=== PATIENT | male | born 1955 | race Caucasian/White ===

== ENCOUNTER 2024-02-19 09:26 | Emergency (ER) | payer MEDICARE, OTHER, SELFPAY ==
[2024-02-19 09:36] VITALS: BP 158/79; PULSE 58; TEMP 36.8; O2SAT 98; BMI 26.6
--- NOTE | 2024-02-19 09:50 | CT_ITS ---
[address] [address] Patient Name: MANPREET RAMOS MRN: [id number] date: 1955 Sex: M Assigned Patient Location: ER Current Patient Location: ED.MAIN Accession/Order Number: [id number] Exam Date: 02/19/2024 10:55 Report Date: 02/19/2024 11:42 At the request of: BIENVENIDO MILLS Procedure: CT abdomen pelvis w con EXAM: CT abdomen pelvis w con HISTORY: Left lower quadrant pain, rule out diverticulitis COMPARISON: None. TECHNIQUE: Dose reduction techniques were achieved by using automated exposure control and/or adjustment of mA and/or kV according to patient size and/or use of iterative reconstruction technique.CT abdomen and pelvis with contrast. FINDINGS: Mild posterior dependent atelectasis of the bilateral lower lobes. Mild patchy atelectasis of the lingula. Heart size is normal. Calcified granulomas of the liver and spleen. Left adrenal nodule measuring 1.7 cm, may represent an adrenal adenoma, definitive characterization by multiphase CT or MRI. Right adrenal gland is normal. Cyst of the left kidney upper pole measuring 1.2 cm. Punctate nonobstructive stones of the bilateral kidneys and the interpolar regions. No hydronephrosis. No hydroureter. No ureteral stones. No bladder stones. Sigmoid diverticulosis. There is inflammation of the proximal left sigmoid colon with surrounding fat stranding, consistent with acute sigmoid diverticulitis. No small bowel dilation. No adjacent mesenteric edema. Atherosclerotic calcification of the abdominal aorta. Mild degeneration of the bilateral hip joints. Mild degeneration of the symphysis pubis. Mild degeneration of the bilateral sacroiliac joints. Moderate to advanced degeneration at the L4-L5 disc space. Posterior disc osteophyte complex at L4-L5. Mild to moderate degeneration at the L4-L5 disc space. Posterior disc osteophyte complex at L5-S1. CT/CT abdomen pelvis w con IMPRESSION: 1. Acute sigmoid diverticulitis. There is fat stranding surrounding the proximal sigmoid colon. No evidence of perforation. No pericolonic abscess. 2. Other findings as described. Electronically authenticated by: AUGUST RUIZ Date: 02/19/2024 11:42
--- NOTE | 2024-02-19 09:50 | ED.ABDPAIN1 ---
HPI - Abdominal Pain General Chief Complaint: Abdominal Pain Stated Complaint: LOWER ABDOMINAL PAIN Time Seen by Provider: 02/19/24 09:42 Source: patient and family Mode of arrival: walk-in Limitations: no limitations History of Present Illness HPI narrative: 68-year-old male presents to the emergency department for abdominal pain. He has pain in the left lower quadrant for 2 days and it has been getting worse. It started off mild. No trauma fever or vomiting or constipation. He has never had diverticulitis. Related Data Previous Rx's ?Medication ?Instructions ?Recorded ciprofloxacin HCl 500 mg tablet 500 mg PO Q12H #20 tabs 02/19/24 (Cipro) hydrocodone 5 mg-acetaminophen 325 1 tab PO Q6H PRN pain 5 days #20 02/19/24 mg tablet tabs metronidazole 500 mg tablet 500 mg PO TID #30 tabs 02/19/24 ondansetron 4 mg disintegrating 4 mg PO Q6H PRN nausea and 02/19/24 tablet vomiting #20 tabs Allergies Allergy/AdvReac Type Severity Reaction Status Date / Time No Known Drug Allergies Allergy Verified 02/19/24 09:40 Review of Systems ROS Narrative A ten point review of systems is negative except as noted above. PFSH PFSH Social History Little interest or pleasure in doing things: not at all Feeling down, depressed, or hopeless: not at all Exam Narrative Exam Narrative: Nurses note and vital signs reviewed and patient is not hypoxic. General: The patient appears in no apparent distress. Skin: Warm, dry, no pallor noted. There is no rash noted. Head: Normocephalic, atraumatic Eye: Normal conjunctiva, no drainage Ears, Nose, Mouth, and Throat: oral mucosa is moist. Nares patent. Cardiovascular: Regular Rate and Rhythm Respiratory: Patient is in no distress, no accessory muscle use, lungs are clear to auscultation, no wheezing, rales or rhonchi Back: non-tender GI: Tenderness present in the left lower quadrant only without mass. Musculoskeletal: The patient has no evidence of calf tenderness, no pitting edema, symmetrical pulses noted bilaterally Neurological: A&O, normal speech Psychiatric: Cooperative Constitutional Vital Signs, click to edit/add: Last Vital Signs Temp 98.2 F 02/19/24 09:36 Pulse 58 L 02/19/24 09:36 Resp 16 02/19/24 09:36 BP 158/79 H 02/19/24 09:36 Pulse Ox 98 02/19/24 09:36 O2 Del Method Room Air 02/19/24 09:36 Course Vital Signs Vital signs: Vital Signs Temperature 98.2 F 02/19/24 09:36 Pulse Rate 58 L 02/19/24 09:36 Respiratory Rate 16 02/19/24 09:36 Blood Pressure 158/79 H 02/19/24 09:36 Pulse Oximetry 98 02/19/24 09:36 Oxygen Delivery Method Room Air 02/19/24 09:36 Temperature 98.2 F 02/19/24 09:36 Pulse Rate 58 L 02/19/24 09:36 Respiratory Rate 16 02/19/24 09:36 Blood Pressure 158/79 H 02/19/24 09:36 Pulse Oximetry 98 02/19/24 09:36 Oxygen Delivery Method Room Air 02/19/24 09:36 MDM - Abdominal Pain MDM Narrative Medical decision making narrative: Acute uncomplicated diverticulitis is identified on the CAT scan. He is given IV Cipro and Flagyl here and is discharged home on same. Treatment diagnosis and follow-up were discussed with the patient and his . Differential Diagnosis Differential diagnosis: Likely abdominal pain, calculus of kidney, constipation and diverticulitis Lab Data Attestation: I reviewed the patient's lab results. Labs: Lab Results 02/19/24 02/19/24 Range/Units 09:49 09:54 WBC 13.8 H (4.0-11.0) 10^3/uL RBC 4.83 (4.70-6.10) 10^6/uL Hgb 14.7 (14.0-18.0) g/dL Hct 43.3 (42.0-54.0) % MCV 89.6 (80.0-94.0) fL MCH 30.4 (25.9-34.0) pg MCHC 33.9 (29.9-35.2) g/dL RDW 12.2 (11.0-15.0) % Plt Count 203 (150-450) 10^3/uL MPV 11.2 (9.5-13.5) fL Neut % (Auto) 71.7 (43.0-75.0) % Lymph % (Auto) 18.3 L (20.5-60.0) % [place] % (Auto) 9.0 (1.7-12.0) % Eos % (Auto) 0.3 L (0.9-7.0) % Baso % (Auto) 0.4 (0.2-2.0) % Neut # (Auto) 9.9 H (1.4-6.5) 10^3/uL Lymph # (Auto) 2.5 (1.2-3.8) 10^3/uL [place] # (Auto) 1.2 H (0.3-0.8) 10^3/uL Eos # (Auto) 0.0 (0.0-0.7) 10^3/uL Baso # (Auto) 0.1 (0.0-0.1) 10^3/uL Abs Immat Gran (auto) 0.04 H (0.00-0.03) 10^3/uL Imm/Tot Granulo (auto) 0.3 (0.0-0.5) % Sodium 141 (136-145) mmol/L Potassium 4.3 (3.5-5.1) mmol/L Chloride 103 (98-107) mmol/L Carbon Dioxide 26.2 (21.0-32.0) mmol/L Anion Gap 16.1 BUN 20.0 H (7.0-18.0) mg/dL Creatinine 1.45 H (0.70-1.30) mg/dL Est GFR ( Amer) 59 L (>=60 mL/min/1.73m^2) Est GFR (Non-Af Amer) 49 L (>=60 mL/min/1.73m^2) BUN/Creatinine Ratio 13.8 Glucose 118 H (74-106) mg/dL Calcium 9.0 (8.5-10.1) mg/dL Urine Color Lt. yellow (YELLOW) Urine Clarity Clear (CLEAR) Urine pH 5.5 (5.0-9.0) Ur Specific [place] 1.025 (1.005-1.025) Urine Protein Negative (NEG/TRACE) mg/dL Urine Glucose (UA) Negative (NEGATIVE) mg/dL Urine Ketones Negative (NEGATIVE) mg/dL Urine Occult Blood Negative (NEGATIVE) Urine Nitrite Negative (NEGATIVE) Urine Bilirubin Negative (NEGATIVE) Urine Urobilinogen 0.2 (0.2-1.0) EU/dL Ur Leukocyte Esterase Negative (NEGATIVE) Urine RBC 0-2 (0-2) #/HPF Urine WBC None seen (NONE SEEN) #/HPF Ur Squamous Epith Cells None seen (NONE/RARE) #/LPF Urine Crystals None seen (None Seen) #/HPF Urine Bacteria Trace A (NONE SEEN) #/HPF Urine Casts None seen (NONE SEEN) #/LPF Urine Mucus None seen (NONE SEEN) Imaging Data CT scan - abdomen: Radiologist's impression: ITS Impressions Abdomen/Pelvis CT 02/19/24 09:50 IMPRESSION: 1. Acute sigmoid diverticulitis. There is fat stranding surrounding the proximal sigmoid colon. No evidence of perforation. No pericolonic abscess. 2. Other findings as described. Electronically authenticated by: AUGUST RUIZ Date: 02/19/2024 11:36 Discharge Plan Discharge Chief Complaint: Abdominal Pain Clinical Impression: Diverticulitis Patient Disposition: Home, Self-Care Time of Disposition Decision: 11:38 Condition: Good Mode of Transportation: Private Vehicle Prescriptions / Home Meds: New hydrocodone-acetaminophen 5-325 mg tablet 1 tab PO Q6H PRN (Reason: pain) 5 Days Qty: 20 0RF metronidazole 500 mg tablet 500 mg PO TID Qty: 30 0RF ciprofloxacin HCl [Cipro] 500 mg tablet 500 mg PO Q12H Qty: 20 0RF ondansetron 4 mg tablet,disintegrating 4 mg PO Q6H PRN (Reason: nausea and vomiting) Qty: 20 0RF Print Language: Macedonian Instructions: Diverticulitis (ED), Diverticulitis Diet (ED) Referrals: JUAN CARLOS BATRES [Primary Care Provider] - 1 week
[2024-02-19 10:06] LABS: Bilirubin Urine NEGATIVE (NEGATIVE); Blood Urine NEGATIVE (NEGATIVE); Clarity Urine CLEAR (CLEAR); Color Urine LT. YELLOW (YELLOW); Glucose Urine UA NEGATIVE (NEGATIVE); Ketones Urine NEGATIVE (NEGATIVE); Leukocyte Esterase Urine NEGATIVE (NEGATIVE); Nitrite Urine NEGATIVE (NEGATIVE); Protein Urine NEGATIVE (NEG/TRACE); Specific Gravity Urine 1.025 (1.005-1.025); Urobilinogen Urine 0.2 EU/dL (0.2-1.0); pH Urine 5.5 (5.0-9.0)
[2024-02-19 10:14] LABS: Basophils Absolute Auto 0.1 10^3/uL (0.0-0.1); Basophils Percent Auto 0.4 % (0.2-2.0); Eosinophils Percent Auto 0.3 % (0.9-7.0); Hematocrit 43.3 % (42.0-54.0); Hemoglobin 14.7 g/dL (14.0-18.0); Immature Granulocytes Abs Auto 0.04 10^3/uL (0.00-0.03); Immature Granulocytes Pct Auto 0.3 % (0.0-0.5); Lymphocytes Absolute Auto 2.5 10^3/uL (1.2-3.8); Lymphocytes Percent Auto 18.3 % (20.5-60.0); Mean Corpuscular HGB Conc 33.9 g/dL (29.9-35.2); Mean Corpuscular Hemoglobin 30.4 pg (25.9-34.0); Mean Corpuscular Volume 89.6 fL (80.0-94.0); Mean Platelet Volume 11.2 fL (9.5-13.5); Monocytes Absolute Auto 1.2 10^3/uL (0.3-0.8); Neutrophils Absolute Auto 9.9 10^3/uL (1.4-6.5); Neutrophils Percent Auto 71.7 % (43.0-75.0); Platelet Count 203 10^3/uL (150-450); Red Blood Count 4.83 10^6/uL (4.70-6.10); Red Cell Distribution Width 12.2 % (11.0-15.0); White Blood Count 13.8 10^3/uL (4.0-11.0)
[2024-02-19 10:16] LABS: Bacteria Urine TRACE #/HPF (NONE SEEN); Cast Seen? NONE SEEN #/LPF (NONE SEEN); Crystals Seen? None Seen #/HPF (None Seen); Mucus Urine NONE SEEN (NONE SEEN); RBC Urine 0-2 #/HPF (0-2); Squamous Epithelial Cell Urine NONE SEEN #/LPF (NONE/RARE); WBC Urine NONE SEEN #/HPF (NONE SEEN)
[2024-02-19 10:22] LABS: Anion Gap 16.1; BUN Creatinine Ratio 13.8; Carbon Dioxide 26.2 mmol/L (21.0-32.0); Chloride 103 mmol/L (98-107); Estimated GFR (African America 59 (>=60 mL/min/1.73m^2); Estimated GFR (Non-African Ame 49 (>=60 mL/min/1.73m^2); Glucose 118 mg/dL (74-106); Potassium 4.3 mmol/L (3.5-5.1); Sodium 141 mmol/L (136-145)
[2024-02-19] MEDS: CIPROFLOXACIN IN 5 % DEXTROSE 400 MG/200 ML PREMIX 200 MG IV (11:43)
[2024-02-19] MEDS: MORPHINE SULFATE 4 MG/ML VIAL IV (12:06)
[2024-02-19] MEDS: METRONIDAZOLE/SODIUM CHLORIDE 500 MG/100 ML PREMIX 100 MG IV (13:04)
== END 2024-02-19 14:11 | disposition home or self-care (01) ==
PROVIDERS: Emergency Provider Emergency Medicine; PCP Family Medicine
DX: K57.32 Diverticulitis of large intestine without perforation or abscess without bleeding (principal)
CPT/HCPCS: 36415; 74177; 80048; 81001; 85025; 96365; 96367; 96375; 99284; J0744; J1836; J2270; Q9966

== ENCOUNTER 2025-01-19 13:28 | Emergency (ER) | payer MEDICARE, OTHER, SELFPAY ==
--- OUTSIDE RECORDS SUMMARY | 2025-01-19 13:42 | XMS_ITS | CCD ---
Author Organization [facility] Care Team Providers Care 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 Name Role Phone GISEL, DR RANGEL Attending Unavailable GISEL, DR RANGEL Consulting Unavailable GISEL, DR RANGEL Primary Care Unavailable GISEL, DR RANGEL Admitting Unavailable Michael Tobra Unavailable MD Nohemy Batres Primary Care Provider [phone] DO Odette Alexis Jr Attending Provider Nohemy Batres Primary Care Unavailable Odette Alexis Jr Attending Unavailable Odette Alexis Jr Admitting Unavailable Odette Alexis Jr Attending Unavailable Odette Alexis Jr Admitting Unavailable Nohemy Batres Primary Care Unavailable Nohemy [place] MD Primary Care Prov ider ODETTE ALEXIS JR. Referring Unavailable NOHEMY BEACH Primary Care Unav ailable PAPI SABA Attending Unavailable PAPI SABA Admitting Unavailable PAPI SABA Attending Unavailable NOHEMY BEACH Primary Care Unav ailable JAYANT, PAPI Referring Unavailable FOSTER, PAPI Referring Unavailable NUNO-GISEL, NOHEMY Primary Care Unav ailable FOSTER, PAPI Attending Unavailable JAYANT, PAPI Referring Unavailable JAYANT, PAPI Attending Unavailable GOGO, NOHEMY Primary Care Unav ailable FOSTER, PAPI Referring Unavailable JAYANT, PAPI Attending Unavailable GOGO, NOHEMY Primary Care Unav ailable GOGO, NOHEMY Primary Care Unav ailable MICHAEL MELTON Attending Unavailable PAPI SABA Referring Unavailable Nohemy Batres MD Primary Care Provider Nohemy Batres MD Unavailable Nohemy Batres MD Primary Care Provider [phone] JN SANCHEZ Attending Unavailable NOHEMY BATRES Referring Unavailable NOHEMY BATRES Primary Care Unavailable EVELIN HOWARD Attending Unavailable NOHEMY BATRES Attending Unavailable NOHEMY BATRES Attending Unavailable NOHEMY BATRES Referring Unavailable EVELIN HOWARD Attending Unavailable EVELIN HOWARD Attending Unavailable Medications Current Medications Medication Drug Class(es) Dates Sig (Normalized) Sig (Original) acetaminophen 500 mg oral tablet (20 sources) take 1 tablet by mouth every six hours as needed acetaminophen (Tylenol) 500 MG tablet Take 500 mg by mouth every 6 (six) hours if needed Active acetaminophen 325 mg / HYDROcodone bitartrate 5 mg oral tablet (20 sources) Opioid Agonist Start: 02-19-2024 HYDROcodone-acetami nophen ([place]) 5-325 MG tablet 02/19/2024 Active Start: 02-19-2024 take 1 tablet by kaitlynn th every six hours as needed for pain HYDROcodone-acetaminophen ([place]) 5-325 MG tablet TAKE 1 TABLET BY MOUTH EVERY 6 HOURS NEEDED FOR PAIN FOR 5 DAYS 02/19/2024 Active apremilast 30 mg oral tablet (11 sources) Start: 08-17-2024 take 1 tablet by mouth in the morning Otezla 30 MG tablet Indications: Psoriasis vulgaris Take 1 tablet (30 mg) by mouth in the morning and 1 tablet (30 mg) before bedtime. Do not crush, chew, or split tablets. 60 tablet 11 08/17/2024 Active aspirin 81 mg delayed release oral tablet (20 sources) Platelet Aggregation Inhibitor, Nonsteroidal Anti-inflammatory Drug Start: 08-05-2022 End: 09-11-2024 take 1 tablet by mouth in the morning, then take 1 tablet by mouth at bedtime aspirin (ECOTRIN LOW STRENGTH) 81 mg Indications: Coronary artery disease involving coronary bypass graft of [place] heart without angina pectoris Take 1 tablet (81 mg total) by mouth in the morning and 1 tablet (81 mg total) before bedtime. 09/11/2024 Active take 1 tablet by kaitlynn th every twenty-four hours Aspirin 81 MG 1 tablet Orally Once a day Active atorvastatin 80 mg oral tablet (20 sources) HMG-CoA Reductase Inhibitor Start: 10-22-2022 End: 10-26-2024 take 1 tablet by mouth once daily atorvastatin (Lipitor) 80 MG tablet Indications: Coronary artery disease involving [place] coronary artery of [place] heart without angina pectoris TAKE 1 TABLET (80 MG) BY MOUTH 1 (ONE) TIME EACH DAY AT THE SAME TIME 90 tablet 1 04/29/2024 Active take 1 tablet by mouth in the mo rning Atorvastatin Calcium 80 MG TAKE 1 TABLET (80 MG TOTAL) BY MOUTH IN THE MORNING Oral for 90 Days Active azelastine hydrochloride 0.137 mg/actuat metered dose nasal spray (11 sources) Histamine-1 Receptor Antagonist Start: 08-31-2024 End: 08-31-2025 take 1 spray(s) nasal route in the morning azelastine (Astelin) 0.1 % nasal spray Indications: Other rhinitis Administer 1 spray into each nostril in the morning and 1 spray before bedtime. Use in each nostril as directed. 30 mL 12 08/31/2024 08/31/2025 Active Start: 08-31-2024 End: 08-31-2025 take 1 spray(s) nasal route in the morning, then take 1 spray(s) nasal route at bedtime, then take 1 spray(s) nasal route in the morning, then take 1 spray(s) nasal route at bedtime azelastine (ASTELIN) 137 mcg (0.1 %) nasal spray Administer 1 spray into each nostril in the morning and 1 spray before bedtime. ADMINISTER 1 SPRAY INTO EACH NOSTRIL IN THE MORNING AND 1 SPRAY BEFORE BEDTIME USE IN EACH NOSTRIL DIRECTED. 08/31/2024 08/31/2025 Active ciprofloxacin 500 mg oral tablet (20 sources) Quinolone Antimicrobial Start: 02-19-2024 take 1 tablet by mouth every twelve hours ciprofloxacin (Cipro) 500 MG tablet Take 500 mg by mouth every 12 (twelve) hours 02/19/2024 Active clobetasol propionate 0.5 mg/ml medicated shampoo (20 sources) Corticosteroid Start: 07-08-2023 Clobetasol Propionate 0.05 % shampoo Indications: Psoriasis vulgaris Apply to scalp, leave on 5 min, rinse. 2-3 x week, 30 day supply 118 mL 11 07/08/2023 Active ezetimibe 10 mg oral tablet (9 sources) Dietary Cholesterol Absorption Inhibitor Start: 09-11-2024 take 1 tablet by mouth in the morning ezetimibe (Zetia) 10 MG tablet Take 10 mg by mouth in the morning. 09/11/2024 Active gabapentin 300 mg oral capsule (20 sources) Anti-epileptic Agent Start: 01-16-2025 take 1 capsule by mouth once daily gabapentin (Neurontin) 300 MG capsule Indications: Type 2 diabetes mellitus with diabetic polyneuropathy (HCC) TAKE 1 CAPSULE BY MOUTH EVERY DAY 90 capsule 01/16/2025 Active Start: 10-18-2023 End: 01-16-2025 take 1 capsule by mouth once daily gabapentin (Neurontin) 300 MG capsule Indications: Type 2 diabetes mellitus with diabetic polyneuropathy (HCC) TAKE 1 CAPSULE BY MOUTH EVERY DAY 90 capsule 10/15/2024 01/16/2025 Discontinued Start: 05-05-2022 End: 09-10-2023 take 1 capsule by mouth once daily in the evening Gabapentin 300 MG capsule Take 1 capsule by mouth daily. pm 0 10/26/2022 Active Start: 02-01-2019 End: 11-02-2022 take 100 mg by mouth once daily at bedtime Gabapentin Discontinued 100 MG PO Daily at bedtime February 01, 2019 12:00am November 02, 2022 11:59am hydrocortisone 25 mg/ml topical cream (20 sources) Corticosteroid Start: 07-08-2023 hydrocortisone 2.5 % cream Indications: Psoriasis vulgaris Apply thin layer to face and behind ears affected areas bid prn for flares 60 g 11 07/08/2023 Active Insulin Aspart U-100 (Novolog Flexpen U-100 Insulin) 100 unit/mL (3 mL) Insulin Pen (3 sources) Start: 02-01-2019 Insulin Aspart U-100 (Novolog Flexpen U-100 Insulin) 100 unit/mL (3 mL) Insulin Pen Active 11 UNIT SUBCUT Daily with breakfast February 01, 2019 12:00am Start: 02-01-2019 inject 8 [IU] by sub cutaneous injection once daily before lunch Insulin Aspart U-100 (Novolog Flexpen U-100 Insulin) 100 unit/mL (3 mL) Insulin Pen Active 8 UNIT SUBCUT Daily before lunch February 01, 2019 12:00am Start: 02-01-2019 Insulin Aspart U-100 (Novolog Flexpen U-100 Insulin) 100 unit/mL (3 mL) Insulin Pen Active 11 UNIT SUBCUT Daily before supper February 01, 2019 12:00am 3 ml insulin aspart, human 100 unt/ml pen injector (20 sources) Insulin Analog Start: 07-03-2024 insulin aspart FlexPen (NovoLOG) 100 UNIT/ML pen Indications: Type 2 diabetes mellitus with other circulatory complications (HCC) Inject 8 Units as directed in the morning and 8 Units in the evening and 8 Units before bedtime. Inject 8 units at breakfast, 8 units at lunch and 11 units with dinner. 30 mL 1 07/03/2024 Active Start: 06-09-2024 insulin aspart (NovoLOG FLEXPEN) 100 UNIT/ML pen Indications: Type 2 diabetes mellitus with other circulatory complications (CMS/HCC) Inject 8 units at breakfast, 8 units at lunch, 11 units with dinner . 27 units total a day 30 mL 1 06/09/2024 Active Start: 03-14-2019 End: 06-09-2024 NOVOLOG FLEXPEN U-100 INSULI N 100 unit/mL (3 mL) insulin pen 11 Units in the morning and 11 Units at noon and 11 Units in the evening. Take with meals. 11 units in the AM 8 UNITS AT LUNCH AND 11 UNITS AT DINNER. 03/14/2019 Active NovoLOG FlexPen 100 UNIT/ML INJECT 11 UNITS AT BREAKFAST, 8 UNITS AT LUNCH, 11 UNITS WITH DINNER AND 2-3 UNITS WITH SNACKS Subcutaneous for 90 Days Active 3 ml insulin degludec 100 unt/ml pen injector (20 sources) Insulin Analog Start: 06-22-2024 End: 06-22-2025 Insulin Degludec FlexTouch 100 UNIT/ML solution pen-injector Indications: Diabetic polyneuropathy associated with type 2 diabetes mellitus (HCC) Inject 32 Units under the skin Daily 30 mL 1 06/24/2024 Active Start: 06-09-2024 insulin deglud ec (Tresiba FlexTouch) 100 UNIT/ML injection Indications: Controlled type 2 diabetes mellitus without complication, with long-term current use of insulin (CMS/HCC) Inject 32 Units under the skin Daily 30 mL 1 06/09/2024 Active Start: 12-19-2023 End: 12-18-2024 insulin degludec (Tresiba FlexTouch) 100 UNIT/ML injection Indications: Controlled type 2 diabetes mellitus without complication, with long-term current use of insulin (CMS/HCC) Inject 34 Units under the skin Daily 30.6 mL 3 12/19/2023 06/09/2024 Discontinued (Reorder) Start: 03-18-2023 End: 12-19-2023 insulin degludec (Tresiba FlexTouch) 100 UNIT/ML injection Indications: Controlled type 2 diabetes mellitus without complication, with long-term current use of insulin (CMS/HCC) Inject 30 Units under the skin in the morning. 27 mL 1 03/18/2023 12/19/2023 Discontinued Start: 03-02-2019 inject 29 [IU] by sims bcutaneous injection once daily TRESIBA FLEXTOUCH U-100 100 unit/mL (3 mL) insulin pen Inject 29 Units under the skin nightly. 0 03/02/2019 Active Insulin Degludec (Tresiba FlexTouch) 100 UNIT/ML Solution Pen-injector injection Inject 34 Units under the skin at bedtime. 0 Active Tresiba FlexTouc h 100 UNIT/ML Subcutaneous for 90 Days Active Insulin Degludec (Tresiba Flextouch U-100) 100 unit/mL (3 mL) Insulin Pen (1 source) Start: 02-01-2019 Insulin Deglud ec (Tresiba Flextouch U-100) 100 unit/mL (3 mL) Insulin Pen Active 29 UNIT SUBCUT Daily at bedtime February 01, 2019 12:00am lisinopril 2.5 mg oral tablet (20 sources) Angiotensin Converting Enzyme Inhibitor Start: 10-30-2022 End: 09-11-2024 take 1 tablet by mouth once daily lisinopril 2.5 MG tablet Indications: Primary hypertension TAKE 1 TABLET BY MOUTH EVERY DAY 90 tablet 1 09/05/2024 Active 24 hr metoprolol succinate 50 mg extended release oral tablet (20 sources) beta-Adrenergic Digna Start: 11-02-2022 take 50 mg by mouth twice daily Metoprolol Succinate Active 50 MG PO Twice daily November 02, 2022 12:00am Start: 08-18-2021 End: 09-11-2024 take 1 tablet by mouth every twenty-four hours at bedtime metoprolol succinate XL (Toprol-XL) 50 MG 24 hr tablet Indications: Essential hypertension TAKE 1 TABLET (50 MG) BY MOUTH IN THE MORNING AND BEFORE BEDTIME 180 tablet 1 07/27/2024 Active take 1 tablet by kaitlynn th every twenty-four hours Metoprolol Succinate ER 50 MG 1 tablet Orally Once a day Active metroNIDAZOLE 500 mg oral tablet (14 sources) Nitroimidazole Antimicrobial Start: 02-19-2024 take 1 tablet by mouth in the morning, then take 1 tablet by mouth in the evening, then take 1 tablet by mouth at bedtime metroNIDAZOLE (Flagyl) 500 MG tablet Take 500 mg by mouth in the morning and 500 mg in the evening and 500 mg before bedtime. 02/19/2024 Active Multiple Vitamin (multivitamin) tablet (3 sources) take 1 tablet by mouth once daily Multiple Vitamin (multivitamin) tablet Take 1 tablet by mouth daily. 0 Active Multiple Vitamin (THERAPEUTIC MULTIVITAMIN PO) (20 sources) Multiple Vitamin (THERAPEUTIC MULTIVITAMIN PO) 1 (one) time each day at the same time Active Multiple Vitamin (THERAPEUTIC MULTIVITAMIN PO) 1 (one) time each day at the same time. Active nyndhzpo-jzhn-AY-calcium &mi ns (THERAGRAN-M) 9 mg iron-400 mcg tablet (4 sources) bovtnphs-igbn-LN -calcium &mins (THERAGRAN-M) 9 mg iron-400 mcg tablet Take 1 tablet by mouth in the morning. Active Multivitamin preparation (2 sources) Start: 023 take 1 tablet by mouth once daily Multivitamin Active 1 TAB PO Daily November 02, 2022 12:00am take 1 tablet by mouth once lois y Multi Vitamin - 1 tablet Orally Once a day Active nitroglycerin 0.4 mg sublingual tablet (5 sources) Nitrate Vasodilator nitroglyceri n (NITROSTAT) 0.[address] 1 tablet (0.4 mg total) under the tongue every 5 (five) minutes as needed for chest pain. Active ondansetron 4 mg disintegrating oral tablet (20 sources) Serotonin-3 Receptor Antagonist Start: 02-19-2024 ondansetron ODT (Zofran-ODT) 4 MG disintegrating tablet 02/19/2024 Active Qunol Ultra CoQ10 100-150 MG-UNIT (1 source) Qunol Ultra CoQ1 0 100-150 MG-UNIT as directed Orally Active ubidecarenone 200 mg oral capsule (3 sources) Coenzyme Q10 (Co Q-10) 200 MG capsule Take by mouth daily. 0 Active Coenzyme Q10 (Co Q-10) 200 MG capsule Take by mouth. 0 Active ubidecarenone 100 mg / vitamin e 5 unt oral capsule (20 sources) coenzyme Q-10 10 0 MG capsule 200 mg Active ubiquinol 200 mg oral capsule (6 sources) Start: 11-02-2022 take 200 mg by mouth once daily Coq10 (Ubiquinol) Active 200 MG PO Daily November 02, 2022 12:00am take 100 mg by mouth in the morn ing COQ10, UBIQUINOL, ORAL Take 100 mg by mouth in the morning. Active Completed/Discontinued Medications Medication Drug Class(es) Dates Sig (Normalized) Sig (Original) acetaminophen 325 mg / oxyCODONE hydrochloride 5 mg oral tablet (7 sources) Opioid Agonist Start: 08-03-2022 End: 02-24-2024 take 1 tablet by mouth every six hours as needed oxyCODONE-acetamino phen (Percocet) 5-325 MG tablet TAKE 1 TABLET BY MOUTH EVERY 6 HOURS NEEDED FOR 7 DAYS 08/03/2022 02/24/2024 Discontinued (Therapy completed) Start: 08-03-2022 oxyCODONE-acet aminophen 5-325 MG per tablet as needed. 0 08/03/2022 Active 0.8 ml adalimumab 50 mg/ml prefilled syringe (1 source) Tumor Necrosis Factor Digna Start: 02-01-2019 End: 11-02-2022 inject 40 mg by subcutaneous injection every other week Adalimumab (Humira) 40 mg/0.8 mL Syringe Kit Discontinued 40 MG SUBCUT Q14D February 01, 2019 12:00am November 02, 2022 12:04pm ferrous sulfate 325 mg oral tablet (5 sources) Start: 08-05-2022 End: 09-10-2023 take 1 tablet by mouth in the morning, then take 1 tablet by mouth at mealtime ferrous sulfate 325 (65 FE) mg tablet Take 1 tablet (325 mg total) by mouth in the morning and 1 tablet (325 mg total) in the evening. Take with meals. 60 tablet 08/05/2022 09/10/2023 Discontinued (Therapy completed) End: 02-24-2024 take 1 tablet by mouth in the morning Ferrous Sulfate (IRON PO) Take 1 tablet by mouth in the morning. 02/24/2024 Discontinued (Therapy completed) rosuvastatin calcium 5 mg oral tablet (1 source) HMG-CoA Reductase Inhibitor Start: 02-01-2019 End: 11-02-2022 take 5 mg by mouth once daily in the morning Rosuvastatin Discontinued 5 MG PO Every morning February 01, 2019 12:00am November 02, 2022 12:01pm Problems Active Problems Problem Classification Problem Date Documented Da te Episodic/Chronic Acute myocardial infarction (20 sources) Myocardial infarction; Translations: [Acute myocardial infarction, unspecified] Onset: 9 Resolved: 4 09-15-2022 Chronic Complication of device; implant or graft (20 sources) Arteriosclerosis of coronary artery bypass graft; Translations: [Atherosclerosis of coronary artery bypass graft(s) without angina pectoris] Onset: 9 Resolved: 1 09-15-2022 Chronic Complication of device; implant or graft (5 sources) Joint pain; Translations: [Pain due to internal orthopedic prosthetic devices, implants and grafts, sequela] Onset: 3 12-29-2022 Episodic Congestive heart failure; nonhypertensive (20 sources) Acute on chronic systolic heart failure; Translations: [Acute on chronic systolic (congestive) heart failure] Onset: 9 Resolved: 4 02-24-2024 Chronic Coronary atherosclerosis and other heart disease (20 sources) Coronary arteriosclerosis; Translations: [Atherosclerotic heart disease of [place] coronary artery without angina pectoris] Onset: 9 Chronic Diabetes mellitus with complications (20 sources) Other specified diabetes mellitus with diabetic mononeuropathy; Translations: [Polyneuropathy due to type 2 diabetes mellitus] Onset: 9 Chronic Diabetes mellitus without complication (20 sources) Type 2 diabetes mellitus; Translations: [Type 2 diabetes mellitus without complications] Onset: 9 02-02-2019 Chronic Disorders of lipid metabolism (20 sources) Hyperlipidemia; Translations: [Hyperlipidemia, unspecified] Onset: 9 02-02-2019 Chronic Diverticulosis and diverticulitis (2 sources) Diverticulitis of intestine; Translations: [Diverticulitis of intestine, part unspecified, without perforation or abscess without bleeding] 02-24-2024 Chronic Essential hypertension (20 sources) Essential hypertension; Translations: [Essential (primary) hypertension] Onset: 1 09-15-2022 Chronic Neoplasms of unspecified nature or uncertain behavior (2 sources) Neoplastic disease; Translations: [Neoplasm of unspecified behavior of bone, soft tissue, and skin] 08-03-2024 Episodic Osteoarthritis (20 sources) Arthritis of right knee; Translations: [Unilateral primary osteoarthritis, right knee] Onset: 3 09-15-2022 Chronic Other aftercare (2 sources) Removal of sutures done; Translations: [Encounter for removal of sutures] 10-10-2024 Episodic Other connective tissue disease (20 sources) Artificial knee joint present; Translations: [Presence of right artificial knee joint] Onset: 3 08-26-2022 Chronic Other connective tissue disease (20 sources) History of right total knee replacement; Translations: [Presence of right artificial knee joint] Onset: 3 09-15-2022 Chronic Other connective tissue disease (5 sources) History of total knee arthroplasty; Translations: [Presence of right artificial knee joint] Onset: 3 08-04-2022 Chronic Other endocrine disorders (20 sources) Male hypogonadism; Translations: [Testicular hypofunction] Onset: 6 09-15-2022 Chronic Other endocrine disorders (2 sources) Adrenal mass; Translations: [Disorder of adrenal gland, unspecified] 02-24-2024 Chronic Other gastrointestinal disorders (2 sources) Adrenal mass 02-29-2024 Episodic Other inflammatory condition of skin (20 sources) Psoriasis vulgaris; Translations: [Psoriasis vulgaris] Onset: 1 09-15-2022 Chronic Other inflammatory condition of skin (20 sources) Psoriasis; Translations: [Psoriasis, unspecified] Onset: 9 09-15-2022 Chronic Other inflammatory condition of skin (20 sources) Psoriatic arthritis; Translations: [Arthropathic psoriasis, unspecified] Onset: 8 09-15-2022 Chronic Other male genital disorders (20 sources) Secondary erectile dysfunction; Translations: [Erectile dysfunction due to diseases classified elsewhere] Onset: 3 09-15-2022 Chronic Other male genital disorders (20 sources) Male erectile dysfunction, unspecified; Translations: [Impotence of organic origin] Onset: 3 09-15-2022 Chronic Other nervous system disorders (20 sources) Neuropathy; Translations: [Polyneuropathy, unspecified] Onset: 3 09-15-2022 Chronic Other screening for suspected conditions (not mental disorders or infectious disease) (8 sources) Blood chemistry abnormal; Translations: [Abnormal finding of blood chemistry, unspecified] Onset: 3 03-16-2023 Episodic Other skin disorders (2 sources) Actinic keratosis; Translations: [Actinic keratosis] 08-03-2024 Episodic Spondylosis; intervertebral disc disorders; other back problems (20 sources) Lumbar spondylosis; Translations: [Spondylosis without myelopathy or radiculopathy, lumbar region] Onset: 3 Chronic Superficial injury; contusion (2 sources) Tick bite; Translations: [Insect bite (nonvenomous) of left upper arm, initial encounter] 08-03-2024 Episodic Unclassified (3 sources) CONTACT W/AND (SUSP) EXPOS COVID-19; Translations: [CONTACT W/AND (SUSP) EXPOS COVID-19] Onset: 1 Unclassified (1 source) Ankylosis, right knee; Translations: [Ankylosis, right knee] Onset: 3 Unclassified (1 source) Encounter for preprocedural laboratory examination; Translations: [Encounter for preprocedural laboratory examination] Onset: 3 Past or Other Problems Problem Classification Problem Date Documented Da te Episodic/Chronic Acute and unspecified renal failure (20 sources) Acute renal failure syndrome; Translations: [Acute kidney failure, unspecified] Onset: 02-14-2019 09-15-2022 Episodic Administrative/social admission (20 sources) Discharge status; Translations: [Other problems related to medical facilities and other health care] Onset: 02-15-2019 09-15-2022 Episodic Complications of surgical procedures or medical care (20 sources) Postoperative hypertension; Translations: [Postprocedural hypertension] Onset: 02-15-2019 09-15-2022 Episodic Mood disorders (20 sources) Mood disorders Onset: 02-24-2024 02-24-2024 Nutritional deficiencies (20 sources) Deficiency of macronutrients; Translations: [Mild protein-calorie malnutrition] Onset: 02-16-2019 Resolved: 02-11-2023 02-11-2023 Chronic Other gastrointestinal disorders (20 sources) Dysphagia; Translations: [Dysphagia, unspecified] Onset: 02-13-2019 02-02-2019 Episodic Other non-epithelial cancer of skin (20 sources) Basal cell carcinoma of ear; Translations: [Basal cell carcinoma of skin of right ear and external auricular canal] Onset: 12-07-2019 09-15-2022 Episodic Other non-traumatic joint disorders (20 sources) Pain in right knee; Translations: [Pain in joint, lower leg] Onset: 08-26-2022 08-26-2022 Episodic Other non-traumatic joint disorders (20 sources) Stiffness of right knee; Translations: [Stiffness of right knee, not elsewhere classified] Onset: 08-26-2022 08-26-2022 Episodic Pleurisy; pneumothorax; pulmonary collapse (20 sources) Atelectasis; Translations: [Atelectasis] Onset: 02-13-2019 09-15-2022 Episodic Residual codes; unclassified (20 sources) Insomnia; Translations: [Insomnia, unspecified] Onset: 09-15-2022 09-15-2022 Episodic Unclassified (1 source) CONTACT W/AND (SUSP) EXPOS COVID-19; Translations: [CONTACT W/AND (SUSP) EXPOS COVID-19] Onset: 01-08-2021 Results Test Name Value Interpretation Reference Range Facility No Panel Informationon 09-27 Complexity: Intermediate Final length (cm): 4 Reason for type of repair: allow closure of the large defect Undermining: edges undermined Undermining comment: The surrounding tissue was undermined until the skin edges could be approximated without undue tension. Any tissue redundancies were removed. Subcutaneous layers (deep stitches): Suture size: 3-0 Suture type comment: Biosyn Stitches: Buried horizontal mattress (Closure was performed in a layered fashion with subcutaneous tissue closed first using tension-bearing absorbable sutures to the level of the superficial fascia.) Fine/surface layer approximation (top stitches): Suture size: 4-0 Suture type: Prolene (polypropylene) Stitches: simple running Stitches comment: Epicuticular skin sutures were then placed with minimal tension. Suture removal (days): 14 Hemostasis achieved with: suture and electrodesiccation Outcome: patient tolerated procedure well with no complications Post-procedure details: sterile dressing applied and wound care instructions given Post-procedure details comment: It was emphasized to the patient to contact the office for any signs of infection, uncontrollable bleeding, or complications. Dressing type: bandage Count includes the [facility] Lesion length (cm): 0.8 Lesion width (cm): 0.5 Margin per side (cm): 0.4 Total excision diameter (cm): 1.6 Informed consent: discussed and consent obtained Informed consent comment: Risks and possible complications were discussed as noted on the consent form. The consent form was signed prior to the procedure. Timeout: patient name, date of , surgical site, and procedure verified Timeout comment: Patient and provider identified site. Site was marked and excision was drawn out. Photo was taken and shown to patient, patient verified this is the correct site. Procedure prep: Patient was prepped and draped in usual sterile fashion (The planned incision lines were drawn along relaxed skin tension lines, if possible, to minimize scarring and deformity of surrounding structures.) Prep type: Chlorhexidine Anesthesia: the lesion was anesthetized in a standard fashion Anesthesia comment: The local anesthetic was injected to create a field block at the site of the procedure. Anesthetic: 1% lidocaine w/ epinephrine 1-100,000 buffered w/ 8.4% NaHCO3 Instrument used: #15 blade Instrument used comment: Incisions were made as drawn, and the surrounding tissue was undermined until the skin edges could be approximated without undue tension. Any tissue redundancies were removed. Hemostasis achieved with: suture and electrodesiccation Additional details: Amount of lidocaine used: 8.0 ml Estimated blood loss: 1.0 ml [facility] No Panel InformationOrdered By: Idalmis Louis on 09-27-2024 [facility] POCT EKGon 09-11-2024 [facility] No Panel Informationon 08-03 Type of biopsy: tangential Informed consent: discussed and consent obtained Informed consent comment: The risks and benefits of the biopsy were discussed. Risks include but are not limited to bleeding, infection, scarring, pain, and nerve damage. An opportunity to ask questions prior to the procedure was permitted and all questions were answered. Patient was prepped and draped in usual sterile fashion: area cleansed with alcohol. Anesthesia: the lesion was anesthetized in a standard fashion Anesthetic: 1% lidocaine w/ epinephrine 1-100,000 buffered w/ 8.4% NaHCO3 Instrument used: DermaBlade Hemostasis achieved with: electrodesiccation Outcome: patient tolerated procedure well Outcome comment: The specimen was placed in a prelabeled formalin container to be sent for pathology Post-procedure details: sterile dressing applied and wound care instructions given Post-procedure details comment: Emphasized need to contact clinic for any signs of infection, uncontrollable bleeding, or complications. Dressing type: bandage Additional details: Photo taken Amount of lidocaine used: [address] [place] [address] ABDOMEN PELVIS W AND WO I V CONTRASTon 03-06-2024 CT ABDOMEN PELVIS W AND WO IV CONTRAST CT ABDOMEN PELVIS W AND WO IV CONTRAST Reason for exam: Adrenal nodule Technical: Spiral images through the abdomen and pelvis were obtained. Contrast: 100 cc Isovue-300 IV Findings: Lower chest: Unremarkable Liver: Unremarkable. Spleen: Unremarkable. Normal in size. Gallbladder: Contracted. Pancreas: Unremarkable. Adrenals: A left adrenal nodule is again noted, measuring 1.6 x 1.6 cm. It measures 6.43 HU precontrast, 55.03 HU early phase postcontrast and 15.95 delayed phase postcontrast. The absolute washout is calculated at 80.4%, and the relative washout is 71.0%. Kidneys/urinary system: Unremarkable. Aorta: Normal. Retroperitoneum: Clear. No adenopathy identified. Bowel: No dilatation, fold or wall thickening is appreciated. Mesentery/Peritoneum: Clear. Abdominal wall: Negative for hernia. Appendix: Not identified. Bladder: A 2 mm calculus lies dependently within the lumen. Prostate/pelvic sidewalls: Normal. Bone structures: Intact. Impression: CT abdomen: Washout characteristics of the left adrenal nodule are consistent with a benign adrenal adenoma. No further work-up is required. CT pelvis: 2 mm bladder calculus. All CT scans at this institution are performed using dose optimization techniques as appropriate for the performed exam including the following: Automated exposure control Adjustment of the mA and/or kV according to patient size Use of iterative reconstruction technique Dictated on: 03/06/2024 7:39 PM This report has been electronically signed and approved by the interpreting Radiologist. Normal Not Available CBC panel Auto (Bld)on 02-24 Erythrocyte distribution width (RBC) [Ratio] 12.2 % 11.0 - 15.0 % [facility] Hematocrit (Bld) [Volume fraction] 41.9 % 38.5 - 50.0 % [facility] Hemoglobin (Bld) [Mass/Vol] 14.2 g/dL 13.2 - 17.1 g/dL [facility] MCH (RBC) [Entitic mass] 30.8 pg 27. 0 - 33.0 pg [facility] MCHC (RBC) [Mass/Vol] 33.9 g/dL 32.0 - 36.0 g/dL [facility] Comment on above: For adults, a slight decrease in the calculated MCHC value (in the range of 30 to 32 g/dL) is most likely not clinically significant; however, it should be interpreted with caution in correlation with other red cell parameters and the patient's clinical condition. MCV (RBC) [Entitic vol] 90.9 fL 80.0 - 100.0 fL [facility] Platelet mean volume (Bld) [Entitic vol] 12.2 fL 7.5 - 12.5 fL [facility] Platelets (Bld) [#/Vol] 139 10*3/uL Low [facility] RBC (Bld) [#/Vol] 4.61 10*6/uL [facility] WBC (Bld) [#/Vol] 7.5 10*3/uL [facility] Laboratory - Chemistry and C hemistry - challengeon 02-25-2024 Albumin [Mass/Vol] 3.9 g/dL 3.6 - 5.1 g/dL [facility] Albumin/Globulin [Mass ratio] 1.4 {ratio} [facility] ALP [Catalytic activity/Vol] 92 U/L 35 - 144 U/L [facility] ALT [Catalytic activity/Vol] 31 U/L 9 - 46 U/L [facility] AST [Catalytic activity/Vol] 36 U/L High 10 - 35 U/L [facility] Bilirubin [Mass/Vol] 0.4 mg/dL 0.2 - 1 .2 mg/dL [facility] Calcium [Mass/Vol] 9 mg/dL 8.6 - 10. 3 mg/dL [facility] Chloride [Moles/Vol] 103 mmol/L 98 - 11 0 mmol/L [facility] CO2 [Moles/Vol] 27 mmol/L 20 - 32 mmol/L [facility] Creatinine [Mass/Vol] 1.09 mg/dL 0.70 - 1.35 mg/dL [facility] GFR/1.73 sq M.predicted among non-blacks MDRD (S/P/Bld) [Vol rate/Area] 74 mL/min/{1.73_m2} > OR = 60 mL/min/1.73m 2 [facility] Globulin (S) [Mass/Vol] 2.8 g/dL N [facility] Glucose [Mass/Vol] 125 mg/dL High 65 - 99 mg/dL [facility] Comment on above: Fasting reference interval For someone without known diabetes, a glucose value between 100 and 125 mg/dL is consistent with prediabetes and should be confirmed with a follow-up test. Potassium [Moles/Vol] 4.2 mmol/L 3.5 - 5.3 mmol/L [facility] Prostate specific Ag [Mass/Vol] 0.38 ng/mL < OR = 4.00 [facility] Comment on above: The total PSA value from this assay system is standardized against the WHO standard. The test result will be approximately 20% lower when compared to the equimolar-standardized total PSA (Anirudh Cassie). Comparison of serial PSA results should be interpreted with this fact in mind. This test was performed using the Siemens chemiluminescent method. Values obtained from different assay methods cannot be used interchangeably. PSA levels, regardless of value, should not be interpreted as absolute evidence of the presence or absence of disease. Protein [Mass/Vol] 6.7 g/dL 6.1 - 8.1 g/dL [facility] Sodium [Moles/Vol] 138 mmol/L 135 - 146 mmol/L [facility] Urea nitrogen [Mass/Vol] 19 mg/dL 7 - 25 mg/d L [facility] Urea nitrogen/Creatinine [Mass ratio] SEE NOTE: [facility] Comment on above: Not Reported: BUN an d Creatinine are within reference range. Lipid 1996 panelon 4 Cholesterol [Mass/Vol] 129 mg/dL NINF - 200 mg/dL [facility] Cholesterol in HDL [Mass/Vol] 40 mg/dL > OR = 40 [facility] Cholesterol in LDL [Mass/Vol] 66 mg/dL mg/dL (calc) [facility] Comment on above: Reference range: <10 0 Desirable range <100 mg/dL for primary prevention; <70 mg/dL for patients with CHD or diabetic patients with > or = 2 CHD risk factors. LDL-C is now calculated using the Cirilo calculation, which is a validated novel method providing better accuracy than the Friedewald equation in the estimation of LDL-C. Peewee LAYTON et al. YANETH. 2013;310(19): 7691-9309 (http://education.L[employer].Shoette/faq/GMO261) Cholesterol non HDL [Mass/Vol] 89 mg/dL [facility] Comment on above: For patients with di abetes plus 1 major ASCVD risk factor, treating to a non-HDL-C goal of <100 mg/dL (LDL-C of <70 mg/dL) is considered a therapeutic option. Cholesterol.total/Choles terol in HDL [Mass ratio] 3.2 {ratio} [facility] Triglyceride [Mass/Vol] 145 mg/dL [facility] - 150 mg/dL [facility] Microalbumin/Creatinine rati o panel (U)on 02-25-2024 Albumin DL <= 20 mg/L (U) [Mass/Vol] 3 mg/dL See Note: [facility] Comment on above: Reference Range: Reference Range Not established Albumin/Creatinine (U) [Mass ratio] 19 [facility] Comment on above: The ADA defines abnormalities in albumin excretion as follows: Albuminuria Category Result (mg/g creatinine) Normal to Mildly increased <30 Moderately increased 30-299 Severely increased > OR = 300 The ADA recommends that at least two of three specimens collected within a 3-6 month period be abnormal before considering a patient to be within a diagnostic category. Creatinine (U) [Mass/Vol] 154 mg/dL 20 - 320 mg/dL [facility] Information Site ID: QPT Name: [email or web address] Address: [address] [place] [id number] Director: Brody Harp MD Count includes the [facility] No Panel Informationon 02-24 Interpretation and review of laboratory results Abnormal [facility] Information Site ID: QPT Name: [email or web address] [facility] Address: [address] [place] [address], [address] [place] [id number] Director: Brody Harp MD Count includes the [facility] Laboratory - Hematology and Cell countson 02-24-2024 HbA1c (Bld) [Mass fraction] 6.9 % [facility] No Panel Informationon 02-23 Interpretation and review of laboratory results Abnormal Count includes the [facility] POCT EKGon 09-10-2023 [facility] CBCon 03-25-2023 ABSOLUTE BAS 0.0 10*3/uL Normal 0.0-0.2 [facility] Comment on above: Performed By: #### P T, ACBC, CMPF #### Testing performed at [address] [address] ABSOLUTE EOS 0.1 10*3/uL Normal 0.0-0.7 [facility] Comment on above: Performed By: #### P T, ACBC, CMPF #### Testing performed at [address] [address] ABSOLUTE NEUTROPHIL COUNT 4.6 10*3/uL Normal 1.4-6.5 [facility] Comment on above: Performed By: #### P T, ACBC, CMPF #### Testing performed at [address] [address] Basophils/100 WBC (Bld) 0.5 % Normal 0.0-2.0 [facility] Comment on above: Performed By: #### P T, ACBC, CMPF #### Testing performed at [address] [place] [address] DTYPE AUTO DIFF Normal [facility] Comment on above: Performed By: #### P T, ACBC, CMPF #### Testing performed at [address] [address] Eosinophils/100 WBC (Bld) 1.5 % Normal 0.0-11.0 [facility] Comment on above: Performed By: #### P T, ACBC, CMPF #### Testing performed at [address] [address] Lymphocytes (Bld) [#/Vol] 2.4 10*3/uL Normal 1.2-3.4 [facility] Comment on above: Performed By: #### P T, ACBC, CMPF #### Testing performed at [address] [address] Lymphocytes/100 WBC (Bld) 30.1 % Normal 20.0-55.0 [facility] Comment on above: Performed By: #### P T, ACBC, CMPF #### Testing performed at [address] [address] Monocytes (Bld) [#/Vol] 0.7 10*3/uL Normal 0.0-0.7 [facility] Comment on above: Performed By: #### P T, ACBC, CMPF #### Testing performed at [address] [address] Monocytes/100 WBC (Bld) 9.4 % Normal 0.0-10.0 [facility] Comment on above: Performed By: #### P T, ACBC, CMPF #### Testing performed at [address] [address] Neutrophils/100 WBC (Bld) 58.5 % Normal 37.0-75.0 [facility] Comment on above: Performed By: #### P T, ACBC, CMPF #### Testing performed at [address] [address] Erythrocyte distribution width (RBC) [Ratio] 13.3 % Normal 11.5-14.5 [facility] Comment on above: Performed By: #### P T, ACBC, CMPF #### Testing performed at [address] [address] Hematocrit (Bld) [Volume fraction] 44.0 % Normal 42.0-52.0 [facility] Comment on above: Performed By: #### P T, ACBC, CMPF #### Testing performed at [address] [address] Hemoglobin (Bld) [Mass/Vol] 14.7 g/dL Normal 14.0-18.0 [facility] Comment on above: Performed By: #### P T, ACBC, CMPF #### Testing performed at [address] [address] MCH (RBC) [Entitic mass] 29.7 pg Normal 26.0-35.0 [facility] Comment on above: Performed By: #### P T, ACBC, CMPF #### Testing performed at [address] [address] MCHC (RBC) [Mass/Vol] 33.3 g/dL Normal 27.0-37.0 [facility] Comment on above: Performed By: #### P T, ACBC, CMPF #### Testing performed at [address] [address] MCV (RBC) [Entitic vol] 89.3 fL Normal 80.0-100.0 [facility] Comment on above: Performed By: #### P T, ACBC, CMPF #### Testing performed at [address] [address] Platelet mean volume (Bld) [Entitic vol] 9.6 fL Normal 7.4-11.0 [facility] Comment on above: Performed By: #### P T, ACBC, CMPF #### Testing performed at [address] [address] Platelets (Bld) [#/Vol] 200 10*3/uL Normal 130-400 [facility] Comment on above: Performed By: #### P T, ACBC, CMPF #### Testing performed at [address] [address] RBC (Bld) [#/Vol] 4.93 10*6/uL Normal 4.0-6.1 [facility] Comment on above: Performed By: #### P T, ACBC, CMPF #### Testing performed at [address] [address] WBC (Bld) [#/Vol] 7.8 10*3/uL Normal 3.6-11.0 [facility] Comment on above: Performed By: #### P T, ACBC, CMPF #### Testing performed at [address] [address] CBC, EDIF, PLATELETon 2022 ABSOLUTE BASOPHIL COUNT 0.0 10*3/uL 0.0 - 0.2 10*3/uL [facility] Basophils/100 WBC (Bld) 0.5 % 0.0 - 2.0 % [facility] Differential cell count method Nom (Bld) AUTO DIFF % [facility] Eosinophils (Bld) [#/Vol] 0.1 10*3/uL 0.0 - 0.7 10*3/uL [facility] Eosinophils/100 WBC (Bld) 1.5 % 0.0 - 11.0 % [facility] Erythrocyte distribution width (RBC) [Ratio] 13.3 % 11.5 - 14.5 % [facility] Hematocrit (Bld) [Volume fraction] 44.0 % 42.0 - 52.0 % [facility] Hemoglobin (Bld) [Mass/Vol] 14.7 g/dL [facility] Lymphocytes (Bld) [#/Vol] 2.4 10*3/uL 1.2 - 3.4 10*3/uL [facility] Lymphocytes/100 WBC (Bld) 30.1 % 20.0 - 55.0 % [facility] MCH (RBC) [Entitic mass] 29.7 pg 26. 0 - 35.0 PG [facility] MCHC (RBC) [Mass/Vol] 33.3 g/dL [place] MCV (RBC) [Entitic vol] 89.3 fL [facility] Monocytes (Bld) [#/Vol] 0.7 10*3/uL 0.0 - 0.7 10*3/uL [facility] Monocytes/100 WBC (Bld) 9.4 % 0.0 - 10.0 % [facility] Neutrophils (Bld) [#/Vol] 4.6 10*3/uL 1.4 - 6.5 10*3/uL [facility] Neutrophils/100 WBC (Bld) 58.5 % 37.0 - 75.0 % [facility] Platelet mean volume (Bld) [Entitic vol] 9.6 fL [facility] Platelets (Bld) [#/Vol] 200 10*3/uL 130 - 400 10*3/uL [facility] RBC (Bld) [#/Vol] 4.93 10*6/uL 4.0 - 6.1 10*6/uL [facility] WBC (Bld) [#/Vol] 7.8 10*3/uL 3.6 - 11.0 10*3/uL [facility] CMP FASTINGon 03-25-2023 A:G RATIO 1.5 RATIO Normal [facility] Comment on above: Performed By: #### P T, ACBC, CMPF #### Testing performed at [address] [address] ALBUMIN 4.4 G/dl Normal 3.5-5.0 [facility] Comment on above: Performed By: #### P T, ACBC, CMPF #### Testing performed at [address] [address] ALP [Catalytic activity/Vol] 92 U/L Normal 38-126 [facility] Comment on above: Performed By: #### P T, ACBC, CMPF #### Testing performed at [address] [address] ALT [Catalytic activity/Vol] 66 U/L High <50 [facility] Comment on above: Performed By: #### P T, ACBC, CMPF #### Testing performed at [address] [address] AST [Catalytic activity/Vol] 42 U/L Normal 17-59 [facility] Comment on above: Performed By: #### P T, ACBC, CMPF #### Testing performed at [address] [address] Bilirubin [Mass/Vol] 0.6 mg/dL Normal 0.2-1.3 [facility] Comment on above: Performed By: #### P T, ACBC, CMPF #### Testing performed at [address] [address] Calcium [Mass/Vol] 10.0 mg/dL Normal 8.4-10.2 [facility] Comment on above: Performed By: #### P T, ACBC, CMPF #### Testing performed at [address] [address] Chloride [Moles/Vol] 103 mmol/L Normal 98-107 [facility] Comment on above: Result Comment: Plea se note: Triglyceride levels of 600mg/dL or higher may positively bias chloride results by approximately 2.1 mmol Performed By: #### P T, ACBC, CMPF #### Testing performed at [address] [address] CO2 [Moles/Vol] 32 mmol/L High 22-30 [facility] Comment on above: Performed By: #### P T, ACBC, CMPF #### Testing performed at [address] [address] Creatinine [Mass/Vol] 1.09 mg/dL Normal 0.70-1.20 [facility] Comment on above: Performed By: #### P T, ACBC, CMPF #### Testing performed at [address] [address] EST. GFR, 87 ml/min/1.73sq.m [facility] Comment on above: Performed By: #### P T, ACBC, CMPF #### Testing performed at [address] [address] EST. GFR,Non 72 ml/min/1.73sq.m [facility] Comment on above: Performed By: #### P T, ACBC, CMPF #### Testing performed at [address] [address] GFR Information Average GFR for 60-6 9 years old = 85. Normal [facility] Comment on above: Result Comment: Permit Coordinator mary Kidney disease, GFR = <60. Kidney failure, GFR = <15. The GFR estimate is not adjusted for extreme body surface area or acute process, nor has it been validated for women or ethnic groups other than and . Performed By: #### P T, ACBC, CMPF #### Testing performed at [address] [address] Glucose [Mass/Vol] 137 mg/dL High 70-100 [facility] Comment on above: Result Comment: NORMAL <100 mg/dL PREDIABETES 101-126 mg/dL DIABETES 126 mg/dL or higher Performed By: #### P T, ACBC, CMPF #### Testing performed at [address] [address] Potassium [Moles/Vol] 4.4 mmol/L Normal 3.5-5.1 [facility] Comment on above: Performed By: #### P T, ACBC, CMPF #### Testing performed at [address] [address] Protein [Mass/Vol] 7.3 g/dL Normal 6.3-8.2 [facility] Comment on above: Performed By: #### P T, ACBC, CMPF #### Testing performed at [address] [address] Sodium [Moles/Vol] 139 mmol/L Normal 137-145 [facility] Comment on above: Performed By: #### P T, ACBC, CMPF #### Testing performed at [address] [address] Urea nitrogen [Mass/Vol] 19 mg/dL Normal 7-20 [facility] Comment on above: Performed By: #### P T, ACBC, CMPF #### Testing performed at [place] [id number] COMPREHENSIVE METABOLIC PANE Hans 03-25-2023 Albumin [Mass/Vol] 4.4 G/dl 3.5 - 5.0 G/dl [facility] Albumin/Globulin [Mass ratio] 1.5 {ratio} RATIO [facility] ALP [Catalytic activity/Vol] 92 U/L [facility] ALT [Catalytic activity/Vol] 66 U/L High NINF [facility] AST [Catalytic activity/Vol] 42 U/L [facility] Bilirubin [Mass/Vol] 0.6 mg/dL [facility] Calcium [Mass/Vol] 10.0 mg/dL [facility] Chloride [Moles/Vol] 103 mmol/L [facility] Comment on above: Please note: Triglyc eride levels of 600mg/dL or higher may positively bias chloride results by approximately 2.1 mmol CO2 [Moles/Vol] 32 mmol/L High [facility] Creatinine [Mass/Vol] 1.09 mg/dL [place] GFR COMMENT Average GFR for 60-6 9 years old = 85. [facility] Comment on above: Chronic Kidney disea se, GFR = <60. Kidney failure, GFR = <15. The GFR estimate is not adjusted for extreme body surface area or acute process, nor has it been validated for women or ethnic groups other than and . GFR/1.73 sq M.predicted among blacks MDRD (S/P/Bld) [Vol rate/Area] 87 mL/min/{1.73_m2} ml/min/1.73s q.m [facility] GFR/1.73 sq M.predicted among non-blacks MDRD (S/P/Bld) [Vol rate/Area] 72 mL/min/{1.73_m2} ml/min/1.73s q.m [facility] Glucose post fast [Mass/Vol] 137 mg/dL High [facility] Comment on above: NORMAL <100 mg/dL PREDIABETES 101-126 mg/dL DIABETES 126 mg/dL or higher Interpretation and review of laboratory results Abnormal [facility] Potassium [Moles/Vol] 4.4 mmol/L [place] Protein [Mass/Vol] 7.3 g/dL [facility] Sodium [Moles/Vol] 139 mmol/L [facility] Urea nitrogen [Mass/Vol] 19 mg/dL [facility] HEMOGLOBIN A1Con 03-25-2023 Glucose [Mass/Vol] 180 mg/dL Normal [facility] Comment on above: Performed By: #### H A1CT #### Testing performed at [address] [address] HbA1c (Bld) [Mass fraction] 7.9 % High 0-6 [facility] Comment on above: Result Comment: NORMAL <5.7% PREDIABETES 5.7-6.4% DIABETES 6.5% OR HIGHER Performed By: #### H A1CT #### Testing performed at [address] [address] Glucose [Mass/Vol] 180 mg/dL [facility] HbA1c (Bld) [Mass fraction] 7.9 % High 0 - 6 % [facility] Comment on above: NORMAL <5.7% PREDIABETES 5.7-6.4% DIABETES 6.5% OR HIGHER Interpretation and review of laboratory results Abnormal [facility] MRSA SCREENon 03-25-2023 MRSA DNA ANDREY+probe Ql (Unsp spec) Negative Normal NEGATIVE [facility] Comment on above: Performed By: #### M RSAST #### Testing performed at [address] [address] STAPH AUREUS SCREEN Negative Normal NEGATIVE [facility] Comment on above: Result Comment: TEST ING PERFORMED BY PCR Performed By: #### M RSAST #### Testing performed at [address] [address] PROTIMEon 03-25-2023 INR Coag (PPP) [Relative time] 1.01 {INR} Normal 0.85-1.10 [facility] Comment on above: Result Comment: 2.0-3.0 THERAPEUTIC RANGE 2.5-3.5 MECHANICAL VALVE RANGE Performed By: #### P TVOLODYMYR CMPF #### Testing performed at [address] [address] PT Coag (PPP) [Time] 13.4 s Normal 11.8-14.4 [facility] Comment on above: Performed By: #### P T, VOLODYMYR, VONDA #### Testing performed at [address] [address] PROTIME-INRon 03-25-2023 INR Coag (PPP) [Relative time] 1.01 {INR} 0.85 - 1.10 [facility] Comment on above: 2.0-3.0 THERAPEUTIC RANGE 2.5-3.5 MECHANICAL VALVE RANGE PT Coag (PPP) [Time] 13.4 s [facility] SCREEN: MRSA ONLY, NARES (IS OLATION SCREEN)on 03-25-2023 MRSA isol Org specific cx Ql (Nose) Negative NEGATIVE [facility] STAPHYOCOCCUS AUREUS BY PCR Negative NEGATIVE [facility] Comment on above: TESTING PERFORMED BY PCR [facility] TYPE AND SCREEN CROSSMATCH C ONVERTIBLEon 03-25-2023 TYPE AND SCREEN CROSSMATCH CONVERTIBLE UNITS ORDERED 2 WORKUP EXPIRES 04/23/2023,2359 ABO/RH(D) A POSITIVE ANTIBODY SCREEN NEGATIVE ARM BAND NUMBER [id number] Normal [facility] Comment on above: Performed By: #### T SCC #### Testing performed at [address] [address] URINALYSIS, MACROon 03-25-20 23 Bilirubin Ql (U) Negative NEGATIVE [facility] Clarity (U) CLEAR CLEAR [facility] Color (U) YELLOW YELLOW [facility] Glucose Test strip (U) [Mass/Vol] 500 mg/dl Abnormal NEGATIVE [facility] Hemoglobin Ql (U) Negative NEGATIVE [facility] Interpretation and review of laboratory results Abnormal [facility] Ketones (U) [Mass/Vol] Negative NEGAT RUEL mg/dl [facility] Leukocyte esterase Test strip Ql (U) Negative NEGATIVE [facility] Nitrite Ql (U) Negative NEGATIVE [facility] pH (U) 5.5 [pH] 5.0 - 7.0 [facility] Protein Ql (U) Negative NEGATIVE mg/dl [facility] Specific gravity (U) [Rel density] 1.025 1.010 - 1.025 [facility] Urobilinogen (U) [Mass/Vol] 0.2 mg/dL [facility] URINE MACROSCOPICon 03-25-20 23 Bilirubin Ql (U) Negative Normal NEGATIVE [facility] Comment on above: Performed By: #### U MAC, UMIC #### Testing performed at [address] [address] Clarity (U) CLEAR Normal CLEAR [facility] Comment on above: Performed By: #### U MAC, UMIC #### Testing performed at [address] [place] [address] Color (U) YELLOW Normal YELLOW [facility] Comment on above: Performed By: #### U MAC, UMIC #### Testing performed at [address] [place] [address] Glucose Ql (U) 500 mg/dl Abnormal NEGATIVE [facility] Comment on above: Performed By: #### U MAC, UMIC #### Testing performed at [address] [address] pH (U) 5.5 [pH] Normal 5.0-7.0 [facility] Comment on above: Performed By: #### U MAC, UMIC #### Testing performed at [address] [address] URINE HEMOGLOBIN Negative Normal NEGATIVE [facility] Comment on above: Performed By: #### U MAC, UMIC #### Testing performed at [address] [place] [address] URINE KETONE Negative Normal NEGATIVE [facility] Comment on above: Performed By: #### U MAC, UMIC #### Testing performed at [address] [place] [address] URINE LEUKOTEST Negative Normal NEGATIVE [facility] Comment on above: Performed By: #### U MAC, UMIC #### Testing performed at [address] [place] [address] URINE NITRATES Negative Normal NEGATIVE [facility] Comment on above: Performed By: #### U MAC, UMIC #### Testing performed at [address] [address] URINE SPEC GRAVITY 1.025 Normal 1.010-1.025 [facility] Comment on above: Performed By: #### U MAC, UMIC #### Testing performed at [address] [address] URINE TOTAL PROTEIN Negative Normal NEGATIVE [facility] Comment on above: Performed By: #### U MAC, UMIC #### Testing performed at [address] [address] Urobilinogen Qn (U) 0.2 {Xavi'U}/dL Normal 0.2-1.0 [facility] Comment on above: Performed By: #### U MAC, UMIC #### Testing performed at [address] [address] URINE MICROSCOPICon 03-25-20 23 BACTERIA TRACE Abnormal NEGATIVE [facility] Comment on above: Performed By: #### U MAC, UMIC #### Testing performed at [address] [address] CASTS NONE Normal [facility] Comment on above: Performed By: #### U MAC, UMIC #### Testing performed at [address] [address] CRYSTAL NONE Normal NONE [facility] Comment on above: Performed By: #### U MAC, UMIC #### Testing performed at [address] [address] Epithelial cells LM Ql (Urine sed) 1 TO 5 Normal [facility] Comment on above: Performed By: #### U MAC, UMIC #### Testing performed at [address] [address] Mucus Ql (Urine sed) Negative Normal NEGATIVE [facility] Comment on above: Performed By: #### U MAC, UMIC #### Testing performed at [address] [address] URINE COMMENT CULTURE CRITERIA NOT MET, NO CULTURE PERFORMED. Normal [facility] Comment on above: Performed By: #### U MAC, UMIC #### Testing performed at [address] [address] URINE RBC'S Negative Normal NEGATIVE [facility] Comment on above: Performed By: #### U MAC, UMIC #### Testing performed at [address] [address] URINE WBC'S Negative Normal NEGATIVE [facility] Comment on above: Performed By: #### U MAC, UMIC #### Testing performed at [address] [address] C REACTIVE PROTEINon 023 CRP [Mass/Vol] mg/L Normal 0-10 [facility] Comment on above: Performed By: #### C REACT, ESR #### Testing performed at [address] [address] CRP [Mass/Vol] MG/L 0 - 10 MG/L [facility] ESRon 12-30-2022 ESR (Bld) [Velocity] 5 mm/h Normal 0-20 [facility] Comment on above: Performed By: #### C REACT, ESR #### Testing performed at [address] [address] SEDIMENTATION RATE, AUTOMATE Don 12-30-2022 ESR (Bld) [Velocity] 5 mm/h [facility] Glucose Glucometer (BldC) [M ass/Vol]Ordered By: Odette Alexis on 11-05-2022 Glucose [Mass/Vol] 134 mg/dL [facility] Comment on above: Random Glucose Refer ence Range is dependent on time and content of last meal. Glucose of more than 200 mg/dL in a nonstressed, ambulatory subject supports the diagnosis of Diabetes Mellitus. Glucose Poct Glucometerson 0 11-05-2022 Commemt1 Glu2: Cleaned Meter [facility] Comment on above: Result Comment: PERF ORMED BY: [place] [address] PATHOLOGIST GOLF COURSE RANGER SHAMIR LI M.D. Performed By: #### G LULS #### Point of Care testing , Glucose [Mass/Vol] 134 mg/dL Normal [facility] Comment on above: Result Comment: [place] om Glucose Reference Range is dependent on time and content of last meal. Glucose of more than 200 mg/dL in a nonstressed, ambulatory subject supports the diagnosis of Diabetes Mellitus. Performed By: #### G LULS #### Point of Care testing , Commemt1 Glu2: Cleaned Meter [facility] Comment on above: Result Comment: PERF ORMED BY: [place] [address] PATHOLOGIST GOLF COURSE RANGER SHAMIR LI M.D. Performed By: #### G LULS #### Point of Care testing , Glucose [Mass/Vol] 135 mg/dL Normal [facility] Comment on above: Result Comment: [place] om Glucose Reference Range is dependent on time and content of last meal. Glucose of more than 200 mg/dL in a nonstressed, ambulatory subject supports the diagnosis of Diabetes Mellitus. Performed By: #### G LULS #### Point of Care testing , No Panel InformationOrdered By: Odette Alexis on 11-05-2022 Bedside Glucose Comment Glu2: cleaned meter [facility] Basic Metabolic Panelon 10-11 Anion gap [Moles/Vol] 8.3 mmol/L Normal 6.0-15.0 [facility] Comment on above: Performed By: #### C RP, BMP #### [address] Calcium [Mass/Vol] 9.4 mg/dL Normal 8.6-10.3 [facility] Comment on above: Performed By: #### C RP, BMP #### [facility] [address] [id number] [place] Chloride [Moles/Vol] 105 mmol/L Normal 98-107 [facility] Comment on above: Performed By: #### C RP, BMP #### [facility] [address] [id number] [place] CO2 [Moles/Vol] 32.3 mmol/L High 21.0-31.0 [facility] Comment on above: Performed By: #### C RP, BMP #### [facility] [address] Creatinine [Mass/Vol] 1.20 mg/dL Normal 0.70-1.30 [facility] Comment on above: Performed By: #### C RP, BMP #### [facility] [address] [place] [address] [place] GFR/1.73 sq M.predicted MDRD (S/P/Bld) [Vol rate/Area] mL/min/{1.73_m2} Normal [facility] Comment on above: Performed By: #### C RP, BMP #### [facility] [address] [place] [address] [place] Glucose [Mass/Vol] 121 mg/dL High 70-100 [facility] Comment on above: Result Comment: [place] Glucose Reference Range is dependent on time and content of last meal. Glucose of more than 200 mg/dL in a nonstressed, ambulatory subject supports the diagnosis of Diabetes Mellitus. ADA recommended reference range Performed By: #### C RP, BMP #### [facility] [address] [id number] [place] Potassium [Moles/Vol] 4.6 mmol/L Normal 3.5-5.1 [facility] Comment on above: Performed By: #### C RP, BMP #### [facility] [address] [id number] [place] Sodium [Moles/Vol] 141 mmol/L Normal 136-145 [facility] Comment on above: Performed By: #### C RP, BMP #### [facility] [address] [place] [address] [place] Urea nitrogen [Mass/Vol] 19 mg/dL Normal 7-25 [facility] Comment on above: Performed By: #### C RP, BMP #### [facility] [address] [place] [address] [place] C reactive protein [Mass/vol ume] in Serum or PlasmaOrdered By: Odette Alexis on 11-02-2022 CRP [Mass/Vol] < 0.5 mg/dL 0.0-0.5 [facility] C-Reactive Proteinon 023 CRP [Mass/Vol] mg/L Normal 0.0-0.5 [facility] Comment on above: Result Comment: PERF ORMED BY: [place] [address] PATHOLOGIST GOLF [employer] RANGER SHAMIR LI M.D. Performed By: #### C RADHA, BMP #### [facility] [address] [id number] [place] Calcium [Mass/volume] in Ser um or PlasmaOrdered By: Odette Alexis on 11-02-2022 Calcium [Mass/Vol] 9.4 mg/dL 8.6-10.3 [facility] Carbon dioxide, total [Moles /volume] in Serum or PlasmaOrdered By: Odette Alexis on 11-02-2022 CO2 [Moles/Vol] 32.3 mmol/L 21.0-31.0 [facility] Chloride [Moles/volume] in S carline or PlasmaOrdered By: Odette Alexis on 11-02-2022 Chloride [Moles/Vol] 105 mmol/L 98-107 [facility] Creatinine [Mass/volume] in Serum or PlasmaOrdered By: Odette Alexis on 11-02-2022 Creatinine [Mass/Vol] 1.20 mg/dL 0.70-1.30 [facility] ECG 12 lead ECGon 11-02-2022 ECG 12 lead ECG [facility] [address] [place] [address] Electrocardiograph Report Signed Patient: Manpreet Avelar MR#: [id number] : 1955 Acct:[id number] Age/Sex: 66 / M ADM Date: 11/02/22 Loc: PS Room: Type: [facility] Attending Dr: Odette Alexis Jr, DO Ordering Provider: Odette Alexis Jr, DO Date of Service: 11/02/22 ECG/ECG 12 lead ECG: surgery 11/05/22 Copies to: Test Reason : Blood Pressure : / mmHG Vent. Rate : 060 BPM Atrial Rate : 060 BPM P-R Int : 170 ms QRS Dur : 086 ms QT Int : 440 ms P-R-T Axes : 056 017 083 degrees QTc Int : 440 ms Normal sinus rhythm Normal ECG When compared with ECG of 02-FEB-2019 12:40, ST no longer depressed in Inferior leads ST no longer depressed in Lateral leads T wave inversion no longer evident in Inferior leads T wave inversion no longer evident in Anterolateral leads QT has shortened Confirmed by LOCO ROBERTS [facility], ALISIA ([id number]) on 11/02/2022 3:45:48 PM Referred By: GISEL ALEXIS Electronically Signed By:ALISIA JOSEPH MD [facility] Transcribed By: MUS Signed By Jabari Joseph MD 11/02/22 1548 Normal [facility] Glucose [Mass/volume] in Ser um or PlasmaOrdered By: Odette Alexis on 11-02-2022 Glucose [Mass/Vol] 121 mg/dL 70-100 [facility] Comment on above: ADA recommended refe rence rangeRandom Glucose Reference Range is dependent on time and content of last meal. Glucose of more than 200 mg/dL in a nonstressed, ambulatory subject supports the diagnosis of Diabetes Mellitus. No Panel InformationOrdered By: Odette Alexis on 11-02-2022 Estimated GFR (CKD-EPI) > 60.0 mL/Min [facility] Creatinine Clearance (Chem N/A [facility] Potassium [Moles/volume] in Serum or PlasmaOrdered By: Odette Alexis on 11-02-2022 Potassium [Moles/Vol] 4.6 mmol/L 3.5-5.1 [facility] Serum or plasma anion gap de terminationOrdered By: Odette Alexis on 11-02-2022 Anion gap [Moles/Vol] 8.3 mmol/L 6.0-15.0 [facility] Sodium [Moles/volume] in Ser um or PlasmaOrdered By: Odette Alexis on 11-02-2022 Sodium [Moles/Vol] 141 mmol/L 136-145 [facility] Urea nitrogen [Mass/volume] in Serum or PlasmaOrdered By: Odette Alexis on 11-02-2022 Urea nitrogen [Mass/Vol] 19 mg/dL 7-25 [facility] MRI Knee w/o Righton 022 MRI Knee w/o Right HISTORY: Fall with twisting injury. History of prior knee surgery. Posterior knee pain. TECHNIQUE: Routine non-contrast MRI of the knee RIGHT COMPARISON: Radiographs 02/10/2022. RESULT: MENISCI: Medial Meniscus: Blunted morphology with maceration of large portions of the medial meniscus which may relate to prior partial medial meniscectomy or complex tearing. No significant meniscal displacement. Lateral Meniscus: Appears grossly intact. LIGAMENTS: ACL, PCL, MCL, LCL complex: Chronic appearing complete ACL tear. Mucoid degeneration PCL without tear. MCL and LCL complex are grossly intact. CARTILAGE: Diffuse full-thickness chondral loss from the medial compartment with underlying subchondral cystic change. Tricompartmental osteophytes. Small areas of low-grade partial-thickness chondral loss/fissuring within the lateral and patellofemoral compartments. Multiple joint bodies in the suprapatellar region with the largest measuring up to 2.2 cm, correlating with the radiographs. TENDONS: Mild distal quadriceps and patellar tendinosis, without tear. Popliteus appears intact. BONES AND MARROW: No evidence of fracture or bone marrow replacing process. Subchondral edema about the medial compartment. MUSCLES: Muscle bulk and signal intensity are normal. JOINT FLUID AND SYNOVIUM: Large joint effusion with multiple joint bodies as above. No synovitis. No Foss's cyst. OTHER: Diffuse subcutaneous edema. IMPRESSION: Advanced medial compartment osteoarthritis. Multiple joint bodies. Blunted morphology with maceration of large portions of the medial meniscus which may relate to prior partial medial meniscectomy or complex tearing. Report reported and signed by Trino Taylor on 02/20/2022 0851 Normal [facility] XR Orbits for MRIon 02-20-20 22 XR Orbits for MRI CLINICAL HISTORY: History of metal in eyes. Orbital foreign body. COMPARISON: None available TECHNIQUE: 2 views of the orbits FINDINGS: No metallic orbital foreign body. Normal appearance of the facial bones. Her nasal sinuses appear clear. IMPRESSION: No metallic orbital foreign body. Report reported and signed by Abdoulaye Bray on 02/19/2022 1351 Normal [facility] [employer] XR Knee Right - OA Protocolo n 02-10-2022 XR Knee Right - OA Protocol EXAM: BILATERAL KNEE STANDING WEIGHT-BEARING VIEW FINDINGS: Standing weight-bearing view demonstrates severe joint space reduction within the medial compartments without cortical or subchondral fracture suggested. Menisci are not calcified. IMPRESSION: 1. Severe medial joint space loss, genu varus. 2. Preserved left tibial femoral joint spaces. EXAM: RIGHT KNEE FINDINGS: Severe medial, moderate to severe patellofemoral joint space loss. Moderate size suprapatellar effusion. Multiple 1.0-2.0 cm calcifications likely represent calcified loose bodies within the suprapatellar bursa. Mild infrapatellar swelling. Extensive arterial calcifications, surgical vascular clips right knee, upper leg soft tissues. IMPRESSION: 1. Severe medial, patellofemoral arthritis. 2. Joint effusion, probable calcified loose bodies. Report reported and signed by Alfred Huggins on 02/10/2022 1000 Normal [facility] [place] Specialist Covid-19 PCR (CVDTBH)on 12-12 SARS-CoV-2 (COVID-19) RNA ANDREY+probe Ql (Unsp spec) Not detected Normal NOT DETECTED [facility] Comment on above: Result Comment: This test is not yet approved or cleared by the [place] FDA. When there are no FDA-approved or cleared tests available, and other criteria are met, FDA can make tests available under an emergency access mechanism called an Emergency Use Authorization (EUA). The EUA for this test is supported by the Claims Agent Right Of Way of Health and Human Service's (HHS's) declaration that circumstances exist to justify the emergency use of in vitro diagnostics for the detection and/or diagnosis of the virus that causes COVID-19. This EUA will remain in effect (meaning this test can be used) for the duration of the COVID-19 declaration justifying emergency of IVDs, unless it is terminated or revoked by FDA (after which the test may no longer be used). When diagnostic testing is negative, the possibility of a false negative should be considered in the context of a patient's recent exposures and the presence of clinical signs and symptoms consistent with SARS-CoV-2. Performed By: #### [facility] #### [facility] [address] [place], [place] [address] Dr. Ayo Grant Dermatopathologyon 0 Dermatopathology [facility] Dermatopathology Laboratory [address] [place] [id number] DERMATOPATHOLOGY REPORT Name:MANPREET AVELAR [facility] Rec #. [id number] Location: [facility] Date of Procedure: 10/19/2019 Race: Date Received: 10/23/2019 /Sex: 1955 (Age: 63) / M Date Reported: 10/24/2019 Other: Submitting Physician:EVELIN CHERRY MD FINAL DIAGNOSIS SKIN, R EAR SCAPHOID EMINENCE, BIOPSY: BASAL CELL CARCINOMA, NODULAR GROWTH PATTERN, PRESENT ON THE DEEP AND PERIPHERAL MARGIN. Electronically Signed Out by PETE BUENROSTRO M.D. Electronically Signed Out By PETE BUENROSTRO MD/[facility] By the signature on this report, the individual or group listed as making the Final Interpretation/Diagno sis certifies that they have reviewed this case. Clinical History: AK vs. ACC 0.4x0.3cm. Biopsy. Specimens Submitted As: A: SKIN, R EAR SCAPHOID EMINENCE Gross Description: Received in formalin is a fitch piece of skin measuring [id number]. The specimen is inked and embedded in toto. ink/10/23/2019 Microscopic Description: Microscopic analysis shows a discrete nodule of tumor that is associated with the epidermis. The carcinoma is composed of bland basaloid keratinocytes with peripheral palisaded arrangement of nuclei. Normal [facility] Comment on above: Performed By: #### D #### Dermatopathology CNCOon 02-22-2019 CNCO Letter Text Normal [facility] ALLIED HEALTHon 11-08-2019 ALLIED HEALTH HNO ID: [id number] Author: Yasmeen VegaEx Jinny) Mary Service: Cardiovascular Medicine Author Type: Hazardous Materials Waste Technician Type: Allied Health Filed: 02/17/2019 4:27 PM Note Text: CARDIAC REHABILITATION PHASE I FOLLOW-UP PATIENT NAME: Manpreet Avelar SERVICE DATE: February 17, 2019 SESSION TIME: 2:35PM Comments: Pt. seen at bedside, ready for discharge. He has been ambulating in the reed >200ft. without complaints or difficulty. Tolerating exercise well, continue with exercise 4 - 6 x/day. Recommend enrollment in Phase 2, Outpatient Cardiac Rehab. Provided pt with Phase 2 order. Home Program: Reviewed home activity guidelines as outlined below. Frequency: 4 - 6 days/week Intensity: 3 - 4/10 RPE Type: walking - start at 3 - 5 minutes/4 - 6 x day Duration: 20 - 30 minutes -----> 45 + minutes CYNTHIA Lockwood Pager: [phone] February 17, 2019 4:25 PM Normal [facility] CASE MANAGEMon 02-17-2019 CASE MANAGEM HNO ID: [id number] Author: Kaylee Rich) ARLYN Jimenez Service: Care Management Author Type: Registered Nurse Type: Care Mgt Progress Note Filed: 02/17/2019 10:45 AM Note Text: CARE MANAGEMENT PROGRESS NOTE SERVICE DATE: 02/17/2019 SERVICE TIME: 10:43 AM LOS: 13 days Needs Prior to Discharge: medical clearance Patient is on RA. He has been ambulating. Anticipating discharge with no skilled needs when medically cleared. Will follow and plan for discharge accordingly. SIGNATURE: Kaylee Jimenez RN PATIENT NAME: Manpreet Avelar DATE: February 17, 2019 TIME: 10:43 AM PAGER/CONTACT #: [phone] WEEKEND PAGER: [phone] [facility] CBCon 02-17-2019 Absolute nRBC <0.01 Normal <0.01 [facility] Comment on above: Performed By: #### C BCDIF, PT, PTT, CMP, MG1, NTBNP #### [facility] [address] [address] Erythrocyte distribution width (RBC) [Ratio] 12.8 % Normal 11.5-15.0 [facility] Comment on above: Performed By: #### C BCDIF, PT, PTT, CMP, MG1, NTBNP #### [place] [address] Hematocrit (Bld) [Volume fraction] 31.7 % Low 39.0-51.0 [facility] Comment on above: Performed By: #### C BCDIF, PT, PTT, CMP, MG1, NTBNP #### [address] [address] Hemoglobin (Bld) [Mass/Vol] 10.8 g/dL Low 13.0-17.0 [facility] Comment on above: Performed By: #### C BCDIF, PT, PTT, CMP, MG1, NTBNP #### [place] [address] MCH (RBC) [Entitic mass] 30.7 pG Normal 26.0-34.0 [facility] Comment on above: Performed By: #### C BCDIF, PT, PTT, CMP, MG1, NTBNP #### [place] [address] MCHC (RBC) [Mass/Vol] 34.1 g/dL Normal 30.5-36.0 [facility] Comment on above: Performed By: #### C BCDIF, PT, PTT, CMP, MG1, NTBNP #### [place] [address] MCV (RBC) [Entitic vol] 90.1 fL Normal 80.0-100.0 [facility] Comment on above: Performed By: #### C BCDIF, PT, PTT, CMP, MG1, NTBNP #### [place] [address] Platelet mean volume (Bld) [Entitic vol] 12.5 fL Normal 9.0-12.7 [facility] Comment on above: Performed By: #### C BCDIF, PT, PTT, CMP, MG1, NTBNP #### [facility] [address] [place], [place] [address] Platelets (Bld) [#/Vol] 202 10*3/uL Normal 150-400 [facility] Comment on above: Performed By: #### C BCDIF, PT, PTT, CMP, MG1, NTBNP #### [facility] [address] [place], [place] [address] RBC (Bld) [#/Vol] 3.52 10*6/uL Low 4.20-6.00 [facility] Comment on above: Performed By: #### C BCDIF, PT, PTT, CMP, MG1, NTBNP #### [facility] [address] [place], [place] [address] WBC (Bld) [#/Vol] 8.96 10*3/uL Normal 3.70-11.00 [facility] Comment on above: Performed By: #### C BCDIF, PT, PTT, CMP, MG1, NTBNP #### [address] [place] [address] [place] [id number] CONSULT PROGon 02-17-2019 CONSULT PROG HNO ID: [id number] Author: Riana Zimmerman Service: Endocrinology Author Type: Nurse Practitioner Type: Consult Progress Note Filed: 02/17/2019 12:08 PM Note Text: DIABETES CARE TEAM NOTE SERVICE DATE: 02/17/2019 SERVICE TIME: 6:10 AM Subjective Summary of History from Prior Record: Consult Date:?02/10/19 Re consulted 02/15/2019 Copied from provider note Dot Sandoval CNP from 02/15/2019. ? HPI:?MrYuli?Manpreet Avelar is a 63 year old male with a 20?year history of?Diabetes Mellitus Type 2?hyperglycemia?who was admitted on 02/03/2019?for CAD??. Past medical history significant for?CAD,HPL.?Patient ?does ?exercise. Last HbA1c was 7.2%??on 02/04/19?.??He?has a no known?family history of diabetes.?He?is followed by PCP?for his?diabetes. ? ? DIABETIC COMPLICATIONS: Neuropathy:?Polyneuro cristina ? Pre-Admission DM Regimen: Preadmission oral agents:?None Preadmission insulin regimen:?Tresiba?25un its??Q HS Novolog?02/17/11?unit s ?Q AC?pen? Sliding scale:None? ? Self Monitoring Blood Glucose: Type of Monitor:?Does not know brand? Frequency of Monitoring:?1-2?times per week BG Values:?150 Hypoglycemia:Yes when over exerting at work? INTERVAL HPI: No acute events overnight. PERTINENT ROS: Constitutional:Feels well, no complaints Appetite:Intact GI:No nausea, no vomitting, no diarrhea, no constipation Objective PHYSICAL EXAM: BP 132/65 Pulse 83 Temp 36.8 ?C (98.3 ?F) (Oral) Resp 17 Ht 177.8 cm (5' 10 ) Wt 79.6 kg (175 lb 8 oz) SpO2 92% BMI 25.18 kg/m? General Appearance:A+O x 3 and In no apparent distress Affect:Pleasant and cooperative Eyes:Sclerae non-icteric Abdomen:Soft, non-tender and Bowel sounds x 4 Resp: Unlabored, no signs of distress Edema:None noted Laboratory Results: Glucose (mg/dL) Date Value 02/16/2019 194 Potassium (mmol/L) Date Value 02/16/2019 4.3 Sodium (mmol/L) Date Value 02/16/2019 136 Chloride (mmol/L) Date Value 02/16/2019 98 CO2 (mmol/L) Date Value 02/16/2019 27 Creatinine (mg/dL) Date Value 02/16/2019 1.11 BUN (mg/dL) Date Value 02/16/2019 31 Anion Gap (mmol/L) Date Value 02/16/2019 11 Calcium (mg/dL) Date Value 02/16/2019 8.5 ALT Date Value Ref Range Status 02/16/2019 17 10 - 54 U/L Final AST Date Value Ref Range Status 02/16/2019 19 14 - 40 U/L Final Hemoglobin (g/dL) Date Value 02/16/2019 10.3 Hematocrit (%) Date Value 02/16/2019 30.0 WBC (k/uL) Date Value 02/16/2019 10.37 Platelet Count (k/uL) Date Value 02/16/2019 137 Hemoglobin A1C (%) Date Value 02/04/2019 7.2 LV Ejection Fraction (%) Date Value 02/05/2019 50 Diet: ?Heart Healthy: Cardiac 2 GM SODIUM (<200 MG CHOL / LOW SAT FAT), Carb Control: 3--5 CARBS/MEAL (<200 MG CHOL / LOW SAT FAT) and Fluid Restriction : 1500ml daily Supplements:?N/A ? ? [facility] Hospital Hospital ?BG values or ranges: ? Date AM LUNCH DINNER HS 3AM? 02/09 108(h6) 259(h12) 138(h6) 223(h4) Lantus 20u ? 02/10 147(h8) 158(h10) 172 144 Lantus 20u? ? ?02/11 ?101(h8) 128?(h8) ?71(h8) ? ? 02/14/19? 187 Lantus 22 u? 171H2? ?173H3 203h6? ? 02/15/19 219H6 270-249H6+4 229H6+4 ?241(H4) Lantus 22u ? 02/16 225(H6+H4) 240(H4) 126 175(H2) Lantus 26u ? ?02/17 181(H8+H2) ? Impression/Recommenda tions:? Patient with uncontrolled?Diabetes Mellitus Type 2?hyperglycemia?s/p NSTEMI. 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 We have been consulted for glycemic control. Glucose levels elevated at times however inconsistent with meal intake. Fasting elevated, will increase basal dose. Plan for discharge today, Correction scale was reviewed for discharge. ?RECOMMENDATIONS:? ? ?Basal Insulin: Lantus?26?units QHS ? ?Prandial Insulin: Humalog?8?units AC TID ? ?Supplemental Sliding Scale: Humalog?Program #2 AC AND HS ? ?Accuchecks: AC/HS ? ?Recommend Low carbohydrate ? ?Consult CDE regarding: DM Education including TBD ? DM DISCHARGE PLAN: ? ?Tresiba 30 units QHS ? ? Novolog 11-8-11 units with meals, if you do not eat, do not take this dose of medication ? ? Novolog SSI #2 with meals If Blood Glucose (mg/dL) is <110 Give 0 units 111-150 Give 0 units 151-200 Give 2 unit 201-250 Give 4 units 251-300 Give 6 units 301-350 Give 8 units 351-400 Give 10 units >400 Call physician. ?Check blood sugars Three times a Day? ? ?Diet: Low carbohydrate ? ?Exercise as prescribed by cardiology team ? ?Follow up with mold bunch trimmer and guide changer as recommended. ? ?Patient will [facility] ([facility] or with his?home PCP in 1-2 weeks after discharge. ? If having low glucose levels <70mg/dl, fasting glucose levels >130mg/dl or overall glucose levels >150mg/dl, contact your PCP for further direction. ? ?Diabetes Care Team Hospital Discharge Help Line: [phone] ? ? SIGNATURE: Riana Zimmerman APRN.CAROLYN PATIENT NAME: Manpreet Avelar DATE: February 17, 2019 TIME: 6:10 AM PAGER/CONTACT #: [phone] [facility] Comp Metabolic Panelon 02-17 Albumin [Mass/Vol] 3.1 g/dL Low 3.9-4.9 [facility] Comment on above: Performed By: #### C BCDIF, PT, PTT, CMP, MG1, NTBNP #### [facility] [address] [place], [place] [address] ALP [Catalytic activity/Vol] 91 U/L Normal 38-113 [facility] Comment on above: Performed By: #### C BCDIF, PT, PTT, CMP, MG1, NTBNP #### [facility] [address] [place], [place] [address] ALT [Catalytic activity/Vol] 19 U/L Normal 10-54 [facility] Comment on above: Performed By: #### C BCDIF, PT, PTT, CMP, MG1, NTBNP #### [place] [address] [place], [place] [address] Anion gap [Moles/Vol] 12 mmol/L Normal 9-18 [facility] Comment on above: Performed By: #### C BCDIF, PT, PTT, CMP, MG1, NTBNP #### [address] [address] AST [Catalytic activity/Vol] 24 U/L Normal 14-40 [facility] Comment on above: Performed By: #### C BCDIF, PT, PTT, CMP, MG1, NTBNP #### [address] [address] Bilirubin [Mass/Vol] 0.5 mg/dL Normal 0.2-1.3 [facility] Comment on above: Performed By: #### C BCDIF, PT, PTT, CMP, MG1, NTBNP #### [address] [address] Calcium [Mass/Vol] 8.6 mg/dL Normal 8.5-10.2 [facility] Comment on above: Performed By: #### C BCDIF, PT, PTT, CMP, MG1, NTBNP #### [address] [place] [place], [place] [address] Chloride [Moles/Vol] 100 mmol/L Normal 97-105 [facility] Comment on above: Performed By: #### C BCDIF, PT, PTT, CMP, MG1, NTBNP #### [place] [place], [place] [address] CO2 [Moles/Vol] 28 mmol/L Normal 22-30 [facility] Comment on above: Performed By: #### C BCDIF, PT, PTT, CMP, MG1, NTBNP #### [facility] [address] [place] [address] Creatinine [Mass/Vol] 1.10 mg/dL Normal 0.73-1.22 [facility] Comment on above: Performed By: #### C BCDIF, PT, PTT, CMP, MG1, NTBNP #### [facility] [address] [place] [address] eGFR- Amer. >60 Normal [facility] Comment on above: Performed By: #### C BCDIF, PT, PTT, CMP, MG1, NTBNP #### [facility] [address] [place] [address] GFR/1.73 sq M predicted among non-blacks MDRD (S/P/Bld) [Vol rate/Area] mL/min/{1.73_m2} [facility] Comment on above: Result Comment: eGFR (Estimated GFR) Units of measure: mL/min/1.73 meters squared eGFR is derived from the reexpressed MDRD Study equation using the following parameters: serum creatinine, age, gender and race. The creatinine assay has been calibrated to be traceable to IDMS. An eGFR <60 mL/min/1.73m2 for >3 months is consistent with chronic kidney disease. Refer to KDOQI guidelines for clinical interpretation. In patients with unstable renal function, e.g. those with acute kidney injury, the eGFR may not accurately reflect actual GFR. Performed By: #### C BCDIF, PT, PTT, CMP, MG1, NTBNP #### [facility] [address] [place] [id number] Glucose [Mass/Vol] 171 mg/dL High 74-99 [facility] Comment on above: Result Comment: The [place] Diabetes Association (ADA) provides guidance for cutoff values for fasting glucose and random glucose. The ADA defines fasting as no caloric intake for at least 8 hours. Fasting plasma glucose results between 100 to 125 mg/dL indicate increased risk for diabetes (prediabetes). Fasting plasma glucose results greater than or equal to 126 mg/dL meet the criteria for diagnosis of diabetes. In the absence of unequivocal hyperglycemia, results should be confirmed by repeat testing. In a patient with classic symptoms of hyperglycemia or hyperglycemic crisis, random plasma glucose results greater than or equal to 200 mg/dL meet the criteria for diagnosis of diabetes. Reference: Standards of Medical Care in Diabetes 2016, [place] Diabetes Association. Diabetes Care. 2016.39(Suppl 1). Performed By: #### C BCDIF, PT, PTT, CMP, MG1, NTBNP #### [facility] [address] [place] [address] Potassium [Moles/Vol] 4.1 mmol/L Normal 3.7-5.1 [facility] Comment on above: Performed By: #### C BCDIF, PT, PTT, CMP, MG1, NTBNP #### [place] [address] Protein [Mass/Vol] 6.4 g/dL Normal 6.3-8.0 [facility] Comment on above: Performed By: #### C BCDIF, PT, PTT, CMP, MG1, NTBNP #### [place] [address] [place] [address] Sodium [Moles/Vol] 140 mmol/L Normal 136-144 [facility] Comment on above: Performed By: #### C BCDIF, PT, PTT, CMP, MG1, NTBNP #### [place] [address] [place] [address] Urea nitrogen [Mass/Vol] 27 mg/dL High 9-24 [facility] Comment on above: Performed By: #### C BCDIF, PT, PTT, CMP, MG1, NTBNP #### [place] [address] [place] [address] NURSING PROGon 02-17-2019 NURSING PROG HNO ID: [id number] Author: Yamilet (RnBrianna De La Cruz RN Service: ? Author Type: Registered Nurse Type: Nursing Progress Note Filed: 02/17/2019 4:31 PM Note Text: Nursing Progress Note Patient Name: Manpreet Avelar [address] Transfer Note: Patient transferred out of room/unit J61-2 to home in stable condition. Actions taken: Discharge instructions reviewed with patient and family member regarding medication administration, diet, activity restrictions, and wound care. Patient left via wheelchair at 1556. This note was completed by: Yamilet De La Cruz RN [facility] PLAN OF CAREon 02-17-2019 PLAN OF CARE HNO ID: [id number] Author: Glenna Carlos (Flag Football Coach) Service: ? Author Type: ? Type: Plan of Care Filed: 02/17/2019 2:51 PM Note Text: AEROTRIANGULATION SPECIALIST BEDSIDE DELIVERY SURVEY 1. Patient to use [facility] - NO prefer own pharmacy Insurance Information as follows: 2. Insurance card on file - N/A 3. Credit card for payment - N/A [facility] PROGRESSon 02-17-2019 PROGRESS HNO ID: [id number] Author: Sarah Sharp Service: Nursing Author Type: Nurse Practitioner Type: Progress Notes Filed: 02/17/2019 1:42 PM Note Text: [facility] POSTOP PROGRESS NOTE Day of Surgery:02/13/2019 S/P SURGERY: CABGx 4 (WATTS-LAD, JOSTIN-OM1, SVG-PDA, SVG- PLB)? INTERVAL EVENTS / PERTINENT ROS: -No additional episodes of Afib -Discharge today Rhythm: NSR Intake/Output Summary (Last 24 hours) at 02/17/2019 1340 Last data filed at 02/17/2019 1300 Gross per 24 hour Intake 1495 ml Output ? Net 1495 ml EKG: most recent image reviewed TELE: most recent recordings reviewed CXR: most recent image reviewed Echocardiogram: most recent image reviewed PHYSICAL EXAM: BP 142/67 Pulse 77 Temp 36.9 ?C (98.4 ?F) (Oral) Resp 18 Ht 177.8 cm (5' 10 ) Wt 79.6 kg (175 lb 8 oz) SpO2 93% BMI 25.18 kg/m? Neuro: AANDO x 3 moves all extremities with no apparent weakness CV: no jugular venous distention Heart Exam: RRR without murmur, gallop, or rubs. No ectopy. Resp: clear to auscultation bilaterally and diminished breath sounds. On RA Abd: The abdomen is soft, nontender, nondistended; BS normal; no masses or organomegaly noted. Skin: Skin color, texture, turgor normal, no suspicious rashes or lesions Ext: 1+ edema Surgical incisions: MSI well approximated. No drainage or erythema Chest tube: No Pacer wires: No. HISTORY, ASSESSMENT AND PLAN: Problem Transition of Care Performed With Sharing of Clinical Summary Indication for Surgery: 3-vessel CAD Preop LVEF: Normal RVF: Normal Postop LVEF: Normal RVF: Normal cath: [facility] 02/02/19: 80% LAD, 70% circumflex, 95% RCA cards: Michael Hsieh EKG: NSR w/ ST elevation Important/Relevant PMH/PSH: NSTEMI (02/01/19), CAD, DM, Psoriasis, dysphagia (solids) Preoperative Hospital Course: From OSH after [facility] noted triple vessel disease. Airway Difficulty: Grade I - No special instrumentation Pacing Wires: No: Ventricular: Pulled 02/16 Chronological List of Surgeries and Major Events (Diagnosis): (Surgeries in bold characters) 02/13/2019: CABGx 4 (WATTS-LAD, JOSTIN-OM1, SVG-PDA, SVG- PLB)? cardiac insufficiency coming off CPB requiring epinephrine A/P of Major Active Problems (excluding routine care and common problems): Card- Mild LV systolic dysfunction requiring epinephrine post op now weaned off. Start BB for BP control Renal- ADRIAN with mild hyperkalemia. Required K cocktail overnight. Started on intermittent lasix To Do or to Watch: -POD #2. No tubes, No wires -s/p CABG x 4. ASA, BB. Statin -HTN: SBP 110s-130s; continue IV lasix and BB -Acute systolic HF: mild LV dysfunction on admission. Pre op echo EF 50%. Cont PO lasix. -Postop Afib: Converted Afib RVR 02/16 at 1 pm. BP stable, asymptomatic. IV Metoprolol, Mg given. -FVO: below baseline weight. Lasix switched to oral -ADRIAN: Baseline SCr 1.18-1.31. SCr today 1.10, avoid nephrotoxic agents. Likely 2/2 diuresis. -DM 2: blood sugars 170s-200s. On insulin at home. Endo following -Hx of psoriasis: Holding home humira 63 year year old male from [place], [place]. Cardiac rehab to mobilize. CM following. Patient will f/u with local PCP. Follow up with Cards (dr. Hsieh) 04/03. Discharge Planning: Anticipated Discharge Date: 02/17 Barriers to Discharge: Atrial Fibrilation: In Process, Volume Overload: In Process, Other: mobilize and - In Process Care Management Discharge Needs: Needs Prior to Discharge: To Be Determined DAILY STEP DOWN CHECKLIST FOR CATHETER RELATED INFECTION PREVENTION CVC, PICC, Makenzie and/or Permacath present? No Does the patient have a urinary catheter beyond POD 2? No VTE Risk Assessment: Moderate risk VTE Mechanical and/or Pharmacologic Prophylaxis: IPC Device, GCS and Subcutaneous Heparin Labs and medications reviewed in Epic Case discussed in depth with: Dr. Larsen SIGNATURE: Sarah Sharp APRN.CNP PATIENT NAME: Manpreet Avelar DATE: February 17, 2019 TIME: 1:40 PM PAGER/CONTACT #: [phone] ETX#[id number] [facility] PROGRESS HNO ID: [id number] Author: Dayton Clark (Rt) Brittany Gross Service: Radiology Author Type: Environmental Science Technician Type: Progress Notes Filed: 02/17/2019 1:16 PM Note Text: Radiology Service Progress Note PATIENT NAME: Manpreet Avelar DATE OF SERVICE: February 17, 2019 TIME: 1:16 PM PATIENT IDENTITY VERIFICATION COMPLETED USING TWO (2) METHODS: Name and Date of confirmed by patient verbally. PATIENT GENDER DATA: Male PATIENT RELEVANT IMPLANT DATA REVIEWED: Not Applicable RADIOLOGY DEPARTMENT: General X-ray: Exam(s) Completed: Chest X-Ray PERIPHERAL IV DATA: Not applicable SIGNED BY: Dayton Gross, RT February 17, 2019 1:16 PM [facility] XR CHEST 2V FRONTAL/LATon XR CHEST 2V FRONTAL/LAT * * *Final Repor t* * * DATE OF EXAM: Feb 17 2019 1:17PM [facility] [id number] - XR CHEST 2V FRONTAL/LAT / PROCEDURE REASON: Post-operative / post-procedure assessment, asymptomatic * * * * Physician Interpretation * * * * EXAMINATION: CHEST RADIOGRAPH (2 VIEW FRONTAL and LATERAL) Clinical History: Post-operative / post-procedure assessment, asymptomatic M: XC2_4 Comparison: PA and lateral CXR dated 02/16/2019 RESULT: Lines, tubes, and devices: Interval removal of the right thoracostomy tube. Lungs and pleura: There are small bilateral pleural effusions with associated bibasilar airspace opacities most commonly secondary to nonspecific atelectasis. Small biapical pneumothoraces, right slightly larger than left, appear unchanged in size. Cardiomediastinal silhouette: Stable cardiomediastinal silhouette. Status post median sternotomy and CABG. The cardiac silhouette appears slightly enlarged. There are mottled retrosternal lucencies consistent with nonspecific postoperative changes. Other: The vertebral body heights appear symmetric and well-maintained. There are mild degenerative changes in the thoracic spine. IMPRESSION: Since 02/16/2019, 1. Stable small biapical pneumothoraces, right slightly larger than left. 2. Again demonstrated are small bilateral pleural effusions with associated bibasilar airspace opacities most commonly secondary to nonspecific atelectasis. 3. There are mottled retrosternal lucencies consistent with nonspecific postoperative changes. Flag Football Coach: GAGANDEEP Transcribe Date/Time: Feb 17 2019 3:24P Dictated by : ROHIT GARRISON MD This examination was interpreted and the report reviewed and electronically signed by: ROHIT GARRISON MD on Feb 17 2019 3:28PM EST [id number] [facility] ALLIED HEALTHon 02-16-2019 ALLIED HEALTH HNO ID: [id number] Author: Yasmeen (Ex Phys) Mary Service: Cardiovascular Medicine Author Type: Hazardous Materials Waste Technician Type: Allied Health Filed: 02/16/2019 3:33 PM Note Text: CARDIAC REHABILITATION PHASE I FOLLOW-UP PATIENT NAME: Manpreet Avelar SERVICE DATE: February 16, 2019 SESSION TIME: 3:08PM Comments: Met pt ambulating from the bathroom back to bed upon arrival, attempted activity session with pt however he is in AFib with RVR. Further ambulation not attempted at this time. RN at bedside to give meds. Pt noted he was able to ambulate in the reed x2 last evening ~280ft. No difficulty noted. Instructed pt to ambulate later as heart rates allow with staff assist/supervision. Will continue to follow. Yasmeen Hernandez, EX PHYS Pager: [phone] February 16, 2019 3:28 PM [facility] CBCon 02-16-2019 Absolute nRBC <0.01 Normal <0.01 [facility] Comment on above: Performed By: #### C BCDIF, PT, PTT, CMP, MG1, NTBNP #### [place] [address] Erythrocyte distribution width (RBC) [Ratio] 12.8 % Normal 11.5-15.0 [facility] Comment on above: Performed By: #### C BCDIF, PT, PTT, CMP, MG1, NTBNP #### [place] [address] Hematocrit (Bld) [Volume fraction] 30.0 % Low 39.0-51.0 [facility] Comment on above: Performed By: #### C BCDIF, PT, PTT, CMP, MG1, NTBNP #### [place] [place] [address] Hemoglobin (Bld) [Mass/Vol] 10.3 g/dL Low 13.0-17.0 [facility] Comment on above: Performed By: #### C BCDIF, PT, PTT, CMP, MG1, NTBNP #### [place] [address] [place] [address] MCH (RBC) [Entitic mass] 29.9 pG Normal 26.0-34.0 [facility] Comment on above: Performed By: #### C BCDIF, PT, PTT, CMP, MG1, NTBNP #### [place] [address] MCHC (RBC) [Mass/Vol] 34.3 g/dL Normal 30.5-36.0 [facility] Comment on above: Performed By: #### C BCDIF, PT, PTT, CMP, MG1, NTBNP #### [place] [address] MCV (RBC) [Entitic vol] 87.2 fL Normal 80.0-100.0 [facility] Comment on above: Performed By: #### C BCDIF, PT, PTT, CMP, MG1, NTBNP #### [place] [address] Platelet mean volume (Bld) [Entitic vol] 13.0 fL High 9.0-12.7 [facility] Comment on above: Performed By: #### C BCDIF, PT, PTT, CMP, MG1, NTBNP #### [place] [address] Platelets (Bld) [#/Vol] 137 10*3/uL Low 150-400 [facility] Comment on above: Performed By: #### C BCDIF, PT, PTT, CMP, MG1, NTBNP #### [address] [address] RBC (Bld) [#/Vol] 3.44 10*6/uL Low 4.20-6.00 [facility] Comment on above: Performed By: #### C BCDIF, PT, PTT, CMP, MG1, NTBNP #### [address] [address] WBC (Bld) [#/Vol] 10.37 10*3/uL Normal 3.70-11.00 [facility] Comment on above: Performed By: #### C BCDIF, PT, PTT, CMP, MG1, NTBNP #### [place] [address] [place] [address] CK, Total and CKMBon 019 CK [Catalytic activity/Vol] 375 U/L High 51-298 [facility] Comment on above: Performed By: #### C BCDIF, PT, PTT, CMP, MG1, NTBNP #### [place] [address] CK MB % 0.6 % Normal 0.0-4.0 [facility] Comment on above: Performed By: #### C BCDIF, PT, PTT, CMP, MG1, NTBNP #### [place] [address] MB 2.4 ng/mL Normal <7.8 [facility] Comment on above: Performed By: #### C BCDIF, PT, PTT, CMP, MG1, NTBNP #### [place] [id number] CONSULT PROGon 02-16-2019 CONSULT PROG HNO ID: [id number] Author: Riana Zimmerman Service: Endocrinology Author Type: Nurse Practitioner Type: Consult Progress Note Filed: 02/16/2019 10:26 PM Note Text: DIABETES CARE TEAM NOTE SERVICE DATE: 02/16/2019 SERVICE TIME: 5:34 AM Subjective Summary of History from Prior Record: Consult Date:?02/10/19 Re consulted 02/15/2019 Copied from provider note Dot Sandoval CNP from 02/15/2019. HPI:??Manpreet Avelar is a 63 year old male with a 20?year history of?Diabetes Mellitus Type 2?hyperglycemia?who was admitted on 02/03/2019?for CAD??. Past medical history significant for?CAD,HPL.?Patient ?does ?exercise. Last HbA1c was 7.2%??on 02/04/19?.??He?has a no known?family history of diabetes.?He?is followed by PCP?for his?diabetes. ? ? DIABETIC COMPLICATIONS: Neuropathy:?Polyneuro cristina ? Pre-Admission DM Regimen: Preadmission oral agents:?None Preadmission insulin regimen:?Tresiba?25un its??Q HS Novolog?02/17/11?unit s ?Q AC?pen? Sliding scale:None? ? Self Monitoring Blood Glucose: Type of Monitor:?Does not know brand? Frequency of Monitoring:?1-2?times per week BG Values:?150 Hypoglycemia:Yes when over exerting at work? INTERVAL HPI: No acute events overnight. PERTINENT ROS: Constitutional:Feels well, no complaints Appetite:Intact GI:No nausea, no vomitting, no diarrhea, no constipation Objective PHYSICAL EXAM: BP 147/69 Pulse 87 Temp 36.6 ?C (97.9 ?F) (Oral) Resp 20 Ht 177.8 cm (5' 10 ) Wt 83 kg (183 lb) SpO2 93% BMI 26.26 kg/m? General Appearance:A+O x 3 and In no apparent distress Affect:Pleasant and cooperative Eyes:Sclerae non-icteric Abdomen:Soft, non-tender and Bowel sounds x 4 Resp: Unlabored,no signs of distress Edema:None noted Laboratory Results: Glucose (mg/dL) Date Value 02/15/2019 221 Potassium (mmol/L) Date Value 02/15/2019 4.7 Sodium (mmol/L) Date Value 02/15/2019 135 Chloride (mmol/L) Date Value 02/15/2019 99 CO2 (mmol/L) Date Value 02/15/2019 26 Creatinine (mg/dL) Date Value 02/15/2019 1.50 BUN (mg/dL) Date Value 02/15/2019 29 Anion Gap (mmol/L) Date Value 02/15/2019 10 Calcium (mg/dL) Date Value 02/15/2019 8.7 ALT Date Value Ref Range Status 02/15/2019 25 10 - 54 U/L Final AST Date Value Ref Range Status 02/15/2019 26 14 - 40 U/L Final Hemoglobin (g/dL) Date Value 02/15/2019 11.0 Hematocrit (%) Date Value 02/15/2019 33.5 WBC (k/uL) Date Value 02/15/2019 14.11 Platelet Count (k/uL) Date Value 02/15/2019 140 Hemoglobin A1C (%) Date Value 02/04/2019 7.2 LV Ejection Fraction (%) Date Value 02/05/2019 50 Diet: Heart Healthy: Cardiac 2 GM SODIUM (<200 MG CHOL / LOW SAT FAT), Carb Control: 3--5 CARBS/MEAL (<200 MG CHOL / LOW SAT FAT) and Fluid Restriction : 1500ml daily Supplements: N/A ? Other Pertinent Medications: AIR QUALITY CONSULTANT pian pump ? [facility] in [facility] Hospital ?BG values or ranges: ? Date AM LUNCH DINNER HS 3AM? 02/09 108(h6) 259(h12) 138(h6) 223(h4) Lantus 20u ? 02/10 147(h8) 158(h10) 172 144 Lantus 20u? ? ?02/11 ?101(h8) 128?(h8) ?71(h8) ? ? 02/14/19? 187 Lantus 22 u? 171H2? ?173H3 203h6? ? 02/15/19 219H6 270-249H6+4 229H6+4 ?241(H4) Lantus 22u ? 02/16 225(H6+H4) 240(H4) 126 175(H2) Lantus 26u ? ? Impression/Recommenda tions:? Patient with uncontrolled?Diabetes Mellitus Type 2?hyperglycemia?s/p NSTEMI. 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 We have been consulted for glycemic control. Glucose levels remain globally elevated, will increase basal and prandial doses for today. Estimated Creatinine Clearance: 71.2 mL/min (based on SCr of 1.11 mg/dL). ?RECOMMENDATIONS:? ? ?Basal Insulin: Lantus?26?units QHS ? ?Prandial Insulin: Humalog?8?units AC TID ? ?Supplemental Sliding Scale: Humalog?Program #2 AC AND HS ? ?Accuchecks: AC/HS ? ?Recommend Low carbohydrate ? ?Consult CDE regarding: DM Education including TBD ? DM DISCHARGE PLAN: ? ?To be decided based on clinical course.-Patient would like to possible resume metformin with insulin at discharge -he has been on in past but PCP stopped when he started on insulin ? ?Check blood sugars Three times a Day? ? ?Diet: Low carbohydrate ? ?Exercise as prescribed by cardiology/ primary team ? ?Follow up with mold bunch trimmer and guide changer as recommended. ? ?Patient will [facility] ([facility] or with his?home enterprise systems manager/PCP in 1-2 weeks after discharge. ? ?Diabetes Care Team Hospital Discharge Help Line: [phone] ? ? ? SIGNATURE: Riana Zimmerman APRN.FIRE RANGE TECHNICIAN PATIENT NAME: Manpreet Avelar DATE: February 16, 2019 TIME: 5:34 AM PAGER/CONTACT #: [phone] [facility] Comp Metabolic Panelon 02-16 Albumin [Mass/Vol] 3.0 g/dL Low 3.9-4.9 [facility] Comment on above: Performed By: #### C BCDIF, PT, PTT, CMP, MG1, NTBNP #### [facility] [address] [place], [place] [address] ALP [Catalytic activity/Vol] 72 U/L Normal 38-113 [facility] Comment on above: Performed By: #### C BCDIF, PT, PTT, CMP, MG1, NTBNP #### [facility] [address] [place], [place] [address] ALT [Catalytic activity/Vol] 17 U/L Normal 10-54 [facility] Comment on above: Performed By: #### C BCDIF, PT, PTT, CMP, MG1, NTBNP #### [facility] [address] [place], [place] [address] Anion gap [Moles/Vol] 11 mmol/L Normal 9-18 [facility] Comment on above: Performed By: #### C BCDIF, PT, PTT, CMP, MG1, NTBNP #### [place] [address] [place], [place] [address] AST [Catalytic activity/Vol] 19 U/L Normal 14-40 [facility] Comment on above: Performed By: #### C BCDIF, PT, PTT, CMP, MG1, NTBNP #### [place] [address] [place], [place] [address] Bilirubin [Mass/Vol] 0.5 mg/dL Normal 0.2-1.3 [facility] Comment on above: Performed By: #### C BCDIF, PT, PTT, CMP, MG1, NTBNP #### [place] [address] Calcium [Mass/Vol] 8.5 mg/dL Normal 8.5-10.2 [facility] Comment on above: Performed By: #### C BCDIF, PT, PTT, CMP, MG1, NTBNP #### [place] [address] [place], [place] [address] Chloride [Moles/Vol] 98 mmol/L Normal 97-105 [facility] Comment on above: Performed By: #### C BCDIF, PT, PTT, CMP, MG1, NTBNP #### [place] [address] [place], [place] [address] CO2 [Moles/Vol] 27 mmol/L Normal 22-30 [facility] Comment on above: Performed By: #### C BCDIF, PT, PTT, CMP, MG1, NTBNP #### [place] [address] [place], [place] [address] Creatinine [Mass/Vol] 1.11 mg/dL Normal 0.73-1.22 [facility] Comment on above: Performed By: #### C BCDIF, PT, PTT, CMP, MG1, NTBNP #### [place] [address] [place], [place] [address] eGFR- Amer. >60 Normal [facility] Comment on above: Performed By: #### C BCDIF, PT, PTT, CMP, MG1, NTBNP #### [facility] [address] [place] [id number] GFR/1.73 sq M predicted among non-blacks MDRD (S/P/Bld) [Vol rate/Area] mL/min/{1.73_m2} Normal [facility] Comment on above: Result Comment: eGFR (Estimated GFR) Units of measure: mL/min/1.73 meters squared eGFR is derived from the reexpressed MDRD Study equation using the following parameters: serum creatinine, age, gender and race. The creatinine assay has been calibrated to be traceable to IDMS. An eGFR <60 mL/min/1.73m2 for >3 months is consistent with chronic kidney disease. Refer to KDOQI guidelines for clinical interpretation. In patients with unstable renal function, e.g. those with acute kidney injury, the eGFR may not accurately reflect actual GFR. Performed By: #### C BCDIF, PT, PTT, CMP, MG1, NTBNP #### [facility] [address] [place] [phone] Glucose [Mass/Vol] 194 mg/dL High 74-99 [facility] Comment on above: Result Comment: The [place] Diabetes [employer] (ADA) provides guidance for cutoff values for fasting glucose and random glucose. The ADA defines fasting as no caloric intake for at least 8 hours. Fasting plasma glucose results between 100 to 125 mg/dL indicate increased risk for diabetes (prediabetes). Fasting plasma glucose results greater than or equal to 126 mg/dL meet the criteria for diagnosis of diabetes. In the absence of unequivocal hyperglycemia, results should be confirmed by repeat testing. In a patient with classic symptoms of hyperglycemia or hyperglycemic crisis, random plasma glucose results greater than or equal to 200 mg/dL meet the criteria for diagnosis of diabetes. Reference: Standards of Medical Care in Diabetes 2016, [place] [employer]. Diabetes Care. 2016.39(Suppl 1). Performed By: #### C BCDIF, PT, PTT, CMP, MG1, NTBNP #### [facility] [address] [place], [place] [address] Potassium [Moles/Vol] 4.3 mmol/L Normal 3.7-5.1 [facility] Comment on above: Performed By: #### C BCDIF, PT, PTT, CMP, MG1, NTBNP #### [facility] [address] [place], [place] [address] Protein [Mass/Vol] 5.9 g/dL Low 6.3-8.0 [facility] Comment on above: Performed By: #### C BCDIF, PT, PTT, CMP, MG1, NTBNP #### [facility] [address] [place], [place] [address] Sodium [Moles/Vol] 136 mmol/L Normal 136-144 [facility] Comment on above: Performed By: #### C BCDIF, PT, PTT, CMP, MG1, NTBNP #### [place] [address] [place], [place] [phone] Urea nitrogen [Mass/Vol] 31 mg/dL High 9-24 [facility] Comment on above: Performed By: #### C BCDIF, PT, PTT, CMP, MG1, NTBNP #### [facility] [address] [place], [place] [id number] EKG1on 02-16-2019 EKG1 NAME : MANPREET AVELAR PID : [id number] : 1955 Gender : Male Race : ORD : Procedure Date : Feb 16 2019 14:01:59 Edit Date : Feb 23 2019 12:54:07 Diagnosis:ATRIAL FIBRILLATION WITH RAPID VENTRICULAR RESPONSE INFERIOR MYOCARDIAL INFARCTION , AGE UNDETERMINED Confirmed by MADISON PEACOCK M.D. ([id number]) on 02/23/2019 12:50:52 PM Ventricular Rate : 148 BPM Atrial Rate : 159 BPM QRS Duration : 86 ms Q-T Interval : 306 ms QTC Calculation(Bazett) : 480 ms R Elbert : -17 degrees T Elbert : -65 degrees Test Reason : Location : [facility] : [address] [place] [address] Overread By : MADISON PEACOCK M.D. Edited By : MADISON PEACOCK M.D. Referred By : , Acquired by : [id number], [facility] NURSING PROGon 02-16-2019 NURSING PROG HNO ID: [id number] Author: Yamilet VegaRn) ARLYN De La Cruz Service: ? Author Type: Registered Nurse Type: Nursing Progress Note Filed: 02/16/2019 3:54 PM Note Text: Nursing Progress Note Patient Name: Manpreet Avelar Patient Location: [id number] Event(s) / Intervention Note: The patient was observed having the following problems: Afib RVR. HR 150's, BP stable, pt asymptomatic. The time of the event occurred at: 1250. The following intervention(s) were initiated: SYBIL Sharp was notified and ordered Metoprolol IVP and Mg. After the initiated interventions, the following observation(s) were made: Mg and Metoprolol administered per order. 1538- Pt self converted back into SR. No further actions needed at this time, will continue to monitor. This note was completed by: Yamilet De La Cruz RN [facility] NURSING PROG HNO ID: [id number] Author: Renea VegaRn) ARLYN Machado Service: ? Author Type: Registered Nurse Type: Nursing Progress Note Filed: 02/16/2019 6:56 AM Note Text: Nursing Progress Note Patient Name: Manpreet Avelar Patient [facility]: [facility] 09-12-13 Assessed telemetry at 02/16 2000. Pt appeared to have ST elevation not previously discussed in report or seen in previous EKGs. Pt asymptomatic. No chest pain. Paged CTS on-call at [phone]. Was given orders for stat troponin T and CK total and CK-MB. Labs were drawn at 2055. Not received in lab until 02/16 0006. Resulted with urgent troponin 0.175. Paged above. Redrew labs at 0300. Resulted with troponin of 0.153. Will continue to monitor. This note was completed by: Renea Machado RN [facility] NUTRITIONon 02-16-2019 NUTRITION HNO ID: [id number] Author: Shaniqua Reynaga) Kindra Service: Nutrition Therapy Author Type: Registered Dietitian Type: Nutrition Filed: 02/16/2019 1:37 PM Note Text: NUTRITION THERAPY INITIAL ASSESSMENT SERVICE DATE: 02/16/2019 SERVICE TIME: 12:45 RECOMMENDED MALNUTRITION DIAGNOSIS: MILD PROTEIN-CALORIE MALNUTRITION In the context of Acute Illness or Injury based on: Insufficient Energy Intake: Less than or equal to 50% for greater than or equal to 5 days NUTRITION CARE PLAN: Problem, Etiology and Signs/Symptoms: Suboptimal oral intake related to acute condition as evidenced by decreased intakes. Intervention: 1. Consider 4gm Na, carb controlled diet, pended fluid restriction per primary 2. Trial boost glucose control qd (250 kcals, 14 g pro), zone bar qd (180 kcals, 10 g pro) 3. Added snack 4. Please obtain standing weights as able for increased accuracy Coordination of Care: PCNAs to please record meal and supplement intakes to help obtain a more accurate calorie count. Monitor and Evaluation: Goal: Meet >75% of estimated needs Monitor fluid/electrolyte balance Monitor labs, I/Os, vital signs, weight Discharge Nutrition Recommendations: Diet: HH Low Na, carb controlled, fluid restriction per primary Supplements: high protein, high calorie supplements as needed to meet estimated needs Per HPI: 63 year old male s/p CABG x4 on 02/13, PMH includes NSTEMI, CAD, DM, dysphagia Orders Placed This Encounter DIET HEART HEALTHY Standing Status: Standing Number of Occurrences: 1 Order Specific Question: Heart Healthy Answer: 2 GM SODIUM (<200 MG CHOL / LOW SAT FAT) Order Specific Question: Carbohydrate Control Answer: 3-5 CARBS/MEAL Order Specific Question: Fluid Restriction Answer: 1500 ML Lines and Drains: Peripheral 02/15/19 1842 Short Right Antecubital 20 Gauge (Active) Chest Tube 02/13/19 1253 Right Pleural 28 Fr Tube #3 (Active) Nutritional Intake Prior to Admission: Good intakes BEHAVIOR THERAPIST and before surgery. 02/11-02/15: avg PO intake 498 kcals, 28 g pro/day <50% est needs GI symptoms: none Nutrition Abdominal Exam: and abdomen is soft ANTHROPOMETRICS Height: 177.8 cm (5' 10 ) Admission Weight: 83.5 kg (184 lb) Current Weight: 81.2 kg (179 lb) Body mass index is 25.68 kg/m?. Weight has not changed significantly, reports UBW is 180#. Last Wt 02/16/19 : 81.2 kg (179 lb) Dosing Weight: 81.2 kg Estimated kilocalorie needs: 6980-2888 kilocalories determined by 25-30 kcal/kg Estimated protein needs: 97-122 grams determined by 1.2-1.5 g/kg Dosing weight NUTRITION FOCUSED PHYSICAL EXAM: Subcutaneous Fat Loss Orbital No fat loss Triceps No fat loss Mid-axillary at the iliac crest Unable to determine at this time Muscle Loss Locations: Temporalis No muscle loss Pectoralis No muscle loss Deltoids No muscle loss Interosseous No muscle loss Latissimus dorsi, trapezius Unable to determine at this time Quadriceps No muscle loss Gastrocnemius Unable to determine at this time Potential micronutrient deficiency revealed in: No deficiency identified Edema: Yes Generalized and Non-pitting Ascites: No Assessment of Functional Status: Functional capacity is unrelated to nutrition status Temperature Max in 24 hours: Temp (24hrs), Av.9 ?C (98.4 ?F), Min:36.6 ?C (97.9 ?F), Max:37.2 ?C (99 ?F) BP 147/69 Pulse 87 Temp 36.6 ?C (97.9 ?F) (Oral) Resp 20 Ht 177.8 cm (5' 10 ) Wt 81.2 kg (179 lb) SpO2 93% BMI 25.68 kg/m? Recent Labs 02/16/19 0519 02/15/19 1120 02/15/19 0503 GLUC -- -- 221* BUN -- -- 29* CREAT -- -- 1.50* NA -- -- 135* K -- 4.7 5.2* CHLOR -- -- 99 CO2 -- -- 26 ALB -- -- 3.1* HB 10.3* -- 11.0* HCT 30.0* -- 33.5* WBC 10.37 -- 14.11* Potential Signs of Inflammation: hyperglycemia, hypoalbuminemia and acute post-operative ALLERGIES No Known Allergies Current Facility-Administered Medications Medication Dose Route Frequency - insulin glargine 22 Units pen (long acting) (LANTUS SOLOSTAR, BASAGLAR KWIKPEN) 22 Units SUBCUTANEOUS AT BEDTIME - insulin lispro 6 Units injection (rapid acting) (HumaLOG) 6 Units SUBCUTANEOUS DAILY WITH BREAKFAST - insulin lispro 6 Units injection (rapid acting) (HumaLOG) 6 Units SUBCUTANEOUS DAILY wLUNCH - insulin lispro 6 Units injection (rapid acting) (HumaLOG) 6 Units SUBCUTANEOUS DAILY wDINNER - metoprolol tartrate (short acting) 25 mg tab(s) (LOPRESSOR) 25 mg ORAL BID - rosuvastatin 5 mg tab(s) (CRESTOR) 5 mg ORAL DAILY - oxyCODONE IR 5-10 mg tab(s) (ROXICODONE) 5-10 mg ORAL/FEEDING TUBE q 4 H PRN - furosemide 20 mg injection (LASIX) 20 mg INTRAVENOUS q 12 H 6a/6p - heparin 5,000 Units injection 5,000 Units SUBCUTANEOUS q 12 H - dextrose 40 % 15 g 15 g ORAL PRN Or - glucagon 1 mg injection (GLUCAGEN) 1 mg INTRAMUSCULAR PRN Or - dextrose 50 % 12.5 g injection 12.5 g INTRAVENOUS PRN - NaCl 0.9% 3-5 mL 3-5 mL INTRAVENOUS q 12 H - NaCl 0.9% 10 mL 10 mL INTRAVENOUS q 12 H - potassium chloride ER 10-60 mEq tab(s) (K-DUR, KLOR-CON) 10-60 mEq ORAL PRN - therapeutic multivitamin 1 tablet tab(s) (THERA VITAMIN) 1 tablet ORAL DAILY WITH BREAKFAST - calcium carbonate 500-1,000 mg chewable tab(s) (TUMS) 500-1,000 mg ORAL TID PRN - aluminum-magnesium hydroxide-simethicone 200-200-20 mg/5 mL 30 mL (MAALOX,MYLANTA,MAG-A L PLUS) 30 mL ORAL q 4 H PRN - benzocaine-menthol 1 Lozenge (CEPACOL) 1 Lozenge ORAL q 2 H PRN - guaiFENesin 600 mg ER tab(s) (MUCINEX) 600 mg ORAL q 12 H PRN - polyethylene glycol 3350 17 g packet (MIRALAX, GLYCOLAX) 17 g ORAL DAILY - magnesium hydroxide 400 mg/5 mL 30 mL (MOM) 30 mL ORAL q 6 H PRN - insulin lispro injection (rapid acting) (HumaLOG) SUBCUTANEOUS w MEALS AND HS - pantoprazole DR 20 mg tab(s) (PROTONIX) 20 mg ORAL DAILY (6 AM) - senna-docusate 8.6-50 mg 1 tablet (SENNA-S) 1 tablet ORAL/FEEDING TUBE BID - acetaminophen 1,000 mg tab(s) (TYLENOL) 1,000 mg ORAL/FEEDING TUBE q 6 H - aspirin 162 mg chewable tab(s) 162 mg ORAL/FEEDING TUBE DAILY Date 02/15/19699 - 02/16/1965802/16/19699 - 02/17/19 0659 Shift 4464-7124 4599-8511 2849-1490 24 Hour Total 6544-8432 7830-4846 7533-1007 24 Hour Total INTAKE PO 240 120 360 PO 240 120 360 Shift Total 240 120 360 OUTPUT Urine 400 375 775 Void (ml) 400 375 775 Urine Not Saved. 1 x 1 x Chest Tube 170 100 10 280 Chest Tube Output ([REMOVED] Chest Tube 02/13/19 1252 Left Pleural 28 Fr Tube #2 02/15/19 1710) 70 70 Chest Tube Output (Chest Tube 02/13/19 1253 Right Pleural 28 Fr Tube #3) 100 100 10 210 # of BMs Number of BMs 0 x 1 x 1 x Shift Total 570 231 40 6402 Weight (kg) 83 83 81.2 81.2 81.2 81.2 81.2 81.2 Surgical Incision 02/13/19 1412 Chest - Midsternal (Active) Dressing Status None: Open to Air 02/15/2019 8:00 PM Frequency of Dressing Change As Needed 02/14/2019 7:30 AM Dressing Change Due 02/15/19 02/13/2019 2:01 PM Dressing /Treatment Type Dry Sterile Dressing 02/14/2019 8:00 PM Incision Closures None 02/15/2019 8:00 PM Drainage Description None 02/15/2019 8:00 PM Drainage Amount None 02/15/2019 8:00 PM Edges Intact 02/15/2019 8:00 PM Hematoma No 02/15/2019 8:00 PM Number of days: 2 Surgical Incision 02/13/19 1413 Saphenous Vein Graft Right (Active) Dressing Status None: Open to Air 02/15/2019 8:00 PM Frequency of Dressing Change As Needed 02/14/2019 7:30 AM Dressing Change Due 02/15/19 02/13/2019 2:01 PM Dressing /Treatment Type Dry Sterile Dressing 02/14/2019 8:00 PM Incision Closures None 02/15/2019 8:00 PM Drainage Description None 02/15/2019 8:00 PM Drainage Amount None 02/15/2019 8:00 PM Edges Intact 02/15/2019 8:00 PM Hematoma No 02/15/2019 8:00 PM Number of days: 2 Surgical Incision 02/13/19 1401 Groin - Right (Active) Dressing Status None: Open to Air 02/15/2019 8:00 PM Frequency of Dressing Change As Needed 02/14/2019 7:30 AM Dressing Change Due 02/15/19 02/13/2019 2:01 PM Dressing /Treatment Type Dry Sterile Dressing 02/14/2019 8:00 PM Incision Closures None 02/15/2019 8:00 PM Drainage Description None 02/15/2019 8:00 PM Drainage Amount None 02/15/2019 8:00 PM Edges Intact 02/15/2019 8:00 PM Hematoma No 02/15/2019 8:00 PM Number of days: 2 Surgical Incision Chest Tube - Right Middle Lobe (Active) Dressing Status Clean, Dry AND Intact 02/15/2019 8:00 PM Frequency of Dressing Change Daily 02/15/2019 8:00 PM Dressing Change Due 02/16/19 02/15/2019 8:00 PM Dressing /Treatment Type Dry Cover Dressing 02/15/2019 8:00 PM Incision Closures Sutures 02/15/2019 8:00 PM Drainage Description None 02/15/2019 8:00 PM Drainage Amount None 02/15/2019 8:00 PM Edges Intact 02/15/2019 8:00 PM Hematoma No 02/15/2019 8:00 PM Number of days: Surgical Incision 02/14/19 2320 Pacemaker Wire Site (Active) Dressing Status Clean, Dry AND Intact 02/15/2019 8:00 PM Frequency of Dressing Change As Needed 02/15/2019 8:00 PM Dressing /Treatment Type Foam Non Adhesive 02/15/2019 10:16 AM Incision Closures Sutures 02/15/2019 8:00 PM Drainage Description None 02/15/2019 8:00 PM Drainage Amount None 02/15/2019 8:00 PM Edges Intact 02/15/2019 8:00 PM Hematoma No 02/15/2019 8:00 PM Number of days: 1 Surgical Incision 02/15/19 1055 Chest Tube - Left Lower Lobe (Active) Dressing Status Changed 02/15/2019 8:00 PM Frequency of Dressing Change As Needed 02/15/2019 8:00 PM Dressing Change Due 02/16/19 02/15/2019 4:00 PM Dressing /Treatment Type Dry Cover Dressing 02/15/2019 8:00 PM Incision Closures Sutures 02/15/2019 8:00 PM Drainage Description None 02/15/2019 8:00 PM Drainage Amount None 02/15/2019 8:00 PM Edges Intact 02/15/2019 8:00 PM Hematoma No 02/15/2019 8:00 PM Number of days: 0 MNT Billing Type: Initial Assess/15 min 4 units SIGNATURE: Shaniqua Arguelles RD PATIENT NAME: Manpreet Avelar DATE: February 16, 2019 TIME: 7:17 AM PAGER: [phone] Normal [facility] PROCEDUREon 02-16-2019 PROCEDURE HNO ID: [id number] Author: Sarah Sharp Service: Nursing Author Type: Nurse Practitioner Type: Procedures Filed: 02/16/2019 12:39 PM Note Text: Remaining R pleural CT - 210cc serosanguinous drainage out over past 24 hrs. No air leak or SQ emphysema. CXR on waterseal reviewed AND does not demonstrate significant pneumothorax. CT removed - site closed with purse string sutures AND dressed with vasoline gauze. Patient tolerated procedure well. CXR in the am. Normal [facility] PROCEDURE HNO ID: [id number] Author: Sarah Sharp Service: Nursing Author Type: Nurse Practitioner Type: Procedures Filed: 02/16/2019 12:38 PM Note Text: Platelet Count 137 02/16/2019 Platelet Count 140 02/15/2019 Platelet Count 134 02/14/2019 Platelet Count 171 02/13/2019 PT INR 1.1 02/04/2019 rhythm normal sinus rhythm 2 ventricular wires were discontinued without difficulty Mr. Manpreet Avelar and bedside RN aware of 30 min bedrest restriction Sarah Sharp, PITCH GATHERER.FIRE RANGE TECHNICIAN Normal [facility] PROGRESSon 02-16-2019 PROGRESS HNO ID: [id number] Author: Sarah Vance) adolfo Alba Service: Nursing Author Type: Nurse Practitioner Type: Progress Notes Filed: 02/16/2019 2:46 PM Note Text: [facility] POSTOP PROGRESS NOTE Day of Surgery:02/13/2019 S/P SURGERY: CABGx 4 (WATTS-LAD, JOSTIN-OM1, SVG-PDA, SVG- PLB)? INTERVAL EVENTS / PERTINENT ROS: -Wires and remaining R PL CT dc'd -Weaned to RA -Converted to Afib RVR this afternoon-giving IV Metoprolol and Mg for now. Consider Amio if pt does not convert Rhythm: NSR/AFib Intake/Output Summary (Last 24 hours) at 02/16/2019 1445 Last data filed at 02/16/2019 1100 Gross per 24 hour Intake 360 ml Output 575 ml Net -215 ml EKG: most recent image reviewed TELE: most recent recordings reviewed CXR: most recent image reviewed Echocardiogram: most recent image reviewed PHYSICAL EXAM: BP 123/62 Pulse (!) 151 Temp 36.8 ?C (98.3 ?F) (Oral) Resp 18 Ht 177.8 cm (5' 10 ) Wt 81.2 kg (179 lb) SpO2 94% BMI 25.68 kg/m? Neuro: AANDO x 3 moves all extremities with no apparent weakness CV: no jugular venous distention Heart Exam: RRR without murmur, gallop, or rubs. No ectopy. Resp: clear to auscultation bilaterally and diminished breath sounds Abd: The abdomen is soft, nontender, nondistended; BS normal; no masses or organomegaly noted. Skin: Skin color, texture, turgor normal, no suspicious rashes or lesions Ext: 1+ edema Surgical incisions: clean, dry and intact Chest tube: No Pacer wires: No. HISTORY, ASSESSMENT AND PLAN: Problem Transition of Care Performed With Sharing of Clinical Summary Indication for Surgery: 3-vessel CAD Preop LVEF: Normal RVF: Normal Postop LVEF: Normal RVF: Normal cath: [facility] 02/02/19: 80% LAD, 70% circumflex, 95% RCA cards: Michael Hsieh EKG: NSR w/ ST elevation Important/Relevant PMH/PSH: NSTEMI (02/01/19), CAD, DM, Psoriasis, dysphagia (solids) Preoperative Hospital Course: From OSH after [facility] noted triple vessel disease. Airway Difficulty: Grade I - No special instrumentation Pacing Wires: No: Ventricular: Pulled 02/16 Chronological List of Surgeries and Major Events (Diagnosis): (Surgeries in bold characters) 02/13/2019: CABGx 4 (WATTS-LAD, JOSTIN-OM1, SVG-PDA, SVG- PLB)? cardiac insufficiency coming off CPB requiring epinephrine A/P of Major Active Problems (excluding routine care and common problems): Card- Mild LV systolic dysfunction requiring epinephrine post op now weaned off. Start BB for BP control Renal- ADRIAN with mild hyperkalemia. Required K cocktail overnight. Started on intermittent lasix To Do or to Watch: -POD #2. No tubes, No wires -s/p CABG x 4. ASA, BB. Statin -HTN: SBP 110s-130s; continue IV lasix and BB -Acute on Chronic systolic HF: mild LV dysfunction. Pre op echo EF 50%. Cont PO lasix. Holding on ALEXIS in setting of ADRIAN. -Postop Afib: Converted Afib RVR 02/16 at 1 pm. BP stable, asymptomatic. IV Metoprolol, Mg given. -FVO: below baseline weight. Lasix switched to oral -ADRIAN: Baseline SCr 1.18-1.31. SCr today 1.11, avoid nephrotoxic agents. Likely 2/2 diuresis. -DM 2: blood sugars 170s-200s. On insulin at home. Endo following -Hx of psoriasis: Holding home humira 63 year year old male from [place], [place]. Cardiac rehab to mobilize. CM following. Patient will f/u with local PCP. Follow up with Cards (dr. Hsieh) requested. Discharge Planning: Anticipated Discharge Date: 02/17 Barriers to Discharge: Atrial Fibrilation: In Process, Volume Overload: In Process, Other: mobilize and - In Process Care Management Discharge Needs: Needs Prior to Discharge: To Be Determined Nstemi (Non-St Elevated Myocardial Infarction) (Hcc) History: 02/01/2019: NSTEMI- MVD. On crestor prior to admission. Assessment: 02/13/2019: CABGx 4 (WATTS-LAD, JOSTIN-OM1, SVG-PDA, SVG- PLB)? Plan: CAD Core Measures: Aspirin: Yes Beta blockers: yes Statins: yes. Atelectasis History Post op problem Assessment: On RA. Bibaslar atelectasis on CXR Plan: OOB, pep, encourage ambulation Postoperative Hypertension History: Post op problem Assessment: SBPs 110s-130s Plan: continue lasix and BB Acute On Chronic Systolic Heart Failure (Hcc) History: Mild LV systolic dysfunction requiring epinephrine. Pre op echo EF 50% Assessment: Denies symptoms, Trace edema Plan: Continue PO lasix. Consider starting ALEXIS once SCr improves. Switched to Toprol Cad (Coronary Artery Disease) History: 02/01/2019: NSTEMI- MVD. On crestor prior to admission. Assessment: 02/13/2019: CABGx 4 (WATTS-LAD, JOSTIN-OM1, SVG-PDA, SVG- PLB)? Plan: CAD Core Measures: Aspirin: Yes Beta blockers: yes Statins: yes, Mild Protein-Calorie Malnutrition (Hcc) History: Postop Assessment: Tolerating PO Plan: Cont recs. Per RD Adrian (Acute Kidney Injury) ([facility]) History: Pre op SCr 1.18-1.31 Assessment: SCr WNL today 1.11. Estimated Creatinine Clearance: 71.2 mL/min (based on SCr of 1.11 mg/dL). Plan: Trend renal function. Avoid nephrotoxic agents. Psoriasis History: On Humira pre-op, injectable Q2 weeks. Assessment: Denies complaints Plan: Holding humira at this time. Hld (Hyperlipidemia) History: On Crestor at home. Assessment: No recent lipid profile Plan: resumed home crestor. Controlled Type 2 Diabetes Mellitus Without Complication, With Long-Term Current Use of Insulin (Hcc) History: DM history. On Novalog and Tresiba insulins at home. Endocrine saw pre-op in hospital-signed off. Assessment: BG controlled Plan: Endocrine following Discharge Planning Issues 63 year year old male from [place], [place]. Cardiac rehab to mobilize. CM following. Patient will f/u with local PCP. Follow up with Cards (dr. Hsieh) requested DAILY STEP DOWN CHECKLIST FOR CATHETER RELATED INFECTION PREVENTION CVC, PICC, Makenzie and/or Permacath present? No Does the patient have a urinary catheter beyond POD 2? No VTE Risk Assessment: Moderate risk VTE Mechanical and/or Pharmacologic Prophylaxis: IPC Device, GCS and Subcutaneous Heparin Labs and medications reviewed in Epic Case discussed in depth with: Dr. Larsen SIGNATURE: Sarah Sharp APRN.CNP PATIENT NAME: Manpreet Avelar DATE: February 16, 2019 TIME: 2:44 PM PAGER/CONTACT #: [phone] ETX#[id number] [facility] PROGRESS HNO ID: [id number] Author: Ritesh VegaRtBrittany Ozuna Service: Radiology Author Type: Environmental Science Technician Type: Progress Notes Filed: 02/16/2019 9:49 AM Note Text: Radiology Service Progress Note PATIENT NAME: Manpreet Avelar DATE OF SERVICE: February 16, 2019 TIME: 9:49 AM PATIENT IDENTITY VERIFICATION COMPLETED USING TWO (2) METHODS: Name and Date of confirmed by patient verbally. PATIENT GENDER DATA: Male PATIENT RELEVANT IMPLANT DATA REVIEWED: Not Applicable RADIOLOGY DEPARTMENT: General X-ray: Exam(s) Completed: Chest X-Ray PERIPHERAL IV DATA: Not applicable SIGNED BY: RT LUCAS February 16, 2019 9:49 AM [facility] PT EDon 02-16-2019 PT ED HNO ID: [id number] Author: Francheska (Rn) ARLYN Queen Service: Diabetes Education Author Type: Registered Nurse Type: Patient Education Filed: 02/16/2019 4:07 PM Note Text: DIABETES EDUCATION PROGRESS NOTE SERVICE DATE: 02/16/2019 SERVICE TIME: 3:15 pm RECOMMENDATIONS: Patient needs to follow-up with primary care physician after discharge. Prescriptions for diabetic supplies No supplies needed *Pt has a working meter and supplies* *Pt has adequate Novolog and Tresiba insulin pens and pen needles* Follow up with PCP-pt sees for DM PATIENT HISTORY/ASSESSMENT: Previously diagnosed: Type 2 and 20 years Treatment prior to hospitalization: Insulin: Tresiba 25 units at HS, Novolog 11 units with breakfast, 8 units with lunch and 11 with dinner and Blood Gucose Testing Has meter: Name of meter: Doesn't know brand and Frequency of self-blood glucose monitorin-2 times per week. Usual blood glucose results at home: Doesn't know Met with pt to discuss BG management, s/p CABG x 4. Discussed current treatment plan of Lantus 25 units at HS, Humalog 6 units with breakfast, 8 units with lunch and dinner, plus a humalog scale #2 added to prandial dose for total dose of insulin to be taken, he understood. Practice done with this. He was able to choose the correct amount of insulin to be added to prandial dose. Instructed to check BG 3x a day before meals and log results in book and bring log and meter to f/u appts. My Diabetes Blueprint given with written information on current treatment plan and advised to follow final discharge instructions for medication doses. [facility] DM Survival Skills and Meal Planning books given with overview of davies topics. Insulin pen review given. Pt rotates sites in abdomen, uses new needles each time and stores pens correctly. He does not prime his pens. Instructed to do this before each injection, benefits discussed. Instructed to call the Diabetes Discharge Team [phone] with questions. Instructed on parameters for when to call the doctor in terms of high and low BG. Pt had no questions. TOPIC(S): Survival Skills: Medical nutrition therapy: what foods are carbs, how carbs affect BG and plate method Medication therapy: Injectables - Insulin lispro (Humalog), Insulin glargine (Lantus) and Novolog and Tresiba Injectable instructions - Storage, Selection/rotation, Injection technique, Injection site and Disposal of sharps Acute complications: Hypoglycemia, Hyperglycemia and Sick Day Management Blood glucose monitoring: Timing techniques, Logging results, Alternating fingers, Disposal of sharps Blood glucose targets: Type I/Type II: 80-130 premeal, 100-140mg/dl at bedtime Patient Education/Health Promotion: Complication prevention, Coping skills, Diet, Exercise and Self management and follow up Diabetes Management: Hemaglobin A1C and follow up with PCP EDUCATION: Cognitive ability: Alert and Oriented. Motivation to learn: slightly interested. Barriers to learning: None Family support: Unable to assess - Family not present Education Type: Individual instruction Written instruction - handouts Verbal instruction Response to education: States/Identifies. Education provided to: Patient. Teachback method used. Time Spent (Minutes): 30 SIGNATURE: Francheska Queen RN PATIENT NAME: Manpreet Avelar DATE: February 16, 2019 TIME: 3:53 PM PAGER: [phone] [facility] Troponin Ton 02-16-2019 Troponin T.cardiac [Mass/Vol] 0.153 ng/mL High 0.000-0.029 [facility] Comment on above: Result Comment: Urge nt value previously called on 02/16/19 at 0159 Performed By: #### C BCDIF, PT, PTT, CMP, MG1, NTBNP #### [facility] [address], [place] [address] XR CHEST 2V FRONTAL/LATon XR CHEST 2V FRONTAL/LAT * * *Final Repor t* * * DATE OF EXAM: Feb 16 2019 9:44AM JIX [id number] - XR CHEST 2V FRONTAL/LAT / PROCEDURE REASON: Pneumothorax * * * * Physician Interpretation * * * * EXAMINATION: CHEST RADIOGRAPH (2 VIEW FRONTAL and LATERAL) Clinical History: Pneumothorax M: XC2_4 Comparison: 1 day prior RESULT: Lines, tubes, and devices: Removal of left chest tube. No other change. Lungs and pleura: Decrease in size of small right apical pneumothorax. Tiny left pneumothorax is stable to minimally increased. Persistent atelectasis at the bases. Superimposed infiltrates/infection or edema cannot be entirely excluded. Underlying small pleural effusions remain. Cardiomediastinal silhouette: Heart remains borderline. Thoracic aorta is tortuous. Pneumomediastinum is again seen mostly in the retrosternal region.. Other: Median sternotomy. IMPRESSION: As above Flag Football Coach: PSCB Transcribe Date/Time: Feb 16 2019 3:35P Dictated by : RICCARDO BROWNING MD This examination was interpreted and the report reviewed and electronically signed by: RICCARDO BROWNING MD on Feb 16 2019 3:37PM EST [id number] [facility] ALLIED HEALTHon 02-15-2019 ALLIED HEALTH HNO ID: [id number] Author: Yasmeen (Ex Phys) Mary Service: Cardiovascular Medicine Author Type: Hazardous Materials Waste Technician Type: Allied Health Filed: 02/15/2019 2:30 PM Note Text: CARDIAC REHABILITATION PHASE I ASSESSMENT PATIENT NAME: Manpreet Avelar SERVICE DATE: February 15, 2019 SESSION TIME: 2:10PM Consult received and chart reviewed. Pt. seen x2 today for assessment, currently pt declining activity, I'll go later . Pt. states he has been oob to the chair with staff assistance, still has 2 chest tubes and has not ambulated yet. Reinforced benefits of exercise and role in recovery. Instructed on goal to ambulate 4-6 times a day as tolerated. Instructed pt to call for assistance when ready to ambulate. Will continue to follow as schedule allows. RECOMMENDATIONS: Ambulate: with staff assist only Oxygen: with O2 as needed/prescribed Assist Device: yes - IV pole / prn COMMENTS: 1. Instructed on continued increased ambulation as tolerated 4-6 times per day. 2. Reviewed signs and symptoms of exercise intolerance. Yasmeen Hernandez, EX PHYS Pager: [phone] February 15, 2019 2:25 PM [facility] CASE MANAGEMon 02-15-2019 CASE MANAGEM HNO ID: [id number] Author: Whitney (Rn) ARLYN Lane Service: ? Author Type: Registered Nurse Type: Care Mgt Progress Note Filed: 02/15/2019 10:21 AM Note Text: CARE MANAGEMENT PROGRESS NOTE SERVICE DATE: 02/15/2019 SERVICE TIME: 10:17 AM LOS: 11 days Needs Prior to Discharge: OT/PT Evaluation 02/13/2019: CABGx 4 (WATTS-LAD, JOSTIN-OM1, SVG-PDA, SVG- PLB Patient transferred from ICU to SDU on 1L o2 NC, Chest Tubes x 2 Discharge disposition is pending PTOT PRESLEY marcial. Case Management will continue to follow Medical course and plan discharge accordingly. SIGNATURE: Whitney Lane RN PATIENT NAME: Manpreet Avelar DATE: February 15, 2019 TIME: 10:17 AM PAGER/CONTACT #: [phone] [facility] CBCon 02-15-2019 Absolute nRBC <0.01 Normal <0.01 [facility] Comment on above: Performed By: #### C BCDIF, PT, PTT, CMP, MG1, NTBNP #### [address] [address] Erythrocyte distribution width (RBC) [Ratio] 13.2 % Normal 11.5-15.0 [facility] Comment on above: Performed By: #### C BCDIF, PT, PTT, CMP, MG1, NTBNP #### [address] [address] Hematocrit (Bld) [Volume fraction] 33.5 % Low 39.0-51.0 [facility] Comment on above: Performed By: #### C BCDIF, PT, PTT, CMP, MG1, NTBNP #### [address] [address] Hemoglobin (Bld) [Mass/Vol] 11.0 g/dL Low 13.0-17.0 [facility] Comment on above: Performed By: #### C BCDIF, PT, PTT, CMP, MG1, NTBNP #### [address] [address] MCH (RBC) [Entitic mass] 29.7 pG Normal 26.0-34.0 [facility] Comment on above: Performed By: #### C BCDIF, PT, PTT, CMP, MG1, NTBNP #### [address] [address] MCHC (RBC) [Mass/Vol] 32.8 g/dL Normal 30.5-36.0 [facility] Comment on above: Performed By: #### C BCDIF, PT, PTT, CMP, MG1, NTBNP #### [address] [address] MCV (RBC) [Entitic vol] 90.5 fL Normal 80.0-100.0 [facility] Comment on above: Performed By: #### C BCDIF, PT, PTT, CMP, MG1, NTBNP #### [address] [place], [place] [address] Platelet mean volume (Bld) [Entitic vol] 13.7 fL High 9.0-12.7 [facility] Comment on above: Performed By: #### C BCDIF, PT, PTT, CMP, MG1, NTBNP #### [address] [place], [place] [address] Platelets (Bld) [#/Vol] 140 10*3/uL Low 150-400 [facility] Comment on above: Result Comment: Resu lt checked and verified No clot detected. Performed By: #### C BCDIF, PT, PTT, CMP, MG1, NTBNP #### [place] [address] RBC (Bld) [#/Vol] 3.70 10*6/uL Low 4.20-6.00 [facility] Comment on above: Performed By: #### C BCDIF, PT, PTT, CMP, MG1, NTBNP #### [address] [address] WBC (Bld) [#/Vol] 14.11 10*3/uL High 3.70-11.00 [facility] Comment on above: Performed By: #### C BCDIF, PT, PTT, CMP, MG1, NTBNP #### [address] [place] [address] CK, Total and CKMBon 019 CK [Catalytic activity/Vol] 476 U/L High 51-298 [facility] Comment on above: Performed By: #### C BCDIF, PT, PTT, CMP, MG1, NTBNP #### [address] [place], [place] [id number] CK MB % 0.8 % Normal 0.0-4.0 [facility] Comment on above: Performed By: #### C BCDIF, PT, PTT, CMP, MG1, NTBNP #### [facility] [address], [place] [address] MB 3.6 ng/mL Normal <7.8 [facility] Comment on above: Performed By: #### C BCDIF, PT, PTT, CMP, MG1, NTBNP #### [facility] [address] [place], [place] [address] CNDSon 02-15-2019 CNDS HNO ID: [id number] Author: Sarah Sharp Service: Cardiac Surgery Author Type: Nurse Practitioner Type: Discharge Summary Filed: 02/17/2019 1:52 PM Note Text: Attestation signed by Alisia Larsen at 02/22/2019 9:38 AM Department of Cardiothoracic Surgery Discharge Summary PATIENT NAME: Manpreet Avelar ADMISSION DATE: 02/03/2019 DISCHARGE DATE: 02/17/2019 Attending Physician/Surgeon: Alisia Larsen Primary Service: CTS Code Status: full [facility] Primary Automatic Toe Laster: Michael Hsieh Admission Diagnosis: CAD (coronary artery disease) [I25.10] Discharge Diagnosis: CAD (coronary artery disease) [I25.10] Reason for Hospitalization: Mr. Wiliam Avelar is a 63 year old male from [place], [place] who has a PMH of NSTEMI, CAD, DM2, psorisasis and dysphagia. On 02/01/2019, he awoke from sleep with chest pain and SOB. He was transferred from an outside hospital with an NSTEMI. Coronary angiography at the OSH demonstrated 3 vessel disase. Echo revealed mld LV systolic dysfunction without valvular pathology, EF 50%. Due to his history of diabetes, multivessel disease, and decreased LV systolic function, he was a candidate for the procedure below after being evaluated by CTS and cardiology. Operations during Hospitalization: CABGx 4 (WATTS-LAD, JOSTIN-OM1, SVG-PDA, SVG- PLB)? Hospital Course: * How was the Reason for Hospitalization Addressed: The above surgery was performed as planned and he was admitted to the CVICU at the conclusion of surgery. His operative course was uneventful. His ICU course was notable for mild LV systolic dysfunction requiring epinephrine. In addition he experienced ADRIAN w/ mild hyperkalemia requiring K cocktail. He was transferred to the telemetry floor on POD#1. He received routine post-op care while on the floor. His chest tubes and temporary pacing wires were removed without incident. HIs rhythm was monitored and notable for one episode of Afib RVR with self conversion. Meds were adjusted as tolerated, and he was diuresed for post-op volume overload. Endocrinology followed for his diabetes. His ADRIAN resolved prior to discharge. He was discharge to home when his condition stabilized. * What were the Active Issues: FVO, DM2, ADRIAN * Surgical Pathology/Microbiolog y: None * Hospital Course Complicated by: See active issues * Extended Hospital Stay Due to: See active issues * Specific Medication Changes: Metoprolol for HR/ BP control, Lipitor * Pain: Well controlled on prn tylenol and oxycodone * Surgical Incisions/Wounds: MSI, chest tube sites and RSVG well approx. No drainage or erythema * Patient Condition at Discharge: Stable * Disposition: Home with Relative Problem List: Patient Active Hospital Problem List: CAD (coronary artery disease) (02/04/2019) Transition of care performed with sharing of clinical summary (02/15/2019) Atelectasis (02/13/2019) Psoriasis (02/13/2019) HLD (hyperlipidemia) (02/13/2019) Controlled type 2 diabetes mellitus without complication, with long-term current use of insulin ([facility]) (02/13/2019) NSTEMI (non-ST elevated myocardial infarction) ([facility]) (02/13/2019) Acute on chronic systolic heart failure ([facility]) (02/13/2019) ADRIAN (acute kidney injury) ([facility]) (02/14/2019) Fluid overload (02/14/2019) Postoperative hypertension (02/15/2019) Discharge planning issues (02/15/2019) Consults: Endocrinology recommendations for discharge: ? Tresiba 30 units every night ? Novolog 11-8-11 units with meals, if does not eat, do not take this dose of medication? ? Novolog SSI #2 with meals ? If Blood Glucose (mg/dL) is ? <110 Give 0 units ? 111-150 Give 0 units ? 151-200 Give 2 unit ? 201-250 Give 4 units ? 251-300 Give 6 units ? 301-350 Give 8 units ? 351-400 Give 10 units ? >400 Call physician. ? ?Check blood sugars Three times a Day? ? ?Diet: Low carbohydrate ? ?Exercise as prescribed by cardiology team ? ?Follow up with mold bunch trimmer and guide changer as recommended. ? ?Patient will need follow-up at the [facility] (X-[facility]) or with his?home PCP in 1-2 weeks after discharge. ? If having low glucose levels <70mg/dl, fasting glucose levels >130mg/dl or overall glucose levels >150mg/dl, contact your PCP for further direction. ? ?Diabetes Care Team Hospital Discharge Help Line: [phone] Procedures Performed and Major Radiology: None Information Provided to the Patient: Patient given copy of After Visit Summary which included activity instructions, diet instructions, wound care instructions, medication instructions and follow up appointment ALLERGIES No Known Allergies Discharge Medications: Current Discharge Medication List START taking these medications oxyCODONE IR (ROXICODONE) 5 mg Take 5 mg by mouth every 6 hours as needed for Pain (moderate to severe pain). Qty: 28 tablet Refills: 0 Associated Diagnoses:Acute post-operative pain acetaminophen (TYLENOL) 1,000 mg Take 1,000 mg by mouth every 6 hours as needed for Pain (mild pain). Qty: 45 tablet Refills: 0 aspirin 162 mg Take 162 mg by mouth once daily. Qty: 90 tablet Refills: 2 furosemide (LASIX) 20 mg Take 20 mg by mouth once daily. Qty: 3 tablet Refills: 0 metoprolol succinate ER (TOPROL XL) 50 mg Take 50 mg by mouth twice daily. Qty: 180 tablet Refills: [address] (PROTONIX) 20 mg Take 20 mg by mouth once daily. Qty: 14 tablet Refills: 0 potassium chloride ER (K-DUR, KLOR-CON) 10 mEq Take 10 mEq by mouth once daily. Qty: 3 tablet Refills: 0 senna-docusate (SENNA-S) 1 tablet Take 1 tablet by mouth twice daily as needed for Constipation. therapeutic multivitamin (THERA VITAMIN) 1 tablet Take 1 tablet by mouth daily with breakfast. atorvastatin (LIPITOR) 40 mg Take 40 mg by mouth once daily. Qty: 90 tablet Refills: 2 CONTINUE these medications which have CHANGED insulin degludec (TRESIBA) 30 Units Inject 30 Units subcutaneously daily at bedtime. CONTINUE these medications which have NOT CHANGED gabapentin (NEURONTIN) 100 mg Take 100 mg by mouth daily at bedtime. !! insulin aspart U-100 (NovoLOG) 8 Units Inject 8 Units subcutaneously daily with lunch. !! insulin aspart U-100 (NovoLOG) 11 Units Inject 11 Units subcutaneously daily with breakfast. !! insulin aspart U-100 (NovoLOG) 11 Units Inject 11 Units subcutaneously daily with dinner. !! - Potential duplicate medications found. Please discuss with provider. STOP taking these medications HUMIRA(CF) PEN 40 mg Comments: Reason for Stopping: rosuvastatin (CRESTOR) 5 mg Comments: Reason for Stopping: Transitions of Care Critical Issues: Outpatient Management: * Are there important medication changes and/or outstanding issues that need to be addressed: Resume home Humira when deemed medically appropriate. Retained chest tube sutures: Retained for wound healing. Please remove as deemed medically appropriate at next f/u appt. * What is the plan for follow up: 1. F/u with primary care physician in 7-10 days after discharge. 2. An appointment with [facility] Automatic Toe Laster Dr. Ratliff was scheduled for 04/03/2019. 3. Mr. Avelar was offered an appointment to return to [facility] department for a post operative visit with the Nurse Practitioner. He declined and prefers to follow up with PCP. Future Appointments: Please follow-up as recommended by your provider. Highest Readmission Risk Score: 18 The 30 day readmissions risk score is derived from an internally validated risk model which evaluates patient level characteristics, utilization history, medication orders and lab results up until the day of discharge. Patients with a score of 40 or above are considered highest risk for readmission. Specific patient level drivers will be listed at the bottom of the summary. The patient's risk for 30-day readmission is determined using the following contributing factors: Pt variables contributing to increased readmission risk: 29 Most Recent BUN Result 27 Active Medication Orders 8.6 First Resulted Calcium During Admission 1 Insurance - Private Coverage 1 Active Anticoagulant Electronically SIGNED by Licensed Independent Practitioner: Sarah Sharp APRN.CAROLYN [facility] CONSULT PROGon 02-15-2019 CONSULT PROG HNO ID: [id number] Author: Dot Sandoval Service: Endocrinology Author Type: Nurse Practitioner Type: Consult Progress Note Filed: 02/15/2019 6:59 PM Note Text: DIABETES CARE TEAM NOTE SERVICE DATE: 02/15/2019 SERVICE TIME: 12:26 PM Subjective Summary of History from Prior Record: Consult Date: 02/10/19 Singed off 02/11/2019 re consulted 02/15/2019 Copied from provider note William Humphrey CNP on on 02/11/2019 and no changes made. HPI:?Mr.?Jedediah Carlos Avelar is a 63 year old male with a 20?year history of?Diabetes Mellitus Type 2?hyperglycemia?who was admitted on 02/03/2019?for CAD??. Past medical history significant for?CAD,HPL.?Patient ?does ?exercise. Last HbA1c was 7.2??on 02/04/19?.??He?has a no known?family history of diabetes.?He?is followed by PCP?for his?diabetes. ? ? DIABETIC COMPLICATIONS: Neuropathy:?Polyneuro cristina ? Pre-Admission DM Regimen: Preadmission oral agents:?None Preadmission insulin regimen:?Tresiba?25un its??Q HS Novolog?02/17/11?unit s ?Q AC?pen? Sliding scale:None? ? Self Monitoring Blood Glucose: Type of Monitor:?Does not know brand? Frequency of Monitoring:?1-2?times per week BG Values:?150 Hypoglycemia:Yes when over exerting at work? ? INTERVAL HPI: uneventful PERTINENT ROS: Constitutional: no c/o Appetite:Intact GI: denies N/V no BM yet Objective PHYSICAL EXAM: BP 132/61 Pulse 84 Temp 36.9 ?C (98.5 ?F) (Oral) Resp 18 Ht 177.8 cm (5' 10 ) Wt 83 kg (183 lb) SpO2 95% BMI 26.26 kg/m? General Appearance:A+O x 3 and In no apparent distress Affect: cooperative Eyes:Sclerae non-icteric Abdomen:Soft, non-tender Respiratory easy and unlabored on O2 + chest tubes Laboratory Results: Glucose (mg/dL) Date Value 02/15/2019 221 Potassium (mmol/L) Date Value 02/15/2019 5.2 Sodium (mmol/L) Date Value 02/15/2019 135 Chloride (mmol/L) Date Value 02/15/2019 99 CO2 (mmol/L) Date Value 02/15/2019 26 Creatinine (mg/dL) Date Value 02/15/2019 1.50 BUN (mg/dL) Date Value 02/15/2019 29 Anion Gap (mmol/L) Date Value 02/15/2019 10 Calcium (mg/dL) Date Value 02/15/2019 8.7 ALT Date Value Ref Range Status 02/15/2019 25 10 - 54 U/L Final AST Date Value Ref Range Status 02/15/2019 26 14 - 40 U/L Final Hemoglobin (g/dL) Date Value 02/15/2019 11.0 Hematocrit (%) Date Value 02/15/2019 33.5 WBC (k/uL) Date Value 02/15/2019 14.11 Platelet Count (k/uL) Date Value 02/15/2019 140 Hemoglobin A1C (%) Date Value 02/04/2019 7.2 LV Ejection Fraction (%) Date Value 02/05/2019 50 Diet: Heart Healthy: Cardiac 2 GM SODIUM (<200 MG CHOL / LOW SAT FAT), Carb Control: 3--5 CARBS/MEAL (<200 MG CHOL / LOW SAT FAT) and Fluid Restriction : 1500ml daily Supplements: N/A Other Pertinent Medications: AIR QUALITY CONSULTANT pian pump Diabetes Management in Hospital Hospital ?BG values or ranges: ? Date AM LUNCH DINNER HS 3AM? 02/09 108(h6) 259(h12) 138(h6) 223(h4) Lantus 20u ? 02/10 147(h8) 158(h10) 172 144 Lantus 20u? ? ?02/11 ?101(h8) 128?(h8) ?71(h8) ? ? ?BG reviewed ? 02/14/19? 187 Lantus 22 u? 171H2? ?173H3 203h6? ? 02/15/19 219H6 270-249H6+4 229H6+4 ? ? ?Copied from provider note William Humphrey CNP on 02/11/2019 and my changes are in bold. Impression/Recommenda tions:? Patient with uncontrolled?Diabetes Mellitus Type 2?hyperglycemia?s/p NSTEMI?whom we have been consulted for glycemic control. S/p CABG x4 on 02/13/2019. Endo singed off 02/11 now re-consulted today. Patient transferred out of ICU this am and had Lantus 22 units off the drip yesterday with high BG and taking po. patient is only on SSI BG and labs reviewed. Will start MDI inbsulin regimen as follow: ? ? RECOMMENDATIONS:? ? ?Start Basal Insulin: Lantus?22?units QHS ? ?Start ?Prandial Insulin: Humalog?6?units AC TID ? ??adjust Supplemental Sliding Scale: Humalog?Program #2 AC AND HS ? ?Accuchecks: AC/HS ? ?Recommend Low carbohydrate ? ?Consult CDE regarding: DM Education including TBD ? DM DISCHARGE PLAN: ? ?To be decided based on clinical course.-Patient would like to possible resume metformin with insulin at discharge -he has been on in past but PCP stopped when he started on insulin ? ?Check blood sugars Three times a Day? ? ?Diet: Low carbohydrate ? ?Exercise as prescribed by cardiology/ primary team ? ?Follow up with mold bunch trimmer and guide changer as recommended. ? ?Patient will need follow-up at the [facility] (X-[facility]) or with his?home enterprise systems manager/PCP in 1-2 weeks after discharge. ? ?Diabetes Care Team Hospital Discharge Help Line: [phone] ? SIGNATURE: Dot Sandoval APRN.CNP PATIENT NAME: Manpreet Avelar DATE: February 15, 2019 TIME: 12:26 PM PAGER/CONTACT #: [phone] [facility] Comp Metabolic Panelon 02-15 Albumin [Mass/Vol] 3.1 g/dL Low 3.9-4.9 [facility] Comment on above: Performed By: #### C BCDIF, PT, PTT, CMP, MG1, NTBNP #### [address] [place] [address] ALP [Catalytic activity/Vol] 74 U/L Normal 38-113 [facility] Comment on above: Performed By: #### C BCDIF, PT, PTT, CMP, MG1, NTBNP #### [place] [address] ALT [Catalytic activity/Vol] 25 U/L Normal 10-54 [facility] Comment on above: Performed By: #### C BCDIF, PT, PTT, CMP, MG1, NTBNP #### [place] [address] Anion gap [Moles/Vol] 10 mmol/L Normal 9-18 [facility] Comment on above: Performed By: #### C BCDIF, PT, PTT, CMP, MG1, NTBNP #### [address] [place], [place] [address] AST [Catalytic activity/Vol] 26 U/L Normal 14-40 [facility] Comment on above: Performed By: #### C BCDIF, PT, PTT, CMP, MG1, NTBNP #### [address] [place], [place] [address] Bilirubin [Mass/Vol] 0.5 mg/dL Normal 0.2-1.3 [facility] Comment on above: Performed By: #### C BCDIF, PT, PTT, CMP, MG1, NTBNP #### [place] [id number] [place] [address] Calcium [Mass/Vol] 8.7 mg/dL Normal 8.5-10.2 [facility] Comment on above: Performed By: #### C BCDIF, PT, PTT, CMP, MG1, NTBNP #### [place] [address] Chloride [Moles/Vol] 99 mmol/L Normal 97-105 [facility] Comment on above: Performed By: #### C BCDIF, PT, PTT, CMP, MG1, NTBNP #### [place] [phone] CO2 [Moles/Vol] 26 mmol/L Normal 22-30 [facility] Comment on above: Performed By: #### C BCDIF, PT, PTT, CMP, MG1, NTBNP #### [place] [address] Creatinine [Mass/Vol] 1.50 mg/dL High 0.73-1.22 [facility] Comment on above: Performed By: #### C BCDIF, PT, PTT, CMP, MG1, NTBNP #### [place] [phone] eGFR- Amer. 57 Normal [facility] Comment on above: Performed By: #### C BCDIF, PT, PTT, CMP, MG1, NTBNP #### [place] [phone] GFR/1.73 sq M predicted among non-blacks MDRD (S/P/Bld) [Vol rate/Area] 47 . Normal [facility] Comment on above: Result Comment: eGFR (Estimated GFR) Units of measure: mL/min/1.73 meters squared eGFR is derived from the reexpressed MDRD Study equation using the following parameters: serum creatinine, age, gender and race. The creatinine assay has been calibrated to be traceable to IDMS. An eGFR <60 mL/min/1.73m2 for >3 months is consistent with chronic kidney disease. Refer to KDOQI guidelines for clinical interpretation. In patients with unstable renal function, e.g. those with acute kidney injury, the eGFR may not accurately reflect actual GFR. Performed By: #### C BCDIF, PT, PTT, CMP, MG1, NTBNP #### [facility] [address] [place], [place] [id number] Glucose [Mass/Vol] 221 mg/dL High 74-99 [facility] Comment on above: Result Comment: The [place] Diabetes Association (ADA) provides guidance for cutoff values for fasting glucose and random glucose. The ADA defines fasting as no caloric intake for at least 8 hours. Fasting plasma glucose results between 100 to 125 mg/dL indicate increased risk for diabetes (prediabetes). Fasting plasma glucose results greater than or equal to 126 mg/dL meet the criteria for diagnosis of diabetes. In the absence of unequivocal hyperglycemia, results should be confirmed by repeat testing. In a patient with classic symptoms of hyperglycemia or hyperglycemic crisis, random plasma glucose results greater than or equal to 200 mg/dL meet the criteria for diagnosis of diabetes. Reference: Standards of Medical Care in Diabetes 2016, [place] [employer]. Diabetes Care. 2016.39(Suppl 1). Performed By: #### C BCDIF, PT, PTT, CMP, MG1, NTBNP #### [facility] [address] [place], [place] [address] Potassium [Moles/Vol] 5.2 mmol/L High 3.7-5.1 [facility] Comment on above: Performed By: #### C BCDIF, PT, PTT, CMP, MG1, NTBNP #### [facility] [address] [place], [place] [address] Protein [Mass/Vol] 6.2 g/dL Low 6.3-8.0 [facility] Comment on above: Performed By: #### C BCDIF, PT, PTT, CMP, MG1, NTBNP #### [facility] [address] [place], [place] [id number] Sodium [Moles/Vol] 135 mmol/L Low 136-144 [facility] Comment on above: Performed By: #### C BCDIF, PT, PTT, CMP, MG1, NTBNP #### [facility] [address] [place], [place] [address] Urea nitrogen [Mass/Vol] 29 mg/dL High 9-24 [facility] Comment on above: Performed By: #### C BCDIF, PT, PTT, CMP, MG1, NTBNP #### [facility] [address] [place], [place] [address] EKG1on 02-15-2019 EKG1 NAME : MANPREET AVELAR PID : [id number] : 1955 Gender : Male Race : ORD : Procedure Date : Feb 15 2019 20:26:23 Edit Date : Feb 16 2019 13:02:10 Diagnosis:NORMAL SINUS RHYTHM INFERIOR MYOCARDIAL INFARCTION , AGE UNDETERMINED ANTEROLATERAL MYOCARDIAL INFARCTION ACUTE MA / STEMI ABNORMAL ECG Confirmed by MD MACEDO HEBA ([id number]) on 02/16/2019 1:02:08 PM Ventricular Rate : 87 BPM Atrial Rate : 87 BPM P-R Interval : 148 ms QRS Duration : 86 ms Q-T Interval : 360 ms QTC Calculation(Bazett) : 433 ms P Elbert : 60 degrees R Elbert : -6 degrees T Elbert : -31 degrees Test Reason : Location : 461 : [id number] Overread By : MD MACEDO HEBA Edited By : MD MACEDO HEBA Referred By : , Acquired by : [id number], Normal [facility] PROCEDUREon 02-15-2019 PROCEDURE HNO ID: [id number] Author: Leo Dupont Service: Cardiac Surgery Author Type: Nurse Practitioner Type: Procedures Filed: 02/15/2019 3:58 PM Note Text: CHEST TUBE REMOVAL Less than 250 cc out over the last shift on Left pleural Chest tube. CXR reviewed; previous small left apical pneumothorax ;repeat CXR shows improvement. No airleak on assessment. Left pleural tube removed without difficulty. Purse string tied. Vaseline gauze applied. Patient tolerated well. Follow up CXR ordered. Leo Dupont APRN.CAROLYN. [facility] PROGRESSon 02-15-2019 PROGRESS HNO ID: [id number] Author: Ronnie Rhoades Service: Radiology Author Type: ? Type: Progress Notes Filed: 02/15/2019 3:41 PM Note Text: Radiology Service Progress Note PATIENT NAME: Manpreet Avelar DATE OF SERVICE: February 15, 2019 TIME: 3:41 PM PATIENT IDENTITY VERIFICATION COMPLETED USING TWO (2) METHODS: Name and Date of confirmed by patient verbally and Name and Date of confirmed by identification band. PATIENT GENDER DATA: Male PATIENT RELEVANT IMPLANT DATA REVIEWED: Not Applicable RADIOLOGY DEPARTMENT: General X-ray: Exam(s) Completed: Chest X-Ray PERIPHERAL IV DATA: Not applicable SIGNED BY: Ronnie Cullen Rt February 15, 2019 3:41 PM [facility] PROGRESS HNO ID: [id number] Author: Ritesh VegaRtBrittany Ozuna Service: Radiology Author Type: Environmental Science Technician Type: Progress Notes Filed: 02/15/2019 9:34 AM Note Text: Radiology Service Progress Note PATIENT NAME: Manpreet Avelar DATE OF SERVICE: February 15, 2019 TIME: 9:34 AM PATIENT IDENTITY VERIFICATION COMPLETED USING TWO (2) METHODS: Name and Date of confirmed by patient verbally. PATIENT GENDER DATA: Male PATIENT RELEVANT IMPLANT DATA REVIEWED: Yes RADIOLOGY DEPARTMENT: General X-ray: Exam(s) Completed: Chest X-Ray PERIPHERAL IV DATA: Not applicable SIGNED BY: RT LUCAS February 15, 2019 9:34 AM [facility] PROGRESS HNO ID: [id number] Author: Leo Dupont Service: Cardiac Surgery Author Type: Nurse Practitioner Type: Progress Notes Filed: 02/15/2019 4:50 PM Note Text: [facility] POSTOP PROGRESS NOTE Day of Surgery:02/13/2019 S/P SURGERY: CABGx 4 (WATTS-LAD, JOSTIN-OM1, SVG-PDA, SVG- PLB)? INTERVAL EVENTS / PERTINENT ROS: -POD #2, transferred to [facility] last night; maintain wires today -Up 0.5kg, continue gentle diuresis - Left pleural CT removed; Right pleural remained for small to moderate pneumothorax- chest tube left to suction overnight; f/u CXR in a.m. -DM 2: endo consulted -Nutrition consulted for poor appetite. -Work to wean off oxygen Rhythm: NSR Intake/Output Summary (Last 24 hours) at 02/15/2019 1649 Last data filed at 02/15/2019 1436 Gross per 24 hour Intake 360 ml Output 1438 ml Net -1078 ml EKG: most recent image reviewed, most recent report reviewed TELE: most recent recordings reviewed CXR: most recent image reviewed, most recent report reviewed Echocardiogram: most recent report reviewed PHYSICAL EXAM: BP 110/61 Pulse 79 Temp 37.2 ?C (99 ?F) (Oral) Resp 16 Ht 177.8 cm (5' 10 ) Wt 83 kg (183 lb) SpO2 95% BMI 26.26 kg/m? Neuro: AANDO x 3 moves all extremities with generalized weakness CV: no jugular venous distention Heart Exam: Regular rate and rhythm. No rubs or gallop. Resp: diminished breath sounds throughout Abd: The abdomen is soft, nontender, nondistended; BS normal; no masses or organomegaly noted. Skin: Skin color, texture, turgor normal, no suspicious rashes or lesions Ext: no edema Surgical incisions: MSI, R SVG and chest tube sites- clean, dry and intact Chest tube: Yes: right pleural Pacer wires: Yes, grounded HISTORY, ASSESSMENT AND PLAN: Problem Transition of Care Performed With Sharing of Clinical Summary Indication for Surgery: 3-vessel CAD Preop LVEF: Normal RVF: Normal Postop LVEF: Normal RVF: Normal Important/Relevant PMH/PSH: NSTEMI (02/01/19), CAD, DM, Psoriasis, dysphagia (solids) Preoperative Hospital Course: From OSH after [facility] noted triple vessel disease. Airway Difficulty: Grade I - No special instrumentation Pacing Wires: Yes: Ventricular: When discontinuing pacing wires: Pull all pacing wires cath: [facility] 02/02/19: 80% LAD, 70% circumflex, 95% RCA cards: Michael Hsieh EKG: NSR w/ ST elevation Chronological List of Surgeries and Major Events (Diagnosis): (Surgeries in bold characters) 02/13/2019: CABGx 4 (WATTS-LAD, JOSTIN-OM1, SVG-PDA, SVG- PLB)? cardiac insufficiency coming off CPB requiring epinephrine A/P of Major Active Problems (excluding routine care and common problems): Card- Mild LV systolic dysfunction requiring epinephrine post op now weaned off. Start BB for BP control Renal- ADRIAN with mild hyperkalemia. Required K cocktail overnight. Started on intermittent lasix To Do or to Watch: -POD #2. (+) wires- maintain today. (+) R Pleural CT- CXR w/ small to medium pneumothorax- continue on suction AND repeat CXR in a.m. L pleural CT w/ small apical pneumo; repeat CXR shows improvement; chest tube removed. F/u CXR in a.m. -s/p CABG x 4. ASA.BB. Statin -HTN: SBP 110s-130s; continue IV lasix and BB -acute on chronic systolic HF: mild LV dysfunction. Pre op echo EF 50%. continue lasix. Holding on ALEXIS in setting of ADRIAN. -FVO: up 0.5kg, consider discontinuing lasix in near future in setting of ADRIAN as near baseline weight. -ADRIAN: Baseline SCr 1.18-1.31. SCr today 1.50, avoid nephrotoxic agents. Likely 2/2 diuresis. -DM 2: blood sugars 170s-200s. On insulin at home. Endo consulted. -Hx of psoriasis: Holding home humira 63 year year old male from [place], [place]. Cardiac rehab to mobilize. CM following. Patient unsure if wants OPD appt- wants to think about it. Follow up with Cards (dr. Hsieh) requested. Discharge Planning: Anticipated Discharge Date: ?02/17 or 02/18 Barriers to Discharge: Volume Overload: In Process, Other: wean oxygen, mobilize and - In Process Care Management Discharge Needs: Needs Prior to Discharge: To Be Determined Cad (Coronary Artery Disease) History: 02/01/2019: NSTEMI- MVD. On crestor prior to admission. Assessment: 02/13/2019: CABGx 4 (WATTS-LAD, JOSTIN-OM1, SVG-PDA, SVG- PLB)? Plan: CAD Core Measures: Aspirin: Yes Beta blockers: yes Statins: yes Atelectasis History Post op problem Assessment: On 3L NC. Bibaslar atelecatsis on 02/15 CXR Plan: OOB, wean o2, and pep Adrian (Acute Kidney Injury) ([facility]) History: Pre op SCr 1.18-1.31 Assessment: SCr today 1.50. Estimated Creatinine Clearance: 52.7 mL/min (A) (based on SCr of 1.5 mg/dL (H)). Plan: Trend renal function. Avoid nephrotoxic agents. consider discontinuing lasix once net negative. Fluid Overload History Post op problem Assessment: Up 0.5kg Plan: Continue gentle diuresis Psoriasis History: On Humira pre-op, injectable Q2 weeks. Assessment: Denies complaints. Plan: Holding humira at this time. Hld (Hyperlipidemia) History: On Crestor at home. Assessment: No recent lipid profile Plan: resumed home crestor Controlled Type 2 Diabetes Mellitus Without Complication, With Long-Term Current Use of Insulin ([facility]) History: DM history. On Novalog and Tresiba insulins at home. Endocrine saw pre-op in hospital-signed off. Assessment: BG controlled on RHI infusion Plan: Transition off RHI infusion with lantus. Start SSI coverage Nstemi (Non-St Elevated Myocardial Infarction) (Former[facility]) History: 02/01/2019: NSTEMI- MVD. On crestor prior to admission. Assessment: 02/13/2019: CABGx 4 (WATTS-LAD, JOSTIN-OM1, SVG-PDA, SVG- PLB)? Plan: CAD Core Measures: Aspirin: Yes Beta blockers: yes Statins: yes Acute On Chronic Systolic Heart Failure (Hcc) History: Mild LV systolic dysfunction requiring epinephrine. Pre op echo EF 50% Assessment: Denies symptoms Plan: Continue lasix. Consider starting ALEXIS once SCr improves. Continue BB Discharge Planning Issues 63 year year old male from [place], [place]. Cardiac rehab to mobilize. CM following. Patient unsure if wants OPD appt- wants to think about it. Follow up with Cards (dr. Hsieh) requested. Dysphagia History: Difficulty swallowing solids, especially dry foods, worsening over last year. Saw GI in [facility] who considered EGD with dilation. Plan: . F/u with GI as outpatient. Start liquid diet and advance as tolerated DAILY STEP DOWN CHECKLIST FOR CATHETER RELATED INFECTION PREVENTION CVC, PICC, Makenzie and/or Permacath present? No Does the patient have a urinary catheter beyond POD 2? No VTE Risk Assessment: High risk VTE Mechanical and/or Pharmacologic Prophylaxis: IPC Device and Subcutaneous Heparin Labs and medications reviewed in Epic Case discussed in depth with: Dr. Larsen SIGNATURE: Leo Dupont APRN.CNP PATIENT NAME: Manpreet Avelar DATE: February 15, 2019 TIME: 9:00 AM PAGER/CONTACT #: [phone] ETX#[id number] Normal [facility] Potassiumon 02-15-2019 Potassium [Moles/Vol] 4.7 mmol/L Normal 3.7-5.1 [facility] Comment on above: Performed By: #### C BCDIF, PT, PTT, CMP, MG1, NTBNP #### [facility] [address] [place], [place] [address] Troponin Ton 02-15-2019 Troponin T.cardiac [Mass/Vol] 0.175 ng/mL High 0.000-0.029 [facility] Comment on above: Result Comment: Call ed to and read back by: Alma Machado RN [id number] 02/16/19 Drake Malin Performed By: #### C BCDIF, PT, PTT, CMP, MG1, NTBNP #### [facility] [address] [place], [place] [address] XR CHEST 2V FRONTAL/LATon XR CHEST 2V FRONTAL/LAT * * *Final Repor t* * * DATE OF EXAM: Feb 15 2019 3:18PM [id number] - XR CHEST 2V FRONTAL/LAT / PROCEDURE REASON: Pneumothorax * * * * Physician Interpretation * * * * CHEST RADIOGRAPH (2 VIEW PA and LATERAL) Indication: Pneumothorax M: XC2_1 Comparison: Chest radiograph dated 02/15/2019 9:37 RESULTS: See impression. IMPRESSION: Lines, tubes, and devices: The patient is status post median sternotomy. Bilateral thoracostomy tubes are present. Lungs and pleura: There is a small right apical pneumothorax, which has decreased in size in the interval. A trace left apical pneumothorax is probably slightly smaller. There is persistent blunting of the costophrenic angles, which is most consistent with small pleural effusions with adjacent atelectasis. No new consolidative opacity or pulmonary edema. Stable mild elevation of the right hemidiaphragm. Cardiomediastinal silhouette: Stable mildly enlarged cardiac mediastinal silhouette. Retrosternal gas is unchanged. Other: Flag Football Coach: GAGANDEEP Transcribe Date/Time: Feb 15 2019 4:26P Dictated by : ALFRED QUIÑONES MD This examination was interpreted and the report reviewed and electronically signed by: ALFRED QUIÑONES MD on Feb 15 2019 4:29PM EST [id number] Normal [facility] XR CHEST 2V FRONTAL/LAT * * *Final Repor t* * * DATE OF EXAM: Feb 15 2019 9:37AM [id number] - XR CHEST 2V FRONTAL/LAT / PROCEDURE REASON: Post-operative / post-procedure assessment, asymptomatic * * * * Physician Interpretation * * * * CHEST RADIOGRAPH (2 VIEW PA and LATERAL) Indication: Post-operative / post-procedure assessment, asymptomatic M: XC2_1 Comparison: Chest radiograph dated 02/14/2019 RESULTS: See impression. IMPRESSION: Lines, tubes, and devices: The previously seen right IJ PA catheter and mediastinal drains have been removed. Bilateral thoracostomy tubes are present. The patient is status post median sternotomy. Lungs and pleura: A small to medium sized right apical and lateral pneumothorax has developed in the interval. A small medial left apical pneumothorax is also new. Attention on follow-up is recommended. Small pleural effusions are present bilaterally with adjacent lower lung zone opacities, likely due to atelectasis. Stable mild elevation of the right hemidiaphragm. No new consolidative opacity or pulmonary edema. Cardiomediastinal silhouette: Stable enlargement of the cardiomediastinal silhouette. Retrosternal gas is likely postsurgical. Other: Flag Football Coach: GAGANDEEP Transcribe Date/Time: Feb 15 2019 10:51A Dictated by : ALFRED QUIÑONES MD This examination was interpreted and the report reviewed and electronically signed by: ALFRED QUIÑONES MD on Feb 15 2019 10:53AM EST [id number] Normal [facility] CASE MANAGEMon 02-14-2019 CASE MANAGEM HNO ID: [id number] Author: (Rn) ARLYN Soares Service: Case Management Author Type: Registered Nurse Type: Care Mgt Progress Note Filed: 02/14/2019 1:56 PM Note Text: CARE MANAGEMENT PROGRESS NOTE SERVICE DATE: 02/14/2019 SERVICE TIME: 1:54 PM LOS: 10 days Needs Prior to Discharge: To Be Determined EMR and previous CM notes reviewed. Patient s/p CABG x4 02/13/19. Now extubated with CT x2. O2 requirement is at 2L nc. Off drips. CM to continue to follow. SIGNATURE: Shawn Soares RN PATIENT NAME: Manpreet Avelar DATE: February 14, 2019 TIME: 1:54 PM PAGER/CONTACT #: [phone] Normal [facility] CBCon 02-14-2019 Absolute nRBC <0.01 Normal <0.01 [facility] Comment on above: Performed By: #### C BCDIF, PT, PTT, CMP, MG1, NTBNP #### [facility] [address] [place] [address] Erythrocyte distribution width (RBC) [Ratio] 13.1 % Normal 11.5-15.0 [facility] Comment on above: Performed By: #### C BCDIF, PT, PTT, CMP, MG1, NTBNP #### [facility] [address] [place], [place] [address] Hematocrit (Bld) [Volume fraction] 33.5 % Low 39.0-51.0 [facility] Comment on above: Performed By: #### C BCDIF, PT, PTT, CMP, MG1, NTBNP #### [facility] [address] [place], [place] [address] Hemoglobin (Bld) [Mass/Vol] 11.4 g/dL Low 13.0-17.0 [facility] Comment on above: Performed By: #### C BCDIF, PT, PTT, CMP, MG1, NTBNP #### [place] [address] MCH (RBC) [Entitic mass] 29.8 pG Normal 26.0-34.0 [facility] Comment on above: Performed By: #### C BCDIF, PT, PTT, CMP, MG1, NTBNP #### [address] [address] MCHC (RBC) [Mass/Vol] 34.0 g/dL Normal 30.5-36.0 [facility] Comment on above: Performed By: #### C BCDIF, PT, PTT, CMP, MG1, NTBNP #### [place] [address] MCV (RBC) [Entitic vol] 87.7 fL Normal 80.0-100.0 [facility] Comment on above: Performed By: #### C BCDIF, PT, PTT, CMP, MG1, NTBNP #### [address] [address] Platelet mean volume (Bld) [Entitic vol] 12.5 fL Normal 9.0-12.7 [facility] Comment on above: Performed By: #### C BCDIF, PT, PTT, CMP, MG1, NTBNP #### [address] [address] Platelets (Bld) [#/Vol] 134 10*3/uL Low 150-400 [facility] Comment on above: Performed By: #### C BCDIF, PT, PTT, CMP, MG1, NTBNP #### [address] [address] RBC (Bld) [#/Vol] 3.82 10*6/uL Low 4.20-6.00 [facility] Comment on above: Performed By: #### C BCDIF, PT, PTT, CMP, MG1, NTBNP #### [place] [address] [place], [place] [address] WBC (Bld) [#/Vol] 10.94 10*3/uL Normal 3.70-11.00 [facility] Comment on above: Performed By: #### C BCDIF, PT, PTT, CMP, MG1, NTBNP #### [address] [address] Comp Metabolic Panelon 02-14 Albumin [Mass/Vol] 3.0 g/dL Low 3.9-4.9 [facility] Comment on above: Performed By: #### C BCDIF, PT, PTT, CMP, MG1, NTBNP #### [address] [address] ALP [Catalytic activity/Vol] 73 U/L Normal 38-113 [facility] Comment on above: Performed By: #### C BCDIF, PT, PTT, CMP, MG1, NTBNP #### [address] [address] ALT [Catalytic activity/Vol] 34 U/L Normal 10-54 [facility] Comment on above: Performed By: #### C BCDIF, PT, PTT, CMP, MG1, NTBNP #### [address] [address] Anion gap [Moles/Vol] 10 mmol/L Normal 9-18 [facility] Comment on above: Performed By: #### C BCDIF, PT, PTT, CMP, MG1, NTBNP #### [address] [address] AST [Catalytic activity/Vol] 37 U/L Normal 14-40 [facility] Comment on above: Performed By: #### C BCDIF, PT, PTT, CMP, MG1, NTBNP #### [address] [place] [address] Bilirubin [Mass/Vol] 0.4 mg/dL Normal 0.2-1.3 [facility] Comment on above: Performed By: #### C BCDIF, PT, PTT, CMP, MG1, NTBNP #### [place] [address] [place], [place] [address] Calcium [Mass/Vol] 8.0 mg/dL Low 8.5-10.2 [facility] Comment on above: Performed By: #### C BCDIF, PT, PTT, CMP, MG1, NTBNP #### [place] [address] Chloride [Moles/Vol] 103 mmol/L Normal 97-105 [facility] Comment on above: Performed By: #### C BCDIF, PT, PTT, CMP, MG1, NTBNP #### [place] [address] CO2 [Moles/Vol] 22 mmol/L Normal 22-30 [facility] Comment on above: Performed By: #### C BCDIF, PT, PTT, CMP, MG1, NTBNP #### [address] [address] Creatinine [Mass/Vol] 1.39 mg/dL High 0.73-1.22 [facility] Comment on above: Performed By: #### C BCDIF, PT, PTT, CMP, MG1, NTBNP #### [place] [address] [place] [id number] eGFR- Amer. >60 Normal [facility] Comment on above: Performed By: #### C BCDIF, PT, PTT, CMP, MG1, NTBNP #### [place] [address] [place] [id number] GFR/1.73 sq M predicted among non-blacks MDRD (S/P/Bld) [Vol rate/Area] 52 . Normal [facility] Comment on above: Result Comment: eGFR (Estimated GFR) Units of measure: mL/min/1.73 meters squared eGFR is derived from the reexpressed MDRD Study equation using the following parameters: serum creatinine, age, gender and race. The creatinine assay has been calibrated to be traceable to IDMS. An eGFR <60 mL/min/1.73m2 for >3 months is consistent with chronic kidney disease. Refer to KDOQI guidelines for clinical interpretation. In patients with unstable renal function, e.g. those with acute kidney injury, the eGFR may not accurately reflect actual GFR. Performed By: #### C BCDIF, PT, PTT, CMP, MG1, NTBNP #### [facility] [address] [place] [address] Glucose [Mass/Vol] 149 mg/dL High 74-99 [facility] Comment on above: Result Comment: The [place] Diabetes [employer] (ADA) provides guidance for cutoff values for fasting glucose and random glucose. The ADA defines fasting as no caloric intake for at least 8 hours. Fasting plasma glucose results between 100 to 125 mg/dL indicate increased risk for diabetes (prediabetes). Fasting plasma glucose results greater than or equal to 126 mg/dL meet the criteria for diagnosis of diabetes. In the absence of unequivocal hyperglycemia, results should be confirmed by repeat testing. In a patient with classic symptoms of hyperglycemia or hyperglycemic crisis, random plasma glucose results greater than or equal to 200 mg/dL meet the criteria for diagnosis of diabetes. Reference: Standards of Medical Care in Diabetes 2016, [place] [employer]. Diabetes Care. 2016.39(Suppl 1). Performed By: #### C BCDIF, PT, PTT, CMP, MG1, NTBNP #### [facility] [address] [place], [place] [address] Potassium [Moles/Vol] 5.2 mmol/L High 3.7-5.1 [facility] Comment on above: Performed By: #### C BCDIF, PT, PTT, CMP, MG1, NTBNP #### [facility] [address] [place], [place] [address] Protein [Mass/Vol] 5.6 g/dL Low 6.3-8.0 [facility] Comment on above: Performed By: #### C BCDIF, PT, PTT, CMP, MG1, NTBNP #### [facility] [address] [place], [place] [address] Urea nitrogen [Mass/Vol] 21 mg/dL Normal 9-24 [facility] Comment on above: Performed By: #### C BCDIF, PT, PTT, CMP, MG1, NTBNP #### [facility] [address] [place], [place] [address] Albumin [Mass/Vol] Cancelled by clinician Normal 3.9-4.9 [facility] Comment on above: Result Comment: Acco unt Credited Results phoned. Spoke to: SABRINA STRANGE 02.14.19213 Performed By: #### C BCDIF, PT, PTT, CMP, MG1, NTBNP #### [facility] [address] [place], [place] [address] ALP [Catalytic activity/Vol] Cancelled by clinician Normal 38-113 [facility] Comment on above: Result Comment: Acco unt Credited Results phoned. Spoke to: SABRINA STRANGE 02.14.19213 Performed By: #### C BCDIF, PT, PTT, CMP, MG1, NTBNP #### [facility] [address] [place], [place] [address] ALT [Catalytic activity/Vol] Cancelled by clinician Normal 10-54 [facility] Comment on above: Result Comment: Acco unt Credited Results phoned. Spoke to: SABRINA STRANGE 02.14.19213 Performed By: #### C BCDIF, PT, PTT, CMP, MG1, NTBNP #### [facility] [address] [place], [place] [address] Anion gap [Moles/Vol] Cancelled by clinician Normal 9-18 [facility] Comment on above: Result Comment: Acco unt Credited Results phoned. Spoke to: SABRINA STRANGE 02.14.19213 Performed By: #### C BCDIF, PT, PTT, CMP, MG1, NTBNP #### [facility] [address] [place], [place] [address] AST [Catalytic activity/Vol] Cancelled by clinician Normal 14-40 [facility] Comment on above: Result Comment: Acco unt Credited Results phoned. Spoke to: SABRINA STRANGE 02.14.19213 Performed By: #### C BCDIF, PT, PTT, CMP, MG1, NTBNP #### [facility] [address] [place], [place] [address] Bilirubin [Mass/Vol] Cancelled by clinician Normal 0.2-1.3 [facility] Comment on above: Result Comment: Acco unt Credited Results phoned. Spoke to: SABRINA STRANGE 02.14.19213 Performed By: #### C BCDIF, PT, PTT, CMP, MG1, NTBNP #### [facility] [address] [place], [place] [address] Calcium [Mass/Vol] Cancelled by clinician Normal 8.5-10.2 [facility] Comment on above: Result Comment: Acco unt Credited Results phoned. Spoke to: SABRINA STRANGE 02.14.19213 Performed By: #### C BCDIF, PT, PTT, CMP, MG1, NTBNP #### [facility] [address] [place], [place] [address] Chloride [Moles/Vol] Cancelled by clinician Normal 97-105 [facility] Comment on above: Result Comment: Acco unt Credited Results phoned. Spoke to: MCATALINA STRANGE 02.14.19213 Performed By: #### C BCDIF, PT, PTT, CMP, MG1, NTBNP #### [facility] [address] [place] [address] CO2 [Moles/Vol] Cancelled by clinician Normal 22-30 [facility] Comment on above: Result Comment: Acco unt Credited Results phoned. Spoke to: SABRINA STRANGE 02.14.19213 Performed By: #### C BCDIF, PT, PTT, CMP, MG1, NTBNP #### [place] [address] [place] [address] Creatinine [Mass/Vol] Cancelled by clinician Normal 0.73-1.22 [facility] Comment on above: Result Comment: Acco unt Credited Results phoned. Spoke to: SABRINA STRANGE 02.14.19213 Performed By: #### C BCDIF, PT, PTT, CMP, MG1, NTBNP #### [place] [address] [place] [address] eGFR- Amer. Cancelled by clinician Normal [facility] Comment on above: Result Comment: Acco unt Credited Results phoned. Spoke to: SABRINA STRANGE [id number] Performed By: #### C BCDIF, PT, PTT, CMP, MG1, NTBNP #### [facility] [address] [place] [id number] GFR/1.73 sq M predicted among non-blacks MDRD (S/P/Bld) [Vol rate/Area] Cancelled by clinician Normal [facility] Comment on above: Result Comment: Acco unt Credited Results phoned. Spoke to: SABRINA STRANGE 02.14.19213 Performed By: #### C BCDIF, PT, PTT, CMP, MG1, NTBNP #### [facility] [address] [place], [place] [address] Glucose [Mass/Vol] Cancelled by clinician Normal 74-99 [facility] Comment on above: Result Comment: Acco unt Credited Results phoned. Spoke to: SABRINA JUAREZ J65 ALEXANDR 02.14.19213 Performed By: #### C BCDIF, PT, PTT, CMP, MG1, NTBNP #### [facility] [address] [place], [place] [address] Potassium [Moles/Vol] Cancelled by clinician Normal 3.7-5.1 [facility] Comment on above: Result Comment: Acco unt Credited Results phoned. Spoke to: SABRINA STRANGE 02.14.19213 Performed By: #### C BCDIF, PT, PTT, CMP, MG1, NTBNP #### [facility] [address] [place], [place] [address] Protein [Mass/Vol] Cancelled by clinician Normal 6.3-8.0 [facility] Comment on above: Result Comment: Acco unt Credited Results phoned. Spoke to: SABRINA STRANGE 02.14.19213 Performed By: #### C BCDIF, PT, PTT, CMP, MG1, NTBNP #### [facility] [address] [place], [place] [address] Sodium [Moles/Vol] Cancelled by clinician Normal 136-144 [facility] Comment on above: Result Comment: Acco unt Credited Results phoned. Spoke to: SABRINA STRANGE 02.14.19213 Performed By: #### C BCDIF, PT, PTT, CMP, MG1, NTBNP #### [facility] [address] [place], [place] [address] Urea nitrogen [Mass/Vol] Cancelled by clinician Normal 9-24 [facility] Comment on above: Result Comment: Acco unt Credited Results phoned. Spoke to: SABRINA STRANGE 02.14.19213 Performed By: #### C BCDIF, PT, PTT, CMP, MG1, NTBNP #### [facility] [address] [place] [address] GASA + All FOR RADIANCE USE ONLYon 02-14-2019 Glucose [Mass/Vol] 171 mg/dL High 60-105 [facility] Comment on above: Performed By: #### C BCDIF, PT, PTT, CMP, MG1, NTBNP #### [place] [address] [place] [address] Hematocrit (Bld) [Volume fraction] 47 % Normal 39.0-51.0 [facility] Comment on above: Performed By: #### C BCDIF, PT, PTT, CMP, MG1, NTBNP #### [place] [address] Hemoglobin (Bld) [Mass/Vol] 15.2 g/dL Normal 13.0-17.0 [facility] Comment on above: Performed By: #### C BCDIF, PT, PTT, CMP, MG1, NTBNP #### [place] [address] [place] [address] Methemoglobin 0.5 % Normal 0.4-1.5 [facility] Comment on above: Performed By: #### C BCDIF, PT, PTT, CMP, MG1, NTBNP #### [place] [address] [place] [address] Notify Time, [place] [address] Normal [facility] Comment on above: Performed By: #### C BCDIF, PT, PTT, CMP, MG1, NTBNP #### [place] [address] [place] [address] Oxygen (Bld) [Partial pressure] 115 mm Hg High 85-95 [facility] Comment on above: Performed By: #### C BCDIF, PT, PTT, CMP, MG1, NTBNP #### [place] [address] pH (Bld) 7.35 [pH] Normal 7.35-7.45 [facility] Comment on above: Performed By: #### C BCDIF, PT, PTT, CMP, MG1, NTBNP #### [place] [address] pH, Temp Corrected 7.35 Normal 7.35-7.45 [facility] Comment on above: Performed By: #### C BCDIF, PT, PTT, CMP, MG1, NTBNP #### [address] [address] pO2, Temp Corrected 115 mm Hg Normal [facility] Comment on above: Performed By: #### C BCDIF, PT, PTT, CMP, MG1, NTBNP #### [place] [address] Potassium [Moles/Vol] 4.3 mmol/L Normal 3.5-5.0 [facility] Comment on above: Performed By: #### C BCDIF, PT, PTT, CMP, MG1, NTBNP #### [place] [address] Base Excess Negative Normal [facility] Comment on above: Performed By: #### C BCDIF, PT, PTT, CMP, MG1, NTBNP #### [place] [address] Calcium [Mass/Vol] 1.17 mmol/L Normal 1.08-1.30 [facility] Comment on above: Performed By: #### C BCDIF, PT, PTT, CMP, MG1, NTBNP #### [place] [address] [place], [place] [address] Carboxyhemoglobin,Art 1.7 % Normal 0-5.0 [facility] Comment on above: Performed By: #### C BCDIF, PT, PTT, CMP, MG1, NTBNP #### [address] [address] CO2 [Moles/Vol] 24 mmol/L Normal 22.0-28.0 [facility] Comment on above: Performed By: #### C BCDIF, PT, PTT, CMP, MG1, NTBNP #### [place] [address] Glucose [Mass/Vol] 187 mg/dL High 60-105 [facility] Comment on above: Performed By: #### C BCDIF, PT, PTT, CMP, MG1, NTBNP #### [place] [address] HCO3 (Bld) [Moles/Vol] 23 mmol/L Normal 22-26 [facility] Comment on above: Performed By: #### C BCDIF, PT, PTT, CMP, MG1, NTBNP #### [address] [address] Hematocrit (Bld) [Volume fraction] 37 % Low 39.0-51.0 [facility] Comment on above: Performed By: #### C BCDIF, PT, PTT, CMP, MG1, NTBNP #### [address] [address] Hemoglobin (Bld) [Mass/Vol] 12.0 g/dL Low 13.0-17.0 [facility] Comment on above: Performed By: #### C BCDIF, PT, PTT, CMP, MG1, NTBNP #### [address] [address] Lactate [Moles/Vol] 1.4 mmol/L Normal 0.5-2.2 [facility] Comment on above: Performed By: #### C BCDIF, PT, PTT, CMP, MG1, NTBNP #### [place] [address] Methemoglobin 1.4 % Normal 0.4-1.5 [facility] Comment on above: Performed By: #### C BCDIF, PT, PTT, CMP, MG1, NTBNP #### [place] [address] Notify Date, [place] [id number] [facility] Comment on above: Performed By: #### C BCDIF, PT, PTT, CMP, MG1, NTBNP #### [place] [address] Notify Time, [place] [id number] [facility] Comment on above: Performed By: #### C BCDIF, PT, PTT, CMP, MG1, NTBNP #### [place] [address] Oxygen (Bld) [Partial pressure] 109 mm Hg High 85-95 [facility] Comment on above: Performed By: #### C BCDIF, PT, PTT, CMP, MG1, NTBNP #### [place] [address] Oxyhemoglobin, Art. 95 % Normal 95-98 [facility] Comment on above: Performed By: #### C BCDIF, PT, PTT, CMP, MG1, NTBNP #### [place] [address] pCO2 44 mm Hg Normal 34-46 [facility] Comment on above: Performed By: #### C BCDIF, PT, PTT, CMP, MG1, NTBNP #### [place] [address] [place], [place] [address] pCO2, Temp Correct 44 mm Hg Normal 34-46 [facility] Comment on above: Performed By: #### C BCDIF, PT, PTT, CMP, MG1, NTBNP #### [place] [address] [place] [address] pH (Bld) 7.34 [pH] Low 7.35-7.45 [facility] Comment on above: Performed By: #### C BCDIF, PT, PTT, CMP, MG1, NTBNP #### [place] [address] [place] [address] pH, Temp Corrected 7.34 Low 7.35-7.45 [facility] Comment on above: Performed By: #### C BCDIF, PT, PTT, CMP, MG1, NTBNP #### [place] [address] pO2, Temp Corrected 109 mm Hg Normal [facility] Comment on above: Performed By: #### C BCDIF, PT, PTT, CMP, MG1, NTBNP #### [place] [address] [place] [id number] Potassium [Moles/Vol] 4.4 mmol/L Normal 3.5-5.0 [facility] Comment on above: Performed By: #### C BCDIF, PT, PTT, CMP, MG1, NTBNP #### [place] [address] [place], [place] [address] Sodium [Moles/Vol] 134 mmol/L Low 135-146 [facility] Comment on above: Performed By: #### C BCDIF, PT, PTT, CMP, MG1, NTBNP #### [place] [address] Calcium [Mass/Vol] 1.16 mmol/L Normal 1.08-1.30 [facility] Comment on above: Performed By: #### C BCDIF, PT, PTT, CMP, MG1, NTBNP #### [address] [address] Carboxyhemoglobin,Art 0.4 % Normal 0-5.0 [facility] Comment on above: Performed By: #### C BCDIF, PT, PTT, CMP, MG1, NTBNP #### [place] [address] CO2 [Moles/Vol] 23 mmol/L Normal 22.0-28.0 [facility] Comment on above: Performed By: #### C BCDIF, PT, PTT, CMP, MG1, NTBNP #### [address] [address] Glucose [Mass/Vol] 154 mg/dL High 60-105 [facility] Comment on above: Performed By: #### C BCDIF, PT, PTT, CMP, MG1, NTBNP #### [address] [address] HCO3 (Bld) [Moles/Vol] 21 mmol/L Low 22-26 [facility] Comment on above: Performed By: #### C BCDIF, PT, PTT, CMP, MG1, NTBNP #### [address] [address] Hematocrit (Bld) [Volume fraction] 38 % Low 39.0-51.0 [facility] Comment on above: Performed By: #### C BCDIF, PT, PTT, CMP, MG1, NTBNP #### [place] [address] [place], [place] [address] Hemoglobin (Bld) [Mass/Vol] 12.4 g/dL Low 13.0-17.0 [facility] Comment on above: Performed By: #### C BCDIF, PT, PTT, CMP, MG1, NTBNP #### [place] [address] [place] [phone] Lactate [Moles/Vol] 1.4 mmol/L Normal 0.5-2.2 [facility] Comment on above: Performed By: #### C BCDIF, PT, PTT, CMP, MG1, NTBNP #### [place] [phone] Methemoglobin 0.7 % Normal 0.4-1.5 [facility] Comment on above: Performed By: #### C BCDIF, PT, PTT, CMP, MG1, NTBNP #### [place] [phone] Notify Time, [place] [id number] Normal [facility] Comment on above: Performed By: #### C BCDIF, PT, PTT, CMP, MG1, NTBNP #### [place] [phone] Oxygen (Bld) [Partial pressure] 103 mm Hg High 85-95 [facility] Comment on above: Performed By: #### C BCDIF, PT, PTT, CMP, MG1, NTBNP #### [place] [phone] Oxyhemoglobin, Art. 97 % Normal 95-98 [facility] Comment on above: Performed By: #### C BCDIF, PT, PTT, CMP, MG1, NTBNP #### [place] [phone] pCO2 39 mm Hg Normal 34-46 [facility] Comment on above: Performed By: #### C BCDIF, PT, PTT, CMP, MG1, NTBNP #### [place] [phone] pCO2, Temp Correct 39 mm Hg Normal 34-46 [facility] Comment on above: Performed By: #### C BCDIF, PT, PTT, CMP, MG1, NTBNP #### [place] [address] pH (Bld) 7.36 [pH] Normal 7.35-7.45 [facility] Comment on above: Performed By: #### C BCDIF, PT, PTT, CMP, MG1, NTBNP #### [place] [address] pH, Temp Corrected 7.36 Normal 7.35-7.45 [facility] Comment on above: Performed By: #### C BCDIF, PT, PTT, CMP, MG1, NTBNP #### [place] [phone] pO2, Temp Corrected 103 mm Hg Normal [facility] Comment on above: Performed By: #### C BCDIF, PT, PTT, CMP, MG1, NTBNP #### [place] [address] Potassium [Moles/Vol] 5.1 mmol/L High 3.5-5.0 [facility] Comment on above: Performed By: #### C BCDIF, PT, PTT, CMP, MG1, NTBNP #### [place] [address] Sodium [Moles/Vol] 135 mmol/L Low 136-144 [facility] Comment on above: Performed By: #### C BCDIF, PT, PTT, CMP, MG1, NTBNP #### [place] [address] Carboxyhemoglobin,Art 1.3 % Normal 0-5.0 [facility] Comment on above: Performed By: #### C BCDIF, PT, PTT, CMP, MG1, NTBNP #### [place] [address] [place] [address] CO2 [Moles/Vol] 23 mmol/L Normal 22.0-28.0 [facility] Comment on above: Performed By: #### C BCDIF, PT, PTT, CMP, MG1, NTBNP #### [place] [address] Glucose [Mass/Vol] 127 mg/dL High 60-105 [facility] Comment on above: Performed By: #### C BCDIF, PT, PTT, CMP, MG1, NTBNP #### [place] [address] HCO3 (Bld) [Moles/Vol] 22 mmol/L Normal 22-26 [facility] Comment on above: Performed By: #### C BCDIF, PT, PTT, CMP, MG1, NTBNP #### [place] [address] Hematocrit (Bld) [Volume fraction] 37 % Low 39.0-51.0 [facility] Comment on above: Performed By: #### C BCDIF, PT, PTT, CMP, MG1, NTBNP #### [place] [address] Hemoglobin (Bld) [Mass/Vol] 12.1 g/dL Low 13.0-17.0 [facility] Comment on above: Performed By: #### C BCDIF, PT, PTT, CMP, MG1, NTBNP #### [place] [address] Lactate [Moles/Vol] 1.3 mmol/L Normal 0.5-2.2 [facility] Comment on above: Performed By: #### C BCDIF, PT, PTT, CMP, MG1, NTBNP #### [facility] [address] [place] [phone] Methemoglobin 0.7 % Normal 0.4-1.5 [facility] Comment on above: Performed By: #### C BCDIF, PT, PTT, CMP, MG1, NTBNP #### [facility] [address] [place] [address] Oxygen (Bld) [Partial pressure] 110 mm Hg High 85-95 [facility] Comment on above: Performed By: #### C BCDIF, PT, PTT, CMP, MG1, NTBNP #### [place] [address] [place] [phone] pCO2 37 mm Hg Normal 34-46 [facility] Comment on above: Performed By: #### C BCDIF, PT, PTT, CMP, MG1, NTBNP #### [place] [phone] pCO2, Temp Correct 37 mm Hg Normal 34-46 [facility] Comment on above: Performed By: #### C BCDIF, PT, PTT, CMP, MG1, NTBNP #### [place] [address] [place] [address] pH (Bld) 7.39 [pH] Normal 7.35-7.45 [facility] Comment on above: Performed By: #### C BCDIF, PT, PTT, CMP, MG1, NTBNP #### [facility] [address] [place] [address] pH, Temp Corrected 7.39 Normal 7.35-7.45 [facility] Comment on above: Performed By: #### C BCDIF, PT, PTT, CMP, MG1, NTBNP #### [place] [address] [place] [address] pO2, Temp Corrected 110 mm Hg Normal [facility] Comment on above: Performed By: #### C BCDIF, PT, PTT, CMP, MG1, NTBNP #### [place] [address] [place] [address] Potassium [Moles/Vol] 4.9 mmol/L Normal 3.5-5.0 [facility] Comment on above: Performed By: #### C BCDIF, PT, PTT, CMP, MG1, NTBNP #### [place] [address] Calcium [Mass/Vol] 1.19 mmol/L Normal 1.08-1.30 [facility] Comment on above: Performed By: #### C BCDIF, PT, PTT, CMP, MG1, NTBNP #### [place] [address] Carboxyhemoglobin,Art 0.9 % Normal 0-5.0 [facility] Comment on above: Performed By: #### C BCDIF, PT, PTT, CMP, MG1, NTBNP #### [place] [address] CO2 [Moles/Vol] 25 mmol/L Normal 22.0-28.0 [facility] Comment on above: Performed By: #### C BCDIF, PT, PTT, CMP, MG1, NTBNP #### [place] [address] Glucose [Mass/Vol] 152 mg/dL High 60-105 [facility] Comment on above: Performed By: #### C BCDIF, PT, PTT, CMP, MG1, NTBNP #### [place] [address] HCO3 (Bld) [Moles/Vol] 24 mmol/L Normal 22-26 [facility] Comment on above: Performed By: #### C BCDIF, PT, PTT, CMP, MG1, NTBNP #### [place] [address] [place] [address] Hematocrit (Bld) [Volume fraction] 37 % Low 39.0-51.0 [facility] Comment on above: Performed By: #### C BCDIF, PT, PTT, CMP, MG1, NTBNP #### [place] [phone] Hemoglobin (Bld) [Mass/Vol] 11.9 g/dL Low 13.0-17.0 [facility] Comment on above: Performed By: #### C BCDIF, PT, PTT, CMP, MG1, NTBNP #### [place] [phone] Lactate [Moles/Vol] 1.8 mmol/L Normal 0.5-2.2 [facility] Comment on above: Performed By: #### C BCDIF, PT, PTT, CMP, MG1, NTBNP #### [place] [phone] Methemoglobin 0.8 % Normal 0.4-1.5 [facility] Comment on above: Performed By: #### C BCDIF, PT, PTT, CMP, MG1, NTBNP #### [place] [phone] Oxygen (Bld) [Partial pressure] 106 mm Hg High 85-95 [facility] Comment on above: Performed By: #### C BCDIF, PT, PTT, CMP, MG1, NTBNP #### [place] [address] pCO2 43 mm Hg Normal 34-46 [facility] Comment on above: Performed By: #### C BCDIF, PT, PTT, CMP, MG1, NTBNP #### [place] [address] pCO2, Temp Correct 43 mm Hg Normal 34-46 [facility] Comment on above: Performed By: #### C BCDIF, PT, PTT, CMP, MG1, NTBNP #### [place] [address] pH (Bld) 7.36 [pH] Normal 7.35-7.45 [facility] Comment on above: Performed By: #### C BCDIF, PT, PTT, CMP, MG1, NTBNP #### [place] [address] pH, Temp Corrected 7.36 Normal 7.35-7.45 [facility] Comment on above: Performed By: #### C BCDIF, PT, PTT, CMP, MG1, NTBNP #### [place] [address] pO2, Temp Corrected 106 mm Hg Normal [facility] Comment on above: Performed By: #### C BCDIF, PT, PTT, CMP, MG1, NTBNP #### [place] [address] Potassium [Moles/Vol] 5.0 mmol/L Normal 3.5-5.0 [facility] Comment on above: Performed By: #### C BCDIF, PT, PTT, CMP, MG1, NTBNP #### [place] [address] Sodium [Moles/Vol] 133 mmol/L Low 135-146 [facility] Comment on above: Performed By: #### C BCDIF, PT, PTT, CMP, MG1, NTBNP #### [place] [address] Carboxyhemoglobin,Art 1.0 % Normal 0-5.0 [facility] Comment on above: Performed By: #### C BCDIF, PT, PTT, CMP, MG1, NTBNP #### [place] [address] [place] [address] CO2 [Moles/Vol] 23 mmol/L Normal 22.0-28.0 [facility] Comment on above: Performed By: #### C BCDIF, PT, PTT, CMP, MG1, NTBNP #### [place] [address] Glucose [Mass/Vol] 182 mg/dL High 60-105 [facility] Comment on above: Performed By: #### C BCDIF, PT, PTT, CMP, MG1, NTBNP #### [place] [address] HCO3 (Bld) [Moles/Vol] 22 mmol/L Normal 22-26 [facility] Comment on above: Performed By: #### C BCDIF, PT, PTT, CMP, MG1, NTBNP #### [place] [address] Hematocrit (Bld) [Volume fraction] 37 % Low 39.0-51.0 [facility] Comment on above: Performed By: #### C BCDIF, PT, PTT, CMP, MG1, NTBNP #### [place] [phone] Hemoglobin (Bld) [Mass/Vol] 12.2 g/dL Low 13.0-17.0 [facility] Comment on above: Performed By: #### C BCDIF, PT, PTT, CMP, MG1, NTBNP #### [place] [address] Methemoglobin 1.1 % Normal 0.4-1.5 [facility] Comment on above: Performed By: #### C BCDIF, PT, PTT, CMP, MG1, NTBNP #### [address] [place], [place] [address] Oxygen (Bld) [Partial pressure] 119 mm Hg High 85-95 [facility] Comment on above: Performed By: #### C BCDIF, PT, PTT, CMP, MG1, NTBNP #### [facility] [address] [place], [place] [address] pCO2 40 mm Hg Normal 34-46 [facility] Comment on above: Performed By: #### C BCDIF, PT, PTT, CMP, MG1, NTBNP #### [place] [address] [place], [place] [address] pCO2, Temp Correct 40 mm Hg Normal 34-46 [facility] Comment on above: Performed By: #### C BCDIF, PT, PTT, CMP, MG1, NTBNP #### [place] [address] [place], [place] [address] pH (Bld) 7.36 [pH] Normal 7.35-7.45 [facility] Comment on above: Performed By: #### C BCDIF, PT, PTT, CMP, MG1, NTBNP #### [place] [address] [place], [place] [address] pH, Temp Corrected 7.36 Normal 7.35-7.45 [facility] Comment on above: Performed By: #### C BCDIF, PT, PTT, CMP, MG1, NTBNP #### [facility] [address] [place], [place] [address] pO2, Temp Corrected 119 mm Hg Normal [facility] Comment on above: Performed By: #### C BCDIF, PT, PTT, CMP, MG1, NTBNP #### [facility] [address] [place], [place] [address] Potassium [Moles/Vol] 5.1 mmol/L High 3.5-5.0 [facility] Comment on above: Performed By: #### C BCDIF, PT, PTT, CMP, MG1, NTBNP #### [place] [address] [place] [address] Base Excess Negative Normal [facility] Comment on above: Performed By: #### C BCDIF, PT, PTT, CMP, MG1, NTBNP #### [place] [address] Calcium [Mass/Vol] 1.15 mmol/L Normal 1.08-1.30 [facility] Comment on above: Performed By: #### C BCDIF, PT, PTT, CMP, MG1, NTBNP #### [place] [address] Carboxyhemoglobin,Art 0.9 % Normal 0-5.0 [facility] Comment on above: Performed By: #### C BCDIF, PT, PTT, CMP, MG1, NTBNP #### [place] [address] CO2 [Moles/Vol] 23 mmol/L Normal 22.0-28.0 [facility] Comment on above: Performed By: #### C BCDIF, PT, PTT, CMP, MG1, NTBNP #### [place] [address] Glucose [Mass/Vol] 143 mg/dL High 60-105 [facility] Comment on above: Performed By: #### C BCDIF, PT, PTT, CMP, MG1, NTBNP #### [place] [address] HCO3 (Bld) [Moles/Vol] 22 mmol/L Normal 22-26 [facility] Comment on above: Performed By: #### C BCDIF, PT, PTT, CMP, MG1, NTBNP #### [address] [address] Hematocrit (Bld) [Volume fraction] 36 % Low 39.0-51.0 [facility] Comment on above: Performed By: #### C BCDIF, PT, PTT, CMP, MG1, NTBNP #### [place] [address] [place], [place] [address] Hemoglobin (Bld) [Mass/Vol] 11.5 g/dL Low 13.0-17.0 [facility] Comment on above: Performed By: #### C BCDIF, PT, PTT, CMP, MG1, NTBNP #### [place] [address] Lactate [Moles/Vol] 1.8 mmol/L Normal 0.5-2.2 [facility] Comment on above: Performed By: #### C BCDIF, PT, PTT, CMP, MG1, NTBNP #### [place] [address] Methemoglobin 1.0 % Normal 0.4-1.5 [facility] Comment on above: Performed By: #### C BCDIF, PT, PTT, CMP, MG1, NTBNP #### [address] [address] Oxygen (Bld) [Partial pressure] 143 mm Hg High 85-95 [facility] Comment on above: Performed By: #### C BCDIF, PT, PTT, CMP, MG1, NTBNP #### [place] [address] [place], [place] [id number] Oxyhemoglobin, Art. 97 % Normal 95-98 [facility] Comment on above: Performed By: #### C BCDIF, PT, PTT, CMP, MG1, NTBNP #### [address] [address] pCO2 40 mm Hg Normal 34-46 [facility] Comment on above: Performed By: #### C BCDIF, PT, PTT, CMP, MG1, NTBNP #### [place] [address] [place] [phone] pCO2, Temp Correct 40 mm Hg Normal 34-46 [facility] Comment on above: Performed By: #### C BCDIF, PT, PTT, CMP, MG1, NTBNP #### [place] [phone] pH (Bld) 7.35 [pH] Normal 7.35-7.45 [facility] Comment on above: Performed By: #### C BCDIF, PT, PTT, CMP, MG1, NTBNP #### [place] [phone] pH, Temp Corrected 7.35 Normal 7.35-7.45 [facility] Comment on above: Performed By: #### C BCDIF, PT, PTT, CMP, MG1, NTBNP #### [place] [phone] pO2, Temp Corrected 143 mm Hg Normal [facility] Comment on above: Performed By: #### C BCDIF, PT, PTT, CMP, MG1, NTBNP #### [place] [phone] Potassium [Moles/Vol] 5.4 mmol/L High 3.5-5.0 [facility] Comment on above: Performed By: #### C BCDIF, PT, PTT, CMP, MG1, NTBNP #### [place] [address] [place] [phone] Sodium [Moles/Vol] 133 mmol/L Low 135-146 [facility] Comment on above: Performed By: #### C BCDIF, PT, PTT, CMP, MG1, NTBNP #### [address] [place], [place] [address] Base Excess Negative Normal [facility] Comment on above: Performed By: #### C BCDIF, PT, PTT, CMP, MG1, NTBNP #### [place] [address] [place], [place] [address] Calcium [Mass/Vol] 1.17 mmol/L Normal 1.08-1.30 [facility] Comment on above: Performed By: #### C BCDIF, PT, PTT, CMP, MG1, NTBNP #### [place] [address] [place], [place] [address] Carboxyhemoglobin,Art 0.7 % Normal 0-5.0 [facility] Comment on above: Performed By: #### C BCDIF, PT, PTT, CMP, MG1, NTBNP #### [address] [address] CO2 [Moles/Vol] 23 mmol/L Normal 22.0-28.0 [facility] Comment on above: Performed By: #### C BCDIF, PT, PTT, CMP, MG1, NTBNP #### [place] [address] [place], [place] [address] Glucose [Mass/Vol] 144 mg/dL High 60-105 [facility] Comment on above: Performed By: #### C BCDIF, PT, PTT, CMP, MG1, NTBNP #### [place] [address] [place], [place] [address] HCO3 (Bld) [Moles/Vol] 22 mmol/L Normal 22-26 [facility] Comment on above: Performed By: #### C BCDIF, PT, PTT, CMP, MG1, NTBNP #### [place] [address] [place], [place] [address] Hematocrit (Bld) [Volume fraction] 38 % Low 39.0-51.0 [facility] Comment on above: Performed By: #### C BCDIF, PT, PTT, CMP, MG1, NTBNP #### [place] [phone] Hemoglobin (Bld) [Mass/Vol] 12.4 g/dL Low 13.0-17.0 [facility] Comment on above: Performed By: #### C BCDIF, PT, PTT, CMP, MG1, NTBNP #### [place] [phone] Lactate [Moles/Vol] 1.9 mmol/L Normal 0.5-2.2 [facility] Comment on above: Performed By: #### C BCDIF, PT, PTT, CMP, MG1, NTBNP #### [place] [phone] Methemoglobin 1.0 % Normal 0.4-1.5 [facility] Comment on above: Performed By: #### C BCDIF, PT, PTT, CMP, MG1, NTBNP #### [place] [address] Oxygen (Bld) [Partial pressure] 135 mm Hg High 85-95 [facility] Comment on above: Performed By: #### C BCDIF, PT, PTT, CMP, MG1, NTBNP #### [place] [phone] Oxyhemoglobin, Art. 97 % Normal 95-98 [facility] Comment on above: Performed By: #### C BCDIF, PT, PTT, CMP, MG1, NTBNP #### [place] [address] pCO2 39 mm Hg Normal 34-46 [facility] Comment on above: Performed By: #### C BCDIF, PT, PTT, CMP, MG1, NTBNP #### [place] [address] [place] [address] pCO2, Temp Correct 39 mm Hg Normal 34-46 [facility] Comment on above: Performed By: #### C BCDIF, PT, PTT, CMP, MG1, NTBNP #### [place] [address] [place] [address] pH (Bld) 7.37 [pH] Normal 7.35-7.45 [facility] Comment on above: Performed By: #### C BCDIF, PT, PTT, CMP, MG1, NTBNP #### [place] [phone] pH, Temp Corrected 7.37 Normal 7.35-7.45 [facility] Comment on above: Performed By: #### C BCDIF, PT, PTT, CMP, MG1, NTBNP #### [place] [address] pO2, Temp Corrected 135 mm Hg Normal [facility] Comment on above: Performed By: #### C BCDIF, PT, PTT, CMP, MG1, NTBNP #### [place] [address] Potassium [Moles/Vol] 5.4 mmol/L High 3.5-5.0 [facility] Comment on above: Performed By: #### C BCDIF, PT, PTT, CMP, MG1, NTBNP #### [place] [address] [place] [address] Sodium [Moles/Vol] 134 mmol/L Low 135-146 [facility] Comment on above: Performed By: #### C BCDIF, PT, PTT, CMP, MG1, NTBNP #### [place] [address] NURSING PROGon 02-14-2019 NURSING PROG HNO ID: [id number] Author: Letty (Rn) ARLYN Shea Service: Nursing Author Type: Registered Nurse Type: Nursing Progress Note Filed: 02/14/2019 3:28 PM Note Text: Nursing Progress Note Patient Name: Manpreet Avelar Patient Location: [address]09-12-13 Transfer Note: Patient transferred into [facility] in stable condition. Actions taken: Patient belongings with patient. Patient oriented to room and educated on use of call light. Fall protocol/safety plan initiated, orthostatic vitals completed and skin checked by myself and ARLYN Sinclair. This note was completed by: Letty Shea RN [facility] PROGRESSon 02-14-2019 PROGRESS HNO ID: [id number] Author: Maria Reed Service: Critical Care Author Type: Nurse Practitioner Type: Progress Notes Filed: 02/14/2019 8:46 AM Note Text: [facility] Note Name: Manpreet Avelar Coordination of Care Note: Indication for Surgery: 3-vessel CAD Preop LVEF: Normal RVF: Normal Postop LVEF: Normal RVF: Normal Important/Relevant PMH/PSH: NSTEMI (02/01/19), CAD, DM, Psoriasis, dysphagia (solids) Preoperative Hospital Course: From OSH after [facility] noted triple vessel disease. Airway Difficulty: Grade I - No special instrumentation Pacing Wires: Yes: Ventricular: When discontinuing pacing wires: Pull all pacing wires Chronological List of Surgeries and Major Events (Diagnosis): (Surgeries in bold characters) 02/13/2019: CABGx 4 (WATTS-LAD, JOSTIN-OM1, SVG-PDA, SVG- PLB)? cardiac insufficiency coming off CPB requiring epinephrine A/P of Major Active Problems (excluding routine care and common problems): Card- Mild LV systolic dysfunction requiring epinephrine post op now weaned off. Start BB for BP control Renal- ADRIAN with mild hyperkalemia. Required K cocktail overnight. Started on intermittent lasix To Do or to Watch: Discharge Planning: Anticipated Discharge Date: TBD Barriers to Discharge: Unknown Care Management Discharge Needs: Needs Prior to Discharge: To Be Determined Other Problems I Reviewed and/or Managed During This Encounter: Problem Cad (Coronary Artery Disease) History: 02/01/2019: NSTEMI- MVD. On crestor prior to admission. Assessment: 02/13/2019: CABGx 4 (WATTS-LAD, JOSTIN-OM1, SVG-PDA, SVG- PLB)? Plan: CAD Core Measures: Aspirin: Yes Beta blockers: yes Statins: Reassess for Best Practices prior to hospital discharge Atelectasis History/Assessment: On 3L NC. Bibaslar atelecatsis Plan: OOB, wean o2, and pep Hld (Hyperlipidemia) History: On Crestor at home. Assessment: No results found for: CHOL, HDL, LDL, TG Plan: Resume home Crestor when tolerating PO diet. Nstemi (Non-St Elevated Myocardial Infarction) ([facility]) See CAD Acute On Chronic Systolic Heart Failure ([facility]) History: Mild LV systolic dysfunction requiring epinephrine Assessment: weaned off epinephrine post op. CI stable Controlled Type 2 Diabetes Mellitus Without Complication, With Long-Term Current Use of Insulin ([facility]) History: DM history. On Novalog and Tresiba insulins at home. Endocrine saw pre-op in hospital-signed off. Assessment: BG controlled on RHI infusion Plan: Transition off RHI infusion with lantus. Start SSI coverage Adrian (Acute Kidney Injury) ([facility]) History/Assessment: ADRIAN with mild hyperkalemia requiring K cocktail Plan: Monitor renal function Fluid Overload History/Assessment: Post op fluid overload; +1.2 L x 24 hours Plan: Start gentle diuresis Dysphagia History: Difficulty swallowing solids, especially dry foods, worsening over last year. Saw GI in [facility] who considered EGD with dilation. Plan: . F/u with GI as outpatient. Start liquid diet and advance as tolerated Psoriasis History: On Humira pre-op, injectable Q2 weeks. A/P: Holding PHYSICAL EXAM: Neuro: Awake, Follows commands, Alert and oriented x 3 and [place] Cardiovascular: Rhythm: regular rate and rhythm and Rate:normal sinus rhythm Pulmonary: Clear to auscultation, Breath sounds equal and Diminished breath sounds, at bases Ventilator: N/A, patient is extubated CXR Findings: Atelectasis Bilateral, Increased Vascular Markings Bilateral and CXR personally viewed and interpreted by ICU staff Nurse Practitioner Gastrointestinal: Abdominal: Soft and Non-tender DAILY CVICU CHECKLIST VTE Prophylaxis: Pharmacologic Yes VTE Prophylaxis: Mechanical: Yes Line infection prevention: Can CVC, PAC or arterial line be removed: Yes - Remove arterial line and Remove Central venous catheter Continued need for urinary catheter: Yes - clinical indication: Patient post major surgery requiring fluid balance and input and output measurement. Restraints needed: No Level III SIGNATURE: Maria Reed APRN.CNP DATE of SERVICE: 02/14/2019 TIME of SERVICE: 8:43 AM Normal [facility] PT EDon 02-14-2019 PT ED HNO ID: [id number] Author: Laura VegaDtnurys) Fady Service: Nutrition Therapy Author Type: Buttonhole Maker Type: Patient Education Filed: 02/14/2019 10:47 AM Note Text: NUTRITION PATIENT EDUCATION TOPIC: Survival Skills: Diet PATIENT NAME: Manpreet Avelar SERVICE DATE: February 14, 2019 Diagnosis: ADULT: Coronary Artery Disease READINESS TO LEARN Motivation to Learn: Interested Instruction Provided to: Family member LEARNING RESPONSE Patient / Family Response: Verbalizes understanding of Mediterranean Diet Guidelines Method of Instruction: Group class instruction Instructional Aids Used: Guide to Health and Recovery Binder Supplemental Material Provided to Patient: Mediterranean Diet Guidelines Referral (Recommendation): none MNT Billing Type: Routine Care/15 min 2 units Laura Shrestha DTR Pager: [phone] February 14, 2019 10:47 AM Normal [facility] Potassiumon 02-14-2019 Potassium [Moles/Vol] 4.8 mmol/L Normal 3.7-5.1 [facility] Comment on above: Performed By: #### C BCDIF, PT, PTT, CMP, MG1, NTBNP #### [facility] [address] [place], [place] [address] Potassium [Moles/Vol] 5.4 mmol/L High 3.7-5.1 [facility] Comment on above: Performed By: #### C BCDIF, PT, PTT, CMP, MG1, NTBNP #### [facility] [address] [place], [place] [address] Troponin Ton 02-14-2019 Troponin T.cardiac [Mass/Vol] 0.293 ng/mL High 0.000-0.029 [facility] Comment on above: Result Comment: Call ed to and read back by: SABRINA JUAREZ J64 ALEXANDR 19 0214 Performed By: #### C BCDIF, PT, PTT, CMP, MG1, NTBNP #### [facility] [address] [place], [place] [address] XR CHEST 1V FRONTAL PORTon 1 04-16-2018 XR CHEST 1V FRONTAL PORT * * *Final Repo rt* * * DATE OF EXAM: Feb 14 2019 3:30AM [id number] - XR CHEST 1V FRONTAL PORT / PROCEDURE REASON: Post-operative / post-procedure assessment, asymptomatic * * * * Physician Interpretation * * * * EXAMINATION: CHEST RADIOGRAPH (PORTABLE SINGLE VIEW AP) Exam Date/Time: 02/14/2019 3:30 AM Clinical History: Post-operative / post-procedure assessment, asymptomatic MQ: [id number]_5 Comparison: 1 day prior RESULT: See impression. IMPRESSION: Lines, tubes, and devices: Interval extubation and removal of the enteric tube. The tip of the [place]-Jacky catheter overlies the right pulmonary artery. Mediastinal drainage tube and single bilateral thoracostomy tubes remain in place. Lungs and pleura: The lungs appear hypoinflated. There are bibasilar airspace opacities most commonly secondary to nonspecific atelectasis or pneumonia/aspiration. I suspect small bilateral pleural effusions. No pneumothorax is identified. Cardiomediastinal silhouette: Stable cardiomediastinal silhouette. Status post median sternotomy. The heart size is at the upper limits of normal. Flag Football Coach: PSCB Transcribe Date/Time: Feb 14 2019 8:17A Dictated by : ROHIT GARRISON MD This examination was interpreted and the report reviewed and electronically signed by: ROHIT GARRISON MD on Feb 14 2019 8:18AM EST [id number] Normal [facility] ANES Renee 02-13-2019 ANES POST HNO ID: [id number] Author: Celina Spann Service: Anesthesiology Author Type: Anesthesiologist Type: Anesthesia PostOp Filed: 02/13/2019 4:53 PM Note Text: POST ANESTHESIA EVALUATION NOTE SERVICE DATE: 02/13/2019 SERVICE TIME: 3:57 PM : 1955 s/p CABG Vitals: Validated Vital Signs: HR: 90; BP: 120/63 mmHg; CVP: 19 mmHg; PA: 37/31 mmHg; CO/CI: 4.2/2.1; RR: 20; SpO2%: 97%; Temperature: 36.0oC POST ANES STATUS: PACU/ICU Patient Condition: Guarded Neurological Status: On intravenous sedation. Pulmonary Status: On invasive mechanical ventilation. Airway Control: Intubated on mechanical ventilation. Cardiovascular Status: Guarded and On low dose inotropes Pain: Adequately controlled Postoperative Nausea/Vomiting: No significant post operative nausea or vomiting Postoperative Hydration Status: Adequate. Intra-Operative Events: See the [facility] record for the event detail Anesthetic Complications: None Recommendation: Continue current plan of care and Further care per CTS/ICU/Floor team Other Remarks: needle stick on R. carotid while establishing R. IJ access. needle removed, held pressure for 10 min. There was no expanding neck hematoma. Post op in ICU, neck re-checked, soft to touch, no change from pre-op. SIGNATURE: Celina Spann MD PHD PATIENT NAME: Manpreet Avelar DATE: February 13, 2019 TIME: 3:57 PM PAGER/CONTACT #: [phone] Normal [facility] Basic Metabolic Panlon 02-13 Anion gap [Moles/Vol] 13 mmol/L Normal 9-18 [facility] Comment on above: Performed By: #### P TTAC, BMP, CBC ####[facility] [place], [place] [phone] Calcium [Mass/Vol] 9.2 mg/dL Normal 8.5-10.2 [facility] Comment on above: Performed By: #### P TTAC, BMP, CBC ####[facility] [address] [place], [place] [phone] Chloride [Moles/Vol] 102 mmol/L Normal 97-105 [facility] Comment on above: Performed By: #### P TOMY MULTANI, CBC ####[facility], [place] [phone] CO2 [Moles/Vol] 23 mmol/L Normal 22-30 [facility] Comment on above: Performed By: #### P TOMY MULTANI, CBC ####[place] [address] [place], [place] [phone] Creatinine [Mass/Vol] 1.23 mg/dL High 0.73-1.22 [facility] Comment on above: Performed By: #### P TOMY MULTANI, CBC ####[place] [address] [address] [place], [place] [phone] eGFR- Amer. >60 Normal [facility] Comment on above: Performed By: #### P TOMY MULTANI, CBC ####[place] [address] [place], [place] [phone] GFR/1.73 sq M predicted among non-blacks MDRD (S/P/Bld) [Vol rate/Area] 60 . Normal [facility] Comment on above: Result Comment: eGFR (Estimated GFR) Units of measure: mL/min/1.73 meters squared eGFR is derived from the reexpressed MDRD Study equation using the following parameters: serum creatinine, age, gender and race. The creatinine assay has been calibrated to be traceable to IDMS. An eGFR <60 mL/min/1.73m2 for >3 months is consistent with chronic kidney disease. Refer to KDOQI guidelines for clinical interpretation. In patients with unstable renal function, e.g. those with acute kidney injury, the eGFR may not accurately reflect actual GFR. Performed By: #### P TOMY MULTANI, CBC ####[place] [address] [address] [place], [place] [phone] Glucose [Mass/Vol] 109 mg/dL High 74-99 [facility] Comment on above: Result Comment: The [place] Diabetes Association (ADA) provides guidance for cutoff values for fasting glucose and random glucose. The ADA defines fasting as no caloric intake for at least 8 hours. Fasting plasma glucose results between 100 to 125 mg/dL indicate increased risk for diabetes (prediabetes). Fasting plasma glucose results greater than or equal to 126 mg/dL meet the criteria for diagnosis of diabetes. In the absence of unequivocal hyperglycemia, results should be confirmed by repeat testing. In a patient with classic symptoms of hyperglycemia or hyperglycemic crisis, random plasma glucose results greater than or equal to 200 mg/dL meet the criteria for diagnosis of diabetes. Reference: Standards of Medical Care in Diabetes 2016, [place] Diabetes Association. Diabetes Care. 2016.39(Suppl 1). Performed By: #### P TOMY MULTANI, CBC ####[facility] [place], [place] [phone] Potassium [Moles/Vol] 4.0 mmol/L Normal 3.7-5.1 [facility] Comment on above: Performed By: #### P TOMY MULTANI, CBC ####[facility] [address] [place], [place] [phone] Sodium [Moles/Vol] 138 mmol/L Normal 136-144 [facility] Comment on above: Performed By: #### P TOMY MULTANI, CBC ####[facility] [address] [place], [place] [phone] Urea nitrogen [Mass/Vol] 23 mg/dL Normal 9-24 [facility] Comment on above: Performed By: #### P TOMY MULTANI, CBC ####[facility] [address] [place], [place] [phone] CASE MANAGEMon 02-13-2019 CASE MANAGEM HNO ID: [id number] Author: Nohemy VegaRn) ARLYN Combs Service: Care Management Author Type: Registered Nurse Type: Care Mgt Progress Note Filed: 02/13/2019 3:46 PM Note Text: CARE MANAGEMENT PROGRESS NOTE SERVICE DATE: 02/13/2019 SERVICE TIME: 3:37 PM LOS: 9 days Needs Prior to Discharge: To Be Determined CHANGE IN CONDITION Pt transferred to [facility] ICU 02/13/19 @ 1400 from [facility] to OR s/p CABG X 4. Pt remains intubated and sedated. Vent PCV 45% FiO2. ETT, central line with introducer and PAC, art line, CT X 4, OG, barakat. Epinephrine, insulin, nitroglycerin, and propofol gtts. Discharge date and needs TBD. CM to follow. SIGNATURE: Nohemy Combs RN PATIENT NAME: Manpreet Avelar DATE: February 13, 2019 TIME: 3:37 PM PAGER/CONTACT #: [phone] Normal [facility] CBCon 02-13-2019 Absolute nRBC <0.01 Normal <0.01 [facility] Comment on above: Performed By: #### P TTAC, BMP, CBC ####[place] [address] [place] [place] [phone] Erythrocyte distribution width (RBC) [Ratio] 12.9 % Normal 11.5-15.0 [facility] Comment on above: Performed By: #### P TTAC, BMP, CBC ####[place] [address] [address] [place] [phone] Hematocrit (Bld) [Volume fraction] 39.3 % Normal 39.0-51.0 [facility] Comment on above: Performed By: #### P TTAC, BMP, CBC ####[place] [address] [address] [place] [phone] Hemoglobin (Bld) [Mass/Vol] 13.4 g/dL Normal 13.0-17.0 [facility] Comment on above: Performed By: #### P TTAC, BMP, CBC ####[place] [address] [address] [place] [phone] MCH (RBC) [Entitic mass] 29.9 pG Normal 26.0-34.0 [facility] Comment on above: Performed By: #### P TTAC, BMP, CBC ####[place] [address] [address] [place], [place] [phone] MCHC (RBC) [Mass/Vol] 34.1 g/dL Normal 30.5-36.0 [facility] Comment on above: Performed By: #### P TTAC, BMP, CBC ####[facility], [place] [phone] MCV (RBC) [Entitic vol] 87.7 fL Normal 80.0-100.0 [facility] Comment on above: Performed By: #### P TTAC, BMP, CBC ####[place] [address] [address], [place] [phone] Platelet mean volume (Bld) [Entitic vol] 12.6 fL Normal 9.0-12.7 [facility] Comment on above: Performed By: #### P TTAC, BMP, CBC ####[place] [address] [address], [place] [phone] Platelets (Bld) [#/Vol] 171 10*3/uL Normal 150-400 [facility] Comment on above: Performed By: #### P TTAC, BMP, CBC ####[place] [address] [address], [place] [phone] RBC (Bld) [#/Vol] 4.48 10*6/uL Normal 4.20-6.00 [facility] Comment on above: Performed By: #### P TTAC, BMP, CBC ####[place] [address] [address], [place] [phone] WBC (Bld) [#/Vol] 7.06 10*3/uL Normal 3.70-11.00 [facility] Comment on above: Performed By: #### P TTAC, BMP, CBC ####[facility], [place] [phone] ECG COMPLETEon 02-13-2019 ECG COMPLETE NAME : MANPREET AVELAR PID : [id number] : 1955 Gender : Male Race : ORD : [id number] Procedure Date : Feb 13 2019 15:16:32 Edit Date : Feb 14 2019 16:20:37 Diagnosis:NORMAL SINUS RHYTHM COMPLETE RIGHT BUNDLE BRANCH BLOCK INFERIOR MYOCARDIAL INFARCTION , AGE UNDETERMINED LATERAL T WAVE ABNORMALITY ABNORMAL ECG Confirmed by MD MACEDO HEBA ([id number]) on 02/14/2019 4:20:36 PM Ventricular Rate : 93 BPM Atrial Rate : 93 BPM P-R Interval : 172 ms QRS Duration : 116 ms Q-T Interval : 394 ms QTC Calculation(Bazett) : 489 ms P Elbert : 53 degrees R Elbert : -6 degrees T Elbert : -47 degrees Test Reason : Post-OP Location : 367 : [facility] [id number] Overread By : MD MACEDO HEBA Edited By : MD MACEDO HEBA Referred By : JABARI TORRES II Acquired by : [id number], Normal [facility] GASA + All FOR RADIANCE USE ONLYon 02-13-2019 Base Excess Negative Normal [facility] Comment on above: Performed By: #### C BCDIF, PT, PTT, CMP, MG1, NTBNP #### [facility] [place] [address] Calcium [Mass/Vol] 1.22 mmol/L Normal 1.08-1.30 [facility] Comment on above: Performed By: #### C BCDIF, PT, PTT, CMP, MG1, NTBNP #### [facility] [address] [place] [address] Carboxyhemoglobin,Art 0.8 % Normal 0-5.0 [facility] Comment on above: Performed By: #### C BCDIF, PT, PTT, CMP, MG1, NTBNP #### [facility] [address] [place], [place] [address] CO2 [Moles/Vol] 26 mmol/L Normal 22.0-28.0 [facility] Comment on above: Performed By: #### C BCDIF, PT, PTT, CMP, MG1, NTBNP #### [place] [address] [place], [place] [address] Glucose [Mass/Vol] 110 mg/dL High 60-105 [facility] Comment on above: Performed By: #### C BCDIF, PT, PTT, CMP, MG1, NTBNP #### [address] [address] HCO3 (Bld) [Moles/Vol] 24 mmol/L Normal 22-26 [facility] Comment on above: Performed By: #### C BCDIF, PT, PTT, CMP, MG1, NTBNP #### [place] [address] Hematocrit (Bld) [Volume fraction] 39 % Normal 39.0-51.0 [facility] Comment on above: Performed By: #### C BCDIF, PT, PTT, CMP, MG1, NTBNP #### [address] [address] Hemoglobin (Bld) [Mass/Vol] 12.8 g/dL Low 13.0-17.0 [facility] Comment on above: Performed By: #### C BCDIF, PT, PTT, CMP, MG1, NTBNP #### [address] [address] Lactate [Moles/Vol] 1.8 mmol/L Normal 0.5-2.2 [facility] Comment on above: Performed By: #### C BCDIF, PT, PTT, CMP, MG1, NTBNP #### [address] [address] Methemoglobin 1.0 % Normal 0.4-1.5 [facility] Comment on above: Performed By: #### C BCDIF, PT, PTT, CMP, MG1, NTBNP #### [place] [address] Oxygen (Bld) [Partial pressure] 117 mm Hg High 85-95 [facility] Comment on above: Performed By: #### C BCDIF, PT, PTT, CMP, MG1, NTBNP #### [place] [address] [place] [address] Oxyhemoglobin, Art. 97 % Normal 95-98 [facility] Comment on above: Performed By: #### C BCDIF, PT, PTT, CMP, MG1, NTBNP #### [place] [address] pCO2 44 mm Hg Normal 34-46 [facility] Comment on above: Performed By: #### C BCDIF, PT, PTT, CMP, MG1, NTBNP #### [place] [address] pCO2, Temp Correct 44 mm Hg Normal 34-46 [facility] Comment on above: Performed By: #### C BCDIF, PT, PTT, CMP, MG1, NTBNP #### [place] [phone] pH (Bld) 7.36 [pH] Normal 7.35-7.45 [facility] Comment on above: Performed By: #### C BCDIF, PT, PTT, CMP, MG1, NTBNP #### [place] [address] pH, Temp Corrected 7.36 Normal 7.35-7.45 [facility] Comment on above: Performed By: #### C BCDIF, PT, PTT, CMP, MG1, NTBNP #### [place] [address] pO2, Temp Corrected 117 mm Hg Normal [facility] Comment on above: Performed By: #### C BCDIF, PT, PTT, CMP, MG1, NTBNP #### [place] [address] [place], [place] [address] Potassium [Moles/Vol] 4.6 mmol/L Normal 3.5-5.0 [facility] Comment on above: Performed By: #### C BCDIF, PT, PTT, CMP, MG1, NTBNP #### [address] [address] Sodium [Moles/Vol] 135 mmol/L Normal 135-146 [facility] Comment on above: Performed By: #### C BCDIF, PT, PTT, CMP, MG1, NTBNP #### [address] [address] Base Excess Negative Normal [facility] Comment on above: Performed By: #### C BCDIF, PT, PTT, CMP, MG1, NTBNP #### [place] [address] Calcium [Mass/Vol] 1.19 mmol/L Normal 1.08-1.30 [facility] Comment on above: Performed By: #### C BCDIF, PT, PTT, CMP, MG1, NTBNP #### [address] [address] Carboxyhemoglobin,Art 0.8 % Normal 0-5.0 [facility] Comment on above: Performed By: #### C BCDIF, PT, PTT, CMP, MG1, NTBNP #### [address] [address] CO2 [Moles/Vol] 25 mmol/L Normal 22.0-28.0 [facility] Comment on above: Performed By: #### C BCDIF, PT, PTT, CMP, MG1, NTBNP #### [address] [address] Glucose [Mass/Vol] 148 mg/dL High 60-105 [facility] Comment on above: Performed By: #### C BCDIF, PT, PTT, CMP, MG1, NTBNP #### [place] [address] [place], [place] [address] HCO3 (Bld) [Moles/Vol] 24 mmol/L Normal 22-26 [facility] Comment on above: Performed By: #### C BCDIF, PT, PTT, CMP, MG1, NTBNP #### [address] [address] Hematocrit (Bld) [Volume fraction] 40 % Normal 39.0-51.0 [facility] Comment on above: Performed By: #### C BCDIF, PT, PTT, CMP, MG1, NTBNP #### [address] [address] Hemoglobin (Bld) [Mass/Vol] 13.0 g/dL Normal 13.0-17.0 [facility] Comment on above: Performed By: #### C BCDIF, PT, PTT, CMP, MG1, NTBNP #### [address] [address] Lactate [Moles/Vol] 1.9 mmol/L Normal 0.5-2.2 [facility] Comment on above: Performed By: #### C BCDIF, PT, PTT, CMP, MG1, NTBNP #### [address] [address] Methemoglobin 0.8 % Normal 0.4-1.5 [facility] Comment on above: Performed By: #### C BCDIF, PT, PTT, CMP, MG1, NTBNP #### [place] [address] [place], [place] [address] Oxygen (Bld) [Partial pressure] 136 mm Hg High 85-95 [facility] Comment on above: Performed By: #### C BCDIF, PT, PTT, CMP, MG1, NTBNP #### [facility] [address] [place] [phone] Oxyhemoglobin, Art. 97 % Normal 95-98 [facility] Comment on above: Performed By: #### C BCDIF, PT, PTT, CMP, MG1, NTBNP #### [place] [address] pCO2 42 mm Hg Normal 34-46 [facility] Comment on above: Performed By: #### C BCDIF, PT, PTT, CMP, MG1, NTBNP #### [place] [phone] pCO2, Temp Correct 42 mm Hg Normal 34-46 [facility] Comment on above: Performed By: #### C BCDIF, PT, PTT, CMP, MG1, NTBNP #### [place] [phone] pH (Bld) 7.36 [pH] Normal 7.35-7.45 [facility] Comment on above: Performed By: #### C BCDIF, PT, PTT, CMP, MG1, NTBNP #### [place] [address] [place] [phone] pH, Temp Corrected 7.36 Normal 7.35-7.45 [facility] Comment on above: Performed By: #### C BCDIF, PT, PTT, CMP, MG1, NTBNP #### [place] [address] [place] [phone] pO2, Temp Corrected 136 mm Hg Normal [facility] Comment on above: Performed By: #### C BCDIF, PT, PTT, CMP, MG1, NTBNP #### [place] [address] [place] [phone] Potassium [Moles/Vol] 4.7 mmol/L Normal 3.5-5.0 [facility] Comment on above: Performed By: #### C BCDIF, PT, PTT, CMP, MG1, NTBNP #### [address] [address] Sodium [Moles/Vol] 134 mmol/L Low 135-146 [facility] Comment on above: Performed By: #### C BCDIF, PT, PTT, CMP, MG1, NTBNP #### [place] [address] Base Excess Negative Normal [facility] Comment on above: Performed By: #### C BCDIF, PT, PTT, CMP, MG1, NTBNP #### [address] [address] Calcium [Mass/Vol] 1.21 mmol/L Normal 1.08-1.30 [facility] Comment on above: Performed By: #### C BCDIF, PT, PTT, CMP, MG1, NTBNP #### [address] [address] Carboxyhemoglobin,Art 0.6 % Normal 0-5.0 [facility] Comment on above: Performed By: #### C BCDIF, PT, PTT, CMP, MG1, NTBNP #### [address] [address] CO2 [Moles/Vol] 24 mmol/L Normal 22.0-28.0 [facility] Comment on above: Performed By: #### C BCDIF, PT, PTT, CMP, MG1, NTBNP #### [address] [address] Glucose [Mass/Vol] 156 mg/dL High 60-105 [facility] Comment on above: Performed By: #### C BCDIF, PT, PTT, CMP, MG1, NTBNP #### [place] [address] [place] [phone] HCO3 (Bld) [Moles/Vol] 22 mmol/L Normal 22-26 [facility] Comment on above: Performed By: #### C BCDIF, PT, PTT, CMP, MG1, NTBNP #### [place] [phone] Hematocrit (Bld) [Volume fraction] 41 % Normal 39.0-51.0 [facility] Comment on above: Performed By: #### C BCDIF, PT, PTT, CMP, MG1, NTBNP #### [place] [phone] Hemoglobin (Bld) [Mass/Vol] 13.3 g/dL Normal 13.0-17.0 [facility] Comment on above: Performed By: #### C BCDIF, PT, PTT, CMP, MG1, NTBNP #### [place] [phone] Lactate [Moles/Vol] 2.2 mmol/L Normal 0.5-2.2 [facility] Comment on above: Performed By: #### C BCDIF, PT, PTT, CMP, MG1, NTBNP #### [place] [phone] Methemoglobin 1.0 % Normal 0.4-1.5 [facility] Comment on above: Performed By: #### C BCDIF, PT, PTT, CMP, MG1, NTBNP #### [place] [phone] Oxygen (Bld) [Partial pressure] 112 mm Hg High 85-95 [facility] Comment on above: Performed By: #### C BCDIF, PT, PTT, CMP, MG1, NTBNP #### [address] [place], [place] [address] Oxyhemoglobin, Art. 97 % Normal 95-98 [facility] Comment on above: Performed By: #### C BCDIF, PT, PTT, CMP, MG1, NTBNP #### [facility] [address] [place], [place] [address] pCO2 41 mm Hg Normal 34-46 [facility] Comment on above: Performed By: #### C BCDIF, PT, PTT, CMP, MG1, NTBNP #### [place] [address] [place], [place] [address] pCO2, Temp Correct 41 mm Hg Normal 34-46 [facility] Comment on above: Performed By: #### C BCDIF, PT, PTT, CMP, MG1, NTBNP #### [place] [address] pH (Bld) 7.36 [pH] Normal 7.35-7.45 [facility] Comment on above: Performed By: #### C BCDIF, PT, PTT, CMP, MG1, NTBNP #### [place] [address] [place], [place] [address] pH, Temp Corrected 7.36 Normal 7.35-7.45 [facility] Comment on above: Performed By: #### C BCDIF, PT, PTT, CMP, MG1, NTBNP #### [place] [address] [place], [place] [address] pO2, Temp Corrected 112 mm Hg Normal [facility] Comment on above: Performed By: #### C BCDIF, PT, PTT, CMP, MG1, NTBNP #### [place] [address] [place], [place] [address] Potassium [Moles/Vol] 4.5 mmol/L Normal 3.5-5.0 [facility] Comment on above: Performed By: #### C BCDIF, PT, PTT, CMP, MG1, NTBNP #### [place] [address] [place] [address] Sodium [Moles/Vol] 134 mmol/L Low 135-146 [facility] Comment on above: Performed By: #### C BCDIF, PT, PTT, CMP, MG1, NTBNP #### [place] [address] Base Excess Negative Normal [facility] Comment on above: Performed By: #### C BCDIF, PT, PTT, CMP, MG1, NTBNP #### [place] [address] Calcium [Mass/Vol] 1.20 mmol/L Normal 1.08-1.30 [facility] Comment on above: Performed By: #### C BCDIF, PT, PTT, CMP, MG1, NTBNP #### [place] [address] Carboxyhemoglobin,Art 0.9 % Normal 0-5.0 [facility] Comment on above: Performed By: #### C BCDIF, PT, PTT, CMP, MG1, NTBNP #### [place] [address] CO2 [Moles/Vol] 23 mmol/L Normal 22.0-28.0 [facility] Comment on above: Performed By: #### C BCDIF, PT, PTT, CMP, MG1, NTBNP #### [place] [address] Glucose [Mass/Vol] 150 mg/dL High 60-105 [facility] Comment on above: Performed By: #### C BCDIF, PT, PTT, CMP, MG1, NTBNP #### [place] [address] HCO3 (Bld) [Moles/Vol] 21 mmol/L Low 22-26 [facility] Comment on above: Performed By: #### C BCDIF, PT, PTT, CMP, MG1, NTBNP #### [place] [address] [place] [address] Hematocrit (Bld) [Volume fraction] 42 % Normal 39.0-51.0 [facility] Comment on above: Performed By: #### C BCDIF, PT, PTT, CMP, MG1, NTBNP #### [place] [address] Hemoglobin (Bld) [Mass/Vol] 13.7 g/dL Normal 13.0-17.0 [facility] Comment on above: Performed By: #### C BCDIF, PT, PTT, CMP, MG1, NTBNP #### [place] [phone] Lactate [Moles/Vol] 3.2 mmol/L High 0.5-2.2 [facility] Comment on above: Performed By: #### C BCDIF, PT, PTT, CMP, MG1, NTBNP #### [place] [address] Methemoglobin 0.7 % Normal 0.4-1.5 [facility] Comment on above: Performed By: #### C BCDIF, PT, PTT, CMP, MG1, NTBNP #### [place] [address] [place] [address] Oxygen (Bld) [Partial pressure] 152 mm Hg High 85-95 [facility] Comment on above: Performed By: #### C BCDIF, PT, PTT, CMP, MG1, NTBNP #### [place] [address] [place] [address] Oxyhemoglobin, Art. 98 % Normal 95-98 [facility] Comment on above: Performed By: #### C BCDIF, PT, PTT, CMP, MG1, NTBNP #### [place] [address] [place] [phone] pCO2 37 mm Hg Normal 34-46 [facility] Comment on above: Performed By: #### C BCDIF, PT, PTT, CMP, MG1, NTBNP #### [place] [phone] pCO2, Temp Correct 37 mm Hg Normal 34-46 [facility] Comment on above: Performed By: #### C BCDIF, PT, PTT, CMP, MG1, NTBNP #### [place] [phone] pH (Bld) 7.38 [pH] Normal 7.35-7.45 [facility] Comment on above: Performed By: #### C BCDIF, PT, PTT, CMP, MG1, NTBNP #### [place] [address] [place] [phone] pH, Temp Corrected 7.38 Normal 7.35-7.45 [facility] Comment on above: Performed By: #### C BCDIF, PT, PTT, CMP, MG1, NTBNP #### [place] [phone] pO2, Temp Corrected 152 mm Hg Normal [facility] Comment on above: Performed By: #### C BCDIF, PT, PTT, CMP, MG1, NTBNP #### [place] [address] [place] [phone] Potassium [Moles/Vol] 4.3 mmol/L Normal 3.5-5.0 [facility] Comment on above: Performed By: #### C BCDIF, PT, PTT, CMP, MG1, NTBNP #### [place] [address] [place], [place] [phone] Sodium [Moles/Vol] 134 mmol/L Low 135-146 [facility] Comment on above: Performed By: #### C BCDIF, PT, PTT, CMP, MG1, NTBNP #### [address] [address] Base Excess Negative Normal [facility] Comment on above: Performed By: #### C BCDIF, PT, PTT, CMP, MG1, NTBNP #### [address] [address] Calcium [Mass/Vol] 1.19 mmol/L Normal 1.08-1.30 [facility] Comment on above: Performed By: #### C BCDIF, PT, PTT, CMP, MG1, NTBNP #### [address] [address] Carboxyhemoglobin,Art 0.9 % Normal 0-5.0 [facility] Comment on above: Performed By: #### C BCDIF, PT, PTT, CMP, MG1, NTBNP #### [address] [address] CO2 [Moles/Vol] 23 mmol/L Normal 22.0-28.0 [facility] Comment on above: Performed By: #### C BCDIF, PT, PTT, CMP, MG1, NTBNP #### [address] [address] Glucose [Mass/Vol] 186 mg/dL High 60-105 [facility] Comment on above: Performed By: #### C BCDIF, PT, PTT, CMP, MG1, NTBNP #### [address] [address] HCO3 (Bld) [Moles/Vol] 22 mmol/L Normal 22-26 [facility] Comment on above: Performed By: #### C BCDIF, PT, PTT, CMP, MG1, NTBNP #### [place] [phone] Hematocrit (Bld) [Volume fraction] 42 % Normal 39.0-51.0 [facility] Comment on above: Performed By: #### C BCDIF, PT, PTT, CMP, MG1, NTBNP #### [place] [phone] Hemoglobin (Bld) [Mass/Vol] 13.5 g/dL Normal 13.0-17.0 [facility] Comment on above: Performed By: #### C BCDIF, PT, PTT, CMP, MG1, NTBNP #### [place] [phone] Lactate [Moles/Vol] 3.1 mmol/L High 0.5-2.2 [facility] Comment on above: Performed By: #### C BCDIF, PT, PTT, CMP, MG1, NTBNP #### [place] [phone] Methemoglobin 1.1 % Normal 0.4-1.5 [facility] Comment on above: Performed By: #### C BCDIF, PT, PTT, CMP, MG1, NTBNP #### [place] [phone] Oxygen (Bld) [Partial pressure] 105 mm Hg High 85-95 [facility] Comment on above: Performed By: #### C BCDIF, PT, PTT, CMP, MG1, NTBNP #### [place] [phone] Oxyhemoglobin, Art. 96 % Normal 95-98 [facility] Comment on above: Performed By: #### C BCDIF, PT, PTT, CMP, MG1, NTBNP #### [facility] [address] [place], [place] [address] pCO2 41 mm Hg Normal 34-46 [facility] Comment on above: Performed By: #### C BCDIF, PT, PTT, CMP, MG1, NTBNP #### [place] [address] [place], [place] [address] pCO2, Temp Correct 41 mm Hg Normal 34-46 [facility] Comment on above: Performed By: #### C BCDIF, PT, PTT, CMP, MG1, NTBNP #### [place] [address] [place] [address] pH (Bld) 7.34 [pH] Low 7.35-7.45 [facility] Comment on above: Performed By: #### C BCDIF, PT, PTT, CMP, MG1, NTBNP #### [place] [address] [place] [address] pH, Temp Corrected 7.34 Low 7.35-7.45 [facility] Comment on above: Performed By: #### C BCDIF, PT, PTT, CMP, MG1, NTBNP #### [place] [address] [place] [address] pO2, Temp Corrected 105 mm Hg Normal [facility] Comment on above: Performed By: #### C BCDIF, PT, PTT, CMP, MG1, NTBNP #### [place] [address] [place] [address] Potassium [Moles/Vol] 4.4 mmol/L Normal 3.5-5.0 [facility] Comment on above: Performed By: #### C BCDIF, PT, PTT, CMP, MG1, NTBNP #### [place] [address] [place] [address] Sodium [Moles/Vol] 134 mmol/L Low 135-146 [facility] Comment on above: Performed By: #### C BCDIF, PT, PTT, CMP, MG1, NTBNP #### [place] [address] [place] [address] Base Excess Negative Normal [facility] Comment on above: Performed By: #### C BCDIF, PT, PTT, CMP, MG1, NTBNP #### [place] [address] Calcium [Mass/Vol] 1.15 mmol/L Normal 1.08-1.30 [facility] Comment on above: Performed By: #### C BCDIF, PT, PTT, CMP, MG1, NTBNP #### [place] [address] [place] [address] Carboxyhemoglobin,Art 0.8 % Normal 0-5.0 [facility] Comment on above: Performed By: #### C BCDIF, PT, PTT, CMP, MG1, NTBNP #### [place] [address] [place] [address] CO2 [Moles/Vol] 23 mmol/L Normal 22.0-28.0 [facility] Comment on above: Performed By: #### C BCDIF, PT, PTT, CMP, MG1, NTBNP #### [place] [address] [place] [id number] Glucose [Mass/Vol] 202 mg/dL High 60-105 [facility] Comment on above: Performed By: #### C BCDIF, PT, PTT, CMP, MG1, NTBNP #### [place] [address] [place] [phone] HCO3 (Bld) [Moles/Vol] 21 mmol/L Low 22-26 [facility] Comment on above: Performed By: #### C BCDIF, PT, PTT, CMP, MG1, NTBNP #### [place] [address] [place], [place] [address] Hematocrit (Bld) [Volume fraction] 39 % Normal 39.0-51.0 [facility] Comment on above: Performed By: #### C BCDIF, PT, PTT, CMP, MG1, NTBNP #### [place] [address] [place], [place] [address] Hemoglobin (Bld) [Mass/Vol] 12.7 g/dL Low 13.0-17.0 [facility] Comment on above: Performed By: #### C BCDIF, PT, PTT, CMP, MG1, NTBNP #### [place] [address] Lactate [Moles/Vol] 4.2 mmol/L High 0.5-2.2 [facility] Comment on above: Performed By: #### C BCDIF, PT, PTT, CMP, MG1, NTBNP #### [address] [address] Methemoglobin 1.1 % Normal 0.4-1.5 [facility] Comment on above: Performed By: #### C BCDIF, PT, PTT, CMP, MG1, NTBNP #### [place] [address] [place], [place] [address] Oxygen (Bld) [Partial pressure] 100 mm Hg High 85-95 [facility] Comment on above: Performed By: #### C BCDIF, PT, PTT, CMP, MG1, NTBNP #### [address] [address] Oxyhemoglobin, Art. 95 % Normal 95-98 [facility] Comment on above: Performed By: #### C BCDIF, PT, PTT, CMP, MG1, NTBNP #### [address] [address] pCO2 47 mm Hg High 34-46 [facility] Comment on above: Performed By: #### C BCDIF, PT, PTT, CMP, MG1, NTBNP #### [place] [address] [place], [place] [address] pCO2, Temp Correct 47 mm Hg High 34-46 [facility] Comment on above: Performed By: #### C BCDIF, PT, PTT, CMP, MG1, NTBNP #### [place] [address] pH (Bld) 7.27 [pH] Low 7.35-7.45 [facility] Comment on above: Performed By: #### C BCDIF, PT, PTT, CMP, MG1, NTBNP #### [place] [address] pH, Temp Corrected 7.27 Low 7.35-7.45 [facility] Comment on above: Performed By: #### C BCDIF, PT, PTT, CMP, MG1, NTBNP #### [place] [address] pO2, Temp Corrected 100 mm Hg Normal [facility] Comment on above: Performed By: #### C BCDIF, PT, PTT, CMP, MG1, NTBNP #### [place] [address] Potassium [Moles/Vol] 4.0 mmol/L Normal 3.5-5.0 [facility] Comment on above: Performed By: #### C BCDIF, PT, PTT, CMP, MG1, NTBNP #### [place] [address] Sodium [Moles/Vol] 134 mmol/L Low 135-146 [facility] Comment on above: Performed By: #### C BCDIF, PT, PTT, CMP, MG1, NTBNP #### [facility] [address] [place], [place] [address] Base Excess Negative Normal [facility] Comment on above: Performed By: #### A LLBG ####[facility], [place] [phone] Calcium [Mass/Vol] 1.15 mmol/L Normal 1.08-1.30 [facility] Comment on above: Performed By: #### A LLBG ####[place] [address] [address], [place] [phone] Carboxyhemoglobin,Art 1.0 % Normal 0-5.0 [facility] Comment on above: Performed By: #### A LLBG ####[place] [address] [address], [place] [phone] CO2 [Moles/Vol] 23 mmol/L Normal 22.0-28.0 [facility] Comment on above: Performed By: #### A LLBG ####[place] [address] [address], [place] [phone] Glucose [Mass/Vol] 235 mg/dL High 60-105 [facility] Comment on above: Performed By: #### A LLBG ####[place] [address] [address], [place] [phone] HCO3 (Bld) [Moles/Vol] 21 mmol/L Low 22-26 [facility] Comment on above: Performed By: #### A LLBG ####[place] [address] [address], [place] [phone] Hematocrit (Bld) [Volume fraction] 37 % Low 39.0-51.0 [facility] Comment on above: Performed By: #### A LLBG ####[place] [address] [address], [place] [phone] Hemoglobin (Bld) [Mass/Vol] 12.1 g/dL Low 13.0-17.0 [facility] Comment on above: Performed By: #### A LLBG ####[place] [address], [place] [phone] Lactate [Moles/Vol] 4.4 mmol/L High 0.5-2.2 [facility] Comment on above: Performed By: #### A LLBG ####[place] [address] [address], [place] [phone] Methemoglobin 1.0 % Normal 0.4-1.5 [facility] Comment on above: Performed By: #### A LLBG ####[place] [address] [address], [place] [phone] Notify Date, Art [id number] [facility] Comment on above: Performed By: #### A LLBG ####[place] [address] [address], [place] [phone] Notify Time, Art [id number] Normal [facility] Comment on above: Performed By: #### A LLBG ####[place] [address] [address], [place] [phone] Oxygen (Bld) [Partial pressure] 187 mm Hg High 85-95 [facility] Comment on above: Performed By: #### A LLBG ####[place] [address] [address], [place] [phone] Oxyhemoglobin, Art. 97 % Normal 95-98 [facility] Comment on above: Performed By: #### A LLBG ####[place] [address] [address], [place] [phone] pCO2 44 mm Hg Normal 34-46 [facility] Comment on above: Performed By: #### A LLBG ####[place] [address] [address], [place] [phone] pCO2, Temp Correct 44 mm Hg Normal 34-46 [facility] Comment on above: Performed By: #### A LLBG ####[place] [address], [place] [phone] pH (Bld) 7.31 [pH] Low 7.35-7.45 [facility] Comment on above: Performed By: #### A LLBG ####[place] [id number], [place] [phone] pH, Temp Corrected 7.31 Low 7.35-7.45 [facility] Comment on above: Performed By: #### A LLBG ####[place] [address] [address] [place] [phone] pO2, Temp Corrected 187 mm Hg Normal [facility] Comment on above: Performed By: #### A LLBG ####[place] [address] [address] [place] [phone] Potassium [Moles/Vol] 4.0 mmol/L Normal 3.5-5.0 [facility] Comment on above: Performed By: #### A LLBG ####[place] [address] [address] [place] [phone] Sodium [Moles/Vol] 134 mmol/L Low 135-146 [facility] Comment on above: Performed By: #### A LLBG ####[place] [address] [address] [place] [phone] Base Excess Negative Normal [facility] Comment on above: Performed By: #### A LLBG ####[place] [address] [address], [place] [phone] Calcium [Mass/Vol] 1.12 mmol/L Normal 1.08-1.30 [facility] Comment on above: Performed By: #### A LLBG ####[place] [address] [address], [place] [phone] Carboxyhemoglobin,Art 0.8 % Normal 0-5.0 [facility] Comment on above: Performed By: #### A LLBG ####[place] [address] [address], [place] [phone] CO2 [Moles/Vol] 25 mmol/L Normal 22.0-28.0 [facility] Comment on above: Performed By: #### A LLBG ####[place] [address] [address], [place] [phone] Glucose [Mass/Vol] 278 mg/dL High 60-105 [facility] Comment on above: Performed By: #### A LLBG ####[place] [address] [address], [place] [phone] HCO3 (Bld) [Moles/Vol] 23 mmol/L Normal 22-26 [facility] Comment on above: Performed By: #### A LLBG ####[place] [address] [address], [place] [phone] Hematocrit (Bld) [Volume fraction] 32 % Low 39.0-51.0 [facility] Comment on above: Performed By: #### A LLBG ####[place] [address] [address], [place] [phone] Hemoglobin (Bld) [Mass/Vol] 10.3 g/dL Low 13.0-17.0 [facility] Comment on above: Performed By: #### A LLBG ####[place] [address], [place] [phone] Lactate [Moles/Vol] 3.6 mmol/L High 0.5-2.2 [facility] Comment on above: Performed By: #### A LLBG ####[place] [address], [place] [phone] Methemoglobin 1.5 % Normal 0.4-1.5 [facility] Comment on above: Performed By: #### A LLBG ####[place] [address], [place] [phone] Oxygen (Bld) [Partial pressure] 215 mm Hg High 85-95 [facility] Comment on above: Performed By: #### A LLBG ####[facility] [place], [place] [phone] Oxyhemoglobin, Art. 97 % Normal 95-98 [facility] Comment on above: Performed By: #### A LLBG ####[place] [address], [place] [phone] pCO2 53 mm Hg High 34-46 [facility] Comment on above: Performed By: #### A LLBG ####[place] [address], [place] [phone] pCO2, Temp Correct 53 mm Hg High 34-46 [facility] Comment on above: Performed By: #### A LLBG ####[place] [address], [place] [phone] pH (Bld) 7.27 [pH] Low 7.35-7.45 [facility] Comment on above: Performed By: #### A LLBG ####[place] [address] [place], [place] [phone] pH, Temp Corrected 7.27 Low 7.35-7.45 [facility] Comment on above: Performed By: #### A LLBG ####[facility], [place] [phone] pO2, Temp Corrected 215 mm Hg Normal [facility] Comment on above: Performed By: #### A LLBG ####[facility], [place] [phone] Potassium [Moles/Vol] 3.9 mmol/L Normal 3.5-5.0 [facility] Comment on above: Performed By: #### A LLBG ####[place] [address], [place] [phone] Sodium [Moles/Vol] 132 mmol/L Low 135-146 [facility] Comment on above: Performed By: #### A LLBG ####[place] [address], [place] [phone] Base Excess Negative Normal [facility] Comment on above: Performed By: #### A LLBG ####[place] [address], [place] [phone] Calcium [Mass/Vol] 1.07 mmol/L Low 1.08-1.30 [facility] Comment on above: Performed By: #### A LLBG ####[place] [address], [place] [phone] Carboxyhemoglobin,Art 1.6 % Normal 0-5.0 [facility] Comment on above: Performed By: #### A LLBG ####[place] [address], [place] [phone] CO2 [Moles/Vol] 25 mmol/L Normal 22.0-28.0 [facility] Comment on above: Performed By: #### A LLBG ####[place] [address] [place], [place] [phone] Glucose [Mass/Vol] 220 mg/dL High 60-105 [facility] Comment on above: Performed By: #### A LLBG ####[place] [address], [place] [phone] HCO3 (Bld) [Moles/Vol] 24 mmol/L Normal 22-26 [facility] Comment on above: Performed By: #### A LLBG ####[place] [address], [place] [phone] Hematocrit (Bld) [Volume fraction] 31 % Low 39.0-51.0 [facility] Comment on above: Performed By: #### A LLBG ####[facility], [place] [phone] Hemoglobin (Bld) [Mass/Vol] 10.2 g/dL Low 13.0-17.0 [facility] Comment on above: Performed By: #### A LLBG ####[place] [address], [place] [phone] Lactate [Moles/Vol] 1.4 mmol/L Normal 0.5-2.2 [facility] Comment on above: Performed By: #### A LLBG ####[place] [address] [place] [phone] Methemoglobin 0.8 % Normal 0.4-1.5 [facility] Comment on above: Performed By: #### A LLBG ####[place] [address], [place] [phone] Notify Date, Art [id number] [facility] Comment on above: Performed By: #### A LLBG ####[place] [address], [place] [phone] Notify Time, Art [id number] [facility] Comment on above: Performed By: #### A LLBG ####[place] [address], [place] [phone] Oxygen (Bld) [Partial pressure] 257 mm Hg High 85-95 [facility] Comment on above: Performed By: #### A LLBG ####[place] [address], [place] [phone] Oxyhemoglobin, Art. 97 % Normal 95-98 [facility] Comment on above: Performed By: #### A LLBG ####[place] [address], [place] [phone] pCO2 44 mm Hg Normal 34-46 [facility] Comment on above: Performed By: #### A LLBG ####[facility], [place] [phone] pCO2, Temp Correct 44 mm Hg Normal 34-46 [facility] Comment on above: Performed By: #### A LLBG ####[place] [address], [place] [phone] pH (Bld) 7.35 [pH] Normal 7.35-7.45 [facility] Comment on above: Performed By: #### A LLBG ####[place] [address], [place] [phone] pH, Temp Corrected 7.35 Normal 7.35-7.45 [facility] Comment on above: Performed By: #### A LLBG ####[place] [address] [place] [phone] pO2, Temp Corrected 257 mm Hg Normal [facility] Comment on above: Performed By: #### A LLBG ####[place] [address] [place] [phone] Potassium [Moles/Vol] 6.0 mmol/L High 3.5-5.0 [facility] Comment on above: Performed By: #### A LLBG ####[place] [address] [place] [phone] Sodium [Moles/Vol] 127 mmol/L Low 135-146 [facility] Comment on above: Performed By: #### A LLBG ####[place] [address] [place] [phone] Base Excess Negative Normal [facility] Comment on above: Performed By: #### A LLBG ####[place] [address], [place] [phone] Calcium [Mass/Vol] 1.10 mmol/L Normal 1.08-1.30 [facility] Comment on above: Performed By: #### A LLBG ####[place] [address], [place] [phone] Carboxyhemoglobin,Art 0.8 % Normal 0-5.0 [facility] Comment on above: Performed By: #### A LLBG ####[place] [address], [place] [phone] CO2 [Moles/Vol] 24 mmol/L Normal 22.0-28.0 [facility] Comment on above: Performed By: #### A LLBG ####[place] [address], [place] [phone] Glucose [Mass/Vol] 192 mg/dL High 60-105 [facility] Comment on above: Performed By: #### A LLBG ####[place] [address], [place] [phone] HCO3 (Bld) [Moles/Vol] 23 mmol/L Normal 22-26 [facility] Comment on above: Performed By: #### A LLBG ####[place] [address], [place] [phone] Hematocrit (Bld) [Volume fraction] 35 % Low 39.0-51.0 [facility] Comment on above: Performed By: #### A LLBG ####[place] [address], [place] [phone] Hemoglobin (Bld) [Mass/Vol] 11.2 g/dL Low 13.0-17.0 [facility] Comment on above: Performed By: #### A LLBG ####[place] [address], [place] [phone] Lactate [Moles/Vol] 1.2 mmol/L Normal 0.5-2.2 [facility] Comment on above: Performed By: #### A LLBG ####[place] [address], [place] [phone] Methemoglobin 0.9 % Normal 0.4-1.5 [facility] Comment on above: Performed By: #### A LLBG ####[place] [address], [place] [phone] Notify Date, Art [id number] Normal [facility] Comment on above: Performed By: #### A LLBG ####[place] [address], [place] [phone] Notify Time, Art [id number] Normal [facility] Comment on above: Performed By: #### A LLBG ####[place] [address], [place] [phone] Oxygen (Bld) [Partial pressure] 299 mm Hg High 85-95 [facility] Comment on above: Performed By: #### A LLBG ####[place] [address], [place] [phone] Oxyhemoglobin, Art. 98 % Normal 95-98 [facility] Comment on above: Performed By: #### A LLBG ####[place] [address], [place] [phone] pCO2 38 mm Hg Normal 34-46 [facility] Comment on above: Performed By: #### A LLBG ####[place] [address], [place] [phone] pCO2, Temp Correct 38 mm Hg Normal 34-46 [facility] Comment on above: Performed By: #### A LLBG ####[place] [address], [place] [phone] pH (Bld) 7.39 [pH] Normal 7.35-7.45 [facility] Comment on above: Performed By: #### A LLBG ####[place] [address], [place] [phone] pH, Temp Corrected 7.39 Normal 7.35-7.45 [facility] Comment on above: Performed By: #### A LLBG ####[address] [phone] pO2, Temp Corrected 299 mm Hg Normal [facility] Comment on above: Performed By: #### A LLBG ####[address] [phone] Potassium [Moles/Vol] 6.0 mmol/L High 3.5-5.0 [facility] Comment on above: Performed By: #### A LLBG ####[address] [phone] Sodium [Moles/Vol] 129 mmol/L Low 135-146 [facility] Comment on above: Performed By: #### A LLBG ####[address] [phone] Base Excess Negative Normal [facility] Comment on above: Performed By: #### A LLBG ####[address] [phone] Calcium [Mass/Vol] 1.25 mmol/L Normal 1.08-1.30 [facility] Comment on above: Performed By: #### A LLBG ####[address] [phone] Carboxyhemoglobin,Art 1.0 % Normal 0-5.0 [facility] Comment on above: Performed By: #### A LLBG ####[address] [phone] CO2 [Moles/Vol] 24 mmol/L Normal 22.0-28.0 [facility] Comment on above: Performed By: #### A LLBG ####[place] [address], [place] [phone] Glucose [Mass/Vol] 156 mg/dL High 60-105 [facility] Comment on above: Performed By: #### A LLBG ####[place] [address], [place] [phone] HCO3 (Bld) [Moles/Vol] 23 mmol/L Normal 22-26 [facility] Comment on above: Performed By: #### A LLBG ####[place] [address], [place] [phone] Hematocrit (Bld) [Volume fraction] 41 % Normal 39.0-51.0 [facility] Comment on above: Performed By: #### A LLBG ####[place] [address] [place] [phone] Hemoglobin (Bld) [Mass/Vol] 13.4 g/dL Normal 13.0-17.0 [facility] Comment on above: Performed By: #### A LLBG ####[place] [address] [place] [phone] Lactate [Moles/Vol] 1.5 mmol/L Normal 0.5-2.2 [facility] Comment on above: Performed By: #### A LLBG ####[place] [address] [place] [phone] Methemoglobin 0.8 % Normal 0.4-1.5 [facility] Comment on above: Performed By: #### A LLBG ####[place] [address], [place] [phone] Notify Date, Art [id number] [facility] Comment on above: Performed By: #### A LLBG ####[place] [address], [place] [phone] Notify Time, Art [id number] [facility] Comment on above: Performed By: #### A LLBG ####[facility], [place] [phone] Oxygen (Bld) [Partial pressure] 223 mm Hg High 85-95 [facility] Comment on above: Performed By: #### A LLBG ####[facility], [place] [phone] Oxyhemoglobin, Art. 98 % Normal 95-98 [facility] Comment on above: Performed By: #### A LLBG ####[place] [address] [place] [phone] pCO2 44 mm Hg Normal 34-46 [facility] Comment on above: Performed By: #### A LLBG ####[place] [address], [place] [phone] pCO2, Temp Correct 44 mm Hg Normal 34-46 [facility] Comment on above: Performed By: #### A LLBG ####[place] [address] [place] [phone] pH (Bld) 7.34 [pH] Low 7.35-7.45 [facility] Comment on above: Performed By: #### A LLBG ####[place] [address], [place] [phone] pH, Temp Corrected 7.34 Low 7.35-7.45 [facility] Comment on above: Performed By: #### A LLBG ####[facility], [place] [phone] pO2, Temp Corrected 223 mm Hg Normal [facility] Comment on above: Performed By: #### A LLBG ####[place] [address]ClevelN[place], [place] [phone] Potassium [Moles/Vol] 5.6 mmol/L High 3.5-5.0 [facility] Comment on above: Performed By: #### A LLBG ####[facility], [place] [phone] Sodium [Moles/Vol] 135 mmol/L Normal 135-146 [facility] Comment on above: Performed By: #### A LLBG ####[facility], [place] [phone] Base Excess 0 mmol/L Normal [facility] Comment on above: Performed By: #### A LLBG ####[place] [address], [place] [phone] Calcium [Mass/Vol] 1.27 mmol/L Normal 1.08-1.30 [facility] Comment on above: Performed By: #### A LLBG ####[place] [address], [place] [phone] Carboxyhemoglobin,Art 1.1 % Normal 0-5.0 [facility] Comment on above: Performed By: #### A LLBG ####[place] [address], [place] [phone] CO2 [Moles/Vol] 25 mmol/L Normal 22.0-28.0 [facility] Comment on above: Performed By: #### A LLBG ####[place] [address], [place] [phone] Glucose [Mass/Vol] 125 mg/dL High 60-105 [facility] Comment on above: Performed By: #### A LLBG ####[facility], [place] [phone] HCO3 (Bld) [Moles/Vol] 24 mmol/L Normal 22-26 [facility] Comment on above: Performed By: #### A LLBG ####[place] [address], [place] [phone] Hematocrit (Bld) [Volume fraction] 42 % Normal 39.0-51.0 [facility] Comment on above: Performed By: #### A LLBG ####[place] [address], [place] [phone] Hemoglobin (Bld) [Mass/Vol] 13.8 g/dL Normal 13.0-17.0 [facility] Comment on above: Performed By: #### A LLBG ####[place] [address], [place] [phone] Lactate [Moles/Vol] 0.8 mmol/L Normal 0.5-2.2 [facility] Comment on above: Performed By: #### A LLBG ####[place] [address], [place] [phone] Methemoglobin 1.0 % Normal 0.4-1.5 [facility] Comment on above: Performed By: #### A LLBG ####[place] [address], [place] [phone] Notify Date, Art [id number] [facility] Comment on above: Performed By: #### A LLBG ####[place] [address], [place] [phone] Notify Time, Art [id number] Normal [facility] Comment on above: Performed By: #### A LLBG ####[place] [address], [place] [phone] Oxygen (Bld) [Partial pressure] 94 mm Hg Normal 85-95 [facility] Comment on above: Performed By: #### A LLBG ####[place] [address], [place] [phone] Oxyhemoglobin, Art. 96 % Normal 95-98 [facility] Comment on above: Performed By: #### A LLBG ####[place] [address], [place] [phone] pCO2 39 mm Hg Normal 34-46 [facility] Comment on above: Performed By: #### A LLBG ####[address] [phone] pCO2, Temp Correct 39 mm Hg Normal 34-46 [facility] Comment on above: Performed By: #### A LLBG ####[place] [phone] pH (Bld) 7.41 [pH] Normal 7.35-7.45 [facility] Comment on above: Performed By: #### A LLBG ####[address] [phone] pH, Temp Corrected 7.41 Normal 7.35-7.45 [facility] Comment on above: Performed By: #### A LLBG ####[place] [phone] pO2, Temp Corrected 94 mm Hg Normal [facility] Comment on above: Performed By: #### A LLBG ####[place] [phone] Potassium [Moles/Vol] 4.4 mmol/L Normal 3.5-5.0 [facility] Comment on above: Performed By: #### A LLBG ####[address] [phone] Sodium [Moles/Vol] 136 mmol/L Normal 135-146 [facility] Comment on above: Performed By: #### A LLBG ####[address] [phone] GASV + ALLon 02-13-2019 Base Excess Negative Normal [facility] Comment on above: Performed By: #### C BCDIF, PT, PTT, CMP, MG1, NTBNP #### [place] [address] [place], [place] [address] Calcium [Mass/Vol] 1.19 mmol/L Normal 1.08-1.30 [facility] Comment on above: Performed By: #### C BCDIF, PT, PTT, CMP, MG1, NTBNP #### [place] [address] [place], [place] [address] Carboxyhemoglobin,Ed 0.9 % Normal <2.0 [facility] Comment on above: Performed By: #### C BCDIF, PT, PTT, CMP, MG1, NTBNP #### [place] [address] [place], [place] [address] CO2 [Moles/Vol] 27 mmol/L Normal 25-29 [facility] Comment on above: Performed By: #### C BCDIF, PT, PTT, CMP, MG1, NTBNP #### [address] [address] Glucose [Mass/Vol] 143 mg/dL High 60-105 [facility] Comment on above: Performed By: #### C BCDIF, PT, PTT, CMP, MG1, NTBNP #### [place] [address] [place], [place] [address] HCO3 (Bld) [Moles/Vol] 25 mmol/L Normal 24-28 [facility] Comment on above: Performed By: #### C BCDIF, PT, PTT, CMP, MG1, NTBNP #### [facility] [address] [place], [place] [address] Hematocrit (Bld) [Volume fraction] 40 % Normal 39.0-51.0 [facility] Comment on above: Performed By: #### C BCDIF, PT, PTT, CMP, MG1, NTBNP #### [place] [address] [place], [place] [address] Hemoglobin (Bld) [Mass/Vol] 12.9 g/dL Low 13.0-17.0 [facility] Comment on above: Performed By: #### C BCDIF, PT, PTT, CMP, MG1, NTBNP #### [place] [address] Lactate [Moles/Vol] 1.8 mmol/L Normal 0.5-2.2 [facility] Comment on above: Performed By: #### C BCDIF, PT, PTT, CMP, MG1, NTBNP #### [place] [address] Methemoglobin 0.9 % Normal 0.4-1.5 [facility] Comment on above: Performed By: #### C BCDIF, PT, PTT, CMP, MG1, NTBNP #### [place] [address] Oxygen (Bld) [Partial pressure] 37 mm Hg Normal 35-45 [facility] Comment on above: Performed By: #### C BCDIF, PT, PTT, CMP, MG1, NTBNP #### [place] [address] Oxyhemoglobin, Ed. 64 % Normal 60-85 [facility] Comment on above: Performed By: #### C BCDIF, PT, PTT, CMP, MG1, NTBNP #### [place] [address] pCO2 49 mm Hg Normal 42-55 [facility] Comment on above: Performed By: #### C BCDIF, PT, PTT, CMP, MG1, NTBNP #### [place] [address] pCO2, Temp Correct 49 mm Hg Normal [facility] Comment on above: Performed By: #### C BCDIF, PT, PTT, CMP, MG1, NTBNP #### [facility] [address] [place], [place] [address] pH (Bld) 7.33 [pH] Normal 7.32-7.42 [facility] Comment on above: Performed By: #### C BCDIF, PT, PTT, CMP, MG1, NTBNP #### [place] [address] [place], [place] [address] pH, Temp Corrected 7.33 Normal 7.32-7.42 [facility] Comment on above: Performed By: #### C BCDIF, PT, PTT, CMP, MG1, NTBNP #### [place] [address] [place], [place] [address] pO2, Temp Corrected 37 mm Hg Normal [facility] Comment on above: Performed By: #### C BCDIF, PT, PTT, CMP, MG1, NTBNP #### [place] [address] Potassium [Moles/Vol] 4.4 mmol/L Normal 3.5-5.0 [facility] Comment on above: Performed By: #### C BCDIF, PT, PTT, CMP, MG1, NTBNP #### [place] [address] [place], [place] [address] Sodium [Moles/Vol] 135 mmol/L Normal 135-146 [facility] Comment on above: Performed By: #### C BCDIF, PT, PTT, CMP, MG1, NTBNP #### [place] [address] [place], [place] [address] Base Excess Negative Normal [facility] Comment on above: Performed By: #### C BCDIF, PT, PTT, CMP, MG1, NTBNP #### [place] [address] [place], [place] [address] Calcium [Mass/Vol] 1.20 mmol/L Normal 1.08-1.30 [facility] Comment on above: Performed By: #### C BCDIF, PT, PTT, CMP, MG1, NTBNP #### [place] [address] [place] [address] Carboxyhemoglobin,Ed 1.0 % Normal <2.0 [facility] Comment on above: Performed By: #### C BCDIF, PT, PTT, CMP, MG1, NTBNP #### [place] [address] CO2 [Moles/Vol] 25 mmol/L Normal 25-29 [facility] Comment on above: Performed By: #### C BCDIF, PT, PTT, CMP, MG1, NTBNP #### [place] [address] Glucose [Mass/Vol] 150 mg/dL High 60-105 [facility] Comment on above: Performed By: #### C BCDIF, PT, PTT, CMP, MG1, NTBNP #### [place] [address] [place] [address] HCO3 (Bld) [Moles/Vol] 24 mmol/L Normal 24-28 [facility] Comment on above: Performed By: #### C BCDIF, PT, PTT, CMP, MG1, NTBNP #### [place] [address] Hematocrit (Bld) [Volume fraction] 41 % Normal 39.0-51.0 [facility] Comment on above: Performed By: #### C BCDIF, PT, PTT, CMP, MG1, NTBNP #### [place] [address] [place], [place] [address] Hemoglobin (Bld) [Mass/Vol] 13.2 g/dL Normal 13.0-17.0 [facility] Comment on above: Performed By: #### C BCDIF, PT, PTT, CMP, MG1, NTBNP #### [place] [address] [place] [address] Lactate [Moles/Vol] 2.9 mmol/L High 0.5-2.2 [facility] Comment on above: Performed By: #### C BCDIF, PT, PTT, CMP, MG1, NTBNP #### [place] [address] [place] [address] Methemoglobin 0.8 % Normal 0.4-1.5 [facility] Comment on above: Performed By: #### C BCDIF, PT, PTT, CMP, MG1, NTBNP #### [place] [address] Oxygen (Bld) [Partial pressure] 42 mm Hg Normal 35-45 [facility] Comment on above: Performed By: #### C BCDIF, PT, PTT, CMP, MG1, NTBNP #### [place] [address] Oxyhemoglobin, Ed. 69 % Normal 60-85 [facility] Comment on above: Performed By: #### C BCDIF, PT, PTT, CMP, MG1, NTBNP #### [place] [address] [place], [place] [address] pCO2 47 mm Hg Normal 42-55 [facility] Comment on above: Performed By: #### C BCDIF, PT, PTT, CMP, MG1, NTBNP #### [place] [address] [place], [place] [address] pCO2, Temp Correct 47 mm Hg Normal [facility] Comment on above: Performed By: #### C BCDIF, PT, PTT, CMP, MG1, NTBNP #### [facility] [address] [place], [place] [address] pH (Bld) 7.32 [pH] Normal 7.32-7.42 [facility] Comment on above: Performed By: #### C BCDIF, PT, PTT, CMP, MG1, NTBNP #### [place] [address] pH, Temp Corrected 7.32 Normal 7.32-7.42 [facility] Comment on above: Performed By: #### C BCDIF, PT, PTT, CMP, MG1, NTBNP #### [place] [address] pO2, Temp Corrected 42 mm Hg Normal [facility] Comment on above: Performed By: #### C BCDIF, PT, PTT, CMP, MG1, NTBNP #### [place] [address] Potassium [Moles/Vol] 4.2 mmol/L Normal 3.5-5.0 [facility] [facility] Comment on above: Performed By: #### C BCDIF, PT, PTT, CMP, MG1, NTBNP #### [place] [address] Sodium [Moles/Vol] 135 mmol/L Normal 135-146 [facility] Comment on above: Performed By: #### C BCDIF, PT, PTT, CMP, MG1, NTBNP #### [place] [address] Base Excess Negative Normal [facility] Comment on above: Performed By: #### C BCDIF, PT, PTT, CMP, MG1, NTBNP #### [place] [address] Calcium [Mass/Vol] 1.19 mmol/L Normal 1.08-1.30 [facility] Comment on above: Performed By: #### C BCDIF, PT, PTT, CMP, MG1, NTBNP #### [place] [address] [place], [place] [address] Carboxyhemoglobin,Ed 0.8 % Normal <2.0 [facility] Comment on above: Performed By: #### C BCDIF, PT, PTT, CMP, MG1, NTBNP #### [place] [address] [place], [place] [address] CO2 [Moles/Vol] 25 mmol/L Normal 25-29 [facility] Comment on above: Performed By: #### C BCDIF, PT, PTT, CMP, MG1, NTBNP #### [place] [address] [place] [address] Glucose [Mass/Vol] 184 mg/dL High 60-105 [facility] Comment on above: Performed By: #### C BCDIF, PT, PTT, CMP, MG1, NTBNP #### [place] [address] HCO3 (Bld) [Moles/Vol] 24 mmol/L Normal 24-28 [facility] Comment on above: Performed By: #### C BCDIF, PT, PTT, CMP, MG1, NTBNP #### [place] [address] [place], [place] [address] Hematocrit (Bld) [Volume fraction] 41 % Normal 39.0-51.0 [facility] Comment on above: Performed By: #### C BCDIF, PT, PTT, CMP, MG1, NTBNP #### [place] [address] [place], [place] [address] Hemoglobin (Bld) [Mass/Vol] 13.4 g/dL Normal 13.0-17.0 [facility] Comment on above: Performed By: #### C BCDIF, PT, PTT, CMP, MG1, NTBNP #### [place] [address] [place], [place] [address] Lactate [Moles/Vol] 3.0 mmol/L High 0.5-2.2 [facility] Comment on above: Performed By: #### C BCDIF, PT, PTT, CMP, MG1, NTBNP #### [place] [address] [place] [phone] Methemoglobin 1.1 % Normal 0.4-1.5 [facility] Comment on above: Performed By: #### C BCDIF, PT, PTT, CMP, MG1, NTBNP #### [place] [phone] Oxygen (Bld) [Partial pressure] 42 mm Hg Normal 35-45 [facility] Comment on above: Performed By: #### C BCDIF, PT, PTT, CMP, MG1, NTBNP #### [place] [phone] Oxyhemoglobin, Ed. 69 % Normal 60-85 [facility] Comment on above: Performed By: #### C BCDIF, PT, PTT, CMP, MG1, NTBNP #### [place] [address] [place] [phone] pCO2 50 mm Hg Normal 42-55 [facility] Comment on above: Performed By: #### C BCDIF, PT, PTT, CMP, MG1, NTBNP #### [place] [address] pCO2, Temp Correct 50 mm Hg Normal [facility] Comment on above: Performed By: #### C BCDIF, PT, PTT, CMP, MG1, NTBNP #### [place] [phone] pH (Bld) 7.30 [pH] Low 7.32-7.42 [facility] Comment on above: Performed By: #### C BCDIF, PT, PTT, CMP, MG1, NTBNP #### [facility] [address] [place], [place] [address] pH, Temp Corrected 7.30 Low 7.32-7.42 [facility] Comment on above: Performed By: #### C BCDIF, PT, PTT, CMP, MG1, NTBNP #### [facility] [address] [place], [place] [address] pO2, Temp Corrected 42 mm Hg Normal [facility] Comment on above: Performed By: #### C BCDIF, PT, PTT, CMP, MG1, NTBNP #### [place] [address] [place] [address] Potassium [Moles/Vol] 4.2 mmol/L Normal 3.5-5.0 [facility] Comment on above: Performed By: #### C BCDIF, PT, PTT, CMP, MG1, NTBNP #### [place] [address] [place] [phone] Sodium [Moles/Vol] 134 mmol/L Low 135-146 [facility] Comment on above: Performed By: #### C BCDIF, PT, PTT, CMP, MG1, NTBNP #### [place] [address] [place], [place] [address] Base Excess Negative Normal [facility] Comment on above: Performed By: #### V ALLBG ####[place] [phone] Calcium [Mass/Vol] 1.12 mmol/L Normal 1.08-1.30 [facility] Comment on above: Performed By: #### V ALLBG ####[place] [phone] Carboxyhemoglobin,Ed 1.0 % Normal <2.0 [facility] Comment on above: Performed By: #### V ALLBG ####[address], [place] [phone] CO2 [Moles/Vol] 25 mmol/L Normal 25-29 [facility] Comment on above: Performed By: #### V ALLBG ####[place] [address] [address], [place] [phone] Glucose [Mass/Vol] 192 mg/dL High 60-105 [facility] Comment on above: Performed By: #### V ALLBG ####[place] [address] [address], [place] [phone] HCO3 (Bld) [Moles/Vol] 24 mmol/L Normal 24-28 [facility] Comment on above: Performed By: #### V ALLBG ####[place] [address] [address], [place] [phone] Hematocrit (Bld) [Volume fraction] 34 % Low 39.0-51.0 [facility] Comment on above: Performed By: #### V ALLBG ####[place] [address] [address], [place] [phone] Hemoglobin (Bld) [Mass/Vol] 11.1 g/dL Low 13.0-17.0 [facility] Comment on above: Performed By: #### V ALLBG ####[place] [address] [address], [place] [phone] Lactate [Moles/Vol] 1.2 mmol/L Normal 0.5-2.2 [facility] Comment on above: Performed By: #### V ALLBG ####[place] [address] [address], [place] [phone] Methemoglobin 0.9 % Normal 0.4-1.5 [facility] Comment on above: Performed By: #### V ALLBG ####[place] [address] [address], [place] [phone] Notify Date, Ed [id number] Normal [facility] Comment on above: Performed By: #### V ALLBG ####[facility] [place] [phone] Notify Time, [place] [id number] Normal [facility] Comment on above: Performed By: #### V ALLBG ####[facility] AveClevelAndrew [place] [phone] Oxygen (Bld) [Partial pressure] 51 mm Hg High 35-45 [facility] Comment on above: Performed By: #### V ALLBG ####[facility] [place] [phone] Oxyhemoglobin, Ed. 82 % Normal 60-85 [facility] Comment on above: Performed By: #### V ALLBG ####[facility]levelAndrew [place] [phone] pCO2 45 mm Hg Normal 42-55 [facility] Comment on above: Performed By: #### V ALLBG ####[facility]her[address] [place] [phone] pCO2, Temp Correct 45 mm Hg Normal [facility] Comment on above: Performed By: #### V ALLBG ####[facility]her[address] [place] [phone] pH (Bld) 7.35 [pH] Normal 7.32-7.42 [facility] Comment on above: Performed By: #### V ALLBG ####[facility] [address] AveClevelandAngela [place] [phone] pH, Temp Corrected 7.35 Normal 7.32-7.42 [facility] Comment on above: Performed By: #### V ALLBG ####[facility] [address] AveClevelandAngela [place] [phone] pO2, Temp Corrected 51 mm Hg Normal [facility] Comment on above: Performed By: #### V ALLBG ####[facility] [address] [place], [place] [phone] Potassium [Moles/Vol] 5.9 mmol/L High 3.5-5.0 [facility] Comment on above: Performed By: #### V ALLBG ####[facility] [address], [place] [phone] Sodium [Moles/Vol] 129 mmol/L Low 135-146 [facility] Comment on above: Performed By: #### V ALLBG ####[facility] [address], [place] [phone] OPERATIVE NOon 02-13-2019 OPERATIVE NO HNO ID: [id number] Author: Alisia Larsen Service: Cardiac Surgery Author Type: Physician Type: Operative Report Filed: 02/13/2019 5:45 PM Note Text: [facility] OPERATIVE/PROCEDURE REPORT LOG ID: [id number] SURGERY/PROCEDURE DATE: 02/13/2019 INCISION/PROCEDURE START TIME: 8:23 AM INCISION CLOSE/PROCEDURE END TIME: 1:52 PM SURGEON(S)/PROCEDURAL IST(S) AND CIRCUS TRAIN SUPERVISOR(S): Surgeon(s) and Role: * Alisia Larsen - Primary * Lori (Tonja Mcleod - Fellow Registered Nurse Manager Utility: Gracie (Arlyn) ARLYN Talbot ANESTHESIA: General CARDIAC SURGERY OP REPORT PROCEDURE: ? Coronary Artery Bypass Graft PREOPERATIVE DIAGNOSIS: Complex vessel coronary artery disease POSTOPERATIVE DIAGNOSIS: Same as preop ? CONDUIT QUALITY: Normal caliber with excellent flow ? AORTA QUALITY: Normal ? CORONARY ARTERY QUALITY: Normal DESCRIPTION OF PROCEDURE: Operative Approach: Full Conventional Sternotomy PUMP: ON PUMP Arterial Cannulation: Ascending Aorta Venous Cannulation: Bicaval CARDIOPLEGIA: Buckberg Cardioplegia Delivery: Antegrade and Retrograde Proximal Technique: Single cross clampCABG: GRAFTS: 4 ? WATTS in situ mammary end to side mid LAD ? JOSTIN in situ mammary end to side obtuse marginal 1 ? Vein graft ascending aorta end to side posterior descending (PDA) ? Vein graft T-graft off SVG end to side posterolateral (PLB) Left DEEPTHI: Skeletonized Left DEEPTHI Fonda Technique: Direct vision (open) Right DEEPTHI: Skeletonized Right DEEPTHI Fonda Technique: Direct vision (open) Vein(s) Harvested: Right leg greater saphenous Vein Fonda Technique: Endoscopic PACING WIRES: Right ventricle which can be pulled CHEST TUBES/DRAINS: Left chest tube, Right chest tube and Mediastinal chest tube Mediastinal Bakari CLOSURE: Routine with sternal wires POST-PROCEDURE DETAILS Patient Tolerance of Procedure: Tolerated well, no immediate complications Sponge/Instrument/Nee dle Counts: Final Counts Correct Estimated Blood Loss: 250 mL of shed blood was preserved by cardiopulmonary bypass pump and the cell saver. Specimens: None SURGEON/CIRCUS TRAIN SUPERVISOR PARTICIPATION: The primary surgeon/proceduralist performed the procedure with assistance. Utility System Repairer: Opened, closed and harvested grafts Second Assist: Opened and closed COMPLETED BY: LORI MCLEOD MD PATIENT NAME: Manpreet Avelar DATE: February 13, 2019 TIME: 1:41 PM AGE: [age] year old Countersigned by attending surgeon: Alisia Larsen MD [facility] PROGRESSon 02-13-2019 PROGRESS HNO ID: [id number] Author: Sandra Bey Service: Critical Care Author Type: Nurse Practitioner Type: Progress Notes Filed: 02/13/2019 4:32 PM Note Text: [facility] Admission Note Name: Manpreet Avelar Principal Diagnosis: CAD (coronary artery disease) Indication for Surgery: 3-vessel CAD Preop LVEF: Normal RVF: Normal Postop LVEF: Normal RVF: Normal Important/Relevant PMH/PSH: NSTEMI (02/01/19), CAD, DM, Psoriasis, dysphagia (solids) Preoperative Hospital Course: From OSH after [facility] noted triple vessel disease. Patient requested transfer to F for CABG evaluation. Airway Difficulty: Grade I - No special instrumentation Pacing Wires: Yes: Ventricular: When discontinuing pacing wires: Pull all pacing wires Chronological List of Surgeries and Major Events (Diagnosis): (Surgeries in bold characters) 02/13/2019: CABGx 4 (WATTS-LAD, JOSTIN-OM1, SVG-PDA, SVG- PLB)? cardiac insufficiency coming off CPB requiring epinephrine A/P of Major Active Problems (excluding routine care and common problems): Card: Cardiac insuffiencey- Wean epinephrine gtt for CI >2.2 GI: dysphagia with solids- Followed as outpatient with GI, recommended EGD with dilation. Swallow eval after extubation Endo: DM- on insulins pre-op. Endocrine signed off, re-engage if necessary To Do or to Watch: WTE MAP goal 65-75 Wean epinephrine for CI >2.2 Discharge Planning: Anticipated Discharge Date: TBD Barriers to Discharge: Unknown Care Management Discharge Needs: Needs Prior to Discharge: To Be Determined Additional Hospital Problems Problem Cad (Coronary Artery Disease) History: 02/01/2019: NSTEMI- MVD. On crestor prior to admission. Assessment: 02/13/2019: CABGx 4 (WATTS-LAD, JOSTIN-OM1, SVG-PDA, SVG- PLB)? Plan: CAD Core Measures: Aspirin: Yes Beta blockers: No - due to not indicated at this time Statins: Reassess for Best Practices prior to hospital discharge On Mechanically Assisted Ventilation (Hcc) History: Postoperative. Assessment: Currently intubated and sedated. Grade 1 airway. Plan: Wean to extubate. Nstemi (Non-St Elevated Myocardial Infarction) ([facility]) See CAD Cardiac Insufficiency Following Cardiac Surgery History: post op Assessment: On epinephrine gtt from OR Plan: Wean epinephrine gtt for CI <2.2 Acute Post-Operative Pain History: post op Assessment: currently intubated and sedated Plan: Initiate IV AIR QUALITY CONSULTANT upon extubation, supplement with Tylenol and prn oxycodone. Adjust regimen as needed for goal pain score < 4 Hld (Hyperlipidemia) History: On Crestor at home. Assessment: No results found for: CHOL, HDL, LDL, TG Plan: Resume home Crestor when tolerating PO diet. Controlled Type 2 Diabetes Mellitus Without Complication, With Long-Term Current Use of Insulin ([facility]) History: DM history. On Novalog and Tresiba insulins at home. Endocrine saw pre-op in hospital-signed off. Hemoglobin A1C (%) Date Value 02/04/2019 7.2 Assessment: Perioperative insulin resistance and exacerbation of hyperglycemia. Plan: RHI infusion per CVICU nomogram to maintain BG <150 mg/dL. Re-engage endocrine if necessary. Dysphagia History: Difficulty swallowing solids, especially dry foods, worsening over last year. Saw GI in [facility] who considered EGD with dilation. Assessment: Currently intubated. Plan: Swallow eval post op. F/u with GI as outpatient. Psoriasis History: On Humira pre-op, injectable Q2 weeks. A/P: Continue per home schedule. F/u with patient/family if dose due while in hospital. Infusions: Epinephrine Insulin Propofol CVICU Admission ECG: Reviewed CVICU Admission CXR: Reviewed Neuro: Sedation . Cardiovascular: Rhythm: regular rate and rhythm and Rate:normal sinus rhythm MAP: 80 mmHg Cardiac Index: 3.0 L/min/m2 Pacemaker : Temporary Epicardial - Pacing Mode: OFF ICD: No Peripheral pulses present: All present Pulmonary: Clear to auscultation and Breath sounds equal Ventilator: Intubated Potential prolonged intubation : No Abdominal: Soft, Non-tender, Bowel sounds no and NG / OG Tube yes Continued need for urinary catheter: Yes - clinical indication: Patient post major surgery requiring fluid balance and input and output measurement. DAY OF SURGERY PLAN: Standard Protocol, intubated patient: Cardiovascular monitoring, stabilization of blood pressure and cardiac function, wean to extubate when ready per protocol. Pain control, glycemic control, DVT prophylaxis, antibiotic prophylaxis. [facility] NURSE PRACTITIONER NOTE OF PERSONAL INVOLVEMENT IN CARE This patient has a high probability of sudden, clinically significant deterioration, which requires the highest level of Nurse Practitioner preparedness to intervene urgently. I managed/supervised life or organ supporting interventions that required frequent Nurse Practitioner assessment: Problem Cad (Coronary Artery Disease) On Mechanically Assisted Ventilation (Hcc) Nstemi (Non-St Elevated Myocardial Infarction) ([facility]) Cardiac Insufficiency Following Cardiac Surgery Acute Post-Operative Pain Hld (Hyperlipidemia) Controlled Type 2 Diabetes Mellitus Without Complication, With Long-Term Current Use of Insulin ([facility]) Dysphagia Psoriasis I personally spent 33 minutes of critical care time treating and supervising the management of the patient. Time devoted to teaching and to any procedures I billed separately is not included. SIGNATURE: Sandra Bey APRN.[facility] Pager: [phone] DATE of SERVICE: 02/13/2019 TIME of SERVICE: 2:15 PM Normal [facility] PTT,Anticoag Therapyon 02-13 aPTT Coag (Bld) [Time] 30.5 s Normal 23.0-32.4 [facility] Comment on above: Result Comment: Unfr actionated Heparin Therapeutic Ranges: Standard Heparin Nomogram: 53 to 78 seconds (anti-Xa level of 0.3 to 0.7 U/ml) Low Dose/ACS Nomogram: 49 to 67 seconds (anti-Xa level of 0.2 to 0.5 U/ml) Stroke Treatment Nomogram: 49 to 67 seconds (anti-Xa level of 0.2 to 0.5 U/ml) Note: The APTT therapeutic range has been determined for the current lot of laboratory APTT reagent in use throughout the [facility]. Results may be inaccurate due to age of specimen. Performed By: #### P TTAC, BMP, CBC ####[facility] [place], [place] [phone] Staph aureus PCRon 9 MRSA PCR Negative Normal [facility] Comment on above: Performed By: #### C BCDIF, PT, PTT, CMP, MG1, NTBNP #### [facility] [address] [place] [address] S aureus Spec Source Nasal Normal [facility] Comment on above: Performed By: #### C BCDIF, PT, PTT, CMP, MG1, NTBNP #### [facility] [address] [place], [place] [address] Staph aureus PCR Negative Normal [facility] Comment on above: Performed By: #### C BCDIF, PT, PTT, CMP, MG1, NTBNP #### [facility] [address] [place], [place] [phone] XR CHEST 1V FRONTAL PORTon 1 04-15-2018 XR CHEST 1V FRONTAL PORT * * *Final Repo rt* * * DATE OF EXAM: Feb 13 2019 2:33PM [id number] - XR CHEST 1V FRONTAL PORT / PROCEDURE REASON: Post-operative / post-procedure assessment, asymptomatic * * * * Physician Interpretation * * * * EXAMINATION: CHEST RADIOGRAPH (PORTABLE SINGLE VIEW AP) Exam Date/Time: 02/13/2019 2:33 PM Clinical History: Post-operative / post-procedure assessment, asymptomatic MQ: [id number] Comparison: 1026 RESULT: See impression. IMPRESSION: Lines, tubes, and devices: ET and NG tubes, bilateral chest tubes and right [place]-Jacky satisfactory Lungs and pleura: Mild bibasilar atelectasis Cardiomediastinal silhouette: Mild cardiomegaly Other: . Flag Football Coach: PSCB Transcribe Date/Time: Feb 13 2019 4:01P Dictated by : LEO ESTES MD This examination was interpreted and the report reviewed and electronically signed by: LEO ESTES MD on Feb 13 2019 4:02PM EST [id number] Normal [facility] Basic Metabolic Panlon 02-12 Anion gap [Moles/Vol] 12 mmol/L Normal 9-18 [facility] Comment on above: Performed By: #### C KCLIBANB, SYLVIA #### [facility] [address] [place] [address] Calcium [Mass/Vol] 9.1 mg/dL Normal 8.5-10.2 [facility] Comment on above: Performed By: #### C KCLIBANB, SYLVIA #### [facility] [address] [place] [address] Chloride [Moles/Vol] 103 mmol/L Normal 97-105 [facility] Comment on above: Performed By: #### C KCKMB, SYLVIA #### [facility] [address] [place], [place] [address] CO2 [Moles/Vol] 24 mmol/L Normal 22-30 [facility] Comment on above: Performed By: #### C KCKMB, SYLVIA #### [facility] [address] [place] [address] Creatinine [Mass/Vol] 1.13 mg/dL Normal 0.73-1.22 [facility] Comment on above: Performed By: #### C KCKMB, SYLVIA #### [facility] [address] [place], [place] [address] eGFR- Amer. >60 Normal [facility] Comment on above: Performed By: #### C DONTA, SYLVIA #### [facility] [address] [place], [place] [address] GFR/1.73 sq M predicted among non-blacks MDRD (S/P/Bld) [Vol rate/Area] mL/min/{1.73_m2} Normal [facility] Comment on above: Result Comment: eGFR (Estimated GFR) Units of measure: mL/min/1.73 meters squared eGFR is derived from the reexpressed MDRD Study equation using the following parameters: serum creatinine, age, gender and race. The creatinine assay has been calibrated to be traceable to IDMS. An eGFR <60 mL/min/1.73m2 for >3 months is consistent with chronic kidney disease. Refer to KDOQI guidelines for clinical interpretation. In patients with unstable renal function, e.g. those with acute kidney injury, the eGFR may not accurately reflect actual GFR. Performed By: #### C DONTA, SYLVIA #### [facility] [address] [place], [place] [address] Glucose [Mass/Vol] 102 mg/dL High 74-99 [facility] Comment on above: Result Comment: The [place] Diabetes Association (ADA) provides guidance for cutoff values for fasting glucose and random glucose. The ADA defines fasting as no caloric intake for at least 8 hours. Fasting plasma glucose results between 100 to 125 mg/dL indicate increased risk for diabetes (prediabetes). Fasting plasma glucose results greater than or equal to 126 mg/dL meet the criteria for diagnosis of diabetes. In the absence of unequivocal hyperglycemia, results should be confirmed by repeat testing. In a patient with classic symptoms of hyperglycemia or hyperglycemic crisis, random plasma glucose results greater than or equal to 200 mg/dL meet the criteria for diagnosis of diabetes. Reference: Standards of Medical Care in Diabetes 2016, [place] [employer] Association. Diabetes Care. 2016.39(Suppl 1). Performed By: #### C DONTA, SYLVIA #### [facility] [address] [place], [place] [address] Potassium [Moles/Vol] 4.2 mmol/L Normal 3.7-5.1 [facility] Comment on above: Performed By: #### C DONTA, SYLVIA #### [place] [address] [place], [place] [address] Sodium [Moles/Vol] 139 mmol/L Normal 136-144 [facility] Comment on above: Performed By: #### Eduardo LONGO, SYLVIA #### [address] [address] Urea nitrogen [Mass/Vol] 19 mg/dL Normal 9-24 [facility] Comment on above: Performed By: #### Eduardo LONGO, SYLVIA #### [address] [address] CBCon 02-12-2019 Absolute nRBC <0.01 Normal <0.01 [facility] Comment on above: Performed By: #### C DONTA, SYLVIA #### [address] [address] Erythrocyte distribution width (RBC) [Ratio] 12.7 % Normal 11.5-15.0 [facility] Comment on above: Performed By: #### Eduardo LONGO, SYLVIA #### [address] [address] Hematocrit (Bld) [Volume fraction] 41.6 % Normal 39.0-51.0 [facility] Comment on above: Performed By: #### C DONTA, SYLVIA #### [place] [address] [place], [place] [address] Hemoglobin (Bld) [Mass/Vol] 14.2 g/dL Normal 13.0-17.0 [facility] Comment on above: Performed By: #### Eduardo LONGO, SYLVIA #### [place] [address] [place], [place] [address] MCH (RBC) [Entitic mass] 30.1 pG Normal 26.0-34.0 [facility] Comment on above: Performed By: #### C DONTA, SYLVIA #### [facility] [address] [place], [place] [address] MCHC (RBC) [Mass/Vol] 34.1 g/dL Normal 30.5-36.0 [facility] Comment on above: Performed By: #### C DONTA, SYLVIA #### [place] [address] [place], [place] [address] MCV (RBC) [Entitic vol] 88.3 fL Normal 80.0-100.0 [facility] Comment on above: Performed By: #### C DONTA, SYLVIA #### [place] [address] [place], [place] [address] Platelet mean volume (Bld) [Entitic vol] 12.1 fL Normal 9.0-12.7 [facility] Comment on above: Performed By: #### C DONTA, SYLVIA #### [place] [address] [place], [place] [address] Platelets (Bld) [#/Vol] 178 10*3/uL Normal 150-400 [facility] Comment on above: Performed By: #### C GARRISONB, SYLVIA #### [place] [address] [place], [place] [address] RBC (Bld) [#/Vol] 4.71 10*6/uL Normal 4.20-6.00 [facility] Comment on above: Performed By: #### C KCLIBANB, SYLVIA #### [place] [address] [place], [place] [address] WBC (Bld) [#/Vol] 6.43 10*3/uL Normal 3.70-11.00 [facility] Comment on above: Performed By: #### C KCLIBANB, SYLVIA #### [place] [address] [place], [place] [address] CONSULT PROGon 02-12-2019 CONSULT PROG HNO ID: [id number] Author: Alisha Seymour Service: Cardiac Surgery Author Type: Nurse Practitioner Type: Consult Progress Note Filed: 02/12/2019 1:32 PM Note Text: [facility] CONSULT PROGRESS NOTE Manpreet Avelar [id number] CONSULTING SERVICE: Cardiothoracic Surgery PRIMARY SERVICE: Cardiology: Clinical PLAN: Preop Orders Placed Preop Education: Informed patient (and family) what to expect pre/post operatively. (1) Stressed to patient the importance of pain control for successful recovery: INFORMED OF IMPORTANCE OF GOOD PAIN [id number] k for pain medication early when pain level is 2/0-10Informed patient (and family) what to expect pre/post operatively IMPORTANCE OF PAIN [id number] k for pain medication early, take pain medication routinely to have adquate pain control to prevent postop complications ie Pneumonia, Deep Vein Thrombosis, Delayed Wound Healing, Longer Hospital Stay. Informed of benefits of adequate pain control- taking pain medication when pain level is -ask for pain medication; Inform pt may want to ask for pain medication around the clock/routinely on first postop Day on Regular Nursing Floor- thereby promoting recovery;-able to breathe deeply and adequately thus decrease Oxygen requirements of body, Able to walk, get out of bed- thereby decrease recovery time and decreased risk for infection. Explained importance of Deep Breathing/Coughing before and after surgery pain scale, take pain medication routinely to have adquate pain control to prevent postop complications for example, Pneumonia, Deep Vein Thrombosis, Delayed Wound Healing, Longer Hospital Stay. (2) Explained importance of Deep Breathing/Coughing before and after surgery Instructed in breathing exercises-deep breaths 10 times/hour while awake. Pt verbalized understanding and demostrated understanding via return demonstration. (3) Discussed discharged plans-informed patient , a Cardiac Surgery Nurse Practitioner visit is recommended within 3-7 days after being discharged if lived in near [place], [place] area or within [address] of [place], [place]. Discussed with Patient (Family) will need to see their PCP and Automatic Toe Laster following discharged- specific time frames for postop visits for Cardiac Surgery Nurse Practitioner, PCP and Automatic Toe Laster will be discussed at time of discharged. Patient (Family) Verbalized understanding. OHS: Tentatively Scheduled for OHS A round with Dr. Larsen. SUBJECTIVE: INTERVAL HISTORY: 63 yoM with CAD; Awaiting surgical revascularization. OBJECTIVE: MEDICATIONS: Current Facility-Administered Medications Medication Dose Route Frequency - acetaminophen 325-650 mg tab(s) (TYLENOL) 325-650 mg ORAL q 4 H PRN - polyethylene glycol 3350 17 g packet (MIRALAX, GLYCOLAX) 17 g ORAL DAILY PRN - melatonin 6 mg tab(s) 6 mg ORAL DAILY (8 PM) - gabapentin 100 mg cap(s) (NEURONTIN) 100 mg ORAL AT BEDTIME - atorvastatin 80 mg tab(s) (LIPITOR) 80 mg ORAL AT BEDTIME - dextrose 40 % 15 g 15 g ORAL PRN Or - glucagon 1 mg injection (GLUCAGEN) 1 mg INTRAMUSCULAR PRN Or - dextrose 50 % 12.5 g injection 12.5 g INTRAVENOUS PRN - aspirin 81 mg chewable tab(s) 81 mg ORAL DAILY - heparin iv infusion (LOW DOSE ACS/NOMOGRAM) 25,000 units in NaCl 0.45% 250 mL PREMIX 0-3,000 Units/hr INTRAVENOUS CONTINUOUS And - heparin RATE CHANGE bolus 1,000-4,000 Units for subtherapeutic aptt results 1,000-4,000 Units INTRAVENOUS PRN - insulin lispro injection (rapid acting) (HumaLOG) SUBCUTANEOUS w MEALS AND HS - metoprolol tartrate (short acting) 25 mg tab(s) (LOPRESSOR) 25 mg ORAL q 12 H - insulin lispro 8 Units injection (rapid acting) (HumaLOG) 8 Units SUBCUTANEOUS DAILY WITH BREAKFAST - insulin lispro 7 Units injection (rapid acting) (HumaLOG) 7 Units SUBCUTANEOUS DAILY wLUNCH - insulin lispro 8 Units injection (rapid acting) (HumaLOG) 8 Units SUBCUTANEOUS DAILY wDINNER - insulin glargine 14 Units pen (long acting) (LANTUS SOLOSTAR, BASAGLAR KWIKPEN) 14 Units SUBCUTANEOUS AT BEDTIME PHYSICAL EXAM: 02/12/19 0125 02/12/19 0525 02/12/19 0800 02/12/19 0937 BP: 134/69 126/68 138/69 Pulse: (!) 50 (!) 53 (!) 59 Resp: 18 18 18 Temp: 36.5 ?C (97.7 ?F) 36.7 ?C (98.1 ?F) 36.6 ?C (97.9 ?F) TempSrc: Oral Oral Oral SpO2: 97% 98% 98% Weight: 80.8 kg (178 lb 3.2 oz) Height: Intake/Output Summary (Last 24 hours) at 02/12/2019 1330 Last data filed at 02/12/2019 0900 Gross per 24 hour Intake 430 ml Output ? Net 430 ml PHYSICAL EXAMINATION General: Alert and oriented, no distress, pleasant and cooperative. Heart: Regular, normal S1 and S2, no murmurs, rubs, or gallops Lungs: Clear to auscultation bilaterally Abdomen: Benign Extremities: Feet/ankles without edema, posterior tibial pulses full and symmetrical DATA: Laboratory: Recent Labs 02/12/19 0728 02/11/19 0336 02/10/19 0428 WBC 6.43 8.08 7.57 HB 14.2 14.1 14.0 HCT 41.6 41.9 40.9 PLT 178 171 175 NA 139 140 142 K 4.2 4.4 4.3 CHLOR 103 105 104 CO2 24 23 27 BUN 19 24 22 CREAT 1.13 1.36* 1.32* GLUC 102* 101* 74 SIGNATURE: Alisha Seymour APRN.FIRE RANGE TECHNICIAN PAGER: [phone] DATE of SERVICE: 02/12/2019 TIME of SERVICE: 1:32 PM [facility] Hepatic Functn Panelon 02-12 Albumin [Mass/Vol] 3.6 g/dL Low 3.9-4.9 [facility] Comment on above: Performed By: #### C KCKMB, SYLVIA #### [facility] [address] [place], [place] [address] ALP [Catalytic activity/Vol] 95 U/L Normal 38-113 [facility] Comment on above: Performed By: #### C KCKMB, SYLVIA #### [facility] [address] [place], [place] [address] ALT [Catalytic activity/Vol] 62 U/L High 10-54 [facility] Comment on above: Performed By: #### C KCKMB, SYLVIA #### [facility] [address] [place], [place] [address] AST [Catalytic activity/Vol] 38 U/L Normal 14-40 [facility] Comment on above: Performed By: #### C KCKMB, SYLVIA #### [facility] [address] [place] [address] Bilirubin [Mass/Vol] 0.4 mg/dL Normal 0.2-1.3 [facility] Comment on above: Performed By: #### C KCKMB, SYLVIA #### [place] [address] Bilirubin,Conjugated <0.2 Normal <0.2 [facility] Comment on above: Performed By: #### C KCKMB, SYLVIA #### [place] [address] Protein [Mass/Vol] 7.0 g/dL Normal 6.3-8.0 [facility] Comment on above: Performed By: #### C KCKMB, SYLVIA #### [place] [id number] PROGRESSon 02-12-2019 PROGRESS HNO ID: [id number] Author: Michael Randolph MD Service: General Internal Medicine Author Type: Resident Type: Progress Notes Filed: 02/12/2019 10:47 AM Note Text: Attestation signed by Melba Salomon at 02/12/2019 11:03 AM [facility] STAFF PHYSICIAN NOTE OF PERSONAL INVOLVEMENT IN CARE I have reviewed the documentation obtained and documented by the resident Dr. Olivarez and have reviewed and updated the problem list as appropriate. I have personally performed a face to face assessment of the patient and have personally participated in the davies components. I have discussed the case and management of the patient's care. Impression: Mr. Avelar is a 63M with a medical history significant for T2 IDDM, psoriasis, presented to OSH with NSTEMI, subsequent LHC revealed 3-vessel CAD and thus transferred here for surgical evaluation. ECG on 02/04/19 with inferolateral TWI. Active issues are as follows: NSTEMI 3-vessel CAD (LM: 50% distal stenosis, LAD: focal 80% stenosis at 1st septal skip tracer and D1, followed by tubular 60-70% stenosis), LCx: 70% ostial stenosis, 70% stenosis of large OM, RCA large and dominant with focal 80% stenosis in mid-distal vessel) HFrEF due to ICM, LVEF 50% on 02/05/19 with resting WMA: inferior, posterior, basal anterolateral segments severely hypokinetic, apical inferior and apex mildly hypokinetic Type 2 insulin-dependent diabetes Psoriasis, on humira Plan: - Remains pain free, ambulating - Cr improved with IV hydration - Awaiting CABG with Dr. Larsen, scheduled for Wednesday, NPO at midnight STAFF PHYSICIAN: Melba Salomon MD, [facility] DATE OF SERVICE: 02/12/2019 [facility] CLINICAL CARDIOLOGY PROGRESS NOTE PRIMARY SERVICE: Clinical Cardiology B Manpreet Avelar [id number] HOSPITAL DAY: # 8 PLAN FOR TODAY: - Continue ASA, metoprolol, atorvastatin - CABG tomorrow at 6:30 AM - NPO after MN - Lantus decreased to 14U in anticipation of NPO INTERVAL HISTORY - no acute events overnight, HDS - Cr improved today to 1.1 - Bp stable, HR in 50s - FSG well controlled PHYSICAL EXAM BP 138/69 Pulse (!) 59 Temp 36.6 ?C (97.9 ?F) (Oral) Resp 18 Ht 177.8 cm (5' 10 ) Wt 80.8 kg (178 lb 3.2 oz) SpO2 98% BMI 25.57 kg/m? Intake/Output Summary (Last 24 hours) at 02/12/2019 1045 Last data filed at 02/12/2019 0900 Gross per 24 hour Intake 460 ml Output ? Net 460 ml General appearance: Well appearing, no acute distress. Head: Normocephalic, atraumatic. Oropharynx: Oropharynx normal. Neck: No goiter, lymphadenopathy, or JVD. Lungs: Lungs clear to auscultation bilaterally. No wheezing, rhonchi, or rales. Heart: RRR without murmur, gallop, or rubs. Abdomen: Abdomen soft, non-tender, non-distended. BS present. Extremities: No edema. Peripheral pulses symmetric. Neuro: AANDOx3. No focal weakness or changes in sensation. MEDICATIONS Medications reviewed. DATA Labs reviewed. IMAGING No imaging to review. ASSESSMENT AND PLAN Manpreet Avelar is a 63 year old male with a history of T2DM, Hyperlipidemia who presents as an OSH transfer from [facility] for consideration of CABG following recent NSTEMI. ? #Multivessel CAD #NSTEMI - Presented w/ chest pain, EKG changes, elevated troponins consistent with NSTEMI at OSH - Risk factors include T2DM, HLD, prior smoking - [facility] noting 3 vessel disease (80% LAD, 70% LCx, 90-95% RCA) - OSH TTE noting: EF 40-45%, moderate inferior wall hypokinesis - EBEN score 3 = 13% risk at 14 days of: all-cause mortality, new or recurrent MA, or severe recurrent ischemia requiring urgent revascularization Plan - ASA 81 - Heparin gtt - Atorvastatin 80, Metoprolol tartrate 25 BID - Hold ticagrelor pending plan for CABG - CABG planning per CTS: Tuesday 02/13 - NPO after MN ? #T2DM - for ~20y - need to assess control, A1c 7.2 Plan - continue insulin aspart to 8units TID w meals - continue insulin degludec to 20U qhs - SSI AC/HS - Endo recs appreciated ? #Solid dysphagia - difficulty swallowing solids arianna dry foods, worsening over 1y - GI consult for dysphagia at [facility] - considering EGD w/ dilation Plan - OP GI follow up or OP EGD after CABG ? #Psoriasis - well controlled on q2wk humira Plan - unable to give humira inpatient ? #HLD - previously on rosuvastatin 5 - Lipid panel @ [facility] 02/01: TC 140, LDL 77, HDL 48 Plan - atorvastatin 80mg ? # Diet - Heart Healthy # VTE PPx - AC w/ heparin # Dispo Planning - TBD # Code Status - Full code confirmed w/ patient Case to be discussed with staff. Signature: Michael Randolph Internal Medicine Resident, PGY-2 Pager: [phone] February 12, 2019 10:45 AM For communication after 5 pm on weekdays and after 12 pm on weekends, please page the following: - Clinical Cardiology patients on all floors: page [phone] - Other Cardiology patients on J5 and J6: page [phone] - Other Cardiology patients on J7 and J8: page [phone] [facility] PTT,Anticoag Therapyon 02-12 aPTT Coag (Bld) [Time] 62.8 s High 23.0-32.4 Cl [facility] Comment on above: Result Comment: Unfr actionated Heparin Therapeutic Ranges: Standard Heparin Nomogram: 53 to 78 seconds (anti-Xa level of 0.3 to 0.7 U/ml) Low Dose/ACS Nomogram: 49 to 67 seconds (anti-Xa level of 0.2 to 0.5 U/ml) Stroke Treatment Nomogram: 49 to 67 seconds (anti-Xa level of 0.2 to 0.5 U/ml) Note: The APTT therapeutic range has been determined for the current lot of laboratory APTT reagent in use throughout the [facility]. Performed By: #### C GARRISONB, SYLVIA #### [facility] [address] [place], [place] [address] Type and Screenon 02-12-2019 ABO/RH(D) Positive [facility] Comment on above: Performed By: #### C GARRISONB, SYLVIA #### [facility] [address] [place], [place] [address] Basic Metabolic Panlon 02-11 Anion gap [Moles/Vol] 12 mmol/L Normal 9-18 [facility] Comment on above: Performed By: #### C KCLIBANB, SYLVIA #### [facility] [address] [place], [place] [address] Calcium [Mass/Vol] 9.4 mg/dL Normal 8.5-10.2 [facility] Comment on above: Performed By: #### C DONTA, SYLVIA #### [facility] [address] [place], [place] [address] Chloride [Moles/Vol] 105 mmol/L Normal 97-105 [facility] Comment on above: Performed By: #### Eduardo LONGO, SYLVIA #### [place] [address] CO2 [Moles/Vol] 23 mmol/L Normal 22-30 [facility] Comment on above: Performed By: #### Eduardo LONGO, SYLVIA #### [place] [address] Creatinine [Mass/Vol] 1.36 mg/dL High 0.73-1.22 [facility] Comment on above: Performed By: #### Eduardo LONGO, SYLVIA #### [place] [address] eGFR- Amer. >60 Normal [facility] Comment on above: Performed By: #### Eduardo LONGO, SYLVIA #### [place] [id number] GFR/1.73 sq M predicted among non-blacks MDRD (S/P/Bld) [Vol rate/Area] 53 . Normal [facility] Comment on above: Result Comment: eGFR (Estimated GFR) Units of measure: mL/min/1.73 meters squared eGFR is derived from the reexpressed MDRD Study equation using the following parameters: serum creatinine, age, gender and race. The creatinine assay has been calibrated to be traceable to IDMS. An eGFR <60 mL/min/1.73m2 for >3 months is consistent with chronic kidney disease. Refer to KDOQI guidelines for clinical interpretation. In patients with unstable renal function, e.g. those with acute kidney injury, the eGFR may not accurately reflect actual GFR. Performed By: #### Eduardo LONGO, SYLVIA #### [facility] [address] [place] [address] Glucose [Mass/Vol] 101 mg/dL High 74-99 [facility] Comment on above: Result Comment: The [place] Diabetes Association (ADA) provides guidance for cutoff values for fasting glucose and random glucose. The ADA defines fasting as no caloric intake for at least 8 hours. Fasting plasma glucose results between 100 to 125 mg/dL indicate increased risk for diabetes (prediabetes). Fasting plasma glucose results greater than or equal to 126 mg/dL meet the criteria for diagnosis of diabetes. In the absence of unequivocal hyperglycemia, results should be confirmed by repeat testing. In a patient with classic symptoms of hyperglycemia or hyperglycemic crisis, random plasma glucose results greater than or equal to 200 mg/dL meet the criteria for diagnosis of diabetes. Reference: Standards of Medical Care in Diabetes 2016, [place] Diabetes Association. Diabetes Care. 2016.39(Suppl 1). Performed By: #### C DONTA, SYLVIA #### [facility] [place] [address] Potassium [Moles/Vol] 4.4 mmol/L Normal 3.7-5.1 [facility] Comment on above: Performed By: #### C DONTA, SYLVIA #### [place] [address] [place] [address] Sodium [Moles/Vol] 140 mmol/L Normal 136-144 [facility] Comment on above: Performed By: #### C DONTA, SYLVIA #### [facility] [address] [place] [address] Urea nitrogen [Mass/Vol] 24 mg/dL Normal 9-24 [facility] Comment on above: Performed By: #### C DONTA, SYLVIA #### [place] [address] [place] [address] CBCon 02-11-2019 Absolute nRBC <0.01 Normal <0.01 [facility] Comment on above: Performed By: #### C DONTA, SYLVIA #### [facility] [address] [place], [place] [address] Erythrocyte distribution width (RBC) [Ratio] 12.7 % Normal 11.5-15.0 [facility] Comment on above: Performed By: #### C DONTA, SYLVIA #### [facility] [address] [place], [place] [address] Hematocrit (Bld) [Volume fraction] 41.9 % Normal 39.0-51.0 [facility] Comment on above: Performed By: #### C DONTA, SYLVIA #### [place] [address] [place], [place] [address] Hemoglobin (Bld) [Mass/Vol] 14.1 g/dL Normal 13.0-17.0 [facility] Comment on above: Performed By: #### C DONTA, SYLVIA #### [address] [address] MCH (RBC) [Entitic mass] 30.2 pG Normal 26.0-34.0 [facility] Comment on above: Performed By: #### C DONTA, SYLVIA #### [place] [address] [place], [place] [address] MCHC (RBC) [Mass/Vol] 33.7 g/dL Normal 30.5-36.0 [facility] Comment on above: Performed By: #### C DONTA, SYLVIA #### [place] [address] [place], [place] [address] MCV (RBC) [Entitic vol] 89.7 fL Normal 80.0-100.0 [facility] Comment on above: Performed By: #### C DONTA, SYLVIA #### [place] [address] [place], [place] [address] Platelet mean volume (Bld) [Entitic vol] 12.1 fL Normal 9.0-12.7 [facility] Comment on above: Performed By: #### C KCKMB, SYLVIA #### [facility] [address] [place], [place] [address] Platelets (Bld) [#/Vol] 171 10*3/uL Normal 150-400 [facility] Comment on above: Performed By: #### C KCLIBANB, SYLVIA #### [facility] [address] [place], [place] [address] RBC (Bld) [#/Vol] 4.67 10*6/uL Normal 4.20-6.00 [facility] Comment on above: Performed By: #### C KCKMB, SYLVIA #### [facility] [address] [place], [place] [address] WBC (Bld) [#/Vol] 8.08 10*3/uL Normal 3.70-11.00 [facility] Comment on above: Performed By: #### C GARRISONB, SYLVIA #### [facility] [address] [place], [place] [address] CONSULT PROGon 02-11-2019 CONSULT PROG HNO ID: [id number] Author: William Humphrey Service: Endocrinology Author Type: Nurse Practitioner Type: Consult Progress Note Filed: 02/12/2019 12:17 PM Note Text: DIABETES CARE TEAM NOTE SERVICE DATE: 02/11/2019 SERVICE TIME: 6:20 AM Subjective Summary of History from Prior Record: Consult Date: 02/10/19 HPI, and DM history and a portion of the Impression and Plan copied from the note of Eduardo Humphrey FIRE RANGE TECHNICIAN on 04/12/2018. See any changes made below ? HPI: Mr. Manpreet Avelar is a 63 year old male with a 20 year history of Diabetes Mellitus Type 2 hyperglycemia who was admitted on 02/03/2019 for CAD . Past medical history significant for CAD,HPL. Patient does exercise. Last HbA1c was 7.2 on 02/04/19 . He has a no known family history of diabetes. He is followed by PCP for his diabetes. ? DIABETIC COMPLICATIONS: Neuropathy: Polyneuropathy ? Pre-Admission DM Regimen: Preadmission oral agents: None Preadmission insulin regimen: Tresiba 25units Q HS Novolog 02/17/11 units Q AC pen Sliding scale:None ? Self Monitoring Blood Glucose: Type of Monitor: Does not know brand Frequency of Monitorin-2 times per week BG Values: 150 Hypoglycemia:Yes when over exerting at work ? INTERVAL HPI: No acute events PERTINENT ROS: Constitutional:Feels well, no complaints Appetite:Intact GI:No nausea, no vomitting, no diarrhea, no constipation Objective PHYSICAL EXAM: BP 120/69 Pulse (!) 58 Temp 37 ?C (98.6 ?F) (Oral) Resp 18 Ht 177.8 cm (5' 10 ) Wt 79.5 kg (175 lb 4.8 oz) SpO2 98% BMI 25.15 kg/m? General Appearance:In no apparent distress Affect:Pleasant and cooperative Eyes:Sclerae non-icteric Abdomen:Soft, non-tender Laboratory Results: Glucose (mg/dL) Date Value 02/11/2019 101 Potassium (mmol/L) Date Value 02/11/2019 4.4 Sodium (mmol/L) Date Value 02/11/2019 140 Chloride (mmol/L) Date Value 02/11/2019 105 CO2 (mmol/L) Date Value 02/11/2019 23 Creatinine (mg/dL) Date Value 02/11/2019 1.36 BUN (mg/dL) Date Value 02/11/2019 24 Anion Gap (mmol/L) Date Value 02/11/2019 12 Calcium (mg/dL) Date Value 02/11/2019 9.4 ALT Date Value Ref Range Status 02/10/2019 49 10 - 54 U/L Final AST Date Value Ref Range Status 02/10/2019 26 14 - 40 U/L Final Hemoglobin (g/dL) Date Value 02/11/2019 14.1 Hematocrit (%) Date Value 02/11/2019 41.9 WBC (k/uL) Date Value 02/11/2019 8.08 Platelet Count (k/uL) Date Value 02/11/2019 171 Hemoglobin A1C (%) Date Value 02/04/2019 7.2 LV Ejection Fraction (%) Date Value 02/05/2019 50 Diet: Heart Healthy: ? Diabetes Management in Hospital Hospital BG values or ranges: ? Date AM LUNCH DINNER HS 3AM 02/09 108(h6) 259(h12) 138(h6) 223(h4) Lantus 20u ? 02/10 147(h8) 158(h10) 172 144 Lantus 20u? ? ?02/11 ?101(h8) 128?(h8) ?71(h8) ? ? 11 ? Impression/Recommenda tions Patient with uncontrolled Diabetes Mellitus Type 2 hyperglycemia s/p NSTEMI whom we have been consulted for glycemic control.Glucose reviewd /stable-no plannned changes for today ,Scheduled for surgery 02/13/19-see below plan Endo to signoff-- please re consult or contact DCT Endo COMMUNICATIONS DEPARTMENT CHAIRPERSON team for assistance or questions and after surgery as needed ? RECOMMENDATIONS: ? Continue Basal Insulin: Lantus 20 units QHS-- reduced by 30% to 14 units on Wednesday02/12/19 as surgery palnned for ? Continue Prandial Insulin: Humalog 8 units AC TID ? Supplemental Sliding Scale: Humalog Program #2 AC AND HS ? Accuchecks: AC/HS ? Recommend Low carbohydrate ? Consult CDE regarding: DM Education including TBD ? DM DISCHARGE PLAN: ? To be decided based on clinical course.-Patient would like to possible resume metformin with insulin at discharge -he has been on in past but PCP stopped when he started on insulin ? Check blood sugars Three times a Day ? Diet: Low carbohydrate ? Exercise as prescribed by cardiology/ primary team ? Follow up with mold bunch trimmer and guide changer as recommended. ? Patient will need follow-up at the [facility] ([facility]) or with his home enterprise systems manager/PCP in 1-2 weeks after discharge. ? Diabetes Care Team Hospital Discharge Help Line: [phone] ? ? William Humphrey [facility] Endocrine and Metabolism [place] Pager [phone] ; Covering DCT/Endo service today until 6 PM Please see On-Call Directory on Home Page for coverage after 6 PM ? [facility] PROGRESSon 02-11-2019 PROGRESS HNO ID: [id number] Author: Nohemy Olivarez DO Service: Cardiovascular Medicine Author Type: Resident Type: Progress Notes Filed: 02/11/2019 7:14 AM Note Text: Attestation signed by Melba Salomon at 02/11/2019 8:52 AM [facility] STAFF PHYSICIAN NOTE OF PERSONAL INVOLVEMENT IN CARE I have reviewed the documentation obtained and documented by the resident Dr. Olivarez and have reviewed and updated the problem list as appropriate. I have personally performed a face to face assessment of the patient and have personally participated in the davies components. I have discussed the case and management of the patient's care. Impression: Mr. Avelar is a 63M with a medical history significant for T2 IDDM, psoriasis, presented to [facility] with NSTEMI, subsequent LHC revealed 3-vessel CAD and thus transferred here for surgical evaluation. ECG on 02/04/19 with inferolateral TWI. Active issues are as follows: NSTEMI 3-vessel CAD (LM: 50% distal stenosis, LAD: focal 80% stenosis at 1st septal skip tracer and D1, followed by tubular 60-70% stenosis), LCx: 70% ostial stenosis, 70% stenosis of large OM, RCA large and dominant with focal 80% stenosis in mid-distal vessel) HFrEF due to ICM, LVEF 50% on 02/05/19 with resting WMA: inferior, posterior, basal anterolateral segments severely hypokinetic, apical inferior and apex mildly hypokinetic Type 2 insulin-dependent diabetes Psoriasis, on humira Plan: - Remains pain free, ambulating - Cr slightly elevated 1.3, encourage po intake, can also provide some IV hydration (1L) - Awaiting CABG with Dr. Larsen, scheduled for Wednesday - Continue medical therapy (on aspirin, heparin gtt, metoprolol 25mg bid) STAFF PHYSICIAN: Melba Salomon MD, [facility] DATE OF SERVICE: 02/11/2019 [facility] CLINICAL CARDIOLOGY PROGRESS NOTE PRIMARY SERVICE: Clinical Cardiology B Manpreet Avelar [id number] HOSPITAL DAY: # 7 PLAN FOR TODAY: - Continue ASA, metoprolol, atorvastatin - Plan for CABG Wednesday - Encourage PO intake INTERVAL HISTORY - no acute events overnight, HDS - BP 100-110s/60s; HR 50s - Denies chest pain, SOB, N/V/D - Endocrinology consulted for labile BGs PHYSICAL EXAM BP 120/69 Pulse (!) 58 Temp 37 ?C (98.6 ?F) (Oral) Resp 18 Ht 177.8 cm (5' 10 ) Wt 79.5 kg (175 lb 4.8 oz) SpO2 98% BMI 25.15 kg/m? Intake/Output Summary (Last 24 hours) at 02/11/2019 0713 Last data filed at 02/10/2019 1900 Gross per 24 hour Intake 768 ml Output ? Net 768 ml General appearance: Well appearing, no acute distress. Head: Normocephalic, atraumatic. Oropharynx: Oropharynx normal. Neck: No goiter, lymphadenopathy, or JVD. Lungs: Lungs clear to auscultation bilaterally. No wheezing, rhonchi, or rales. Heart: RRR without murmur, gallop, or rubs. Abdomen: Abdomen soft, non-tender, non-distended. BS present. Extremities: No edema. Peripheral pulses symmetric. Neuro: AANDOx3. No focal weakness or changes in sensation. MEDICATIONS Medications reviewed. DATA Labs reviewed. IMAGING No imaging to review. ASSESSMENT AND PLAN Manpreet Avelar is a 63 year old male with a history of T2DM, Hyperlipidemia who presents as an OSH transfer from [facility] for consideration of CABG following recent NSTEMI. ? #Multivessel CAD #NSTEMI - Presented w/ chest pain, EKG changes, elevated troponins consistent with NSTEMI at OSH - Risk factors include T2DM, HLD, prior smoking - [facility] noting 3 vessel disease (80% LAD, 70% LCx, 90-95% RCA) - OSH TTE noting: EF 40-45%, moderate inferior wall hypokinesis - EBEN score 3 = 13% risk at 14 days of: all-cause mortality, new or recurrent MA, or severe recurrent ischemia requiring urgent revascularization Plan - ASA 81 - Heparin gtt - Atorvastatin 80, Metoprolol tartrate 25 BID - Hold ticagrelor pending plan for CABG - CABG planning per CTS: aiming Thurs ? #T2DM - for ~20y - need to assess control, A1c 7.2 Plan - continue insulin aspart to 8units TID w meals - continue insulin degludec to 20U qhs - SSI AC/HS - Endo recs appreciated ? #Solid dysphagia - difficulty swallowing solids arianna dry foods, worsening over 1y - GI consult for dysphagia at [facility] - considering EGD w/ dilation Plan - OP GI follow up or OP EGD after CABG ? #Psoriasis - well controlled on q2wk humira Plan - unable to give humira inpatient ? #HLD - previously on rosuvastatin 5 - Lipid panel @ [facility] 02/01: TC 140, LDL 77, HDL 48 Plan - atorvastatin 80mg ? # Diet - Heart Healthy # VTE PPx - AC w/ heparin # Dispo Planning - TBD # Code Status - Full code confirmed w/ patient Case to be discussed with staff. Nohemy Olivarez DO Internal Medicine PGY-1 02/11/2019 6:47 AM For communication after 5 pm on weekdays and after 12 pm on weekends, please page the following: - Clinical Cardiology patients on all floors: page [phone] - Other Cardiology patients on J5 and J6: page [phone] - Other Cardiology patients on J7 and J8: page [phone] Normal [facility] PTT,Anticoag Therapyon 02-11 aPTT Coag (Bld) [Time] 54.5 s High 23.0-32.4 Cl [facility] Comment on above: Result Comment: Unfr actionated Heparin Therapeutic Ranges: Standard Heparin Nomogram: 53 to 78 seconds (anti-Xa level of 0.3 to 0.7 U/ml) Low Dose/ACS Nomogram: 49 to 67 seconds (anti-Xa level of 0.2 to 0.5 U/ml) Stroke Treatment Nomogram: 49 to 67 seconds (anti-Xa level of 0.2 to 0.5 U/ml) Note: The APTT therapeutic range has been determined for the current lot of laboratory APTT reagent in use throughout the [facility]. Performed By: #### C KCISH, SYLVIA #### [facility] [id number] aPTT Coag (Bld) [Time] 52.7 s High 23.0-32.4 [facility] Comment on above: Result Comment: Unfr actionated Heparin Therapeutic Ranges: Standard Heparin Nomogram: 53 to 78 seconds (anti-Xa level of 0.3 to 0.7 U/ml) Low Dose/ACS Nomogram: 49 to 67 seconds (anti-Xa level of 0.2 to 0.5 U/ml) Stroke Treatment Nomogram: 49 to 67 seconds (anti-Xa level of 0.2 to 0.5 U/ml) Note: The APTT therapeutic range has been determined for the current lot of laboratory APTT reagent in use throughout the [facility]. Results may be inaccurate due to age of specimen. Performed By: #### C DONTA, SYLVIA #### [facility] [address] [place] [id number] aPTT Coag (Bld) [Time] 86.3 s High 23.0-32.4 [facility] Comment on above: Result Comment: Unfr actionated Heparin Therapeutic Ranges: Standard Heparin Nomogram: 53 to 78 seconds (anti-Xa level of 0.3 to 0.7 U/ml) Low Dose/ACS Nomogram: 49 to 67 seconds (anti-Xa level of 0.2 to 0.5 U/ml) Stroke Treatment Nomogram: 49 to 67 seconds (anti-Xa level of 0.2 to 0.5 U/ml) Note: The APTT therapeutic range has been determined for the current lot of laboratory APTT reagent in use throughout the [facility]. Performed By: #### C DONTA, SYLVIA #### [address] [place], [place] [address] Basic Metabolic Panlon 02-10 Anion gap [Moles/Vol] 11 mmol/L Normal 9-18 [facility] Comment on above: Performed By: #### C BCDIF, PT, PTT, CMP, MG1, NTBNP #### [address] [place] [address] Calcium [Mass/Vol] 9.0 mg/dL Normal 8.5-10.2 [facility] Comment on above: Performed By: #### C BCDIF, PT, PTT, CMP, MG1, NTBNP #### [place] [address] Chloride [Moles/Vol] 104 mmol/L Normal 97-105 [facility] Comment on above: Performed By: #### C BCDIF, PT, PTT, CMP, MG1, NTBNP #### [place] [address] CO2 [Moles/Vol] 27 mmol/L Normal 22-30 [facility] Comment on above: Performed By: #### C BCDIF, PT, PTT, CMP, MG1, NTBNP #### [place] [address] Creatinine [Mass/Vol] 1.32 mg/dL High 0.73-1.22 [facility] Comment on above: Performed By: #### C BCDIF, PT, PTT, CMP, MG1, NTBNP #### [place] [id number] eGFR- Amer. >60 Normal [facility] Comment on above: Performed By: #### C BCDIF, PT, PTT, CMP, MG1, NTBNP #### [place] [id number] GFR/1.73 sq M predicted among non-blacks MDRD (S/P/Bld) [Vol rate/Area] 55 . Normal [facility] Comment on above: Result Comment: eGFR (Estimated GFR) Units of measure: mL/min/1.73 meters squared eGFR is derived from the reexpressed MDRD Study equation using the following parameters: serum creatinine, age, gender and race. The creatinine assay has been calibrated to be traceable to IDMS. An eGFR <60 mL/min/1.73m2 for >3 months is consistent with chronic kidney disease. Refer to KDOQI guidelines for clinical interpretation. In patients with unstable renal function, e.g. those with acute kidney injury, the eGFR may not accurately reflect actual GFR. Performed By: #### C BCDIF, PT, PTT, CMP, MG1, NTBNP #### [facility] [address] [address] Glucose [Mass/Vol] 74 mg/dL Normal 74-99 [facility] Comment on above: Result Comment: The [place] Diabetes [employer] (ADA) provides guidance for cutoff values for fasting glucose and random glucose. The ADA defines fasting as no caloric intake for at least 8 hours. Fasting plasma glucose results between 100 to 125 mg/dL indicate increased risk for diabetes (prediabetes). Fasting plasma glucose results greater than or equal to 126 mg/dL meet the criteria for diagnosis of diabetes. In the absence of unequivocal hyperglycemia, results should be confirmed by repeat testing. In a patient with classic symptoms of hyperglycemia or hyperglycemic crisis, random plasma glucose results greater than or equal to 200 mg/dL meet the criteria for diagnosis of diabetes. Reference: Standards of Medical Care in Diabetes 2016, [place] Diabetes Association. Diabetes Care. 2016.39(Suppl 1). Performed By: #### C BCDIF, PT, PTT, CMP, MG1, NTBNP #### [facility] [address] [address] Potassium [Moles/Vol] 4.3 mmol/L Normal 3.7-5.1 [facility] Comment on above: Performed By: #### C BCDIF, PT, PTT, CMP, MG1, NTBNP #### [facility] [address] [address] Sodium [Moles/Vol] 142 mmol/L Normal 136-144 [facility] Comment on above: Performed By: #### C BCDIF, PT, PTT, CMP, MG1, NTBNP #### [facility] [address] [address] Urea nitrogen [Mass/Vol] 22 mg/dL Normal 9-24 [facility] Comment on above: Performed By: #### C BCDIF, PT, PTT, CMP, MG1, NTBNP #### [place] [address] CBCon 02-10-2019 Absolute nRBC <0.01 Normal <0.01 [facility] Comment on above: Performed By: #### C BCDIF, PT, PTT, CMP, MG1, NTBNP #### [place] [address] Erythrocyte distribution width (RBC) [Ratio] 12.7 % Normal 11.5-15.0 [facility] Comment on above: Performed By: #### C BCDIF, PT, PTT, CMP, MG1, NTBNP #### [place] [address] Hematocrit (Bld) [Volume fraction] 40.9 % Normal 39.0-51.0 [facility] Comment on above: Performed By: #### C BCDIF, PT, PTT, CMP, MG1, NTBNP #### [place] [address] Hemoglobin (Bld) [Mass/Vol] 14.0 g/dL Normal 13.0-17.0 [facility] Comment on above: Performed By: #### C BCDIF, PT, PTT, CMP, MG1, NTBNP #### [place] [address] MCH (RBC) [Entitic mass] 30.3 pG Normal 26.0-34.0 [facility] Comment on above: Performed By: #### C BCDIF, PT, PTT, CMP, MG1, NTBNP #### [place] [address] MCHC (RBC) [Mass/Vol] 34.2 g/dL Normal 30.5-36.0 [facility] Comment on above: Performed By: #### C BCDIF, PT, PTT, CMP, MG1, NTBNP #### [address] [place] [address] MCV (RBC) [Entitic vol] 88.5 fL Normal 80.0-100.0 [facility] Comment on above: Performed By: #### C BCDIF, PT, PTT, CMP, MG1, NTBNP #### [place] [address] Platelet mean volume (Bld) [Entitic vol] 12.1 fL Normal 9.0-12.7 [facility] Comment on above: Performed By: #### C BCDIF, PT, PTT, CMP, MG1, NTBNP #### [place] [address] Platelets (Bld) [#/Vol] 175 10*3/uL Normal 150-400 [facility] Comment on above: Performed By: #### C BCDIF, PT, PTT, CMP, MG1, NTBNP #### [address] [address] RBC (Bld) [#/Vol] 4.62 10*6/uL Normal 4.20-6.00 [facility] Comment on above: Performed By: #### C BCDIF, PT, PTT, CMP, MG1, NTBNP #### [address] [address] WBC (Bld) [#/Vol] 7.57 10*3/uL Normal 3.70-11.00 [facility] Comment on above: Performed By: #### C BCDIF, PT, PTT, CMP, MG1, NTBNP #### [address] [address] CONSULTon 02-10-2019 CONSULT HNO ID: [id number] Author: Wliliam Humphrey Service: Endocrinology Author Type: Nurse Practitioner Type: Consults Filed: 02/10/2019 5:17 PM Note Text: INITIAL CONSULT ENDOCRINOLOGY SERVICE DATE: 02/10/2019 SERVICE TIME: 9:19 AM Requesting Provider: Melba Salomon Opinion/Advice Regarding: Management of Diabetes Mellitus Type 2 hyperglycemia Service: DCT (Diabetes Care Team) Subjective HPI: Mr. Manpreet Avelar is a 63 year old male with a 20 year history of Diabetes Mellitus Type 2 hyperglycemia who was admitted on 02/03/2019 for CAD . Past medical history significant for CAD,HPL. Patient does exercise. Last HbA1c was 7.2 on 02/04/19 . He has a no known family history of diabetes. He is followed by PCP for his diabetes. DIABETIC COMPLICATIONS: Neuropathy: Polyneuropathy Pre-Admission DM Regimen: Preadmission oral agents: None Preadmission insulin regimen: Tresiba 25units Q HS Novolog 02/17/11 units Q AC pen Sliding scale:None Self Monitoring Blood Glucose: Type of Monitor: Does not know brand Frequency of Monitorin-2 times per week BG Values: 150 Hypoglycemia:Yes when over exerting at work PAST MEDICAL HISTORY Diagnosis Date - Hyperlipidemia - Nephrolithiasis - Pneumothorax due to rib fracture from tractor injury in teen years - Psoriasis - Type 2 diabetes mellitus (HCC) History reviewed. No pertinent surgical history. FAMILY HISTORY Problem Relation Age of Onset - Heart disease Mother - Heart disease Father - Heart Attack Maternal Grandfather Social History Tobacco Use - Smoking status: Former Smoker Packs/day: 1.00 Years: 10.00 Pack years: 10.00 Types: Cigarettes Last attempt to quit: 04/12/1979 Years since quittin.8 - Smokeless tobacco: Never Used - Tobacco comment: rarely used chewing tobacco in past also Substance Use Topics - Alcohol use: Not on file Comment: rare, maybe once per month - Drug use: Never MEDICATIONS: Medications Prior to Admission: HUMIRA,CF, PEN 40 mg/0.4 mL pen kit Inject 40 mg subcutaneously every 2 weeks. Disp: Rfl: Unknown at Unknown time rosuvastatin (CRESTOR) 5 mg tablet Take 5 mg by mouth once daily. Disp: Rfl: 1 Past Week at Unknown time gabapentin (NEURONTIN) 100 mg capsule Take 100 mg by mouth daily at bedtime. Disp: Rfl: Past Week at Unknown time insulin aspart U-100 (NOVOLOG) 100 unit/mL (3 mL) inpn Inject 8 Units subcutaneously daily with lunch. Disp: Rfl: Past Week at Unknown time insulin aspart U-100 (NOVOLOG) 100 unit/mL (3 mL) inpn Inject 11 Units subcutaneously daily with breakfast. Disp: Rfl: Past Week at Unknown time insulin aspart U-100 (NOVOLOG) 100 unit/mL (3 mL) inpn Inject 11 Units subcutaneously daily with dinner. Disp: Rfl: Past Week at Unknown time insulin degludec (TRESIBA) 100 unit/mL (3 mL) injection Inject 25 Units subcutaneously daily at bedtime. Disp: Rfl: Past Week at Unknown time Current Facility-Administered Medications Medication Dose Route Frequency - acetaminophen 325-650 mg tab(s) (TYLENOL) 325-650 mg ORAL q 4 H PRN - polyethylene glycol 3350 17 g packet (MIRALAX, GLYCOLAX) 17 g ORAL DAILY PRN - melatonin 6 mg tab(s) 6 mg ORAL DAILY (8 PM) - gabapentin 100 mg cap(s) (NEURONTIN) 100 mg ORAL AT BEDTIME - atorvastatin 80 mg tab(s) (LIPITOR) 80 mg ORAL AT BEDTIME - dextrose 40 % 15 g 15 g ORAL PRN Or - glucagon 1 mg injection (GLUCAGEN) 1 mg INTRAMUSCULAR PRN Or - dextrose 50 % 12.5 g injection 12.5 g INTRAVENOUS PRN - aspirin 81 mg chewable tab(s) 81 mg ORAL DAILY - heparin iv infusion (LOW DOSE ACS/NOMOGRAM) 25,000 units in NaCl 0.45% 250 mL PREMIX 0-3,000 Units/hr INTRAVENOUS CONTINUOUS And - heparin RATE CHANGE bolus 1,000-4,000 Units for subtherapeutic aptt results 1,000-4,000 Units INTRAVENOUS PRN - insulin lispro injection (rapid acting) (HumaLOG) SUBCUTANEOUS w MEALS AND HS - metoprolol tartrate (short acting) 25 mg tab(s) (LOPRESSOR) 25 mg ORAL q 12 H - insulin lispro 8 Units injection (rapid acting) (HumaLOG) 8 Units SUBCUTANEOUS w MEALS - insulin glargine 20 Units pen (long acting) (LANTUS SOLOSTAR, BASAGLAR KWIKPEN) 20 Units SUBCUTANEOUS AT BEDTIME ALLERGIES No Known Allergies COMPLETE REVIEW OF SYSTEMS: WEIGHT: Stable EYES: Normal HYDRATION: No polydypsia or thirst CARDIAC: Chest pain RESPIRATORY: Negative for cough, wheezing or shortness of breath GI: no nausea, fullness, vomiting, diarrhea, constipation, GI bleeding or heartburn : no dysuria, frequency, hesitancy, hematuria, polyuria or nocturia SKIN: normal MUSCULOSKELETAL: No joint pain, stiffness, swelling, cramping or weakness NERVOUS SYSTEM: no numbness, paresthesias, weakness, cramping, burning or dizziness and numbness of the feet ALL OTHER SYSTEMS: normal Last Eye Exam: yearly Last Podiatry Exam: N/A Objective PHYSICAL EXAM: BP 133/72 Pulse (!) 53 Temp 36.9 ?C (98.5 ?F) (Oral) Resp 20 Wt 79.5 kg (175 lb 4.8 oz) SpO2 97% There is no height or weight on file to calculate BMI. Appearance: Well appearing, alert, in no acute distress, well-hydrated, well nourished. Eyes: PERRLA, conjunctiva and sclera normal Neck: Supple, no adenopathy; thyroid symmetric, normal size, no bruits Heart: RRR without murmur, gallop, or rubs. No ectopy Lungs lungs clear to auscultation. No wheezing, rhonchi, rales Abdomen bowel sounds normoactive, no bruits, soft, non-tender, non-distended Extremities: No deformities, edema, skin discoloration, clubbing or cyanosis. Good capillary refill. Neuro: Awake, alert and oriented x 3 and No involuntary motions. Feet: Shoes and socks removed and No deformities, ulcers, calluses Skin: Color, texture, turgor normal. No rashes or lesions Laboratory Results: Hemoglobin (g/dL) Date Value 02/10/2019 14.0 Hematocrit (%) Date Value 02/10/2019 40.9 WBC (k/uL) Date Value 02/10/2019 7.57 Platelet Count (k/uL) Date Value 02/10/2019 175 Potassium (mmol/L) Date Value 02/10/2019 4.3 Sodium (mmol/L) Date Value 02/10/2019 142 Magnesium (mg/dL) Date Value 02/04/2019 1.9 Creatinine (mg/dL) Date Value 02/10/2019 1.32 BUN (mg/dL) Date Value 02/10/2019 22 Glucose (mg/dL) Date Value 02/10/2019 74 PT INR (no units) Date Value 02/04/2019 1.1 TSH (uU/mL) Date Value 02/08/2019 5.010 NT Pro BNP (pg/mL) Date Value 02/04/2019 1,345 Lipids: No results found for: CHOL, HDL, LDL, TG Albumin (g/dL) Date Value 02/10/2019 3.6 (L) Bilirubin, Total (mg/dL) Date Value 02/10/2019 0.4 Bilirubin, Conjug (mg/dL) Date Value 02/10/2019 <0.2 Alkaline Phosphatase (U/L) Date Value 02/10/2019 89 AST (U/L) Date Value 02/10/2019 26 ALT (U/L) Date Value 02/10/2019 49 Protein, Total (g/dL) Date Value 02/10/2019 6.9 LV Ejection Fraction (%) Date Value 02/05/2019 50 Hemoglobin A1C (%) Date Value 02/04/2019 7.2 [facility] in Hospital Hospital BG values or ranges: Date AM LUNCH DINNER HS 3AM 02/09 108(h6) 259(h12) 138(h6) 223(h4) Lantus 20u 02/10 147(h8) 158(h10) 172 Diabetes Management Prior to the Consultation/HPI: Lispro 8 unit(s) AC Lantus 20u HS Diet: Heart Healthy: Cardiac 2 GM SODIUM (<200 MG CHOL / LOW SAT FAT) Tube Feeding: No Impression/Recommenda tions Patient with uncontrolled Diabetes Mellitus Type 2 hyperglycemia s/p NSTEMI whom we have been consulted for glycemic control.Cont below plan and adjust as needed RECOMMENDATIONS: ? Continue Basal Insulin: Lantus 20 units QHS ? Continue Prandial Insulin: Humalog 8 units AC TID ? Supplemental Sliding Scale: Humalog Program #2 AC AND HS ? Accuchecks: AC/HS ? Recommend Low carbohydrate ? Consult CDE regarding: DM Education including TBD DM DISCHARGE PLAN: ? To be decided based on clinical course. ? Check blood sugars Three times a Day ? Diet: Low carbohydrate ? Exercise as prescribed by cardiology/ primary team ? Follow up with mold bunch trimmer and guide changer as recommended. ? Patient will need [facility] at [facility] ([facility] or with his home enterprise systems manager/PCP in 1-2 weeks after discharge. ? Diabetes Care Team Hospital Discharge Help Line: [phone] William Humphrey [facility] Endocrine and Metabolism [place] Pager [phone] ; Covering DCT/Endo service today until 6 PM Please see On-Call Directory on Home Page for coverage after 6 PM Normal [facility] CONSULT PROGon 02-10-2019 CONSULT PROG HNO ID: [id number] Author: Alisia Larsen Service: Cardiac Surgery Author Type: Physician Type: Consult Progress Note Filed: 02/10/2019 5:37 PM Note Text: [facility] CONSULT PROGRESS NOTE Manpreet Carlos Rosio [phone] CONSULTING SERVICE: Cardiothoracic Surgery CTS: Dr. Larsen DX: CABG SUBJECTIVE: INTERVAL HISTORY: Surgery tentatively for first round on Wednesday. Will get updated type and screen on Wednesday. PATIENT EDUCATION Pre-op Teaching: READINESS TO LEARN COGNITIVE ABILITY: Alert and oriented MOTIVATION TO LEARN: Eager FAMILY SUPPORT: Unable to assess - Family not present INSTRUCTION PROVIDED TO: Patient PATIENT LEARNS BEST BY: Individual Instruction FACTORS AFFECTING LEARNING: None PHYSICAL LIMITATIONS AFFECTING LEARNING: None Pain: Pain control after surgery is very important. Patient informed that they will experience some pain post operatively and this can vary for each person. Instructed on pain control post operatively. Educated to measuring pain on a scale of (none) 0-10 (worst pain). Patient advised to maintain a pain level of 3 or less to improve recovery and decrease length of stay as they will better be able to cough, deep breathe, and ambulate. Instructed to various pain control options; topical patches, oral medication, and or pain control button/pump. Patient informed that they need routine pain medication the first two days on the post operative floor and to ask for your pain medication every 4-6hrs. In addition to medication, changes in position, music therapy, stress reduction, and a massage may help alleviate pain. Post surgical expectations: Discussed issues pertinent to the night before surgery, waking up from surgery, and the overall recovery process PATIENT/FAMILY RESPONSE: Verbalizes understanding of: PRE-OPERATIVE INSTRUCTIONS-Correct action to take to follow pre-operative instructions METHOD OF INSTRUCTION: Individual instruction FOLLOW-UP PLAN: Patient instructed to call with any further issues Reinforce - Repeat previous content Recommend - Recommend continued instruction and follow up as directed INSTRUCTIONAL AIDS USED: Video, Heart surgery binder PERTINENT REVIEW OF SYSTEMS: Denies chest pain, SOB, LE edema, and palpitations. OBJECTIVE: MEDICATIONS: Current Facility-Administered Medications Medication Dose Route Frequency - acetaminophen 325-650 mg tab(s) (TYLENOL) 325-650 mg ORAL q 4 H PRN - polyethylene glycol 3350 17 g packet (MIRALAX, GLYCOLAX) 17 g ORAL DAILY PRN - melatonin 6 mg tab(s) 6 mg ORAL DAILY (8 PM) - gabapentin 100 mg cap(s) (NEURONTIN) 100 mg ORAL AT BEDTIME - atorvastatin 80 mg tab(s) (LIPITOR) 80 mg ORAL AT BEDTIME - dextrose 40 % 15 g 15 g ORAL PRN Or - glucagon 1 mg injection (GLUCAGEN) 1 mg INTRAMUSCULAR PRN Or - dextrose 50 % 12.5 g injection 12.5 g INTRAVENOUS PRN - aspirin 81 mg chewable tab(s) 81 mg ORAL DAILY - heparin iv infusion (LOW DOSE ACS/NOMOGRAM) 25,000 units in NaCl 0.45% 250 mL PREMIX 0-3,000 Units/hr INTRAVENOUS CONTINUOUS And - heparin RATE CHANGE bolus 1,000-4,000 Units for subtherapeutic aptt results 1,000-4,000 Units INTRAVENOUS PRN - insulin lispro injection (rapid acting) (HumaLOG) SUBCUTANEOUS w MEALS AND HS - metoprolol tartrate (short acting) 25 mg tab(s) (LOPRESSOR) 25 mg ORAL q 12 H - insulin lispro 8 Units injection (rapid acting) (HumaLOG) 8 Units SUBCUTANEOUS w MEALS - insulin glargine 20 Units pen (long acting) (LANTUS SOLOSTAR, BASAGLAR KWIKPEN) 20 Units SUBCUTANEOUS AT BEDTIME PHYSICAL EXAM: 02/10/19 0524 02/10/19 0800 02/10/19 0920 02/10/19 1008 BP: 133/72 123/61 Pulse: (!) 53 (!) 55 Resp: 20 20 Temp: 36.9 ?C (98.5 ?F) TempSrc: Oral Oral SpO2: 97% 94% Weight: 79.5 kg (175 lb 4.8 oz) Height: 177.8 cm (5' 10 ) Intake/Output Summary (Last 24 hours) at 02/10/2019 1039 Last data filed at 02/10/2019 1000 Gross per 24 hour Intake 320 ml Output ? Net 320 ml DATA: Laboratory: Recent Labs 02/10/19 0428 02/09/19 0517 02/08/19 0827 WBC 7.57 7.89 8.12 HB 14.0 14.2 14.5 HCT 40.9 42.0 42.6 PLT 175 181 185 NA 142 141 137 K 4.3 4.7 5.1 CHLOR 104 102 101 CO2 27 26 26 BUN 22 22 17 CREAT 1.32* 1.31* 1.21 GLUC 74 108* 209* ] ] SIGNATURE: Nohemy Bullard APRN.FIRE RANGE TECHNICIAN PAGER: [phone] DATE of SERVICE: 02/10/2019 TIME of SERVICE: 1315 [facility] STAFF PHYSICIAN NOTE OF PERSONAL INVOLVEMENT IN CARE I have reviewed the documentation above obtained and documented by the Nurse Practitioner and have reviewed and updated the problem list as appropriate. I have personally participated in the davies component and physical exam and have discussed the case and management of the patient's care. The following comments revise or confirm relevant davies components. HPI: Mr. Manpreet Avelar is a 63 year old male seen in consultation at the request of cardiology for opinion regarding treatment options for Coronary Artery Disease, after being seen by Dr. Salomon. He is currently asymptomatic Comorbidities include CRI, HTN, Dyslipidemia and DM. I have personally reviewed his cardiac catheterization and CT scan which shows LMT and triple vessel disease. Calcification of STJ. The Echocardiogram reveals left ventricular dysfunction with an ejection fraction of 45% and normal valves. Based on my evaluation he is a medium risk for open heart surgery. Impression: Coronary Artery Disease Plan: CABG STAFF PHYSICIAN: Alisia Larsen MD DATE OF SERVICE: February 10, 2019 TIME OF SERVICE: 5:35 PM Normal [facility] Free T3on 02-10-2019 Free T3 [Mass/Vol] 2.8 pg/mL Normal 2.3-4.1 [facility] Comment on above: Performed By: #### C BCDIF, PT, PTT, CMP, MG1, NTBNP #### [facility] [address], [place] [id number] Free T4on 02-10-2019 Free T4 [Mass/Vol] 1.2 ng/dL Normal 0.9-1.7 [facility] Comment on above: Performed By: #### C BCDIF, PT, PTT, CMP, MG1, NTBNP #### [address] [place], [place] [address] Hepatic Functn Panelon 02-10 Albumin [Mass/Vol] 3.6 g/dL Low 3.9-4.9 [facility] Comment on above: Performed By: #### C BCDIF, PT, PTT, CMP, MG1, NTBNP #### [address] [place], [place] [address] ALP [Catalytic activity/Vol] 89 U/L Normal 38-113 [facility] Comment on above: Performed By: #### C BCDIF, PT, PTT, CMP, MG1, NTBNP #### [address] [address] ALT [Catalytic activity/Vol] 49 U/L Normal 10-54 [facility] Comment on above: Performed By: #### C BCDIF, PT, PTT, CMP, MG1, NTBNP #### [address] [address] AST [Catalytic activity/Vol] 26 U/L Normal 14-40 [facility] Comment on above: Performed By: #### C BCDIF, PT, PTT, CMP, MG1, NTBNP #### [address] [place], [place] [address] Bilirubin [Mass/Vol] 0.4 mg/dL Normal 0.2-1.3 [facility] Comment on above: Performed By: #### C BCDIF, PT, PTT, CMP, MG1, NTBNP #### [address] [place], [place] [address] Bilirubin,Conjugated <0.2 Normal <0.2 [facility] Comment on above: Performed By: #### C BCDIF, PT, PTT, CMP, MG1, NTBNP #### [facility] [address] [place], [place] [address] Protein [Mass/Vol] 6.9 g/dL Normal 6.3-8.0 [facility] Comment on above: Performed By: #### C BCDIF, PT, PTT, CMP, MG1, NTBNP #### [facility] [address] [place], [place] [address] NUTRITIONon 02-10-2019 NUTRITION HNO ID: [id number] Author: Laura Shrestha Service: Nutrition Therapy Author Type: Buttonhole Maker Type: Nutrition Filed: 02/10/2019 9:02 AM Note Text: NUTRITION THERAPY FOLLOW-UP NOTE SERVICE DATE: 02/10/2019 SERVICE TIME: 810am Anthropometrics: Current Weight: Weight: 79.5 kg (175 lb 4.8 oz) There is no height or weight on file to calculate BMI. Loss of lean body mass/visual muscle wasting: no Admitting Diagnosis: CAD (coronary artery disease) [I25.10] Present Diet Order: Heart Healthy 4 gm Na Is the patient having any pain that is interfering with oral/enteral intake? No Allergies: ALLERGIES No Known Allergies Reason for Visit: Nutrition screen: LOS > 6 days Nutrient intake assessment: Current intake of meals: 75 - 100% Patient concerns/Issues: patient has a good intake and appetite. He reports eating all of his meals and averages 1697 kcal and 90 gm protein/day. Weight changes associated with fluid. Will continue to monitor intakes and nutritional needs. Nursing Admission Assessment Malnutrition Score Tool: 0 Plan of Care: Recommendation No problems noted at this time. Will screen again within 7 days Discharge Plan: home on heart healthy diet MNT Billing Type: Routine Care/15 min 1 unit SIGNATURE: Laura Shrestha DTR PATIENT NAME: Manpreet Avelar DATE: February 10, 2019 TIME: 9:00 AM PAGER: [phone] Normal [facility] PROGRESSon 02-10-2019 PROGRESS HNO ID: [id number] Author: Mukesh Blankenship DO Service: Anesthesiology Author Type: Resident Type: Progress Notes Filed: 02/10/2019 10:41 AM Note Text: [facility] PREOP EVALUATION CARDIOTHORACIC ANESTHESIA CARDIAC SURGERY SERVICE DATE: 02/10/2019 SERVICE TIME: 10:16 AM Proposed Surgical Procedure: CABG Re-do: No ASA Class: 4 Surgeon: Chava Surgery Date: 02/13/19 Last Wt 02/10/19 : 79.5 kg (175 lb 4.8 oz) Last Ht 02/10/19 : 177.8 cm (5' 10 ) Estimated body mass index is 25.15 kg/m? as calculated from the following: Height as of this encounter: 177.8 cm (5' 10 ). Weight as of this encounter: 79.5 kg (175 lb 4.8 oz). [place] body weight: 73 kg (160 lb 15 oz) Adjusted ideal body weight: 75.6 kg (166 lb 10.9 oz) Estimated body surface area is 1.98 meters squared as calculated from the following: Height as of this encounter: 177.8 cm (5' 10 ). Weight as of this encounter: 79.5 kg (175 lb 4.8 oz). HPI: Manpreet Avelar is a 63 y/o male who initially presented to an OSH with chest pain where LHC revealed severe 3 vessel disease, and patient was transferred to [facility] for the above surgery. ECHO on 02/05 revealed a mildly decreased EF of 50% and inferior?wall, posterior wall, and basal anterolateral segment are severely hypokinetic. His PMHx is significant for DM, psoriasis, HLD, and kidney stones. PAST MEDICAL HISTORY Diagnosis Date - Hyperlipidemia - Nephrolithiasis - Pneumothorax due to rib fracture from tractor injury in teen years - Psoriasis - Type 2 diabetes mellitus (HCC) History reviewed. No pertinent surgical history. Social History Tobacco Use - Smoking status: Former Smoker Packs/day: 1.00 Years: 10.00 Pack years: 10.00 Types: Cigarettes Last attempt to quit: 04/12/1979 Years since quittin.8 - Smokeless tobacco: Never Used - Tobacco comment: rarely used chewing tobacco in past also Substance Use Topics - Alcohol use: Not on file Comment: rare, maybe once per month - Drug use: Never ALLERGIES No Known Allergies REVIEW OF SYSTEMS: Neuro: No Hx of stroke or seizures Respiratory: No history of current cough or dyspnea, or pneumonia in the past 6 weeks. No history of respiratory/pulmonary symptoms or problems Cardiovascular: See HPI GI: No history of GI symptoms or problems. No history of esophageal varices, recent ascites, or ETOH greater than 2 drinks per day. Endocrine: Diabetes Mellitus on insulin Hematology: No history of bleeding or clotting disorder. Pt is not taking anti-coagulation or platelet medications. No history of hematological symptoms or problems. ANESTHETIC HISTORY: History of general anesthesia without complications. AIRWAY ASSESSMENT: Airway History: No abnormal airway history Airway Exam: General: Normal appearance Mallampati Score: CLASS II Dentition: Intact Mouth: Normal tongue size and Mouth opening greater than 2 finger breaths Temporo-Mandibular Displacement Test: Position B (lower teeth can be advanced even with upper teeth) Thyromental Distance: 7 cm Neck Circumference: 34 cm Cervical Mobility: Normal Facial Hair: Yes, Full Guajardo-No ANTICIPATED DIFFICULT AIRWAY: NO PHYSICAL EXAM: VITALS: BP 123/61 Pulse (!) 55 Temp 36.9 ?C (98.5 ?F) (Oral) Resp 20 Ht 177.8 cm (5' 10 ) Wt 79.5 kg (175 lb 4.8 oz) SpO2 94% BMI 25.15 kg/m? CARDIAC: Regular rate and rhythm. LUNGS: Lungs clear to auscultation. Good air entry bilaterally. Lines, Drains, Airway: Lines, Drains, and Airways Line Peripheral 02/05/19 1736 Right Forearm 22 Gauge 4 days O2 Therapy: Room Air (02/10/19 1008) LABS: Lab Results Past 6 Months Component Value Date HB 14.0 02/10/2019 HCT 40.9 02/10/2019 PLT 175 02/10/2019 WBC 7.57 02/10/2019 NA 142 02/10/2019 K 4.3 02/10/2019 CREAT 1.32 (H) 02/10/2019 CA 9.0 02/10/2019 APTT 46.1 (H) 02/10/2019 INR 1.1 02/04/2019 HBA1C 7.2 (H) 02/04/2019 TSH 5.010 (H) 02/08/2019 Lab Results Past 6 Months Component Value Date GLUC 74 02/10/2019 K 4.3 02/10/2019 NA 142 02/10/2019 CHLOR 104 02/10/2019 CO2 27 02/10/2019 CREAT 1.32 (H) 02/10/2019 BUN 22 02/10/2019 ANION 11 02/10/2019 CA 9.0 02/10/2019 TPROT 6.9 02/10/2019 ALB 3.6 (L) 02/10/2019 TBILI 0.4 02/10/2019 ALKPHOS 89 02/10/2019 AST 26 02/10/2019 ALT 49 02/10/2019 ABO/RH(D) (no units) Date Value 02/06/2019 A POSITIVE Antibody Screen (no units) Date Value 02/06/2019 NEG Historical Ab Scr Status (no units) Date Value 02/06/2019 NEGATIVE Anticipated Blood Products Ordered: No blood product orders needed. Will the Patient Accept Blood: Yes IMAGING AND TESTS: CAROTID ULTRASOUND: 02/08/19 RIGHT SIDE ? Common carotid artery: Plaque visualized without evidence of hemodynamically significant stenosis. Internal carotid artery: 40-59% stenosis. Vertebral artery: Patent and antegrade flow noted. Subclavian artery: Plaque visualized without evidence of hemodynamically significant stenosis. LEFT SIDE Common carotid artery: Plaque visualized without evidence of hemodynamically significant stenosis. Internal carotid artery: 40-59% stenosis. Vertebral artery: Patent and antegrade flow noted. CT SCAN: 02/08/19 CTA cardiac IMPRESSION: 1. 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 ?The remaining of the thoracic aorta is normal. ?Near circumferential calcifications of the aortic root is seen. There is no definite acute aortic pathology. 2. Diffuse severe coronary calcifications 3. Proximity of the cardiovascular structures to the sternum is detailed above. 4. Small bilateral pleural effusions with adjacent lower lobe atelectasis. Prior aspiration of contrast material is suspected as detailed in the body of the report. EC02/04/19 NORMAL SINUS RHYTHM POSSIBLE LEFT ATRIAL ENLARGEMENT INFERIOR MYOCARDIAL INFARCTION , AGE UNDETERMINED ST AND LATERAL T WAVE ABNORMALITY ABNORMAL ECG ECHO: 02/05/19 LEFT VENTRICLE The left ventricle is normal in size. Left ventricular systolic function is mildly decreased. Global LV myocardial strain is borderline abnormal. Grade I left ventricular diastolic dysfunction. Mitral annular lateral E/e': 10.4. Mitral annular septal E/e': 13.8. Wall Motion: The inferior?wall, posterior wall, and basal anterolateral segment are severely hypokinetic. The apical inferior segment and apex are mildly hypokinetic. All remaining scored segments are normal. ? ? RIGHT VENTRICLE The right ventricle is normal in size. Right ventricular systolic function is normal. RV systolic tissue Doppler velocity ?is 11.0 cm/s. Estimated right ventricular systolic pressure is 51 mmHg consistent with moderate pulmonary hypertension. Estimated right atrial pressure is 8 mmHg based on IVC assessment. ? LEFT ATRIUM The left atrial cavity is mildly dilated. Pulmonary Veins: The pulmonary venous pattern showed normal systolic flow. RIGHT ATRIUM The right atrial cavity is normal in size. Inferior Vena Cava: The inferior vena cava appears dilated measuring 2.2 cm. The vessel decreases greater than 50 percent with inspiration. MITRAL VALVE The mitral valve leaflets are structurally normal. There is trace (trace - 1+) mitral valve regurgitation. There is mild thickening. The pressure half time is 42 ?msec. The peak mitral E/A ratio is 1.06. The average mitral E/e' ratio is 12.1. The mitral flow deceleration time is 144 msec. ? TRICUSPID VALVE There is trace (trace - 1+) tricuspid valve regurgitation. There is no thickening. ? AORTIC VALVE There is no aortic valve regurgitation. Tricuspid aortic valve. There is mild thickening. There is mild calcification. The peak gradient is 7 mmHg (peak velocity = 133.3 cm/s). ? PULMONIC VALVE The pulmonic valve was not seen or not interrogated. There is trace pulmonic valve ?regurgitation. ? AORTA The visualized aorta is normal in size. Measurements - Sinus: 3.5 cm. Sinotubular junction 2.5 cm. Mid ascending aorta 3.4 ?cm. Mid arch 2.6 cm. PULMONARY ARTERIES The pulmonary arteries are unseen or not interrogated. ? INTERATRIAL SEPTUM There is no evidence of intracardiac shunting as detected by Doppler. ? INTERVENTRICULAR SEPTUM There is normal motion of the interventricular septum. ? PERICARDIUM There is no pericardial effusion. ? CONCLUSIONS: - Technically difficult exam due to body habitus and suboptimal positioning. - Exam indication: Evaluation of known heart failure to guide therapy - The left ventricle is normal in size. Left ventricular systolic function is mildly decreased. EF = 50 ? 5% (visual est.) Grade I left ventricular diastolic dysfunction. The mid inferolateral segment and basal inferior segment are severely ?hypokinetic. The anterolateral wall, basal inferolateral segment, and mid inferior segment are mildly hypokinetic. - The right ventricle is normal in size. Right ventricular systolic function is normal. - The left atrial cavity is mildly dilated. - Estimated right ventricular systolic pressure is 51 mmHg consistent with moderate pulmonary hypertension. Estimated right atrial pressure is 8 mmHg based on IVC assessment. - The patient has not had a prior CC echocardiographic exam for comparison. HEART CATHETERIZATION: performed at OSH PFT's: 02/08/19 Normal Spirometry DEVICES: none MEDICATIONS: Current Facility-Administered Medications: insulin lispro 8 Units injection (rapid acting) (HumaLOG) 8 Units SUBCUTANEOUS w MEALS insulin glargine 20 Units pen (long acting) (LANTUS SOLOSTAR, BASAGLAR KWIKPEN) 20 Units SUBCUTANEOUS AT BEDTIME acetaminophen 325-650 mg tab(s) (TYLENOL) 325-650 mg ORAL q 4 H PRN polyethylene glycol 3350 17 g packet (MIRALAX, GLYCOLAX) 17 g ORAL DAILY PRN melatonin 6 mg tab(s) 6 mg ORAL DAILY (8 PM) gabapentin 100 mg cap(s) (NEURONTIN) 100 mg ORAL AT BEDTIME atorvastatin 80 mg tab(s) (LIPITOR) 80 mg ORAL AT BEDTIME dextrose 40 % 15 g 15 g ORAL PRN Or glucagon 1 mg injection (GLUCAGEN) 1 mg INTRAMUSCULAR PRN Or dextrose 50 % 12.5 g injection 12.5 g INTRAVENOUS PRN aspirin 81 mg chewable tab(s) 81 mg ORAL DAILY heparin iv infusion (LOW DOSE ACS/NOMOGRAM) 25,000 units in NaCl 0.45% 250 mL PREMIX 0-3,000 Units/hr INTRAVENOUS CONTINUOUS And heparin RATE CHANGE bolus 1,000-4,000 Units for subtherapeutic aptt results 1,000-4,000 Units INTRAVENOUS PRN insulin lispro injection (rapid acting) (HumaLOG) SUBCUTANEOUS w MEALS AND HS metoprolol tartrate (short acting) 25 mg tab(s) (LOPRESSOR) 25 mg ORAL q 12 H Is the patient currently on any anticoagulant medications: Yes: Anticoagulant medications the patient is currently on: Aspirin: Last dose: currently ordered and heparin gtt This was adequately stopped before surgery: No, primary service aware. Additional Comments: none I have reviewed the Cardiothoracic Surgical Assessment and agree with its findings. During the course of the encounter the patient was prepared for anesthetic care. This conversation included anesthetic options, possible use of invasive monitoring, the risks, benefits, alternatives, and personnel that will be present for the anesthetic encounter. The patient agreed to proceed with the planned anesthetic. Instructed to take Metoprolol, ASA, gabapentin, lipitor, with a small sip of water on the morning of surgery. Use normal Basal insulin night before ANESTHESIA CONCERNS: None BETA DIGNA COMPLIANCE: Is the Patient Scheduled for a CABG: Yes. Patient currently takes a beta digna, and was asked to take it as scheduled. SIGNATURE: Mukesh Blankenship DO PATIENT NAME: Manpreet Avelar DATE: February 10, 2019 TIME: 10:16 AM PAGER/CONTACT #: [facility] PROGRESS HNO ID: [id number] Author: Nohemy Olivarez DO Service: Cardiovascular Medicine Author Type: Resident Type: Progress Notes Filed: 02/10/2019 7:20 AM Note Text: Attestation signed by Melba Salomon at 02/10/2019 12:40 PM [facility] STAFF PHYSICIAN NOTE OF PERSONAL INVOLVEMENT IN CARE I have reviewed the documentation obtained and documented by the resident Dr. Olivarez and have reviewed and updated the problem list as appropriate. I have personally performed a face to face assessment of the patient and have personally participated in the davies components. I have discussed the case and management of the patient's care. Impression: Mr. Avelar is a 63M with a medical history significant for T2 IDDM, psoriasis, presented to OS with NSTEMI, subsequent LHC revealed 3-vessel CAD and thus transferred here for surgical evaluation. ECG on 02/04/19 with inferolateral TWI. Active issues are as follows: NSTEMI 3-vessel CAD (LM: 50% distal stenosis, LAD: focal 80% stenosis at 1st septal skip tracer and D1, followed by tubular 60-70% stenosis), LCx: 70% ostial stenosis, 70% stenosis of large OM, RCA large and dominant with focal 80% stenosis in mid-distal vessel) HFrEF due to ICM, LVEF 50% on 02/05/19 with resting WMA: inferior, posterior, basal anterolateral segments severely hypokinetic, apical inferior and apex mildly hypokinetic Type 2 insulin-dependent diabetes Psoriasis, on humira Plan: - Remains pain free, ambulating - Awaiting CABG with Dr. Larsen, scheduled for Wednesday - Continue medical therapy (on aspirin, heparin gtt, metoprolol 25mg bid) STAFF PHYSICIAN: Melba Salomon MD, [facility] DATE OF SERVICE: 02/10/2019 [facility]IOLOGY PROGRESS NOTE PRIMARY SERVICE: Clinical Cardiology Johanna Manpreet Avelar [phone] HOSPITAL DAY: # 6 PLAN FOR TODAY: - Continue ASA, metoprolol, atorvastatin - Plan for CABG Wednesday - Encourage PO intake INTERVAL HISTORY - no acute events overnight, HDS - BP 100-110s/60s; HR 50s - Denies chest pain, SOB, N/V/D PHYSICAL EXAM BP 133/72 Pulse (!) 53 Temp 36.9 ?C (98.5 ?F) (Oral) Resp 20 Wt 79.9 kg (176 lb 1.6 oz) SpO2 97% Intake/Output Summary (Last 24 hours) at 02/10/2019 0720 Last data filed at 02/09/2019 1800 Gross per 24 hour Intake 352 ml Output ? Net 352 ml General appearance: Well appearing, no acute distress. Head: Normocephalic, atraumatic. Oropharynx: Oropharynx normal. Neck: No goiter, lymphadenopathy, or JVD. Lungs: Lungs clear to auscultation bilaterally. No wheezing, rhonchi, or rales. Heart: RRR without murmur, gallop, or rubs. Abdomen: Abdomen soft, non-tender, non-distended. BS present. Extremities: No edema. Peripheral pulses symmetric. Neuro: AANDOx3. No focal weakness or changes in sensation. MEDICATIONS Medications reviewed. DATA Labs reviewed. IMAGING No imaging to review. ASSESSMENT AND PLAN Manpreet Avelar is a 63 year old male with a history of T2DM, Hyperlipidemia who presents as an OSH transfer from [facility] for consideration of CABG following recent NSTEMI. ? #Multivessel CAD #NSTEMI - Presented w/ chest pain, EKG changes, elevated troponins consistent with NSTEMI at OSH - Risk factors include T2DM, HLD, prior smoking - [facility] noting 3 vessel disease (80% LAD, 70% LCx, 90-95% RCA) - OSH TTE noting: EF 40-45%, moderate inferior wall hypokinesis - EBEN score 3 = 13% risk at 14 days of: all-cause mortality, new or recurrent MA, or severe recurrent ischemia requiring urgent revascularization Plan - ASA 81 - Heparin gtt - Atorvastatin 80, Metoprolol tartrate 25 BID - Hold ticagrelor pending plan for CABG - CABG planning per CTS: aiming Thurs ? #T2DM - for ~20y - need to assess control, A1c 7.2 Plan - continue insulin aspart to 6units TID w meals - continue insulin degludec to 20U qhs - SSI AC/HS ? #Solid dysphagia - difficulty swallowing solids arianna dry foods, worsening over 1y - GI consult for dysphagia at [facility] - considering EGD w/ dilation Plan - OP GI follow up or OP EGD after CABG ? #Psoriasis - well controlled on q2wk humira Plan - unable to give humira inpatient ? #HLD - previously on rosuvastatin 5 - Lipid panel @ [facility] 02/01: TC 140, LDL 77, HDL 48 Plan - atorvastatin 80mg ? # Diet - Heart Healthy # VTE PPx - AC w/ heparin # Dispo Planning - TBD # Code Status - Full code confirmed w/ patient Case to be discussed with staff. Nohemy Olivarez DO Internal Medicine PGY-1 02/10/2019 6:47 AM For communication after 5 pm on weekdays and after 12 pm on weekends, please page the following: - Clinical Cardiology patients on all floors: page [phone] - Other Cardiology patients on J5 and J6: page [phone] - Other Cardiology patients on J7 and J8: page [phone] [facility] PTT,Anticoag Therapyon 02-10 aPTT Coag (Bld) [Time] 87.3 s High 23.0-32.4 Cl [facility] Comment on above: Result Comment: Unfr actionated Heparin Therapeutic Ranges: Standard Heparin Nomogram: 53 to 78 seconds (anti-Xa level of 0.3 to 0.7 U/ml) Low Dose/ACS Nomogram: 49 to 67 seconds (anti-Xa level of 0.2 to 0.5 U/ml) Stroke Treatment Nomogram: 49 to 67 seconds (anti-Xa level of 0.2 to 0.5 U/ml) Note: The APTT therapeutic range has been determined for the current lot of laboratory APTT reagent in use throughout the [facility]. Results may be inaccurate due to age of specimen. Performed By: #### C DONTA, SYLVIA #### [facility] [address] [place], [place] [address] aPTT Coag (Bld) [Time] 62.6 s High 23.0-32.4 [facility] Comment on above: Result Comment: Unfr actionated Heparin Therapeutic Ranges: Standard Heparin Nomogram: 53 to 78 seconds (anti-Xa level of 0.3 to 0.7 U/ml) Low Dose/ACS Nomogram: 49 to 67 seconds (anti-Xa level of 0.2 to 0.5 U/ml) Stroke Treatment Nomogram: 49 to 67 seconds (anti-Xa level of 0.2 to 0.5 U/ml) Note: The APTT therapeutic range has been determined for the current lot of laboratory APTT reagent in use throughout the [facility]. Performed By: #### C DONTA, SYLVIA #### [facility] [address] [place], [place] [address] aPTT Coag (Bld) [Time] 46.1 s High 23.0-32.4 [facility] Comment on above: Result Comment: Unfr actionated Heparin Therapeutic Ranges: Standard Heparin Nomogram: 53 to 78 seconds (anti-Xa level of 0.3 to 0.7 U/ml) Low Dose/ACS Nomogram: 49 to 67 seconds (anti-Xa level of 0.2 to 0.5 U/ml) Stroke Treatment Nomogram: 49 to 67 seconds (anti-Xa level of 0.2 to 0.5 U/ml) Note: The APTT therapeutic range has been determined for the current lot of laboratory APTT reagent in use throughout the [facility]. Results may be inaccurate due to age of specimen. Performed By: #### C BCDIF, PT, PTT, CMP, MG1, NTBNP #### [facility] [address] [place], [place] [address] THERAPY NTon 02-10-2019 THERAPY NT HNO ID: [id number] Author: Magdiel Condon/Isabelle Simpson Service: Occupational Therapy Author Type: Occupational Therapist Type: Therapy (PT/OT/Speech/Resp) Filed: 02/10/2019 7:24 AM Note Text: OCCUPATIONAL THERAPY MISSED VISIT SERVICE DATE: 02/10/2019 SERVICE TIME: 722 to 722 ROOM: [place] [address] Attempted Evaluation. Patient not seen due to Hold: Pre-operative Consult. SIGNATURE: MANISHA Pena/Brock PATIENT NAME: Manpreet Avelar DATE: February 10, 2019 TIME: 7:24 AM Normal [facility] Basic Metabolic Panlon 02-09 Anion gap [Moles/Vol] 13 mmol/L Normal 9-18 [facility] Comment on above: Performed By: #### C BCDIF, PT, PTT, CMP, MG1, NTBNP #### [facility] [address] [place], [place] [address] Calcium [Mass/Vol] 9.6 mg/dL Normal 8.5-10.2 [facility] Comment on above: Performed By: #### C BCDIF, PT, PTT, CMP, MG1, NTBNP #### [facility] [address] [place], [place] [address] Chloride [Moles/Vol] 102 mmol/L Normal 97-105 [facility] Comment on above: Performed By: #### C BCDIF, PT, PTT, CMP, MG1, NTBNP #### [facility] [address] [place], [place] [address] CO2 [Moles/Vol] 26 mmol/L Normal 22-30 [facility] Comment on above: Performed By: #### C BCDIF, PT, PTT, CMP, MG1, NTBNP #### [facility] [address] [place] [address] Creatinine [Mass/Vol] 1.31 mg/dL High 0.73-1.22 [facility] Comment on above: Performed By: #### C BCDIF, PT, PTT, CMP, MG1, NTBNP #### [facility] [address] [place] [address] eGFR- Amer. >60 Normal [facility] Comment on above: Performed By: #### C BCDIF, PT, PTT, CMP, MG1, NTBNP #### [facility] [address] [place] [address] GFR/1.73 sq M predicted among non-blacks MDRD (S/P/Bld) [Vol rate/Area] 55 . Normal [facility] Comment on above: Result Comment: eGFR (Estimated GFR) Units of measure: mL/min/1.73 meters squared eGFR is derived from the reexpressed MDRD Study equation using the following parameters: serum creatinine, age, gender and race. The creatinine assay has been calibrated to be traceable to IDMS. An eGFR <60 mL/min/1.73m2 for >3 months is consistent with chronic kidney disease. Refer to KDOQI guidelines for clinical interpretation. In patients with unstable renal function, e.g. those with acute kidney injury, the eGFR may not accurately reflect actual GFR. Performed By: #### C BCDIF, PT, PTT, CMP, MG1, NTBNP #### [facility] [address] [place] [id number] Glucose [Mass/Vol] 108 mg/dL High 74-99 [facility] Comment on above: Result Comment: The [place] [employer] (ADA) provides guidance for cutoff values for fasting glucose and random glucose. The ADA defines fasting as no caloric intake for at least 8 hours. Fasting plasma glucose results between 100 to 125 mg/dL indicate increased risk for diabetes (prediabetes). Fasting plasma glucose results greater than or equal to 126 mg/dL meet the criteria for diagnosis of diabetes. In the absence of unequivocal hyperglycemia, results should be confirmed by repeat testing. In a patient with classic symptoms of hyperglycemia or hyperglycemic crisis, random plasma glucose results greater than or equal to 200 mg/dL meet the criteria for diagnosis of diabetes. Reference: Standards of Medical Care in Diabetes 2016, [place]. Diabetes Care. 2016.39(Suppl 1). Performed By: #### C BCDIF, PT, PTT, CMP, MG1, NTBNP #### [facility] [address] [address] Potassium [Moles/Vol] 4.7 mmol/L Normal 3.7-5.1 [facility] Comment on above: Performed By: #### C BCDIF, PT, PTT, CMP, MG1, NTBNP #### [address] [address] Sodium [Moles/Vol] 141 mmol/L Normal 136-144 [facility] Comment on above: Performed By: #### C BCDIF, PT, PTT, CMP, MG1, NTBNP #### [address] [address] Urea nitrogen [Mass/Vol] 22 mg/dL Normal 9-24 [facility] Comment on above: Performed By: #### C BCDIF, PT, PTT, CMP, MG1, NTBNP #### [address] [address] CASE MANAGEMon 02-09-2019 CASE MANAGEM HNO ID: [id number] Author: Rosanna (Rn) ARLYN Navarro Service: Care Management Author Type: Registered Nurse Type: Care Mgt Progress Note Filed: 02/09/2019 12:17 PM Note Text: CARE MANAGEMENT PROGRESS NOTE SERVICE DATE: 02/09/2019 SERVICE TIME: 12:15 PM LOS: 5 days Needs Prior to Discharge: To Be Determined Pt awaiting CABG. Pt lives with spouse in one level living. 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 CM will re-assess for skilled needs post-operatively. SIGNATURE: Rosanna Navarro RN PATIENT NAME: Manpreet Avelar DATE: February 09, 2019 TIME: 12:16 PM PAGER/CONTACT #: [phone] [facility] CBCon 02-09-2019 Absolute nRBC <0.01 Normal <0.01 [facility] Comment on above: Performed By: #### C BCDIF, PT, PTT, CMP, MG1, NTBNP #### [address] [address] Erythrocyte distribution width (RBC) [Ratio] 12.8 % Normal 11.5-15.0 [facility] Comment on above: Performed By: #### C BCDIF, PT, PTT, CMP, MG1, NTBNP #### [address] [address] Hematocrit (Bld) [Volume fraction] 42.0 % Normal 39.0-51.0 [facility] Comment on above: Performed By: #### C BCDIF, PT, PTT, CMP, MG1, NTBNP #### [address] [address] Hemoglobin (Bld) [Mass/Vol] 14.2 g/dL Normal 13.0-17.0 [facility] Comment on above: Performed By: #### C BCDIF, PT, PTT, CMP, MG1, NTBNP #### [address] [place], [place] [address] MCH (RBC) [Entitic mass] 29.7 pG Normal 26.0-34.0 [facility] Comment on above: Performed By: #### C BCDIF, PT, PTT, CMP, MG1, NTBNP #### [address] [place], [place] [address] MCHC (RBC) [Mass/Vol] 33.8 g/dL Normal 30.5-36.0 [facility] Comment on above: Performed By: #### C BCDIF, PT, PTT, CMP, MG1, NTBNP #### [address] [address] MCV (RBC) [Entitic vol] 87.9 fL Normal 80.0-100.0 [facility] Comment on above: Performed By: #### C BCDIF, PT, PTT, CMP, MG1, NTBNP #### [address] [address] Platelet mean volume (Bld) [Entitic vol] 11.9 fL Normal 9.0-12.7 [facility] Comment on above: Performed By: #### C BCDIF, PT, PTT, CMP, MG1, NTBNP #### [address] [address] Platelets (Bld) [#/Vol] 181 10*3/uL Normal 150-400 [facility] Comment on above: Performed By: #### C BCDIF, PT, PTT, CMP, MG1, NTBNP #### [address] [address] RBC (Bld) [#/Vol] 4.78 10*6/uL Normal 4.20-6.00 [facility] Comment on above: Performed By: #### C BCDIF, PT, PTT, CMP, MG1, NTBNP #### [address] [address] WBC (Bld) [#/Vol] 7.89 10*3/uL Normal 3.70-11.00 [facility] Comment on above: Performed By: #### C BCDIF, PT, PTT, CMP, MG1, NTBNP #### [address] [address] CONSULT PROGon 02-09-2019 CONSULT PROG HNO ID: [id number] Author: Ivis Ramirez Service: Cardiac Surgery Author Type: Nurse Practitioner Type: Consult Progress Note Filed: 02/09/2019 9:45 PM Note Text: [facility] CONSULT PROGRESS NOTE Manpreet Avelar [id number] ASSESSMENT / RECOMMENDATIONS / PLAN:?63 y/o male with PMHx of Hypertension, DMII Recently dx NSTEMI 02/01/19 Reports noted chest discomfort pressure center of his chest/left side ribs--~ 1month ago; ?~ 2weeks ago decrease physical;?Tolerance/S OB while duck hunting in [employer]-not able to walk as far as normal;Chest discomfort on Wednesday prior to presenting to [facility] recommended revealed severe CAD lesions--tx to F further eval CTS consulted for CABG ? Per [facility]--C 02/02/19 significant for Outside coronary angiogram (personally reviewed, images on Syngo) Left main 50% distal stenosis LAD focal 80% stenosis at the origin of S1 and D1 followed by a tubular 60?70%. Mid to distal vessel without significant disease. Circumflex 70% ostial stenosis, 70% stenosis of large OM. RCA is large and dominant with a focal 80% stenosis in the mid to distal vessel or to the bifurcation OUTSTANDING: Formal review of [facility] Updated ABO (02/12/19) Discussed with Dr. Larsen 02/08/19--earliest OR date would be Wednesday02/13/2019--pending his review of pt's case ? PIs(R) Dom 79 (L)82 ? 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 ? Humira---LD 2 weeks ago-- Will ask if need to see Rheumatology/Derm re: dosing--psorasis----> >>>-discussed w/ Dr. Olivarez 02/09/19--- to consider Rheum consult Nasal swab 02/06/19--Negative UA 02/06/19-neg? ? PFTs: 02/08/19-->Kelly: 4.08(92.4)///3.03(80. 9) ratio:74(96.0) ? Vein/Mammary mapping/US Carotids/radial mapping completed 02/08/19 PFTs-- smoked ~ 2 years quit smoking over 40 years ago---- need PFT for baseline pulmonary status--completed 02/08/[address] Chest (ordered) ?Check for Ca+ in the aorta; chest anatomy-->completed-- almost Circumferenfial Ca+ of aortic root TSH TSH Date Value Ref Range Status 02/08/2019 5.010 (H) 0.270 - 4.200 uU/mL Final Free T3/Free T4--ordered ? DMII---CmiF5r--5.2-- high 250s--low 65--following OHS--earliest date--02/13/2019 ? SUBJECTIVE: INTERVAL HISTORY:?No acute events overnight ? PERTINENT REVIEW OF SYSTEMS:??? Currently?Denies any SOB,trouble breathing or hard to get a breath/Denies any increased effort to breath/take a breath Chest pain/pressure heaviness/tightness/n o jaw pain/or teeth pain/back pain/pressure or numbness; no ?scapula pain/ nausea; Denies any ?New Vision Changes, Nausea,Vomiting,Diarr hea, Last BM?2 days ago Denies any bleeding gums, Denies any blood in urine or stool Denies any Stroke, Mini Stroke, Seizures, Tremors or recent Neurological disorders/tremors Denies any radiation to chest; No hx of TB, no lung injury Denies any issues with Anesthesia--no malignant hyperthermia Denies any swallowing issues. Denies any esophageal dilation, no cirrhosis/hepatitis/e levated liver enzmyes No hx of MIs, rheumatic/scarlet fever;? Denies any hx of carpal tunnel, gout, wrist surgery, +Neuropathy in?feet Denies any hx??Raynauds syndrome Tolerating Diet (R)handed Last Dental > one year ago Surgeries Knee surgery x2;vasectomy, ? US ICA February 08, 2019 40-59% bilat ? Radial Mapping--February 08, 2019 (R)dom-->Compression of the radial artery compromises flow to the digits ? (L)Compression of the radial artery does not compromise flow to the digits ? CT CHEST February 08, 2019 IMPRESSION: 1. 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 ?The remaining of the thoracic aorta is normal. ?Near circumferential calcifications of the aortic root is seen. There is no definite acute aortic pathology. 2. Diffuse severe coronary calcifications 3. Proximity of the cardiovascular structures to the sternum is detailed above. 4. Small bilateral pleural effusions with adjacent lower lobe atelectasis. Prior aspiration of contrast material is suspected as detailed in the body of the report. [facility] PRE-OP CHECKLIST Surgeon: Alisia Larsen M.D. Informed Consent Completed: No STS Score: Procedure: Isolated CAB CALCULATE Risk of Mortality: 0.827% Renal Failure: 1.081% Permanent Stroke: 1.167% Prolonged Ventilation: 3.493% DSW Infection: 0.152% Reoperation: 1.744% Morbidity or Mortality: 6.181% Short Length of Stay: 61.105% Long Length of Stay: 2.189% CAD: Yes - CAD on Problem List: Yes Is intended procedure a CABG: Yes - is a beta digna ordered? Yes H AND P completed: Yes PA/LAT: Completed CT: Chest Completed MRI: NA LE US: N/A Cath: Yes OSH - reviewed: No EKG: Completed Is patient on Amiodarone? No Echo:Completed EF %: PI's: PIs(R) Dom 79 (L)82 Carotid: Completed Mapping: Completed Dental: N/A PFT's: Completed Recent Labs 02/09/19 0517 WBC 7.89 HB 14.2 HCT 42.0 PLT 181 CREAT 1.31* UA: Abnormal/Neg HCG:N/A ABO/ABO Confirmed: Yes ABO/RH(D) Date Value Ref Range Status 02/06/2019 A POSITIVE Final Blood ordered: No Willing to accept blood: Yes SA Swab: Yes - results: Negative Last Dose of Anticoagulation: Heparin Op Note: N/A Pacemaker Check: N/A Implants: no Consults: Rheumatology DM: Yes . Hemoglobin A1C (%) Date Value 02/04/2019 7.2 Cardiac Surgical prep: Yes SIGNATURE: Ivis Ramirez APRN.CNP DATE of SERVICE: 02/09/2019 TIME of SERVICE: 1:57 PM CHECKED BY: RE OBJECTIVE: MEDICATIONS: Current Facility-Administered Medications Medication Dose Route Frequency - acetaminophen 325-650 mg tab(s) (TYLENOL) 325-650 mg ORAL q 4 H PRN - polyethylene glycol 3350 17 g packet (MIRALAX, GLYCOLAX) 17 g ORAL DAILY PRN - melatonin 6 mg tab(s) 6 mg ORAL DAILY (8 PM) - gabapentin 100 mg cap(s) (NEURONTIN) 100 mg ORAL AT BEDTIME - atorvastatin 80 mg tab(s) (LIPITOR) 80 mg ORAL AT BEDTIME - dextrose 40 % 15 g 15 g ORAL PRN Or - glucagon 1 mg injection (GLUCAGEN) 1 mg INTRAMUSCULAR PRN Or - dextrose 50 % 12.5 g injection 12.5 g INTRAVENOUS PRN - aspirin 81 mg chewable tab(s) 81 mg ORAL DAILY - heparin iv infusion (LOW DOSE ACS/NOMOGRAM) 25,000 units in NaCl 0.45% 250 mL PREMIX 0-3,000 Units/hr INTRAVENOUS CONTINUOUS And - heparin RATE CHANGE bolus 1,000-4,000 Units for subtherapeutic aptt results 1,000-4,000 Units INTRAVENOUS PRN - insulin lispro injection (rapid acting) (HumaLOG) SUBCUTANEOUS w MEALS AND HS - metoprolol tartrate (short acting) 25 mg tab(s) (LOPRESSOR) 25 mg ORAL q 12 H - insulin glargine 20 Units pen (long acting) (LANTUS SOLOSTAR, BASAGLAR KWIKPEN) 20 Units SUBCUTANEOUS AT BEDTIME - insulin lispro 6 Units injection (rapid acting) (HumaLOG) 6 Units SUBCUTANEOUS w MEALS PHYSICAL EXAM: 02/09/19 0600 02/09/19 0800 02/09/19 1000 02/09/19 1055 BP: 114/65 101/54 101/54 Pulse: (!) 56 (!) 51 (!) 56 Resp: 18 16 19 Temp: 36.8 ?C (98.2 ?F) 37.2 ?C (99 ?F) 36.7 ?C (98 ?F) TempSrc: Oral Oral Oral SpO2: 96% 97% 96% Weight: 79.9 kg (176 lb 1.6 oz) General:?Stable appearing male in NAD noted AAOX 3. Skin:?skin intact; ? Head/Eyes: Sclera clear,?intact?conjunc tiva. EOMI. Mouth/Pharynx: Teeth: Fair dentition. No lesions. Neck: No JVD. Supple. Lungs:BBS essentially diminished throughout Heart: S1, S2.?Noted? Peripheral Vascular/Arteries: Carotid pulse?noted +2 bilat?DP/Radial pulses +2 bilat Abdomen: Soft abdomen, nontender, nondistended without mass.?+?bowel sounds. Musculoskeletal: No kyphoscoliosis.+ joint deformities. Extremities: No clubbing or cyanosis. No?LE?edema. Neurologic/Psychiatri c:?Stable affect. No gross focal neurologic deficits. ? Intake/Output Summary (Last 24 hours) at 02/09/2019 1322 Last data filed at 02/09/2019 1000 Gross per 24 hour Intake 592 ml Output ? Net 592 ml DATA: Laboratory: Recent Labs 02/09/19 0517 02/08/19 0827 02/07/19 0354 WBC 7.89 8.12 8.58 HB 14.2 14.5 14.0 HCT 42.0 42.6 41.0 PLT 181 185 188 NA 141 137 142 K 4.7 5.1 3.9 CHLOR 102 101 106* CO2 26 26 24 BUN 22 17 18 CREAT 1.31* 1.21 1.18 GLUC 108* 209* 62* ] ] Case discussed with CTS Project Archivist; Dr. Nohemy Menezes SIGNATURE: Ivis Ramirez APRN.CNP PHONE: [phone] DATE of SERVICE: 02/09/2019 TIME of SERVICE: 1405 Informed patient what to expect pre/post operatively: Your surgery and recovery will take place in the [facility] ([facility] Your Heart Surgery (Cardiac ORs) is on the 4th floor of the [facility], ICUs/ Postop floors are on 5 and 6th floors of the [facility] ([facility]). Although your surgery has been scheduled for tomorrow (or a specific date)-unfortunately there is always a chance that it may be cancel due to an emergency/emergent case in the OR--(for example a heart/lung transplant or an aortic dissection). If you have family that will be here with you on the day of your surgery, during your surgery, your family will wait in -2 -which is the Cardiac Surgery waiting area on the first floor of the [facility] ([facility]). One of your family members will need to sign in and get a pager so that your family member(s) can be notified when your surgery has started and when it is almost over. The surgical ICUs are on the 5th and 6 th floors of the [facility] ([facility])--it is open visitation---no set times to visit-however, your family member will need to call into the nurses station to make sure it is an appropriate time to visit. You will be NPO after 12 am [place] night prior to OHS You will need to take 2 showers night prior to your surgery and the 2 showers morning of your surgery--1st of the 2 showers-will be as if you are taking a shower at home--no ekg electrodes; shower-wash face to feet. Your second shower will be approximately just minutes after your first shower and you will use the antibacterial soap (or wipes if not possible for you to shower). You will wash from your neck to your feet--please wash both sides of your neck, your chest, both groins but not your private area, legs and feet. During your surgical prep after you have arrived in the surgical prep area on the 4th Floor of the [facility]; IV lines will be place in your arms, large bore (Internal jugular IV in your neck to give you IV fluids during your surgery; arterial line to monitor your blood pressure (may be placed in your radial area (wrist area), brachial (anticubical area) or groin area. If you are connected to the bypass machine during surgery, you may have an incision at your chest (below your clavicle) or groin to connect you to the bypass machine; you will have temporary pacer wires (if you do not have an ICD or permanent pacemaker) -to paced you out of an abnormal or fast heart rhythm if needed-wires will be cut or pulled depending on how they are placed during your surgery; you will have one or more chest tubes to be determine at the time of surgery--the amount of time the chest tubes will be in your chest will be determine by your drainage from your chest tube; you will have a barakat catheter placed in your place in your bladder--you can asked for the barakat catheter to be place after you are asleep. You will be given General Anesthesia (be put totally asleep) during your surgery and placee on a Ventilator (breathing machine ). Your stay in the ICU and on the postop floors will depend on how well your progress/recovery from surgery.is going. Stressed to patient the importance of pain control for successful recovery: Stressed the importance of Stool softners-good bowel regimen to prevent constipation after surgery. INFORMED OF IMPORTANCE OF GOOD PAIN [id number]-yx k for pain medication early when pain level is 3/0-10Informed patient (and family) what to expect pre/post operatively IMPORTANCE OF PAIN [id number] k for pain medication early, take pain medication routinely to have adquate pain control to prevent postop complications ie Pneumonia, Deep Vein Thrombosis, Delayed Wound Healing, Longer Hospital Stay. Explained importance of Deep Breathing/Coughing before and after surgery pain scale, take pain medication routinely to have adquate pain control to prevent postop complications for example, Pneumonia, Deep Vein Thrombosis, Delayed Wound Healing, Longer Hospital Stay. Explained the importance of Bowel Maintenance-taking stool softners (or laxatives if indicated) to maintain regular bowel movements while on pain medication. Informed of benefits of adequate pain control- taking pain medication when pain level is -ask for pain medication; Inform pt may want to ask for pain medication around the clock/routinely on first postop Day on Regular Nursing Floor- thereby promoting recovery;-able to breathe deeply and adequately thus decrease Oxygen requirements of body, Able to walk, get out of bed- thereby decrease recovery time and decreased risk for infection. Discussed Chest Protection: NO HEAVY LIFTING nothing heaving than 5-10 pounds for 6 -8 weeks to ensure proper healing of sternum. Explained importance of Deep Breathing/Coughing before and after surgery Instructed in breathing exercises-deep breaths 10 times/hour while awake. Pt verbalized understanding and demostrated understanding via return demonstration. Discussed discharged plans-informed patient , a Cardiac Surgery Nurse Practitioner visit is recommended within 3-7 days after being discharged if lived in near [place], [place] area or within [address] of [place], [place]. Discussed with Patient (Family) will need to see their PCP (within 1st week of discharge from [facility]) and Automatic Toe Laster (4-6 weeks after discharge from [facility]) following discharged- specific time frames for postop visits for Cardiac Surgery Nurse Practitioner, PCP and Automatic Toe Laster will be discussed at time of discharged. Patient (Family) Verbalized understanding. [facility] PROGRESSon 02-09-2019 PROGRESS HNO ID: [id number] Author: Nohemy Olivarez DO Service: Cardiovascular Medicine Author Type: Resident Type: Progress Notes Filed: 02/09/2019 6:51 AM Note Text: Attestation signed by Melba Salomon at 02/09/2019 11:39 AM [facility] STAFF PHYSICIAN NOTE OF PERSONAL INVOLVEMENT IN CARE I have reviewed the documentation obtained and documented by the resident Dr. Olivarez and have reviewed and updated the problem list as appropriate. I have personally performed a face to face assessment of the patient and have personally participated in the davies components. I have discussed the case and management of the patient's care. Impression: Mr. Avelar is a 63M with a medical history significant for T2 IDDM, psoriasis, presented to OSH with NSTEMI, subsequent LHC revealed 3-vessel CAD and thus transferred here for surgical evaluation. ECG on 02/04/19 with inferolateral TWI. Active issues are as follows: NSTEMI 3-vessel CAD (LM: 50% distal stenosis, LAD: focal 80% stenosis at 1st septal skip tracer and D1, followed by tubular 60-70% stenosis), LCx: 70% ostial stenosis, 70% stenosis of large OM, RCA large and dominant with focal 80% stenosis in mid-distal vessel) HFrEF due to ICM, LVEF 50% on 02/05/19 with resting WMA: inferior, posterior, basal anterolateral segments severely hypokinetic, apical inferior and apex mildly hypokinetic Type 2 insulin-dependent diabetes Psoriasis, on humira Plan: - Awaiting CABG with Dr. Larsen, scheduled for Wednesday - Continue medical therapy (on aspirin, heparin gtt, metoprolol 25mg bid) STAFF PHYSICIAN: Melba Salomon MD, [facility] DATE OF SERVICE: 02/09/2019 [facility] CLINICAL CARDIOLOGY PROGRESS NOTE PRIMARY SERVICE: Clinical Cardiology B Manpreet Avelar [id number] HOSPITAL DAY: # 5 PLAN FOR TODAY: - Continue ASA, metoprolol, atorvastatin - Plan for CABG Wednesday INTERVAL HISTORY - no acute events overnight, HDS - BP 100-110s/60s; HR 50s - Denies chest pain, SOB, N/V/D PHYSICAL EXAM BP 114/65 Pulse (!) 56 Temp 36.8 ?C (98.2 ?F) (Oral) Resp 18 Wt 80.3 kg (177 lb) SpO2 96% Intake/Output Summary (Last 24 hours) at 02/09/2019 0649 Last data filed at 02/09/2019 0600 Gross per 24 hour Intake 830 ml Output ? Net 830 ml General appearance: Well appearing, no acute distress. Head: Normocephalic, atraumatic. Oropharynx: Oropharynx normal. Neck: No goiter, lymphadenopathy, or JVD. Lungs: Lungs clear to auscultation bilaterally. No wheezing, rhonchi, or rales. Heart: RRR without murmur, gallop, or rubs. Abdomen: Abdomen soft, non-tender, non-distended. BS present. Extremities: No edema. Peripheral pulses symmetric. Neuro: AANDOx3. No focal weakness or changes in sensation. MEDICATIONS Medications reviewed. DATA Labs reviewed. IMAGING No imaging to review. ASSESSMENT AND PLAN Manpreet Avelar is a 63 year old male with a history of T2DM, Hyperlipidemia who presents as an OSH transfer from [facility] for consideration of CABG following recent NSTEMI. ? #Multivessel CAD #NSTEMI - Presented w/ chest pain, EKG changes, elevated troponins consistent with NSTEMI at OSH - Risk factors include T2DM, HLD, prior smoking - [facility] noting 3 vessel disease (80% LAD, 70% LCx, 90-95% RCA) - OSH TTE noting: EF 40-45%, moderate inferior wall hypokinesis - EBEN score 3 = 13% risk at 14 days of: all-cause mortality, new or recurrent MA, or severe recurrent ischemia requiring urgent revascularization Plan - ASA 81 - Heparin gtt - Atorvastatin 80, Metoprolol tartrate 25 BID - Hold ticagrelor pending plan for CABG - CABG planning per CTS: aiming Thurs ? #T2DM - for ~20y - need to assess control, A1c 7.2 Plan - continue insulin aspart to 6units TID w meals - continue insulin degludec to 20U qhs - SSI AC/HS ? #Solid dysphagia - difficulty swallowing solids arianna dry foods, worsening over 1y - GI consult for dysphagia at [facility] - considering EGD w/ dilation Plan - OP GI follow up or OP EGD after CABG ? #Psoriasis - well controlled on q2wk humira Plan - unable to give humira inpatient ? #HLD - previously on rosuvastatin 5 - Lipid panel @ [facility] 02/01: TC 140, LDL 77, HDL 48 Plan - atorvastatin 80mg ? # Diet - Heart Healthy # VTE PPx - AC w/ heparin # Dispo Planning - TBD # Code Status - Full code confirmed w/ patient Case to be discussed with staff. Nohemy Olivarez, DO Internal Medicine PGY-1 02/09/2019 6:47 AM For communication after 5 pm on weekdays and after 12 pm on weekends, please page the following: - Clinical Cardiology patients on all floors: page [phone] - Other Cardiology patients on J5 and J6: page [phone] - Other Cardiology patients on J7 and J8: page [phone] [facility] PTT,Anticoag Therapyon 02-09 aPTT Coag (Bld) [Time] 46.1 s High 23.0-32.4 Cl [facility] Comment on above: Result Comment: Unfr actionated Heparin Therapeutic Ranges: Standard Heparin Nomogram: 53 to 78 seconds (anti-Xa level of 0.3 to 0.7 U/ml) Low Dose/ACS Nomogram: 49 to 67 seconds (anti-Xa level of 0.2 to 0.5 U/ml) Stroke Treatment Nomogram: 49 to 67 seconds (anti-Xa level of 0.2 to 0.5 U/ml) Note: The APTT therapeutic range has been determined for the current lot of laboratory APTT reagent in use throughout the [facility]. Results may be inaccurate due to age of specimen. Performed By: #### C BCDIF, PT, PTT, CMP, MG1, NTBNP #### [facility] [address] [place], [place] [address] aPTT Coag (Bld) [Time] 51.8 s High 23.0-32.4 [facility] Comment on above: Result Comment: Unfr actionated Heparin Therapeutic Ranges: Standard Heparin Nomogram: 53 to 78 seconds (anti-Xa level of 0.3 to 0.7 U/ml) Low Dose/ACS Nomogram: 49 to 67 seconds (anti-Xa level of 0.2 to 0.5 U/ml) Stroke Treatment Nomogram: 49 to 67 seconds (anti-Xa level of 0.2 to 0.5 U/ml) Note: The APTT therapeutic range has been determined for the current lot of laboratory APTT reagent in use throughout the [facility]. Performed By: #### C BCDIF, PT, PTT, CMP, MG1, NTBNP #### [facility] [address] [place], [place] [address] aPTT Coag (Bld) [Time] 74.9 s High 23.0-32.4 [facility] Comment on above: Result Comment: Unfr actionated Heparin Therapeutic Ranges: Standard Heparin Nomogram: 53 to 78 seconds (anti-Xa level of 0.3 to 0.7 U/ml) Low Dose/ACS Nomogram: 49 to 67 seconds (anti-Xa level of 0.2 to 0.5 U/ml) Stroke Treatment Nomogram: 49 to 67 seconds (anti-Xa level of 0.2 to 0.5 U/ml) Note: The APTT therapeutic range has been determined for the current lot of laboratory APTT reagent in use throughout the [facility]. Results may be inaccurate due to age of specimen. Performed By: #### C BCDIF, PT, PTT, CMP, MG1, NTBNP #### [facility] [address] [place], [place] [address] aPTT Coag (Bld) [Time] 59.7 s High 23.0-32.4 [facility] Comment on above: Result Comment: Unfr actionated Heparin Therapeutic Ranges: Standard Heparin Nomogram: 53 to 78 seconds (anti-Xa level of 0.3 to 0.7 U/ml) Low Dose/ACS Nomogram: 49 to 67 seconds (anti-Xa level of 0.2 to 0.5 U/ml) Stroke Treatment Nomogram: 49 to 67 seconds (anti-Xa level of 0.2 to 0.5 U/ml) Note: The APTT therapeutic range has been determined for the current lot of laboratory APTT reagent in use throughout the [facility]. Results may be inaccurate due to age of specimen. Performed By: #### C BCDIF, PT, PTT, CMP, MG1, NTBNP #### [facility] [address] [place], [place] [address] Basic Metabolic Panlon 02-08 Anion gap [Moles/Vol] 10 mmol/L Normal 9-18 [facility] Comment on above: Performed By: #### C BCDIF, PT, PTT, CMP, MG1, NTBNP #### [place] [address] [place], [place] [address] Calcium [Mass/Vol] 9.1 mg/dL Normal 8.5-10.2 [facility] Comment on above: Performed By: #### C BCDIF, PT, PTT, CMP, MG1, NTBNP #### [facility] [address] [place], [place] [address] Chloride [Moles/Vol] 101 mmol/L Normal 97-105 [facility] Comment on above: Performed By: #### C BCDIF, PT, PTT, CMP, MG1, NTBNP #### [place] [address] [place], [place] [address] CO2 [Moles/Vol] 26 mmol/L Normal 22-30 [facility] Comment on above: Performed By: #### C BCDIF, PT, PTT, CMP, MG1, NTBNP #### [address] [place], [place] [address] Creatinine [Mass/Vol] 1.21 mg/dL Normal 0.73-1.22 [facility] Comment on above: Performed By: #### C BCDIF, PT, PTT, CMP, MG1, NTBNP #### [facility] [address] [place], [place] [address] eGFR- Amer. >60 Normal [facility] Comment on above: Performed By: #### C BCDIF, PT, PTT, CMP, MG1, NTBNP #### [facility] [address] [place] [address] GFR/1.73 sq M predicted among non-blacks MDRD (S/P/Bld) [Vol rate/Area] mL/min/{1.73_m2} Normal [facility] Comment on above: Result Comment: eGFR (Estimated GFR) Units of measure: mL/min/1.73 meters squared eGFR is derived from the reexpressed MDRD Study equation using the following parameters: serum creatinine, age, gender and race. The creatinine assay has been calibrated to be traceable to IDMS. An eGFR <60 mL/min/1.73m2 for >3 months is consistent with chronic kidney disease. Refer to KDOQI guidelines for clinical interpretation. In patients with unstable renal function, e.g. those with acute kidney injury, the eGFR may not accurately reflect actual GFR. Performed By: #### C BCDIF, PT, PTT, CMP, MG1, NTBNP #### [facility] [address] [place], [place] [id number] Glucose [Mass/Vol] 209 mg/dL High 74-99 [facility] Comment on above: Result Comment: The [place] Diabetes Association (ADA) provides guidance for cutoff values for fasting glucose and random glucose. The ADA defines fasting as no caloric intake for at least 8 hours. Fasting plasma glucose results between 100 to 125 mg/dL indicate increased risk for diabetes (prediabetes). Fasting plasma glucose results greater than or equal to 126 mg/dL meet the criteria for diagnosis of diabetes. In the absence of unequivocal hyperglycemia, results should be confirmed by repeat testing. In a patient with classic symptoms of hyperglycemia or hyperglycemic crisis, random plasma glucose results greater than or equal to 200 mg/dL meet the criteria for diagnosis of diabetes. Reference: Standards of Medical Care in Diabetes 2016, [place] Diabetes Association. Diabetes Care. 2016.39(Suppl 1). Performed By: #### C BCDIF, PT, PTT, CMP, MG1, NTBNP #### [place] [address] [place] [address] Potassium [Moles/Vol] 5.1 mmol/L Normal 3.7-5.1 [facility] Comment on above: Performed By: #### C BCDIF, PT, PTT, CMP, MG1, NTBNP #### [place] [address] Sodium [Moles/Vol] 137 mmol/L Normal 136-144 [facility] Comment on above: Performed By: #### C BCDIF, PT, PTT, CMP, MG1, NTBNP #### [place] [address] Urea nitrogen [Mass/Vol] 17 mg/dL Normal 9-24 [facility] Comment on above: Performed By: #### C BCDIF, PT, PTT, CMP, MG1, NTBNP #### [place] [address] CBCon 02-08-2019 Absolute nRBC <0.01 Normal <0.01 [facility] Comment on above: Performed By: #### C BCDIF, PT, PTT, CMP, MG1, NTBNP #### [place] [address] Erythrocyte distribution width (RBC) [Ratio] 12.7 % Normal 11.5-15.0 [facility] Comment on above: Performed By: #### C BCDIF, PT, PTT, CMP, MG1, NTBNP #### [address] [place], [place] [address] Hematocrit (Bld) [Volume fraction] 42.6 % Normal 39.0-51.0 [facility] Comment on above: Performed By: #### C BCDIF, PT, PTT, CMP, MG1, NTBNP #### [address] [address] Hemoglobin (Bld) [Mass/Vol] 14.5 g/dL Normal 13.0-17.0 [facility] Comment on above: Performed By: #### C BCDIF, PT, PTT, CMP, MG1, NTBNP #### [place] [address] MCH (RBC) [Entitic mass] 29.8 pG Normal 26.0-34.0 [facility] Comment on above: Performed By: #### C BCDIF, PT, PTT, CMP, MG1, NTBNP #### [place] [address] MCHC (RBC) [Mass/Vol] 34.0 g/dL Normal 30.5-36.0 [facility] Comment on above: Performed By: #### C BCDIF, PT, PTT, CMP, MG1, NTBNP #### [address] [address] MCV (RBC) [Entitic vol] 87.7 fL Normal 80.0-100.0 [facility] Comment on above: Performed By: #### C BCDIF, PT, PTT, CMP, MG1, NTBNP #### [place] [address] Platelet mean volume (Bld) [Entitic vol] 11.8 fL Normal 9.0-12.7 [facility] Comment on above: Performed By: #### C BCDIF, PT, PTT, CMP, MG1, NTBNP #### [place] [address] [place] [address] Platelets (Bld) [#/Vol] 185 10*3/uL Normal 150-400 [facility] Comment on above: Performed By: #### C BCDIF, PT, PTT, CMP, MG1, NTBNP #### [facility] [address] [place] [address] RBC (Bld) [#/Vol] 4.86 10*6/uL Normal 4.20-6.00 [facility] Comment on above: Performed By: #### C BCDIF, PT, PTT, CMP, MG1, NTBNP #### [place] [address] [place] [address] WBC (Bld) [#/Vol] 8.12 10*3/uL Normal 3.70-11.00 [facility] Comment on above: Performed By: #### C BCDIF, PT, PTT, CMP, MG1, NTBNP #### [place] [address] [place] [id number] Cynthia 02-08-2019 CNOV Office Visit ([facility] ) MANPREET AVELAR ([id number]) 1955 M Date Time Provider Department 02/08/19 11:00 AM P[facility] J-2 [facility] During your visit today, we recorded the following information about you: Referring Provider: IVIS RAMIREZ [[id number]] Allergies As of Date: 02/08/2019 (No Known Allergies) Date Reviewed: 02/08/2019 Reviewed by: Nohelia (Rn) Jb Bolivar RN - Fully Assessed Reason for Visit: Spirometry [191] Primary Visit Diagnosis:Dyspnea, unspecified type [R06.00] Prescriptions as of 02/08/2019 Sig: HUMIRA(CF) PEN 40 MG/0.4 ML S* Inject 40 mg subcutaneously e* ROSUVASTATIN 5 MG TABLET Take 5 mg by mouth once daily. GABAPENTIN 100 MG CAPSULE Take 100 mg by mouth daily at* INSULIN ASPART (U-100) 100 UN* Inject 8 Units subcutaneously* INSULIN ASPART (U-100) 100 UN* Inject 11 Units subcutaneousl* INSULIN ASPART (U-100) 100 UN* Inject 11 Units subcutaneousl* INSULIN DEGLUDEC (U-100) 100 * Inject 25 Units subcutaneousl* Problem List As Of Date 02/08/2019 Noted Resolved CAD (coronary artery disease) [I25.10] INVALID FOR* Encounter Status:Closed by HORACIO OSEGUERA on 02/08/19 [facility] CONSULT PROGon 02-08-2019 CONSULT PROG HNO ID: [id number] Author: Ivis Ramirez Service: Cardiac Surgery Author Type: Nurse Practitioner Type: Consult Progress Note Filed: 02/08/2019 8:36 PM Note Text: [facility] CON[facility] PROGRESS NOTE Manpreet Avelar [id number] ASSESSMENT / RECOMMENDATIONS / PLAN: 63 y/o male with PMHx of Hypertension, DMII Recently dx NSTEMI 02/01/19 [facility] recommended revealed severe CAD lesions--tx to [facility] further eval CTS consulted for CABG ? OUTSTANDING: [facility] Updated ABO Discussed with Dr. 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 Humira---LD 2 weeks ago-- Will ask if need to see Rheumatology/Derm re: dosing--psorasis Nasal swab 02/06/19--Negative UA 02/06/19-neg ? Kelly: 4.08(92.4)//3.03(80.9 ) ratio:74(96.0) 02/08/19 Vein/Mammary mapping/US Carotids/radial mapping completed PFTs-- smoked ~ 2 years quit smoking over 40 years ago---- need PFT for baseline pulmonary status--completed [place] CT Chest (ordered) Check for Ca+ in the aorta; chest anatomy TSH panel completed NO CONFIRMED OR Date when I got report from CTS Project Archivist-today ? DMII---CwkO8x--8.2() BS on avg <160s; x3 over 150 x1 over 2 ? SUBJECTIVE: INTERVAL HISTORY: No acute events overnight ? PERTINENT REVIEW OF SYSTEMS: Reports noted chest discomfort pressure center of his chest/left side ribs--~ 1month ago; ~ 2weeks ago decrease physical Tolerance/SOB while duck hunting in [employer]-not able to walk as far as normal Chest discomfort on Wednesday ? Currently Denies any SOB,trouble breathing or hard to get a breath/Denies any increased effort to breath/take a breath Chest pain/pressure heaviness/tightness/n o jaw pain/or teeth pain/back pain/pressure or numbness; no scapula pain/ nausea; Denies any New Vision Changes, Nausea,Vomiting,Diarr hea, Last BM 2 days ago Denies any bleeding gums, Denies any blood in urine or stool Denies any Stroke, Mini Stroke, Seizures, Tremors or recent Neurological disorders/tremors Denies any radiation to chest; No hx of TB, no lung injury Denies any issues with Anesthesia--no malignant hyperthermia Denies any swallowing issues. Denies any esophageal dilation, no cirrhosis/hepatitis/e levated liver enzmyes No hx of MIs, rheumatic/scarlet fever; Denies any hx of carpal tunnel, gout, wrist surgery, Neuropathy in feet Denies any hx Raynauds syndrome Tolerating Diet (R)handed Last Dental > one year ago Surgeries Knee surgery x2; ? US ICA February 08, 2019 40-59% bilat Radial Mapping--February 08, 2019 (R)dom-->Compression of the radial artery compromises flow to the digits (L)Compression of the radial artery does not compromise flow to the digits CT CHEST February 08, 2019 IMPRESSION: 1. 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 ?The remaining of the thoracic aorta is normal. ?Near circumferential calcifications of the aortic root is seen. There is no definite acute aortic pathology. 2. Diffuse severe coronary calcifications 3. Proximity of the cardiovascular structures to the sternum is detailed above. 4. Small bilateral pleural effusions with adjacent lower lobe atelectasis. Prior aspiration of contrast material is suspected as detailed in the body of the report. OBJECTIVE: MEDICATIONS: Current Facility-Administered Medications Medication Dose Route Frequency - acetaminophen 325-650 mg tab(s) (TYLENOL) 325-650 mg ORAL q 4 H PRN - polyethylene glycol 3350 17 g packet (MIRALAX, GLYCOLAX) 17 g ORAL DAILY PRN - melatonin 6 mg tab(s) 6 mg ORAL DAILY (8 PM) - gabapentin 100 mg cap(s) (NEURONTIN) 100 mg ORAL AT BEDTIME - atorvastatin 80 mg tab(s) (LIPITOR) 80 mg ORAL AT BEDTIME - dextrose 40 % 15 g 15 g ORAL PRN Or - glucagon 1 mg injection (GLUCAGEN) 1 mg INTRAMUSCULAR PRN Or - dextrose 50 % 12.5 g injection 12.5 g INTRAVENOUS PRN - aspirin 81 mg chewable tab(s) 81 mg ORAL DAILY - heparin iv infusion (LOW DOSE ACS/NOMOGRAM) 25,000 units in NaCl 0.45% 250 mL PREMIX 0-3,000 Units/hr INTRAVENOUS CONTINUOUS And - heparin RATE CHANGE bolus 1,000-4,000 Units for subtherapeutic aptt results 1,000-4,000 Units INTRAVENOUS PRN - insulin lispro injection (rapid acting) (HumaLOG) SUBCUTANEOUS w MEALS AND HS - metoprolol tartrate (short acting) 25 mg tab(s) (LOPRESSOR) 25 mg ORAL q 12 H - perflutren lipid microspheres 1.1 mg/mL 1.3 mL injection (DEFINITY) 1.3 mL INTRAVENOUS DIRECTED PRN - insulin glargine 20 Units pen (long acting) (LANTUS SOLOSTAR, BASAGLAR KWIKPEN) 20 Units SUBCUTANEOUS AT BEDTIME - insulin lispro 6 Units injection (rapid acting) (HumaLOG) 6 Units SUBCUTANEOUS w MEALS - pneumococcal vaccine 23 VALENT 0.5 mL injection (PNEUMOVAX) 0.5 mL INTRAMUSCULAR ONCE (IMMUNIZATION) PHYSICAL EXAM: 02/08/19 0556 02/08/19 0800 02/08/19 0942 02/08/19 1410 BP: 126/70 124/65 145/72 Pulse: (!) 54 (!) 59 (!) 59 Resp: 18 18 18 Temp: 36.6 ?C (97.8 ?F) 37.2 ?C (99 ?F) 37 ?C (98.6 ?F) TempSrc: Oral Oral Oral SpO2: 97% 96% 97% Weight: 80.3 kg (177 lb) General: Stable appearing male in NAD noted AAOX 3. Skin: skin intact; (R)groin [facility] site w/out incident-area soft- Head/Eyes: Sclera clear, intact conjunctiva. EOMI. Mouth/Pharynx: Teeth: Fair dentition. No lesions. Neck: No JVD. Supple. Lungs:BBS essentially diminished throughout Heart: S1, S2. Noted Peripheral Vascular/Arteries: Carotid pulse noted +2 bilat DP/Radial pulses +2 bilat Abdomen: Soft abdomen, nontender, nondistended without mass. + bowel sounds. Musculoskeletal: No kyphoscoliosis. No joint deformities. Extremities: No clubbing or cyanosis. No LE edema. Neurologic/Psychiatri c: Stable affect. No gross focal neurologic deficits. Intake/Output Summary (Last 24 hours) at 02/08/2019 1453 Last data filed at 02/08/2019 1300 Gross per 24 hour Intake 982 ml Output ? Net 982 ml DATA: Laboratory: Recent Labs 02/08/19 0827 02/07/19 0354 02/06/19 0431 WBC 8.12 8.58 8.07 HB 14.5 14.0 14.5 HCT 42.6 41.0 41.2 PLT 185 188 177 NA 137 142 142 K 5.1 3.9 3.6* CHLOR 101 106* 105 CO2 26 24 24 BUN 17 18 17 CREAT 1.21 1.18 1.15 GLUC 209* 62* 57* ] ] Case discussed with [facility] Project Archivist SIGNATURE: Ivis Ramirez APRN.FIRE RANGE TECHNICIAN [facility] [phone] DATE of SERVICE: 02/08/2019 TIME of SERVICE: 1345 For further questions or If no answer to above pager after 5:30 pm, Please contact CTS office @ [phone] or pgr:[phone]; or CTS Fellow biofuels plant operations engineer @ pgr:[phone] for Emergency/Emergent changes in pt's status. THANK YOU [facility] CT CHEST CARDIAC WO IVCONon 02-08-2019 CT CHEST CARDIAC WO IVCON * * *Final Report* * * DATE OF EXAM: Feb 08 2019 9:16AM [facility] 2056 - CT CHEST CARDIAC WO IVCON / PROCEDURE REASON: CAD eval, asymptomatic, family hx * * * * Physician Interpretation * * * * CT of the chest dated 02/08/2019 9:16 AM Comparison: None. History: 63 years old Male with CAD, here for preoperative evaluation. Technique: Multi-detector CT technology was employed (Somatom Definition + scanner). Axial, sequential imaging with prospective gating was performed of the chest without intravenous administration of contrast material at the request of the referring physician. CT Dose-Length Product (DLP): [address] Dose Reduction Employed: Yes For optimization of anatomic evaluation, advanced off-line postprocessing (including thin and thick MIPs, thin and thick MPRs, and curved MPRs) were performed on a dedicated stand-alone workstation under the direct supervision of the interpreting physician. RESULT: Potential study limitations: None. CHEST: The chest wall is notable for symmetric gynecomastia. There is no significant adenopathy noted in the axillae, mediastinum, and sally. There is no substantial pericardial thickening or effusion. The pulmonary arteries appear normal as best can be assessed on a noncontrast examination. Lower esophagus is mildly thickened, which may be related to under distention or reflux disease. Lung windows reveal small bilateral pleural effusions with adjacent lower lobe atelectasis. Central airways are widely patent. There is mild diffuse bronchial wall thickening, which is more evident in both lower lobes. Predominantly right lung subpleural branching high density/calcification s are seen within the right middle lobe, lateral aspect of the right lower lobe, and within the right base atelectasis/consolida tion. Given the asymmetry and the subpleural and dependent predominant distribution, prior aspiration of oral contrast/dense material is suspected. The cardiac chamber sizes appear normal except for mild left atrial enlargement. The coronary arteries have normal origins and courses. There are diffuse severe coronary calcifications identified, though this study was not optimized for coronary artery evaluation. Aortic valve morphology cannot be assessed on this noncontrast examination and free of significant calcification. There is mild to moderate ectasia of the aortic root. The remaining of the thoracic aorta is normal in course, caliber, and contour. There is no definite acute aortic pathology, such as dissection, intramural hematoma, or contained rupture, though assessment is limited without intravenous contrast administration. The arch vessel branching pattern is normal. Near circumferential calcifications of the aortic root is seen. Additional minimal calcifications also seen within the ascending thoracic aorta. Mild calcifications are scattered throughout the aortic arch and descending thoracic aorta. Market Research Interviewer dimensions of the thoracic aorta are as follows: 4.2 cm at the sinuses of Valsalva measured sinus to sinus (the sinotubular junction is preserved) 3.5 cm at the mid ascending aorta 3.1 cm at the distal ascending aorta 2.9 cm at the mid transverse arch 2.6 cm at the proximal descending thoracic aorta 2.3 cm at the diaphragmatic hiatus PROXIMITY OF THE CARDIOVASCULAR STRUCTURES TO THE STERNUM: The left brachiocephalic vein lies in close proximity to the posterior aspect of the manubrium at 8 mm The RV free wall lies in close proximity to the posterior aspect of the lower sternum at 5 mm The remainder of the cardiac and vascular structures lie a safe distance from the sternum. [place] internal mammary arteries are seen with no significant calcification. The limited images of the upper abdomen reveal a few punctate splenic and hepatic calcifications. Spleen is partially imaged but appears bulky and likely enlarged. IMPRESSION: 1. 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 The remaining of the thoracic aorta is normal. Near circumferential calcifications of the aortic root is seen. There is no definite acute aortic pathology. 2. Diffuse severe coronary calcifications 3. Proximity of the cardiovascular structures to the sternum is detailed above. 4. Small bilateral pleural effusions with adjacent lower lobe atelectasis. Prior aspiration of contrast material is suspected as detailed in the body of the report. Flag Football Coach: PSCB Transcribe Date/Time: Feb 08 2019 9:16A Dictated by : MIGUEL ANGEL OLIVEROS MD This examination was interpreted and the report reviewed and electronically signed by: SHERON CALABRESE MD on Feb 08 2019 10:09AM EST [id number] [facility] PROGRESSon 02-08-2019 PROGRESS HNO ID: [id number] Author: Brittany Thapa (Ct) Service: Radiology Author Type: Clinical Environmental Science Technician Type: Progress Notes Filed: 02/08/2019 9:18 AM Note Text: Radiology Service Progress Note PATIENT NAME: Manpreet Avelar DATE OF SERVICE: February 08, 2019 TIME: 9:18 AM PATIENT IDENTITY VERIFICATION COMPLETED USING TWO (2) METHODS: Name and Date of confirmed by patient verbally. PATIENT GENDER DATA: Male PATIENT RELEVANT IMPLANT DATA REVIEWED: Yes RADIOLOGY DEPARTMENT: CT; Exam(s) Completed: Cardiac PERIPHERAL IV DATA: Not applicable SIGNED BY: KAISER Thapa February 08, 2019 9:18 AM [facility] PROGRESS HNO ID: [id number] Author: Nohemy Olivarez DO Service: Cardiovascular Medicine Author Type: Resident Type: Progress Notes Filed: 02/08/2019 6:59 AM Note Text: Attestation signed by Melba Salomon at 02/08/2019 11:16 AM [facility] STAFF PHYSICIAN NOTE OF PERSONAL INVOLVEMENT IN CARE I have reviewed the documentation obtained and documented by the resident Dr. Olivarez and have reviewed and updated the problem list as appropriate. I have personally performed a face to face assessment of the patient and have personally participated in the davies components. I have discussed the case and management of the patient's care. Impression: Mr. Avelar is a 63M with a medical history significant for T2 IDDM, psoriasis, presented to OSH with NSTEMI, subsequent LHC revealed 3-vessel CAD and thus transferred here for surgical evaluation. ECG on 02/04/19 with inferolateral TWI. Active issues are as follows: NSTEMI 3-vessel CAD (LM: 50% distal stenosis, LAD: focal 80% stenosis at 1st septal skip tracer and D1, followed by tubular 60-70% stenosis), LCx: 70% ostial stenosis, 70% stenosis of large OM, RCA large and dominant with focal 80% stenosis in mid-distal vessel) HFrEF due to ICM, LVEF 50% on 02/05/19 with resting WMA: inferior, posterior, basal anterolateral segments severely hypokinetic, apical inferior and apex mildly hypokinetic Type 2 insulin-dependent diabetes Psoriasis, on humira Plan: - Remains chest pain free, awaiting CABG with Dr. Larsen - Continue medical therapy (on aspirin, heparin gtt, metoprolol 25mg bid) STAFF PHYSICIAN: Melba Salomon MD, [facility] DATE OF SERVICE: 02/08/2019 [facility] CLINICAL CARDIOLOGY PROGRESS NOTE PRIMARY SERVICE: Clinical Cardiology Johanna Swartz Carlos Rosio [phone] HOSPITAL DAY: # 4 PLAN FOR TODAY: - Continue ASA, metoprolol, atorvastatin - Pre-operative testing for CABG per CTS; PFTs today - plan for CABG Thurs - CT chest pending INTERVAL HISTORY - no acute events overnight, HDS - BP 120s/60s; HR 50s - Denies chest pain, SOB, N/V/D PHYSICAL EXAM BP 126/70 Pulse (!) 54 Temp 36.6 ?C (97.8 ?F) (Oral) Resp 18 Wt 80.9 kg (178 lb 4.8 oz) SpO2 97% Intake/Output Summary (Last 24 hours) at 02/08/2019 0657 Last data filed at 02/08/2019 0600 Gross per 24 hour Intake 1002 ml Output ? Net 1002 ml General appearance: Well appearing, no acute distress. Head: Normocephalic, atraumatic. Oropharynx: Oropharynx normal. Neck: No goiter, lymphadenopathy, or JVD. Lungs: Lungs clear to auscultation bilaterally. No wheezing, rhonchi, or rales. Heart: RRR without murmur, gallop, or rubs. Abdomen: Abdomen soft, non-tender, non-distended. BS present. Extremities: No edema. Peripheral pulses symmetric. Neuro: AANDOx3. No focal weakness or changes in sensation. MEDICATIONS Medications reviewed. DATA Labs reviewed. IMAGING No imaging to review. ASSESSMENT AND PLAN Manpreet Avelar is a 63 year old male with a history of T2DM, Hyperlipidemia who presents as an OSH transfer from [facility] for consideration of CABG following recent NSTEMI. ? #Multivessel CAD #NSTEMI - Presented w/ chest pain, EKG changes, elevated troponins consistent with NSTEMI at OSH - Risk factors include T2DM, HLD, prior smoking - [facility] noting 3 vessel disease (80% LAD, 70% LCx, 90-95% RCA) - OSH TTE noting: EF 40-45%, moderate inferior wall hypokinesis - EBEN score 3 = 13% risk at 14 days of: all-cause mortality, new or recurrent MA, or severe recurrent ischemia requiring urgent revascularization Plan - ASA 81 - Heparin gtt - Atorvastatin 80, Metoprolol tartrate 25 BID - Hold ticagrelor pending plan for CABG - CABG planning per CTS: aiming Thurs ? #T2DM - for ~20y - need to assess control, A1c 7.2 Plan - decrease insulin aspart to 6units TID w meals - decrease insulin degludec to 20U qhs - SSI AC/HS ? #Solid dysphagia - difficulty swallowing solids arianna dry foods, worsening over 1y - GI consult for dysphagia at [facility] - considering EGD w/ dilation Plan - OP GI follow up or OP EGD after CABG ? #Psoriasis - well controlled on q2wk humira Plan - unable to give humira inpatient ? #HLD - previously on rosuvastatin 5 - Lipid panel @ [facility] 02/01: TC 140, LDL 77, HDL 48 Plan - atorvastatin 80mg ? # Diet - Heart Healthy # VTE PPx - AC w/ heparin # Dispo Planning - TBD # Code Status - Full code confirmed w/ patient Case to be discussed with staff. Nohemy Olivarez DO Internal Medicine PGY-1 02/08/2019 6:47 AM For communication after 5 pm on weekdays and after 12 pm on weekends, please page the following: - Clinical Cardiology patients on all floors: page [phone] - Other Cardiology patients on J5 and J6: page [phone] - Other Cardiology patients on J7 and J8: page [phone] [facility] PTT,Anticoag Therapyon 02-08 aPTT Coag (Bld) [Time] 47.5 s High 23.0-32.4 [facility] Comment on above: Result Comment: Unfr actionated Heparin Therapeutic Ranges: Standard Heparin Nomogram: 53 to 78 seconds (anti-Xa level of 0.3 to 0.7 U/ml) Low Dose/ACS Nomogram: 49 to 67 seconds (anti-Xa level of 0.2 to 0.5 U/ml) Stroke Treatment Nomogram: 49 to 67 seconds (anti-Xa level of 0.2 to 0.5 U/ml) Note: The APTT therapeutic range has been determined for the current lot of laboratory APTT reagent in use throughout the [facility]. Performed By: #### C BCDIF, PT, PTT, CMP, MG1, NTBNP #### [facility] [address], [place] [address] aPTT Coag (Bld) [Time] 54.7 s High 23.0-32.4 [facility] Comment on above: Result Comment: Unfr actionated Heparin Therapeutic Ranges: Standard Heparin Nomogram: 53 to 78 seconds (anti-Xa level of 0.3 to 0.7 U/ml) Low Dose/ACS Nomogram: 49 to 67 seconds (anti-Xa level of 0.2 to 0.5 U/ml) Stroke Treatment Nomogram: 49 to 67 seconds (anti-Xa level of 0.2 to 0.5 U/ml) Note: The APTT therapeutic range has been determined for the current lot of laboratory APTT reagent in use throughout the [facility]. Performed By: #### C BCDIF, PT, PTT, CMP, MG1, NTBNP #### [facility] [address], [place] [address] aPTT Coag (Bld) [Time] 69.2 s High 23.0-32.4 [facility] Comment on above: Result Comment: Unfr actionated Heparin Therapeutic Ranges: Standard Heparin Nomogram: 53 to 78 seconds (anti-Xa level of 0.3 to 0.7 U/ml) Low Dose/ACS Nomogram: 49 to 67 seconds (anti-Xa level of 0.2 to 0.5 U/ml) Stroke Treatment Nomogram: 49 to 67 seconds (anti-Xa level of 0.2 to 0.5 U/ml) Note: The APTT therapeutic range has been determined for the current lot of laboratory APTT reagent in use throughout the [facility]. Results may be inaccurate due to age of specimen. Performed By: #### C BCDIF, PT, PTT, CMP, MG1, NTBNP #### [place] [address] [place] [address] TSHon 02-08-2019 TSH Qn 5.010 uU/mL High 0.270-4.200 [facility] Comment on above: Performed By: #### C BCDIF, PT, PTT, CMP, MG1, NTBNP #### [place] [address] Basic Metabolic Panlon 02-07 Anion gap [Moles/Vol] 12 mmol/L Normal 9-18 [facility] Comment on above: Performed By: #### C BCDIF, PT, PTT, CMP, MG1, NTBNP #### [place] [address] Calcium [Mass/Vol] 9.0 mg/dL Normal 8.5-10.2 [facility] Comment on above: Performed By: #### C BCDIF, PT, PTT, CMP, MG1, NTBNP #### [place] [address] Chloride [Moles/Vol] 106 mmol/L High 97-105 [facility] Comment on above: Performed By: #### C BCDIF, PT, PTT, CMP, MG1, NTBNP #### [address] [address] CO2 [Moles/Vol] 24 mmol/L Normal 22-30 [facility] Comment on above: Performed By: #### C BCDIF, PT, PTT, CMP, MG1, NTBNP #### [facility] [address] [place], [place] [address] Creatinine [Mass/Vol] 1.18 mg/dL Normal 0.73-1.22 [facility] Comment on above: Performed By: #### C BCDIF, PT, PTT, CMP, MG1, NTBNP #### [facility] [address] [place] [address] eGFR- Amer. >60 Normal [facility] Comment on above: Performed By: #### C BCDIF, PT, PTT, CMP, MG1, NTBNP #### [facility] [address] [place] [address] GFR/1.73 sq M predicted among non-blacks MDRD (S/P/Bld) [Vol rate/Area] mL/min/{1.73_m2} [facility] Comment on above: Result Comment: eGFR (Estimated GFR) Units of measure: mL/min/1.73 meters squared eGFR is derived from the reexpressed MDRD Study equation using the following parameters: serum creatinine, age, gender and race. The creatinine assay has been calibrated to be traceable to IDMS. An eGFR <60 mL/min/1.73m2 for >3 months is consistent with chronic kidney disease. Refer to KDOQI guidelines for clinical interpretation. In patients with unstable renal function, e.g. those with acute kidney injury, the eGFR may not accurately reflect actual GFR. Performed By: #### C BCDIF, PT, PTT, CMP, MG1, NTBNP #### [facility] [address] [place] [id number] Glucose [Mass/Vol] 62 mg/dL Low 74-99 [facility] Comment on above: Result Comment: The [place] Diabetes [employer] (ADA) provides guidance for cutoff values for fasting glucose and random glucose. The ADA defines fasting as no caloric intake for at least 8 hours. Fasting plasma glucose results between 100 to 125 mg/dL indicate increased risk for diabetes (prediabetes). Fasting plasma glucose results greater than or equal to 126 mg/dL meet the criteria for diagnosis of diabetes. In the absence of unequivocal hyperglycemia, results should be confirmed by repeat testing. In a patient with classic symptoms of hyperglycemia or hyperglycemic crisis, random plasma glucose results greater than or equal to 200 mg/dL meet the criteria for diagnosis of diabetes. Reference: Standards of Medical Care in Diabetes 2016, [place] [employer] Association. Diabetes Care. 2016.39(Suppl 1). Performed By: #### C BCDIF, PT, PTT, CMP, MG1, NTBNP #### [place] [address] Potassium [Moles/Vol] 3.9 mmol/L Normal 3.7-5.1 [facility] Comment on above: Performed By: #### C BCDIF, PT, PTT, CMP, MG1, NTBNP #### [place] [address] Sodium [Moles/Vol] 142 mmol/L Normal 136-144 [facility] Comment on above: Performed By: #### C BCDIF, PT, PTT, CMP, MG1, NTBNP #### [place] [address] Urea nitrogen [Mass/Vol] 18 mg/dL Normal 9-24 [facility] Comment on above: Performed By: #### C BCDIF, PT, PTT, CMP, MG1, NTBNP #### [place] [address] CBCon 02-07-2019 Absolute nRBC <0.01 Normal <0.01 [facility] Comment on above: Performed By: #### C BCDIF, PT, PTT, CMP, MG1, NTBNP #### [place] [address] [place] [address] Erythrocyte distribution width (RBC) [Ratio] 12.9 % Normal 11.5-15.0 [facility] Comment on above: Performed By: #### C BCDIF, PT, PTT, CMP, MG1, NTBNP #### [place] [address] Hematocrit (Bld) [Volume fraction] 41.0 % Normal 39.0-51.0 [facility] Comment on above: Performed By: #### C BCDIF, PT, PTT, CMP, MG1, NTBNP #### [place] [address] Hemoglobin (Bld) [Mass/Vol] 14.0 g/dL Normal 13.0-17.0 [facility] Comment on above: Performed By: #### C BCDIF, PT, PTT, CMP, MG1, NTBNP #### [place] [address] MCH (RBC) [Entitic mass] 29.8 pG Normal 26.0-34.0 [facility] Comment on above: Performed By: #### C BCDIF, PT, PTT, CMP, MG1, NTBNP #### [place] [address] MCHC (RBC) [Mass/Vol] 34.1 g/dL Normal 30.5-36.0 [facility] Comment on above: Performed By: #### C BCDIF, PT, PTT, CMP, MG1, NTBNP #### [place] [address] MCV (RBC) [Entitic vol] 87.2 fL Normal 80.0-100.0 [facility] Comment on above: Performed By: #### C BCDIF, PT, PTT, CMP, MG1, NTBNP #### [place] [address] Platelet mean volume (Bld) [Entitic vol] 12.0 fL Normal 9.0-12.7 [facility] Comment on above: Performed By: #### C BCDIF, PT, PTT, CMP, MG1, NTBNP #### [facility] [address] [place], [place] [address] Platelets (Bld) [#/Vol] 188 10*3/uL Normal 150-400 [facility] Comment on above: Performed By: #### C BCDIF, PT, PTT, CMP, MG1, NTBNP #### [facility] [address] [place] [address] RBC (Bld) [#/Vol] 4.70 10*6/uL Normal 4.20-6.00 [facility] Comment on above: Performed By: #### C BCDIF, PT, PTT, CMP, MG1, NTBNP #### [place] [address] [place] [address] WBC (Bld) [#/Vol] 8.58 10*3/uL Normal 3.70-11.00 [facility] Comment on above: Performed By: #### C BCDIF, PT, PTT, CMP, MG1, NTBNP #### [place] [address] [place] [id number] CONSULT PROGon 02-07-2019 CONSULT PROG HNO ID: [id number] Author: Ivis Ramirez Service: Cardiac Surgery Author Type: Nurse Practitioner Type: Consult Progress Note Filed: 02/08/2019 2:53 PM Note Text: [facility] CON[facility] PROGRESS NOTE Manpreet Avelar [id number] CONSULTING SERVICE: Cardiothoracic Surgery:Dr. Larsen: CABG PRIMARY SERVICE: Cardiology: Clinical:Dr. Salomon ASSESSMENT / RECOMMENDATIONS / PLAN: 63 y/o male with PMHx of Hypertension, DMII Recently dx NSTEMI 02/01/19 [facility] recommended revealed severe CAD lesions--tx to [facility] further eval CTS consulted for CABG Brilinta LD--did not received any at [facility] per JUN---will check if he received at OSH Humira---LD 2 weeks ago-- Will ask if need to see Rheumatology/Derm re: dosing--psorasis Nasal swab 02/06/19--Negative UA 02/06/19-neg OUTSTANDING: Formal review of OSH C Vein/Mammary mapping/US Carotids (ordered 04/08/19) radial mapping ordered PFTs-- smoked ~ 2 years quit smoking over 40 years ago---- need PFT for baseline pulmonary status NC CT Chest (ordered) Check for Ca+ in the aorta; chest anatomy TSH panel NO CONFIRMED OR Date when I got report from CTS Project Archivist-today DMII---NfiN8n--4.2() BS on avg <160s; x3 over 150 x1 over 2 Hemoglobin A1C (%) Date Value 02/04/2019 7.2 ABO/RH(D) Date Value Ref Range Status 02/06/2019 A POSITIVE Final SUBJECTIVE: INTERVAL HISTORY: No acute events overnight PERTINENT REVIEW OF SYSTEMS: Reports noted chest discomfort pressure center of his chest/left side ribs--~ 1month ago; ~ 2weeks ago decrease physical Tolerance/SOB while duck hunting in [employer]-not able to walk as far as normal Chest discomfort on Wednesday Currently Denies any SOB,trouble breathing or hard to get a breath/Denies any increased effort to breath/take a breath Chest pain/pressure heaviness/tightness/n o jaw pain/or teeth pain/back pain/pressure or numbness; no scapula pain/ nausea; Denies any New Vision Changes, Nausea,Vomiting,Diarr hea, Last BM 2 days ago Denies any bleeding gums, Denies any blood in urine or stool Denies any Stroke, Mini Stroke, Seizures, Tremors or recent Neurological disorders/tremors Denies any radiation to chest; No hx of TB, no lung injury Denies any issues with Anesthesia--no malignant hyperthermia Denies any swallowing issues. Denies any esophageal dilation, no cirrhosis/hepatitis/e levated liver enzmyes No hx of MIs, rheumatic/scarlet fever; Denies any hx of carpal tunnel, gout, wrist surgery, Neuropathy in feet Denies any hx Raynauds syndrome Tolerating Diet (R)handed Last Dental > one year ago Surgeries Knee surgery x2; See HPI: Remaining ROS reviewed and negative OBJECTIVE: MEDICATIONS: Current Facility-Administered Medications Medication Dose Route Frequency - acetaminophen 325-650 mg tab(s) (TYLENOL) 325-650 mg ORAL q 4 H PRN - polyethylene glycol 3350 17 g packet (MIRALAX, GLYCOLAX) 17 g ORAL DAILY PRN - melatonin 6 mg tab(s) 6 mg ORAL DAILY (8 PM) - gabapentin 100 mg cap(s) (NEURONTIN) 100 mg ORAL AT BEDTIME - atorvastatin 80 mg tab(s) (LIPITOR) 80 mg ORAL AT BEDTIME - dextrose 40 % 15 g 15 g ORAL PRN Or - glucagon 1 mg injection (GLUCAGEN) 1 mg INTRAMUSCULAR PRN Or - dextrose 50 % 12.5 g injection 12.5 g INTRAVENOUS PRN - aspirin 81 mg chewable tab(s) 81 mg ORAL DAILY - heparin iv infusion (LOW DOSE ACS/NOMOGRAM) 25,000 units in NaCl 0.45% 250 mL PREMIX 0-3,000 Units/hr INTRAVENOUS CONTINUOUS And - heparin RATE CHANGE bolus 1,000-4,000 Units for subtherapeutic aptt results 1,000-4,000 Units INTRAVENOUS PRN - insulin lispro injection (rapid acting) (HumaLOG) SUBCUTANEOUS w MEALS AND HS - metoprolol tartrate (short acting) 25 mg tab(s) (LOPRESSOR) 25 mg ORAL q 12 H - perflutren lipid microspheres 1.1 mg/mL 1.3 mL injection (DEFINITY) 1.3 mL INTRAVENOUS DIRECTED PRN - insulin glargine 20 Units pen (long acting) (LANTUS SOLOSTAR, BASAGLAR KWIKPEN) 20 Units SUBCUTANEOUS AT BEDTIME - insulin lispro 6 Units injection (rapid acting) (HumaLOG) 6 Units SUBCUTANEOUS w MEALS PHYSICAL EXAM: 02/07/19 0836 02/07/19 1000 02/07/19 1437 02/07/19 1813 BP: 121/63 132/66 120/66 129/69 Pulse: 62 (!) 53 (!) 55 (!) 52 Resp: 18 18 18 Temp: 37.1 ?C (98.8 ?F) 37.1 ?C (98.8 ?F) 37.3 ?C (99.2 ?F) TempSrc: Oral Oral Oral SpO2: 96% 94% 96% Weight: General: Stable appearing male in NAD noted AAOX 3. Skin: skin intact; (R)groin [facility] site w/out incident-area soft- Head/Eyes: Sclera clear, intact conjunctiva. EOMI. Mouth/Pharynx: Teeth: Fair dentition. No lesions. Neck: No JVD. Supple. Lungs:BBS essentially diminished throughout Heart: S1, S2. Noted Peripheral Vascular/Arteries: Carotid pulse noted +2 bilat DP/Radial pulses +2 bilat Abdomen: Soft abdomen, nontender, nondistended without mass. + bowel sounds. Musculoskeletal: No kyphoscoliosis. No joint deformities. Extremities: No clubbing or cyanosis. No LE edema. Neurologic/Psychiatri c: Stable affect. No gross focal neurologic deficits. Intake/Output Summary (Last 24 hours) at 02/07/2019 1839 Last data filed at 02/07/2019 1800 Gross per 24 hour Intake 616 ml Output ? Net 616 ml TELEMETRY: sr DATA: Laboratory: Recent Labs 02/07/19 0354 02/06/19 0431 02/05/19 0908 02/05/19 0110 WBC 8.58 8.07 -- 7.97 HB 14.0 14.5 -- 12.8* HCT 41.0 41.2 -- 38.3* PLT 188 177 -- 177 NA 142 142 -- 141 K 3.9 3.6* 4.1 3.5* CHLOR 106* 105 -- 103 CO2 24 24 -- 24 BUN 18 17 -- 20 CREAT 1.18 1.15 -- 1.14 GLUC 62* 57* -- 49* ] ] Case discussed with CTS Project Archivist SIGNATURE: Ivis Ramirez APRN.CNP PHONE:[phone] DATE of SERVICE: 02/07/2019 TIME of SERVICE:1740 For further questions or If no answer to above pager after 5:30 pm, Please contact CTS office @ [phone] or pgr:[phone]; or CTS Fellow biofuels plant operations engineer @ pgr:[phone] for Emergency/Emergent changes in pt's status. THANK YOU [facility] PROGRESSon 02-07-2019 PROGRESS HNO ID: [id number] Author: Nohemy Olivarez DO Service: Cardiovascular Medicine Author Type: Resident Type: Progress Notes Filed: 02/07/2019 7:23 AM Note Text: Attestation signed by Melba Salomon at 02/07/2019 1:37 PM [facility] STAFF PHYSICIAN NOTE OF PERSONAL INVOLVEMENT IN CARE I have reviewed the documentation obtained and documented by the resident Dr. Olivarez and have reviewed and updated the problem list as appropriate. I have personally performed a face to face assessment of the patient and have personally participated in the davies components. I have discussed the case and management of the patient's care. Impression: Mr. Avelar is a 63M with a medical history significant for T2 IDDM, psoriasis, presented to OSH with NSTEMI, subsequent LHC revealed 3-vessel CAD and thus transferred here for surgical evaluation. ECG on 02/04/19 with inferolateral TWI. Active issues are as follows: NSTEMI 3-vessel CAD (LM: 50% distal stenosis, LAD: focal 80% stenosis at 1st septal skip tracer and D1, followed by tubular 60-70% stenosis), LCx: 70% ostial stenosis, 70% stenosis of large OM, RCA large and dominant with focal 80% stenosis in mid-distal vessel) HFrEF due to ICM, LVEF 50% on 02/05/19 with resting WMA: inferior, posterior, basal anterolateral segments severely hypokinetic, apical inferior and apex mildly hypokinetic Type 2 insulin-dependent diabetes Psoriasis, on humira Plan: - Remains chest pain free, awaiting CABG with Dr. Larsen - Continue optimizing medical therapy (on aspirin, heparin gtt, metoprolol 25mg bid) STAFF PHYSICIAN: Melba Salomon MD, [facility] DATE OF SERVICE: 02/07/2019 [facility] CLINICAL CARDIOLOGY PROGRESS NOTE PRIMARY SERVICE: Clinical Cardiology Johanna Manpreet Avelar [id number] HOSPITAL DAY: # 3 PLAN FOR TODAY: - Continue ASA, metoprlol, atorvastatin - Introduce low dose captopril and titrate as tolerated - Pre-operative testing for CABG per CTS; PFTs today - plan for CABG Wed/ INTERVAL HISTORY - no acute events overnight, HDS - BP 110s-30s/60-70s; HR 50-70s - Denies chest pain, SOB, N/V/D - Lispro and glargine decreased for low BGs PHYSICAL EXAM BP 120/64 Pulse (!) 53 Temp 36.9 ?C (98.5 ?F) (Oral) Resp 18 Wt 81.3 kg (179 lb 3.2 oz) SpO2 96% Intake/Output Summary (Last 24 hours) at 02/07/2019 0716 Last data filed at 02/06/2019 1900 Gross per 24 hour Intake 848 ml Output ? Net 848 ml General appearance: Well appearing, no acute distress. Head: Normocephalic, atraumatic. Oropharynx: Oropharynx normal. Neck: No goiter, lymphadenopathy, or JVD. Lungs: Lungs clear to auscultation bilaterally. No wheezing, rhonchi, or rales. Heart: RRR without murmur, gallop, or rubs. Abdomen: Abdomen soft, non-tender, non-distended. BS present. Extremities: No edema. Peripheral pulses symmetric. Neuro: AANDOx3. No focal weakness or changes in sensation. MEDICATIONS Medications reviewed. DATA Labs reviewed. IMAGING ECHO (02/05/19) - Technically difficult exam due to body habitus and suboptimal positioning. - Exam indication: Evaluation of known heart failure to guide therapy - The left ventricle is normal in size. Left ventricular systolic function is mildly decreased. EF = 50 ? 5% (visual est.) Grade I left ventricular diastolic dysfunction. The mid inferolateral segment and basal inferior segment are severely ?hypokinetic. The anterolateral wall, basal inferolateral segment, and mid inferior segment are mildly hypokinetic. - The right ventricle is normal in size. Right ventricular systolic function is normal. - The left atrial cavity is mildly dilated. - Estimated right ventricular systolic pressure is 51 mmHg consistent with moderate pulmonary hypertension. Estimated right atrial pressure is 8 mmHg based on IVC assessment. - The patient has not had a prior CC echocardiographic exam for comparison. ASSESSMENT AND PLAN Manpreet Avelar is a 63 year old male with a history of T2DM, Hyperlipidemia who presents as an OSH transfer from [facility] for consideration of CABG following recent NSTEMI. ? #Multivessel CAD #NSTEMI - Presented w/ chest pain, EKG changes, elevated troponins consistent with NSTEMI at OSH - Risk factors include T2DM, HLD, prior smoking - [facility] noting 3 vessel disease (80% LAD, 70% LCx, 90-95% RCA) - OSH TTE noting: EF 40-45%, moderate inferior wall hypokinesis - EBEN score 3 = 13% risk at 14 days of: all-cause mortality, new or recurrent MA, or severe recurrent ischemia requiring urgent revascularization Plan - ASA 81 - Heparin gtt - Atorvastatin 80 - Metoprolol tartrate 25 BID - Hold ticagrelor pending plan for CABG - CABG planning per CTS: aiming for Wed/ ? #T2DM - for ~20y - need to assess control, A1c 7.2 Plan - decrease insulin aspart to 6units TID w meals - decrease insulin degludec to 20U qhs - SSI AC/HS ? #Solid dysphagia - difficulty swallowing solids arianna dry foods, worsening over 1y - GI consult for dysphagia at [facility] - considering EGD w/ dilation Plan - OP GI follow up or OP EGD after CABG ? #Psoriasis - well controlled on q2wk humira Plan - unable to give humira inpatient ? #HLD - previously on rosuvastatin 5 - Lipid panel @ [facility] 02/01: TC 140, LDL 77, HDL 48 Plan - atorvastatin 80mg ? # Diet - Heart Healthy # VTE PPx - AC w/ heparin # Dispo Planning - TBD # Code Status - Full code confirmed w/ patient Case to be discussed with staff. Nohemy Olivarez, DO Internal Medicine PGY-1 02/07/2019 6:47 AM For communication after 5 pm on weekdays and after 12 pm on weekends, please page the following: - Clinical Cardiology patients on all floors: page [phone] - Other Cardiology patients on J5 and J6: page [phone] - Other Cardiology patients on J7 and J8: page [phone] [facility] PTT,Anticoag Therapyon 02-07 aPTT Coag (Bld) [Time] 44.4 s High 23.0-32.4 Cl [facility] Comment on above: Result Comment: Unfr actionated Heparin Therapeutic Ranges: Standard Heparin Nomogram: 53 to 78 seconds (anti-Xa level of 0.3 to 0.7 U/ml) Low Dose/ACS Nomogram: 49 to 67 seconds (anti-Xa level of 0.2 to 0.5 U/ml) Stroke Treatment Nomogram: 49 to 67 seconds (anti-Xa level of 0.2 to 0.5 U/ml) Note: The APTT therapeutic range has been determined for the current lot of laboratory APTT reagent in use throughout the [facility]. Performed By: #### C BCDIF, PT, PTT, CMP, MG1, NTBNP #### [facility] [address], [place] [address] aPTT Coag (Bld) [Time] 54.7 s High 23.0-32.4 [facility] Comment on above: Result Comment: Unfr actionated Heparin Therapeutic Ranges: Standard Heparin Nomogram: 53 to 78 seconds (anti-Xa level of 0.3 to 0.7 U/ml) Low Dose/ACS Nomogram: 49 to 67 seconds (anti-Xa level of 0.2 to 0.5 U/ml) Stroke Treatment Nomogram: 49 to 67 seconds (anti-Xa level of 0.2 to 0.5 U/ml) Note: The APTT therapeutic range has been determined for the current lot of laboratory APTT reagent in use throughout the [facility]. Performed By: #### C BCDIF, PT, PTT, CMP, MG1, NTBNP #### [facility] [address] [place], [place] [address] aPTT Coag (Bld) [Time] 69.8 s High 23.0-32.4 [facility] Comment on above: Result Comment: Unfr actionated Heparin Therapeutic Ranges: Standard Heparin Nomogram: 53 to 78 seconds (anti-Xa level of 0.3 to 0.7 U/ml) Low Dose/ACS Nomogram: 49 to 67 seconds (anti-Xa level of 0.2 to 0.5 U/ml) Stroke Treatment Nomogram: 49 to 67 seconds (anti-Xa level of 0.2 to 0.5 U/ml) Note: The APTT therapeutic range has been determined for the current lot of laboratory APTT reagent in use throughout the [facility]. Performed By: #### C BCDIF, PT, PTT, CMP, MG1, NTBNP #### [facility] [address] [place], [place] [address] THERAPY NTon 02-07-2019 THERAPY NT HNO ID: [id number] Author: Ena (Pt) Iftikhar Service: Physical Therapy Author Type: Physical Therapist Type: Therapy (PT/OT/Speech/Resp) Filed: 02/07/2019 8:13 AM Note Text: PHYSICAL THERAPY MISSED VISIT SERVICE DATE: 02/07/2019 SERVICE TIME: 811 to 811 ROOM: [place] [address] Attempted Evaluation. Patient not seen due to No Skilled Needs. Per nursing functional mobility assessment pt independent all functional mobility (score 24). will d/c PT consult at this time per department policy. Please reconsult if change in functional status. SIGNATURE: Ena Buitrago, PT PATIENT NAME: Manpreet Avelar DATE: February 07, 2019 TIME: 8:12 AM [facility] Basic Metabolic Panlon 02-06 Anion gap [Moles/Vol] 13 mmol/L Normal 9-18 [facility] Comment on above: Performed By: #### C BCDIF, PT, PTT, CMP, MG1, NTBNP #### [facility] [address] [place], [place] [address] Calcium [Mass/Vol] 8.8 mg/dL Normal 8.5-10.2 [facility] Comment on above: Performed By: #### C BCDIF, PT, PTT, CMP, MG1, NTBNP #### [facility] [address] [place], [place] [address] Chloride [Moles/Vol] 105 mmol/L Normal 97-105 [facility] Comment on above: Performed By: #### C BCDIF, PT, PTT, CMP, MG1, NTBNP #### [facility] [address] [place], [place] [address] CO2 [Moles/Vol] 24 mmol/L Normal 22-30 [facility] Comment on above: Performed By: #### C BCDIF, PT, PTT, CMP, MG1, NTBNP #### [facility] [address] [place], [place] [address] Creatinine [Mass/Vol] 1.15 mg/dL Normal 0.73-1.22 [facility] Comment on above: Performed By: #### C BCDIF, PT, PTT, CMP, MG1, NTBNP #### [facility] [address] [place], [place] [id number] eGFR- Amer. >60 Normal [facility] Comment on above: Performed By: #### C BCDIF, PT, PTT, CMP, MG1, NTBNP #### [facility] [address] [place], [place] [address] GFR/1.73 sq M predicted among non-blacks MDRD (S/P/Bld) [Vol rate/Area] mL/min/{1.73_m2} Normal [facility] Comment on above: Result Comment: eGFR (Estimated GFR) Units of measure: mL/min/1.73 meters squared eGFR is derived from the reexpressed MDRD Study equation using the following parameters: serum creatinine, age, gender and race. The creatinine assay has been calibrated to be traceable to IDMS. An eGFR <60 mL/min/1.73m2 for >3 months is consistent with chronic kidney disease. Refer to KDOQI guidelines for clinical interpretation. In patients with unstable renal function, e.g. those with acute kidney injury, the eGFR may not accurately reflect actual GFR. Performed By: #### C BCDIF, PT, PTT, CMP, MG1, NTBNP #### [facility] [address] [place], [place] [address] Glucose [Mass/Vol] 57 mg/dL Low 74-99 [facility] Comment on above: Result Comment: The [place] Diabetes [employer] (ADA) provides guidance for cutoff values for fasting glucose and random glucose. The ADA defines fasting as no caloric intake for at least 8 hours. Fasting plasma glucose results between 100 to 125 mg/dL indicate increased risk for diabetes (prediabetes). Fasting plasma glucose results greater than or equal to 126 mg/dL meet the criteria for diagnosis of diabetes. In the absence of unequivocal hyperglycemia, results should be confirmed by repeat testing. In a patient with classic symptoms of hyperglycemia or hyperglycemic crisis, random plasma glucose results greater than or equal to 200 mg/dL meet the criteria for diagnosis of diabetes. Reference: Standards of Medical Care in Diabetes 2016, [place] [employer]. Diabetes Care. 2016.39(Suppl 1). Performed By: #### C BCDIF, PT, PTT, CMP, MG1, NTBNP #### [facility] [address] [place] [address] Potassium [Moles/Vol] 3.6 mmol/L Low 3.7-5.1 [facility] Comment on above: Performed By: #### C BCDIF, PT, PTT, CMP, MG1, NTBNP #### [place] [address] Sodium [Moles/Vol] 142 mmol/L Normal 136-144 [facility] Comment on above: Performed By: #### C BCDIF, PT, PTT, CMP, MG1, NTBNP #### [place] [address] [place], [place] [id number] Urea nitrogen [Mass/Vol] 17 mg/dL Normal 9-24 [facility] Comment on above: Performed By: #### C BCDIF, PT, PTT, CMP, MG1, NTBNP #### [place] [address] [place] [address] CBCon 02-06-2019 Absolute nRBC <0.01 Normal <0.01 [facility] Comment on above: Performed By: #### C BCDIF, PT, PTT, CMP, MG1, NTBNP #### [place] [address] [place], [place] [address] Erythrocyte distribution width (RBC) [Ratio] 12.6 % Normal 11.5-15.0 [facility] Comment on above: Performed By: #### C BCDIF, PT, PTT, CMP, MG1, NTBNP #### [address] [address] Hematocrit (Bld) [Volume fraction] 41.2 % Normal 39.0-51.0 [facility] Comment on above: Performed By: #### C BCDIF, PT, PTT, CMP, MG1, NTBNP #### [address] [address] Hemoglobin (Bld) [Mass/Vol] 14.5 g/dL Normal 13.0-17.0 [facility] Comment on above: Performed By: #### C BCDIF, PT, PTT, CMP, MG1, NTBNP #### [place] [address] MCH (RBC) [Entitic mass] 30.9 pG Normal 26.0-34.0 [facility] Comment on above: Performed By: #### C BCDIF, PT, PTT, CMP, MG1, NTBNP #### [address] [address] MCHC (RBC) [Mass/Vol] 35.2 g/dL Normal 30.5-36.0 [facility] Comment on above: Performed By: #### C BCDIF, PT, PTT, CMP, MG1, NTBNP #### [address] [address] MCV (RBC) [Entitic vol] 87.8 fL Normal 80.0-100.0 [facility] Comment on above: Performed By: #### C BCDIF, PT, PTT, CMP, MG1, NTBNP #### [address] [address] Platelet mean volume (Bld) [Entitic vol] 12.0 fL Normal 9.0-12.7 [facility] Comment on above: Performed By: #### C BCDIF, PT, PTT, CMP, MG1, NTBNP #### [place] [address] [place] [address] Platelets (Bld) [#/Vol] 177 10*3/uL Normal 150-400 [facility] Comment on above: Performed By: #### C BCDIF, PT, PTT, CMP, MG1, NTBNP #### [place] [address] [place] [address] RBC (Bld) [#/Vol] 4.69 10*6/uL Normal 4.20-6.00 [facility] Comment on above: Performed By: #### C BCDIF, PT, PTT, CMP, MG1, NTBNP #### [place] [address] WBC (Bld) [#/Vol] 8.07 10*3/uL Normal 3.70-11.00 [facility] Comment on above: Performed By: #### C BCDIF, PT, PTT, CMP, MG1, NTBNP #### [place] [id number] CONSULTon 02-06-2019 CONSULT HNO ID: [id number] Author: Yovana Staton Service: Cardiac Surgery Author Type: Nurse Practitioner Type: Consults Filed: 02/06/2019 12:34 PM Note Text: CONSULT HISTORY and PHYSICAL CARDIOTHORACIC SURGERY Consulting Service: Cardiothoracic Surgery Requesting Provider: [facility], Michael Hsieh M.D. on 02/04/19. Opinion/advice regarding: Pre-Op Open Heart Surgery Cardiothoracic Physician: Dr. Alisia Larsen NAME: Manpreet Avelar WEIGHT: 81.3 kg Intended Procedure: Isolated CABG REDO: No STS SCORE: Risk of Mortality: 0.884% Renal Failure: 1.116% Permanent Stroke: 0.961% Prolonged Ventilation: 3.555% DSW Infection: 0.249% Reoperation: 1.574% Morbidity or Mortality: 6.199% Short Length of Stay: 61.001% Long Length of Stay: 2.448% Has this patient been previously evaluated for Open Heart Surgery for this condition? Yes, but refered to [facility] for surgical managment HPI: This is a 63 year old man with a medical history of T2DM, and Psoriasis, who was duck hunting close to his home in [place] when he experienced sudden, sharp chest pain that radiated to his back. He waited a few minutes and walked to his truck where it happened again. He drove to his house and had his call for EMS. He was brought to a local hospital and then transferred to [facility] for further work-up. LHC showed severe three-vessel Coronary Artery Disease. Echo showed mild LV systolic dysfunction without valvular pathology. Patient was transferred here for further treatment. CTS has been consulted for consideration of CABG. Per Cardiology, the patient has excellent targets for Bypass. Active Hospital Problems Diagnosis - CAD (coronary artery disease) PAST MEDICAL HISTORY: PAST MEDICAL HISTORY Diagnosis Date - Hyperlipidemia - Nephrolithiasis - Pneumothorax due to rib fracture from tractor injury in teen years - Psoriasis - Type 2 diabetes mellitus (HCC) PAST SURGICAL HISTORY: History reviewed. No pertinent surgical history. FAMILY HISTORY: FAMILY HISTORY Problem Relation Age of Onset - Heart disease Mother - Heart disease Father - Heart Attack Maternal Grandfather FAMILY HISTORY OF CAD: Yes SOCIAL HISTORY: Social History Tobacco Use - Smoking status: Former Smoker Packs/day: 1.00 Years: 10.00 Pack years: 10.00 Types: Cigarettes Last attempt to quit: 04/12/1979 Years since quittin.8 - Smokeless tobacco: Never Used - Tobacco comment: rarely used chewing tobacco in past also Substance Use Topics - Alcohol use: Not on file Comment: rare, maybe once per month - Drug use: Never SOCIAL HISTORY OF IVDU: No SOCIAL HISTORY OF Smoking: No SOCIAL HISTORY OF Alcohol Dependency: No MEDICATIONS: Prior to Admission Medications: rosuvastatin (CRESTOR) 5 mg tablet Take 5 mg by mouth once daily. gabapentin (NEURONTIN) 100 mg capsule Take 100 mg by mouth daily at bedtime. insulin aspart U-100 (NOVOLOG) 100 unit/mL (3 mL) inpn Inject 8 Units subcutaneously daily with lunch. insulin aspart U-100 (NOVOLOG) 100 unit/mL (3 mL) inpn Inject 11 Units subcutaneously daily with breakfast. insulin aspart U-100 (NOVOLOG) 100 unit/mL (3 mL) inpn Inject 11 Units subcutaneously daily with dinner. insulin degludec (TRESIBA) 100 unit/mL (3 mL) injection Inject 25 Units subcutaneously daily at bedtime. HUMIRA,CF, PEN 40 mg/0.4 mL pen kit Inject 40 mg subcutaneously every 2 weeks. Current Facility-Administered Medications Medication Dose Route Frequency - acetaminophen 325-650 mg tab(s) (TYLENOL) 325-650 mg ORAL q 4 H PRN - polyethylene glycol 3350 17 g packet (MIRALAX, GLYCOLAX) 17 g ORAL DAILY PRN - melatonin 6 mg tab(s) 6 mg ORAL DAILY (8 PM) - gabapentin 100 mg cap(s) (NEURONTIN) 100 mg ORAL AT BEDTIME - atorvastatin 80 mg tab(s) (LIPITOR) 80 mg ORAL AT BEDTIME - dextrose 40 % 15 g 15 g ORAL PRN Or - glucagon 1 mg injection (GLUCAGEN) 1 mg INTRAMUSCULAR PRN Or - dextrose 50 % 12.5 g injection 12.5 g INTRAVENOUS PRN - aspirin 81 mg chewable tab(s) 81 mg ORAL DAILY - heparin iv infusion (LOW DOSE ACS/NOMOGRAM) 25,000 units in NaCl 0.45% 250 mL PREMIX 0-3,000 Units/hr INTRAVENOUS CONTINUOUS And - heparin RATE CHANGE bolus 1,000-4,000 Units for subtherapeutic aptt results 1,000-4,000 Units INTRAVENOUS PRN - insulin lispro injection (rapid acting) (HumaLOG) SUBCUTANEOUS w MEALS AND HS - metoprolol tartrate (short acting) 25 mg tab(s) (LOPRESSOR) 25 mg ORAL q 12 H - perflutren lipid microspheres 1.1 mg/mL 1.3 mL injection (DEFINITY) 1.3 mL INTRAVENOUS DIRECTED PRN - insulin glargine 20 Units pen (long acting) (LANTUS SOLOSTAR, BASAGLAR KWIKPEN) 20 Units SUBCUTANEOUS AT BEDTIME - insulin lispro 6 Units injection (rapid acting) (HumaLOG) 6 Units SUBCUTANEOUS w MEALS ALLERGIES: ALLERGIES No Known Allergies COMPLETE REVIEW OF SYSTEMS: (10) Constitutional: No weight loss, malaise or fevers. HEENT: Negative for frequent or significant headaches Resp: Negative for cough, wheezing, or shortness of breath Cardiovascular: Negative for chest pain, leg swelling or palpitations and as per HPI with one episode of chest pain that brought him to the hospital, denies any prior episodes GI: Negative for abdominal discomfort, blood in stools or black stools or change in bowel habits, appendectomy in past : No history of dysuria, frequency, or incontinence, history of kidney stones Endo: T2DM, takes insulin Heme/Lymph: Negative for prolonged bleeding, bruising easily or swollen nodes Neurologic: No history or headaches, syncope, paralysis, seizures or tremors Integumentary: psoriasis Additional systems reviewed: Pain: Negative for pain, history of chronic pain, or current treatment for a chronic pain condition, Musculoskeletal: Negative for joint pain or swelling, back pain or muscle pain and Psychiatric: Negative for sleep disturbance, mood disorder and recent psychosocial stressors PHYSICAL EXAM: (8) BP 137/69 Pulse 61 Temp 36.9 ?C (98.5 ?F) (Oral) Resp 18 Wt 81.3 kg (179 lb 3.2 oz) SpO2 95% Constitutional: No distress HEENT: PERRLA and EOM's intact Resp: Clear Cardiovascular: Regular rate AND rhythm GI: Soft, Non-tender and Bowel sounds present Integumentary: Warm, Dry and Tattoos Musculoskeletal: No deformities Neurological/Psychiat azra: Oriented to time, place AND person Labs: Recent Labs 02/04/19234 CK 50* MB 1.6 CKMBP CK MB % not reported with CK <100 U/L. TROPT 0.139* Recent Labs 02/06/1943002/05/1910902/04/19234 WBC 8.07 7.97 7.62 HB 14.5 12.8* 13.2 HCT 41.2 38.3* 39.1 PLT 177 177 168 Recent Labs 02/06/1943002/05/1908 02/05/1910902/04/19234 INR -- -- -- -- 1.1 APTT 69.5* 51.5* 50.8* < > 41.7* < > = values in this interval not displayed. Recent Labs 02/06/1943002/05/1908 02/05/1910902/04/19234 NA 142 -- 141 139 K 3.6* 4.1 3.5* 3.7 CHLOR 105 -- 103 103 CO2 24 -- 24 25 BUN 17 -- 20 21 CREAT 1.15 -- 1.14 1.18 GLUC 57* -- 49* 80 ALKPHOS -- -- -- 77 ALT -- -- -- 32 AST -- -- -- 24 ALB -- -- -- 3.3* No results found for this basename: chol,hdl,ldl DATA: I have personally reviewed the following data: Cardiac Catheterization: Outside coronary angiogram (personally reviewed, images on Syngo) Left main 50% distal stenosis LAD focal 80% stenosis at the origin of S1 and D1 followed by a tubular 60?70%. Mid to distal vessel without significant disease. Circumflex 70% ostial stenosis, 70% stenosis of large OM. RCA is large and dominant with a focal 80% stenosis in the mid to distal vessel or to the bifurcation MARISELA/TTE: The left ventricle is normal in size. Left ventricular systolic function is mildly decreased. EF = 50 ? 5% (visual est.) Grade I left ventricular diastolic dysfunction. The mid inferolateral segment and basal inferior segment are severely ?hypokinetic. The anterolateral wall, basal inferolateral segment, and mid inferior segment are mildly hypokinetic. - The right ventricle is normal in size. Right ventricular systolic function is normal. - The left atrial cavity is mildly dilated. - Estimated right ventricular systolic pressure is 51 mmHg consistent with moderate pulmonary hypertension. Estimated right atrial pressure is 8 mmHg based on IVC assessment. CXR: Lines, tubes, and devices: ?None. Lungs and pleura: ?There is blunting of the costophrenic sulci which may reflect small bilateral pleural effusions. ?There are bibasilar patchy opacities reflecting atelectasis versus pneumonia/aspiration. Cardiomediastinal silhouette: ?Normal cardiomediastinal silhouette. Other: ?There are degenerative changes of the thoracic spine. EKG: NORMAL SINUS RHYTHM POSSIBLE LEFT ATRIAL ENLARGEMENT INFERIOR MYOCARDIAL INFARCTION , AGE UNDETERMINED ST AND LATERAL T WAVE ABNORMALITY ABNORMAL ECG Impression: This is a 63 year old year-old male, who is being evaluated for surgical intervention of coronary artery disease. In consideration for surgery, the patient's acute and chronic medical issues have been evaluated as documented above and reviewed in the electronic medical record. Plan: Patient will be seen by the surgeon, Dr. Alisia Larsen. Before surgery the patient will need the following:Vein mapping, Nasal SA, Type and Screen, UA, Informed Consent. Anticipated Discharge Needs: PT/OT/RT evalulation for anticipated Home Care needs These findings will be communicated back to the requesting provider electronically. SIGNATURE:Yovana Staton APRN.[facility] PAGER:[phone] If no response to pager, please call [facility] [place] [phone]. Date of Service: 02/06/19 Time of Service: 12:33 PM Normal [facility] Confirm Blood Typeon 019 ABO/RH(D) Positive Normal [facility] Comment on above: Performed By: #### C BCDIF, PT, PTT, CMP, MG1, NTBNP #### [facility] [address] [place] [address] PROGRESSon 02-06-2019 PROGRESS HNO ID: [id number] Author: Nohemy Olivarez DO Service: Cardiovascular Medicine Author Type: Resident Type: Progress Notes Filed: 02/06/2019 11:47 AM Note Text: Attestation signed by Melba Salomon at 02/06/2019 12:26 PM (Updated) [facility] STAFF PHYSICIAN NOTE OF PERSONAL INVOLVEMENT IN CARE I have reviewed the documentation obtained and documented by the resident Dr. Olivarez and have reviewed and updated the problem list as appropriate. I have personally performed a face to face assessment of the patient and have personally participated in the davies components. I have discussed the case and management of the patient's care. Impression: Mr. Avelar is a 63M with a medical history significant for T2 IDDM, psoriasis, presented to [facility] with NSTEMI, subsequent LHC revealed 3-vessel CAD and thus transferred here for surgical evaluation. ECG on 02/04/19 with inferolateral TWI. Active issues are as follows: NSTEMI 3-vessel CAD (LM: 50% distal stenosis, LAD: focal 80% stenosis at 1st septal skip tracer and D1, followed by tubular 60-70% stenosis), LCx: 70% ostial stenosis, 70% stenosis of large OM, RCA large and dominant with focal 80% stenosis in mid-distal vessel) HFrEF due to ICM, LVEF 50% on 02/05/19 with resting WMA: inferior, posterior, basal anterolateral segments severely hypokinetic, apical inferior and apex mildly hypokinetic Type 2 insulin-dependent diabetes Psoriasis, on humira Plan: - Remains chest pain free, CTS consulted for CABG evaluation with Dr. Larsen, possibly as second round case on 02/07/19 if preop testing completed prior to then (per Dr. Hsieh's attestation from 02/05/19) - Continue optimizing medical therapy (on aspirin, heparin gtt, metoprolol 25mg bid, consider adding low-dose ACEI tomorrow) STAFF PHYSICIAN: Melba Salomon MD, [facility] DATE OF SERVICE: 02/06/2019 [facility]Y PROGRESS NOTE PRIMARY SERVICE: Clinical Cardiology Johanna Avelar [phone] HOSPITAL DAY: # 2 PLAN FOR TODAY: - Continue ASA, metoprlol, atorvastatin - Introduce low dose captopril and titrate as tolerated - Pre-operative testing for CABG per CTS; speak to schedulers INTERVAL HISTORY - no acute events overnight, HDS - BP 110s-30s/60-70s; HR 50-70s - Denies chest pain, SOB, N/V/D PHYSICAL EXAM BP 133/75 Pulse 69 Temp 36.4 ?C (97.5 ?F) (Oral) Resp 18 Wt 82.3 kg (181 lb 8 oz) SpO2 97% Intake/Output Summary (Last 24 hours) at 02/06/2019 0647 Last data filed at 02/06/2019 0500 Gross per 24 hour Intake 916 ml Output ? Net 916 ml General appearance: Well appearing, no acute distress. Head: Normocephalic, atraumatic. Oropharynx: Oropharynx normal. Neck: No goiter, lymphadenopathy, or JVD. Lungs: Lungs clear to auscultation bilaterally. No wheezing, rhonchi, or rales. Heart: RRR without murmur, gallop, or rubs. Abdomen: Abdomen soft, non-tender, non-distended. BS present. Extremities: No edema. Peripheral pulses symmetric. Neuro: AANDOx3. No focal weakness or changes in sensation. MEDICATIONS Medications reviewed. DATA Labs reviewed. IMAGING ECHO (02/05/19) - Technically difficult exam due to body habitus and suboptimal positioning. - Exam indication: Evaluation of known heart failure to guide therapy - The left ventricle is normal in size. Left ventricular systolic function is mildly decreased. EF = 50 ? 5% (visual est.) Grade I left ventricular diastolic dysfunction. The mid inferolateral segment and basal inferior segment are severely ?hypokinetic. The anterolateral wall, basal inferolateral segment, and mid inferior segment are mildly hypokinetic. - The right ventricle is normal in size. Right ventricular systolic function is normal. - The left atrial cavity is mildly dilated. - Estimated right ventricular systolic pressure is 51 mmHg consistent with moderate pulmonary hypertension. Estimated right atrial pressure is 8 mmHg based on IVC assessment. - The patient has not had a prior CC echocardiographic exam for comparison. ASSESSMENT AND PLAN Manpreet Avelar is a 63 year old male with a history of T2DM, Hyperlipidemia who presents as an OSH transfer from [facility] for consideration of CABG following recent NSTEMI. ? #Multivessel CAD #NSTEMI - Presented w/ chest pain, EKG changes, elevated troponins consistent with NSTEMI at OSH - Risk factors include T2DM, HLD, prior smoking - [facility] noting 3 vessel disease (80% LAD, 70% LCx, 90-95% RCA) - OSH TTE noting: EF 40-45%, moderate inferior wall hypokinesis - EBEN score 3 = 13% risk at 14 days of: all-cause mortality, new or recurrent MA, or severe recurrent ischemia requiring urgent revascularization Plan - ASA 81 - Heparin gtt - Atorvastatin 80 - Metoprolol tartrate 25 BID - Hold ticagrelor pending plan for CABG - CTS consult re. CABG ? #T2DM - for ~20y - need to assess control, pt unsure of A1c Plan - A1c - continue insulin aspart 02/17/11 - continue insulin degludec 25U qhs - SSI AC/HS ? #Solid dysphagia - difficulty swallowing solids arianna dry foods, worsening over 1y - GI consult for dysphagia at [facility] - considering EGD w/ dilation Plan - OP GI follow up or OP EGD after CABG ? #Psoriasis - well controlled on q2wk humira Plan - unable to give humira inpatient ? #HLD - previously on rosuvastatin 5 - Lipid panel @ [facility] 02/01: TC 140, LDL 77, HDL 48 Plan - atorvastatin 80mg ? # Diet - Heart Healthy # VTE PPx - AC w/ heparin # Dispo Planning - TBD # Code Status - Full code confirmed w/ patient Case to be discussed with staff. Nohemy Olivarez, DO Internal Medicine PGY-1 02/06/2019 6:47 AM For communication after 5 pm on weekdays and after 12 pm on weekends, please page the following: - Clinical Cardiology patients on all floors: page [phone] - Other Cardiology patients on J5 and J6: page [phone] - Other Cardiology patients on J7 and J8: page [phone] Normal [facility] PTT,Anticoag Therapyon 02-06 aPTT Coag (Bld) [Time] 62.0 s High 23.0-32.4 Cl [facility] Comment on above: Result Comment: Unfr actionated Heparin Therapeutic Ranges: Standard Heparin Nomogram: 53 to 78 seconds (anti-Xa level of 0.3 to 0.7 U/ml) Low Dose/ACS Nomogram: 49 to 67 seconds (anti-Xa level of 0.2 to 0.5 U/ml) Stroke Treatment Nomogram: 49 to 67 seconds (anti-Xa level of 0.2 to 0.5 U/ml) Note: The APTT therapeutic range has been determined for the current lot of laboratory APTT reagent in use throughout the [facility]. Results may be inaccurate due to age of specimen. SPECIMEN RECEIVED IN AUTO HEMATOLOGY 02.06.19 1342 Performed By: #### C BCDIF, PT, PTT, CMP, MG1, NTBNP #### [facility] [address] [place] [address] aPTT Coag (Bld) [Time] 48.7 s High 23.0-32.4 [facility] Comment on above: Result Comment: Unfr actionated Heparin Therapeutic Ranges: Standard Heparin Nomogram: 53 to 78 seconds (anti-Xa level of 0.3 to 0.7 U/ml) Low Dose/ACS Nomogram: 49 to 67 seconds (anti-Xa level of 0.2 to 0.5 U/ml) Stroke Treatment Nomogram: 49 to 67 seconds (anti-Xa level of 0.2 to 0.5 U/ml) Note: The APTT therapeutic range has been determined for the current lot of laboratory APTT reagent in use throughout the [facility]. Performed By: #### C BCDIF, PT, PTT, CMP, MG1, NTBNP #### [place] [address] aPTT Coag (Bld) [Time] 69.5 s High 23.0-32.4 [facility] Comment on above: Result Comment: Unfr actionated Heparin Therapeutic Ranges: Standard Heparin Nomogram: 53 to 78 seconds (anti-Xa level of 0.3 to 0.7 U/ml) Low Dose/ACS Nomogram: 49 to 67 seconds (anti-Xa level of 0.2 to 0.5 U/ml) Stroke Treatment Nomogram: 49 to 67 seconds (anti-Xa level of 0.2 to 0.5 U/ml) Note: The APTT therapeutic range has been determined for the current lot of laboratory APTT reagent in use throughout the [facility]. Results may be inaccurate due to age of specimen. Performed By: #### C BCDIF, PT, PTT, CMP, MG1, NTBNP #### [place] [address] Staph aureus PCRon 9 MRSA PCR Negative Normal [facility] Comment on above: Performed By: #### C BCDIF, PT, PTT, CMP, MG1, NTBNP #### [place] [id number] S aureus Spec Source [facility]al [facility] Comment on above: Performed By: #### C BCDIF, PT, PTT, CMP, MG1, NTBNP #### [place] [address] [place] [phone] Staph aureus PCR Negative Normal [facility] Comment on above: Performed By: #### C BCDIF, PT, PTT, CMP, MG1, NTBNP #### [place] [address] Type and Screenon 02-06-2019 ABO/RH(D) Positive Normal [facility] Comment on above: Performed By: #### C BCDIF, PT, PTT, CMP, MG1, NTBNP #### [place] [phone] Urinalysison 02-06-2019 Bilirubin, Urine Negative Normal Negative [facility] Comment on above: Performed By: #### C BCDIF, PT, PTT, CMP, MG1, NTBNP #### [place] [phone] Clarity (U) Clear Normal Clear [facility] Comment on above: Performed By: #### C BCDIF, PT, PTT, CMP, MG1, NTBNP #### [place] [phone] Color (U) Yellow Normal Yellow [facility] Comment on above: Performed By: #### C BCDIF, PT, PTT, CMP, MG1, NTBNP #### [place] [address] Comments SEE COMMENT Normal [facility] Comment on above: Result Comment: Micr oscopic not warranted Performed By: #### C BCDIF, PT, PTT, CMP, MG1, NTBNP #### [address] [address] Glucose Ql (U) Negative Normal Negative [facility] Comment on above: Performed By: #### C BCDIF, PT, PTT, CMP, MG1, NTBNP #### [place] [address] [place], [place] [address] Hemoglobin/Blood,Ur Negative Normal Negative [facility] Comment on above: Performed By: #### C BCDIF, PT, PTT, CMP, MG1, NTBNP #### [place] [address] [place] [address] Ketones Ql (U) Negative Normal Negative [facility] Comment on above: Performed By: #### C BCDIF, PT, PTT, CMP, MG1, NTBNP #### [address] [address] Leukest Negative Normal Negative [facility] Comment on above: Performed By: #### C BCDIF, PT, PTT, CMP, MG1, NTBNP #### [place] [address] [place] [address] Nitrite Ql (U) Negative Normal Negative [facility] Comment on above: Performed By: #### C BCDIF, PT, PTT, CMP, MG1, NTBNP #### [place] [address] [place] [address] pH (Bld) 6.0 Normal 4.5-8.0 [facility] Comment on above: Performed By: #### C BCDIF, PT, PTT, CMP, MG1, NTBNP #### [place] [address] [place] [address] Protein (U) [Mass/Vol] Negative Normal Negative [facility] Comment on above: Performed By: #### C BCDIF, PT, PTT, CMP, MG1, NTBNP #### [place] [address] Specific [place], Ur 1.017 Normal 1.005-1.030 [facility] Comment on above: Performed By: #### C BCDIF, PT, PTT, CMP, MG1, NTBNP #### [facility] [address] [place], [place] [address] Urine Sky Comment SEE COMMENT Normal [facility] Comment on above: Result Comment: N/A Performed By: #### C BCDIF, PT, PTT, CMP, MG1, NTBNP #### [place] [address] [place] [address] Urobilinogen Qn (U) Normal Normal Normal [facility] Comment on above: Performed By: #### C BCDIF, PT, PTT, CMP, MG1, NTBNP #### [place] [address] [place] [id number] Basic Metabolic Panlon 02-05 Anion gap [Moles/Vol] 14 mmol/L Normal 9-18 [facility] Comment on above: Performed By: #### C BCDIF, PT, PTT, CMP, MG1, NTBNP #### [place] [address] [place], [place] [address] Calcium [Mass/Vol] 8.9 mg/dL Normal 8.5-10.2 [facility] Comment on above: Performed By: #### C BCDIF, PT, PTT, CMP, MG1, NTBNP #### [place] [address] [place], [place] [address] Chloride [Moles/Vol] 103 mmol/L Normal 97-105 [facility] Comment on above: Performed By: #### C BCDIF, PT, PTT, CMP, MG1, NTBNP #### [place] [address] [place], [place] [address] CO2 [Moles/Vol] 24 mmol/L Normal 22-30 [facility] Comment on above: Performed By: #### C BCDIF, PT, PTT, CMP, MG1, NTBNP #### [facility] [address] [place] [address] Creatinine [Mass/Vol] 1.14 mg/dL Normal 0.73-1.22 [facility] Comment on above: Performed By: #### C BCDIF, PT, PTT, CMP, MG1, NTBNP #### [facility] [address] [place] [address] eGFR- Amer. >60 Normal [facility] Comment on above: Performed By: #### C BCDIF, PT, PTT, CMP, MG1, NTBNP #### [facility] [address] [place] [address] GFR/1.73 sq M predicted among non-blacks MDRD (S/P/Bld) [Vol rate/Area] mL/min/{1.73_m2} Normal [facility] Comment on above: Result Comment: eGFR (Estimated GFR) Units of measure: mL/min/1.73 meters squared eGFR is derived from the reexpressed MDRD Study equation using the following parameters: serum creatinine, age, gender and race. The creatinine assay has been calibrated to be traceable to IDMS. An eGFR <60 mL/min/1.73m2 for >3 months is consistent with chronic kidney disease. Refer to KDOQI guidelines for clinical interpretation. In patients with unstable renal function, e.g. those with acute kidney injury, the eGFR may not accurately reflect actual GFR. Performed By: #### C BCDIF, PT, PTT, CMP, MG1, NTBNP #### [facility] [address] [place] [id number] Glucose [Mass/Vol] 49 mg/dL Low 74-99 [facility] Comment on above: Result Comment: The [place] Diabetes [employer] (ADA) provides guidance for cutoff values for fasting glucose and random glucose. The ADA defines fasting as no caloric intake for at least 8 hours. Fasting plasma glucose results between 100 to 125 mg/dL indicate increased risk for diabetes (prediabetes). Fasting plasma glucose results greater than or equal to 126 mg/dL meet the criteria for diagnosis of diabetes. In the absence of unequivocal hyperglycemia, results should be confirmed by repeat testing. In a patient with classic symptoms of hyperglycemia or hyperglycemic crisis, random plasma glucose results greater than or equal to 200 mg/dL meet the criteria for diagnosis of diabetes. Reference: Standards of Medical Care in Diabetes 2016, [place] [employer]. Diabetes Care. 2016.39(Suppl 1). Called to and read back by: Abhijeet Roman Rn J53 02/05/19 04:24 Pedro Performed By: #### C BCDIF, PT, PTT, CMP, MG1, NTBNP #### [facility] [address] [place], [place] [address] Potassium [Moles/Vol] 3.5 mmol/L Low 3.7-5.1 [facility] Comment on above: Performed By: #### C BCDIF, PT, PTT, CMP, MG1, NTBNP #### [facility] [address] [place], [place] [address] Sodium [Moles/Vol] 141 mmol/L Normal 136-144 [facility] Comment on above: Performed By: #### C BCDIF, PT, PTT, CMP, MG1, NTBNP #### [facility] [address] [place], [place] [address] Urea nitrogen [Mass/Vol] 20 mg/dL Normal 9-24 [facility] Comment on above: Performed By: #### C BCDIF, PT, PTT, CMP, MG1, NTBNP #### [facility] [address] [place], [place] [address] CASE MGT INIT MEHDIkedar 2018 CASE MGT INIT MEHDI HNO ID: [id number] Author: Annamaria (Rn) ARLYN Meier Service: Care Management Author Type: Registered Nurse Type: Care Mgt Initial Assessment Filed: 02/05/2019 11:24 AM Note Text: CARE MANAGEMENT: ASSESSMENT AND DISCHARGE PLAN SERVICE DATE: 02/05/2019 SERVICE TIME: 11:19 AM PRIMARY CARE PHYSICIAN: BRITTANY Post Phone: None ADMISSION STATUS: Inpatient Needs Prior to Discharge: To Be Determined;Discharge Prescriptions;Pharmac y Bedside Delivery MEDICAL: Patient/Representativ e Stated Goals: To return home to life as it was Health Insurance: BLUE CARD PPO Blue Card PPO Health Issues Impacting Discharge Plan: None Last Discharge Date: N/A Is this Within the Past 30 days? No Advance Directive: Current Advance Directive: None Personalized Living Manager Nurse Attempted to Assist with AD Completion: Yes Action: Patient Unwilling Health Literacy: 1. How often do you need to have someone help you when you read instructions, pamphlets, or other written material from your doctor or pharmacy? Never - 1 2. How confident are you filling out medical forms by yourself? Extremely - 1 If Patient scores > 3 on either question, the following interventions were put into place: Patient did not score > 3 FUNCTIONAL AND COGNITIVE/BEHAVIORAL PRIOR TO ADMISSION: Baseline Mental Status: Alert AND Oriented, Person, Place , Time and Situation Functional Status: Independent Does Patient Currently Receive Any Community Services or Home Care? None Equipment Prior to Admission: Glucometer Has the Patient Been in a Care Home Facility in the Past 30 days? No SOCIAL: Living Arrangement: Home Lives With: Spouse Financial Resources: Retired Primary Contact: Extended Emergency Contact Information Primary Emergency Contact: Sujatha Hi Leoma Relation: Spouse Supportive: Yes Other Important Patient Contacts: None Caregiver Assessment: Caregiver is ready, willing and able to meet the patient's needs as recommended by the inter-professional team? No Caregiver Needed Patient's transition needs and plan for meeting these needs: TBD Does the patient have an acute stroke diagnosis, or has the patient had a stroke during this admission? No Medication Adherence: I am convinced of the importance of my prescription medication: Agree completely - 0 I worry that my prescription medication will do more harm than good to me Disagree completely - 0 I feel financially burdened by my ain-dy-ipdscf expenses for my prescription medication: Disagree completely - 0 Patient is categorized as low risk < 2 Are you interested in bedside delivery of your medications? Yes Food Concerns: In the Last Month, Have You had Trouble Getting Food? No trouble getting food During the Last Month, Have You Worried Whether Your Food Would Run Out Before You Had Enough Money to Buy More? No Is the Patient Psychosocially Complex? No ASSESSMENT AND PLAN: Medical Needs: Diabetes - Education Psychosocial Needs: None FREEDOM OF CHOICE EXPLAINED: N/A POTENTIAL TRANSITION PLANS Home To Be Determined 63 year old male from [place], [place] admitted with NSTEMI. Lives with spouse in ranch home. Independent with ADL/IADL care prior to admit. No home DME used. Casemanager role explained. Family will transport him home at discharge. Discharge needs to be determined. Weekend pager # [phone]. SIGNATURE: Annamaria Meier RN PATIENT NAME: Manpreet Avelar DATE: February 05, 2019 TIME: 11:19 AM PAGER/CONTACT #: [phone] Normal [facility] CBCon 02-05-2019 Absolute nRBC <0.01 Normal <0.01 [facility] Comment on above: Performed By: #### C BCDIF, PT, PTT, CMP, MG1, NTBNP #### [facility] [address] [place] [phone] Erythrocyte distribution width (RBC) [Ratio] 12.6 % Normal 11.5-15.0 [facility] Comment on above: Performed By: #### C BCDIF, PT, PTT, CMP, MG1, NTBNP #### [facility] [place] [address] Hematocrit (Bld) [Volume fraction] 38.3 % Low 39.0-51.0 [facility] Comment on above: Performed By: #### C BCDIF, PT, PTT, CMP, MG1, NTBNP #### [facility] [address] [place] [address] Hemoglobin (Bld) [Mass/Vol] 12.8 g/dL Low 13.0-17.0 [facility] Comment on above: Performed By: #### C BCDIF, PT, PTT, CMP, MG1, NTBNP #### [facility] [place] [address] MCH (RBC) [Entitic mass] 29.2 pG Normal 26.0-34.0 [facility] Comment on above: Performed By: #### C BCDIF, PT, PTT, CMP, MG1, NTBNP #### [address] [address] MCHC (RBC) [Mass/Vol] 33.4 g/dL Normal 30.5-36.0 [facility] Comment on above: Performed By: #### C BCDIF, PT, PTT, CMP, MG1, NTBNP #### [address] [address] MCV (RBC) [Entitic vol] 87.2 fL Normal 80.0-100.0 [facility] Comment on above: Performed By: #### C BCDIF, PT, PTT, CMP, MG1, NTBNP #### [place] [address] Platelet mean volume (Bld) [Entitic vol] 11.9 fL Normal 9.0-12.7 [facility] Comment on above: Performed By: #### C BCDIF, PT, PTT, CMP, MG1, NTBNP #### [address] [address] Platelets (Bld) [#/Vol] 177 10*3/uL Normal 150-400 [facility] Comment on above: Performed By: #### C BCDIF, PT, PTT, CMP, MG1, NTBNP #### [place] [address] [place], [place] [address] RBC (Bld) [#/Vol] 4.39 10*6/uL Normal 4.20-6.00 [facility] Comment on above: Performed By: #### C BCDIF, PT, PTT, CMP, MG1, NTBNP #### [address] [address] WBC (Bld) [#/Vol] 7.97 10*3/uL Normal 3.70-11.00 [facility] Comment on above: Performed By: #### C BCDIF, PT, PTT, CMP, MG1, NTBNP #### [facility] [address] [place], [place] [address] PROGRESSon 02-05-2019 PROGRESS HNO ID: [id number] Author: Michael Hsieh Service: Critical Care Author Type: Physician Type: Progress Notes Filed: 02/05/2019 1:55 PM Note Text: [facility] Clinical Cardiology B PROGRESS NOTE NAME: Manpreet Avelar ADMIT DATE: 02/03/2019 11:57 PM TODAY'S DATE: 02/05/2019 PRIMARY SERVICE: Clinical cardiology B CLINICAL CARDIOLOGY STAFF NOTE I have seen the patient and discussed the plan of care with the patient and the housestaff team. The plan of care for each active problem is addressed in detail in the problem list section of the housestaff note. Please refer to the housestaff note by Dr. Arreguin for additional details. ? Hospital Problem List 1. NSTEMI 02/01/19 - Awakened from sleep with chest pain and shortness of breath - Inferolateral T-wave inversion, troponin peak 0.77 - Uncomplicated by heart failure or arrhythmia 2. Coronary artery disease - [facility] 02/02/19: 80% LAD, 70% circumflex, 95% RCA - Appropriate secondary preventive medical therapy - CTS consultation for primary CABG 3. LV systolic dysfunction - LVEF 40?45% without significant valvular disease 4. Diabetes type 2 5. Psoriasis - Treated with Humira ? S/O No complaints this morning, currently chest pain-free. BP 127/70 Pulse 76 Temp 37.5 ?C (99.5 ?F) (Oral) Resp 18 Wt 83.5 kg (184 lb) SpO2 96% Well-appearing man in no distress No JVD at 45? Regular, no murmurs rubs or gallops Clear chest Warm legs without edema AAO ?3 Numerous tattoos ? ECG: Sinus rhythm at 61 bpm, T wave inversions in the inferior lateral leads Sodium 141 Potassium 3.5 Bicarbonate 24 BUN 20 Creatinine 1.14 WBC 8 Hemoglobin 12.8 Platelets 177 Troponin T 0.139 NT Pro BNP 1345 ? Outside coronary angiogram (personally reviewed, images on Syngo) Left main 50% distal stenosis LAD focal 80% stenosis at the origin of S1 and D1 followed by a tubular 60?70%. Mid to distal vessel without significant disease. Circumflex 70% ostial stenosis, 70% stenosis of large OM. RCA is large and dominant with a focal 80% stenosis in the mid to distal vessel or to the bifurcation ? A/P 63-year-old man with a history of diabetes and psoriasis who was transferred from an outside hospital following an uncomplicated NSTEMI. Coronary angiography there demonstrated severe three-vessel coronary artery disease. Echocardiography demonstrates mild LV systolic dysfunction without significant valvular pathology. In light of his diabetes, multivessel disease, reduced LV systolic function and good surgical candidacy he would be expected to have a better outcome with surgical versus percutaneous revascularization. ? 1. Continue aspirin, metoprolol, atorvastatin at current doses. 2. Introduce low-dose captopril and titrate as tolerated 3. Insulin for glycemic control 4. Echocardiogram. 5. CT surgery consultation (Dr. Larsen) regarding primary CABG. Potentially have surgery as second round case on 02/07/19 if preoperative testing can be arranged prior to this. Dr. Melba Salomon to take over as attending physician beginning on 02/06/19. ? Michael Hsieh M.D., F.A.C.C. Staff Automatic Toe Laster, [facility] [place] Associate Layout Worker, Internal Medicine Residency [facility] Plan for the Day: - F/U CTS recs (will need to reach out for eval today) - Continue ASA and Heparin gtt, Continue BBlocker - F/U Echo INTERVAL VSS, HDS, Afebrile, NAEO I/O: 695cc - 4x not recordedcc -?cc total yesterday NoBMs total yesterday Micro:None Yesterday: Admitted overnight for NSTEMi triple vessel dz Overnight NAEO Today: No complaints or concerns. No CP, Palp, SOB, Cough, Fever/Chills, Abd pain, N/V/C/D Labs: K 3.5, Hgb 12.8 stable slightly down OBJECTIVE Vitals: BP 136/68 Pulse 62 Temp (Src) 98.9 (Oral) Resp 20 Wt 182 lb 11.2 oz (82.9kg) SpO2 96% O2 Therapy: Room Air Intake/Output Summary (Last 24 hours) at 02/04/2019 1558 Last data filed at 02/04/2019 1300 Gross per 24 hour Intake 240 ml Output ? Net 240 ml Lines: Lines, Drains, and Airways Line Peripheral Admission to Hospital Left Forearm 20 Gauge -- days Exam: General Appearance: Well developed and Well nourished HEENT: PERRLA, EOM's intact and Fair dentition Lungs: Clear Heart: Regular rate AND rhythm and S1, S2 normal Abdomen: Soft, Firm, Non-tender and Bowel sounds present Skin: Warm, Dry and Moist Musculoskeletal: No deformities Neurologic/Psychiatri c: Oriented to time, place AND person , Alert and No gross focal neurologic deficits Labs: Recent Labs 02/04/19 1201 02/04/19 0837 PCGLUCOSE 156* 99 CBC: Recent Labs 02/04/19234 WBC 7.62 HB 13.2 HCT 39.1 PLT 168 MCV 90.1 RDWCV 12.5 NEUTP 53.3 ABSNEUT 4.06 LYMPHP 34.4 MONOP 9.8 EODINP 1.7 COAG: Recent Labs 02/04/19 0955 02/04/19234 APTT 73.0* 41.7* INR -- 1.1 BMP: Recent Labs 02/04/19234 GLUC 80 NA 139 K 3.7 CHLOR 103 CO2 25 ANION 11 BUN 21 CREAT 1.18 CHEM: Recent Labs 02/04/19234 ALB 3.3* TPROT 6.4 CA 8.6 MG 1.9 HEPATIC: Recent Labs 02/04/19234 ALKPHOS 77 ALT 32 AST 24 TBILI 0.3 CARDIAC: Recent Labs 02/04/19234 CKMBP CK MB % not reported with CK <100 U/L. TROPT 0.139* PBNP 1,345* Lipid panel: No results found for: CHOL, HDL, LDL, TG HbA1c: No results found for: HBA1C No results found for: T3 No results found for: T4 No results found for: I7SIGEMU No results found for: TSH URINALYSIS:No results for input(s): PH, SPGR, UGLUC, UBILI, UKET, UHB, UPROT, UROBIL, UWBC, SSA in the last 168 hours. Invalid input(s): NITR INPATIENT MEDICATIONS Current Facility-Administered Medications Medication Dose Route Frequency Provider Last Rate Last Dose - acetaminophen 325-650 mg tab(s) (TYLENOL) 325-650 mg ORAL q 4 H PRN Cheyanne (Res) Sloaneenberger - polyethylene glycol 3350 17 g packet (MIRALAX, GLYCOLAX) 17 g ORAL DAILY PRN Cheyanne (Res) Hanatalieenberger - melatonin 6 mg tab(s) 6 mg ORAL DAILY (8 PM) Cheyanne (Res) Hackenberger 6 mg at 02/04/19 0154 - gabapentin 100 mg cap(s) (NEURONTIN) 100 mg ORAL AT BEDTIME Cheyanne (Res) Hackenberger - atorvastatin 80 mg tab(s) (LIPITOR) 80 mg ORAL AT BEDTIME Cheyanne (Res) Sloaneenberger - insulin lispro 8 Units injection (rapid acting) (HumaLOG) 8 Units SUBCUTANEOUS DAILY wLUNCH Cheyanne (Res) Hackenberger 6 Units at 02/04/19 1250 - insulin lispro 11 Units injection (rapid acting) (HumaLOG) 11 Units SUBCUTANEOUS DAILY WITH BREAKFAST Cheyanne (Res) Hackenberger - insulin lispro 11 Units injection (rapid acting) (HumaLOG) 11 Units SUBCUTANEOUS DAILY wDINNER Cheyanne (Res) Hackenberger - insulin glargine 25 Units pen (long acting) (LANTUS SOLOSTAR, BASAGLAR KWIKPEN) 25 Units SUBCUTANEOUS AT BEDTIME Cheyanne (Res) Sloaneenberger - dextrose 40 % 15 g 15 g ORAL PRN Cheyanne (Res) Jacoboer Or - glucagon 1 mg injection (GLUCAGEN) 1 mg INTRAMUSCULAR PRN Cheyanne (Res) Sloaneenberger Or - dextrose 50 % 12.5 g injection 12.5 g INTRAVENOUS PRN Cheyanne (Res) Sloaneenberger - aspirin 81 mg chewable tab(s) 81 mg ORAL DAILY Cheyanne (Res) Hackenberger 81 mg at 02/04/19 0833 - heparin iv infusion (LOW DOSE ACS/NOMOGRAM) 25,000 units in NaCl 0.45% 250 mL PREMIX 0-3,000 Units/hr INTRAVENOUS CONTINUOUS Cheyanne (Res) Hackenberger 10 mL/hr at 02/04/19 1201 1,000 Units/hr at 02/04/19 1201 And - heparin RATE CHANGE bolus 1,000-4,000 Units for subtherapeutic aptt results 1,000-4,000 Units INTRAVENOUS PRN Cheyanne (Res) Hackenberger 2,500 Units at 02/04/19 0402 - insulin lispro injection (rapid acting) (HumaLOG) SUBCUTANEOUS w MEALS AND HS Cheyanne (Res) Hackenberger 2 Units at 02/04/19 1251 - metoprolol tartrate (short acting) 25 mg tab(s) (LOPRESSOR) 25 mg ORAL q 12 H Cheyanne (Res) Hackenberger 25 mg at 02/04/19 0833 - perflutren lipid microspheres 1.1 mg/mL 1.3 mL injection (DEFINITY) 1.3 mL INTRAVENOUS DIRECTED PRN Nico (Res) Renny Gtt: heparin iv infusion (LOW DOSE ACS/NOMOGRAM) 25,000 units in NaCl 0.45% 250 mL PREMIX Last Rate: 1,000 Units/hr (02/04/19 1201) ASSESSMENT AND PLAN Manpreet Avelar is a 63 year old male with a history of T2DM, Hyperlipidemia who presents as an OSH transfer from [facility] for consideration of CABG following recent NSTEMI. ? #Multivessel CAD #NSTEMI - Presented w/ chest pain, EKG changes, elevated troponins consistent with NSTEMI at OSH - Risk factors include T2DM, HLD, prior smoking - [facility] noting 3 vessel disease (80% LAD, 70% LCx, 90-95% RCA) - OSH TTE noting: EF 40-45%, moderate inferior wall hypokinesis - EBEN score 3 = 13% risk at 14 days of: all-cause mortality, new or recurrent MA, or severe recurrent ischemia requiring urgent revascularization - TTE: not done yet Plan - ASA 81 - Heparin gtt - Atorvastatin 80 - Metoprolol tartrate 25 BID - Hold ticagrelor pending plan for CABG - CTS consult re. CABG - F/U ECHO ? #T2DM - for ~20y - A1c:7.2 Plan - continue insulin aspart 02/17/11 - continue insulin degludec 25U qhs - SSI AC/HS ? #Solid dysphagia - difficulty swallowing solids arianna dry foods, worsening over 1y - GI consult for dysphagia at [facility] - considering EGD w/ dilation Plan - OP GI follow up or OP EGD after CABG ? #Psoriasis - well controlled on q2wk humira Plan - unable to give humira inpatient ? #HLD - previously on rosuvastatin 5 - Lipid panel @ [facility] 02/01: TC 140, LDL 77, HDL 48 Plan - atorvastatin 80mg ? # Diet - Heart Healthy # VTE PPx - AC w/ heparin # Dispo Planning - TBD # Code Status - Full code confirmed w/ patient Case to be discussed with staff (Dr. Hsieh). Josemanuel Arreguin MD PGY-2, Internal Medicine [phone] (please see below for after hours communication) 02/05/2019 Normal [facility] PTT,Anticoag Therapyon 02-05 aPTT Coag (Bld) [Time] 51.5 s High 23.0-32.4 [facility] Comment on above: Result Comment: Unfr actionated Heparin Therapeutic Ranges: Standard Heparin Nomogram: 53 to 78 seconds (anti-Xa level of 0.3 to 0.7 U/ml) Low Dose/ACS Nomogram: 49 to 67 seconds (anti-Xa level of 0.2 to 0.5 U/ml) Stroke Treatment Nomogram: 49 to 67 seconds (anti-Xa level of 0.2 to 0.5 U/ml) Note: The APTT therapeutic range has been determined for the current lot of laboratory APTT reagent in use throughout the [facility]. Results may be inaccurate due to age of specimen. Performed By: #### C BCDIF, PT, PTT, CMP, MG1, NTBNP #### [facility] [address] [place], [place] [address] aPTT Coag (Bld) [Time] 50.8 s High 23.0-32.4 [facility] Comment on above: Result Comment: Unfr actionated Heparin Therapeutic Ranges: Standard Heparin Nomogram: 53 to 78 seconds (anti-Xa level of 0.3 to 0.7 U/ml) Low Dose/ACS Nomogram: 49 to 67 seconds (anti-Xa level of 0.2 to 0.5 U/ml) Stroke Treatment Nomogram: 49 to 67 seconds (anti-Xa level of 0.2 to 0.5 U/ml) Note: The APTT therapeutic range has been determined for the current lot of laboratory APTT reagent in use throughout the [facility]. Results may be inaccurate due to age of specimen. Performed By: #### C BCDIF, PT, PTT, CMP, MG1, NTBNP #### [facility] [address] [place], [place] [address] Potassiumon 02-05-2019 Potassium [Moles/Vol] 4.1 mmol/L Normal 3.7-5.1 [facility] Comment on above: Performed By: #### C BCDIF, PT, PTT, CMP, MG1, NTBNP #### [address] [address] APTTon 02-04-2019 aPTT Coag (Bld) [Time] 41.7 s High 23.0-32.4 [facility] Comment on above: Result Comment: Unfr actionated Heparin Therapeutic Ranges: Standard Heparin Nomogram: 53 to 78 seconds (anti-Xa level of 0.3 to 0.7 U/ml) Low Dose/ACS Nomogram: 49 to 67 seconds (anti-Xa level of 0.2 to 0.5 U/ml) Stroke Treatment Nomogram: 49 to 67 seconds (anti-Xa level of 0.2 to 0.5 U/ml) Note: The APTT therapeutic range has been determined for the current lot of laboratory APTT reagent in use throughout the [facility]. Performed By: #### C BCDIF, PT, PTT, CMP, MG1, NTBNP #### [facility] [address] [place], [place] [address] CBC and Differentialon 02-04 Abs Baso 0.06 k/uL Normal <0.11 [facility] Comment on above: Performed By: #### C BCDIF, PT, PTT, CMP, MG1, NTBNP #### [facility] [address] [place], [place] [address] Abs Clarke 0.75 k/uL Normal <0.87 [facility] Comment on above: Performed By: #### C BCDIF, PT, PTT, CMP, MG1, NTBNP #### [place] [address] Abs Neut 4.06 k/uL Normal 1.45-7.50 [facility] Comment on above: Performed By: #### C BCDIF, PT, PTT, CMP, MG1, NTBNP #### [place] [phone] Absolute nRBC <0.01 Normal <0.01 [facility] Comment on above: Performed By: #### C BCDIF, PT, PTT, CMP, MG1, NTBNP #### [place] [phone] Basophils/100 WBC (Bld) 0.8 % [facility] Comment on above: Performed By: #### C BCDIF, PT, PTT, CMP, MG1, NTBNP #### [place] [phone] DTYPE Auto Diff Normal [facility] Comment on above: Performed By: #### C BCDIF, PT, PTT, CMP, MG1, NTBNP #### [place] [phone] Eosinophils (Bld) [#/Vol] 0.13 10*3/uL Normal <0.46 [facility] Comment on above: Performed By: #### C BCDIF, PT, PTT, CMP, MG1, NTBNP #### [place] [phone] Eosinophils/100 WBC (Bld) 1.7 % Normal [facility] Comment on above: Performed By: #### C BCDIF, PT, PTT, CMP, MG1, NTBNP #### [place] [phone] Erythrocyte distribution width (RBC) [Ratio] 12.5 % Normal 11.5-15.0 [facility] Comment on above: Performed By: #### C BCDIF, PT, PTT, CMP, MG1, NTBNP #### [address] [address] Hematocrit (Bld) [Volume fraction] 39.1 % Normal 39.0-51.0 [facility] Comment on above: Performed By: #### C BCDIF, PT, PTT, CMP, MG1, NTBNP #### [address] [address] Hemoglobin (Bld) [Mass/Vol] 13.2 g/dL Normal 13.0-17.0 [facility] Comment on above: Performed By: #### C BCDIF, PT, PTT, CMP, MG1, NTBNP #### [place] [address] Lymphocytes (Bld) [#/Vol] 2.62 10*3/uL Normal 1.00-4.00 [facility] Comment on above: Performed By: #### C BCDIF, PT, PTT, CMP, MG1, NTBNP #### [place] [id number] Lymphocytes/100 WBC (Bld) 34.4 % Normal [facility] Comment on above: Performed By: #### C BCDIF, PT, PTT, CMP, MG1, NTBNP #### [place] [address] MCH (RBC) [Entitic mass] 30.4 pG Normal 26.0-34.0 [facility] Comment on above: Performed By: #### C BCDIF, PT, PTT, CMP, MG1, NTBNP #### [address] [address] MCHC (RBC) [Mass/Vol] 33.8 g/dL Normal 30.5-36.0 [facility] Comment on above: Performed By: #### C BCDIF, PT, PTT, CMP, MG1, NTBNP #### [place] [address] MCV (RBC) [Entitic vol] 90.1 fL Normal 80.0-100.0 [facility] Comment on above: Performed By: #### C BCDIF, PT, PTT, CMP, MG1, NTBNP #### [place] [address] Monocytes/100 WBC (Bld) 9.8 % Normal [facility] Comment on above: Performed By: #### C BCDIF, PT, PTT, CMP, MG1, NTBNP #### [place] [address] Neutrophils/100 WBC (Bld) 53.3 % Normal [facility] Comment on above: Performed By: #### C BCDIF, PT, PTT, CMP, MG1, NTBNP #### [place] [address] NRBCs 0.0 /100 WBC Normal 0 [facility] Comment on above: Performed By: #### C BCDIF, PT, PTT, CMP, MG1, NTBNP #### [place] [address] Platelet mean volume (Bld) [Entitic vol] 11.8 fL Normal 9.0-12.7 [facility] Comment on above: Performed By: #### C BCDIF, PT, PTT, CMP, MG1, NTBNP #### [place] [address] Platelets (Bld) [#/Vol] 168 10*3/uL Normal 150-400 [facility] Comment on above: Performed By: #### C BCDIF, PT, PTT, CMP, MG1, NTBNP #### [place] [address] RBC (Bld) [#/Vol] 4.34 10*6/uL Normal 4.20-6.00 [facility] Comment on above: Performed By: #### C BCDIF, PT, PTT, CMP, MG1, NTBNP #### [place] [phone] WBC (Bld) [#/Vol] 7.62 10*3/uL Normal 3.70-11.00 [facility] Comment on above: Performed By: #### C BCDIF, PT, PTT, CMP, MG1, NTBNP #### [place] [address] CK, Total and CKMBon 019 CK [Catalytic activity/Vol] 50 U/L Low 51-298 [facility] Comment on above: Performed By: #### C KCKMB, SYLVIA #### [place] [address] CK MB % CK MB % not reported with CK <100 U/L. Normal 0.0-4.0 [facility] Comment on above: Performed By: #### C KCKMB, SYLVIA #### [place] [address] MB 1.6 ng/mL Normal <7.8 [facility] Comment on above: Performed By: #### C KCKMB, SYLVIA #### [place] [address] Comp Metabolic Panelon 02-04 Albumin [Mass/Vol] 3.3 g/dL Low 3.9-4.9 [facility] Comment on above: Performed By: #### C BCDIF, PT, PTT, CMP, MG1, NTBNP #### [address] [place], [place] [address] ALP [Catalytic activity/Vol] 77 U/L Normal 38-113 [facility] Comment on above: Performed By: #### C BCDIF, PT, PTT, CMP, MG1, NTBNP #### [place] [address] [place], [place] [address] ALT [Catalytic activity/Vol] 32 U/L Normal 10-54 [facility] Comment on above: Performed By: #### C BCDIF, PT, PTT, CMP, MG1, NTBNP #### [address] [address] Anion gap [Moles/Vol] 11 mmol/L Normal 9-18 [facility] Comment on above: Performed By: #### C BCDIF, PT, PTT, CMP, MG1, NTBNP #### [address] [address] AST [Catalytic activity/Vol] 24 U/L Normal 14-40 [facility] Comment on above: Performed By: #### C BCDIF, PT, PTT, CMP, MG1, NTBNP #### [place] [address] [place], [place] [address] Bilirubin [Mass/Vol] 0.3 mg/dL Normal 0.2-1.3 [facility] Comment on above: Performed By: #### C BCDIF, PT, PTT, CMP, MG1, NTBNP #### [place] [address] [place], [place] [address] Calcium [Mass/Vol] 8.6 mg/dL Normal 8.5-10.2 [facility] Comment on above: Performed By: #### C BCDIF, PT, PTT, CMP, MG1, NTBNP #### [place] [address] [place], [place] [address] Chloride [Moles/Vol] 103 mmol/L Normal 97-105 [facility] Comment on above: Performed By: #### C BCDIF, PT, PTT, CMP, MG1, NTBNP #### [place] [phone] CO2 [Moles/Vol] 25 mmol/L Normal 22-30 [facility] Comment on above: Performed By: #### C BCDIF, PT, PTT, CMP, MG1, NTBNP #### [place] [phone] Creatinine [Mass/Vol] 1.18 mg/dL Normal 0.73-1.22 [facility] Comment on above: Performed By: #### C BCDIF, PT, PTT, CMP, MG1, NTBNP #### [place] [phone] eGFR- Amer. >60 Normal [facility] Comment on above: Performed By: #### C BCDIF, PT, PTT, CMP, MG1, NTBNP #### [place] [phone] GFR/1.73 sq M predicted among non-blacks MDRD (S/P/Bld) [Vol rate/Area] mL/min/{1.73_m2} Normal [facility] Comment on above: Result Comment: eGFR (Estimated GFR) Units of measure: mL/min/1.73 meters squared eGFR is derived from the reexpressed MDRD Study equation using the following parameters: serum creatinine, age, gender and race. The creatinine assay has been calibrated to be traceable to IDMS. An eGFR <60 mL/min/1.73m2 for >3 months is consistent with chronic kidney disease. Refer to KDOQI guidelines for clinical interpretation. In patients with unstable renal function, e.g. those with acute kidney injury, the eGFR may not accurately reflect actual GFR. Performed By: #### C BCDIF, PT, PTT, CMP, MG1, NTBNP #### [address] [place], [place] [address] Glucose [Mass/Vol] 80 mg/dL Normal 74-99 [facility] Comment on above: Result Comment: The [place] Diabetes Association (ADA) provides guidance for cutoff values for fasting glucose and random glucose. The ADA defines fasting as no caloric intake for at least 8 hours. Fasting plasma glucose results between 100 to 125 mg/dL indicate increased risk for diabetes (prediabetes). Fasting plasma glucose results greater than or equal to 126 mg/dL meet the criteria for diagnosis of diabetes. In the absence of unequivocal hyperglycemia, results should be confirmed by repeat testing. In a patient with classic symptoms of hyperglycemia or hyperglycemic crisis, random plasma glucose results greater than or equal to 200 mg/dL meet the criteria for diagnosis of diabetes. Reference: Standards of Medical Care in Diabetes 2016, [place] Diabetes Association. Diabetes Care. 2016.39(Suppl 1). Performed By: #### C BCDIF, PT, PTT, CMP, MG1, NTBNP #### [place] [address] [place] [address] Potassium [Moles/Vol] 3.7 mmol/L Normal 3.7-5.1 [facility] Comment on above: Performed By: #### C BCDIF, PT, PTT, CMP, MG1, NTBNP #### [facility] [address] [place], [place] [address] Protein [Mass/Vol] 6.4 g/dL Normal 6.3-8.0 [facility] Comment on above: Performed By: #### C BCDIF, PT, PTT, CMP, MG1, NTBNP #### [facility] [address] [place], [place] [address] Sodium [Moles/Vol] 139 mmol/L Normal 136-144 [facility] Comment on above: Performed By: #### C BCDIF, PT, PTT, CMP, MG1, NTBNP #### [place] [address] [place], [place] [address] Urea nitrogen [Mass/Vol] 21 mg/dL Normal 9-24 [facility] Comment on above: Performed By: #### C BCDIF, PT, PTT, CMP, MG1, NTBNP #### [facility] [address] [place], [place] [address] ECG COMPLETEon 02-04-2019 ECG COMPLETE NAME : MANPREET AVELAR PID : [id number] : 1955 Gender : Male Race : ORD : [id number] Procedure Date : Feb 04 2019 04:48:50 Edit Date : Feb 07 2019 13:57:21 Diagnosis:NORMAL SINUS RHYTHM POSSIBLE LEFT ATRIAL ENLARGEMENT INFERIOR MYOCARDIAL INFARCTION , AGE UNDETERMINED ST & LATERAL T WAVE ABNORMALITY ABNORMAL ECG Confirmed by MADISON PEACOCK M.D. ([id number]) on 02/07/2019 1:54:45 PM Ventricular Rate : 61 BPM Atrial Rate : 61 BPM P-R Interval : 174 ms QRS Duration : 96 ms Q-T Interval : 460 ms QTC Calculation(Bazett) : 463 ms P Elbert : 67 degrees R Elbert : 3 degrees T Elbert : -79 degrees Test Reason : ACS Location : 353 : [id number] Overread By : MADISON PEACOCK M.D. Edited By : MADISON PEACOCK M.D. Referred By : JABARI TORRES II Acquired by : NICOLE,INTERSTATE PLANNER Normal [facility] HISTORY PHYSICALon 9 HISTORY PHYSICAL HNO ID: [id number] Author: Michael Hsieh Service: Cardiovascular Medicine Author Type: Physician Type: HANDP Filed: 02/04/2019 1:51 PM Note Text: Cardiology History and Physical PATIENT NAME: Manpreet Avelar SERVICE DATE: 02/04/2019 SERVICE TIME: 1:14 AM CLINICAL CARDIOLOGY STAFF NOTE I have seen the patient and discussed the plan of care with the patient and the housestaff team. The plan of care for each active problem is addressed in detail in the problem list section of the housestaff note. Please refer to the housestaff note by Dr. Tran for additional details. Hospital Problem List 1. NSTEMI 02/01/19 - Awakened from sleep with chest pain and shortness of breath - Inferolateral T-wave inversion, troponin peak 0.77 - Uncomplicated by heart failure or arrhythmia 2. Coronary artery disease - [facility] 02/02/19: 80% LAD, 70% circumflex, 95% RCA - Appropriate secondary preventive medical therapy - CTS consultation for primary CABG 3. LV systolic dysfunction - LVEF 40?45% without significant valvular disease 4. Diabetes type 2 5. Psoriasis - Treated with Humira S/O No complaints this morning, currently chest pain-free. BP 127/70 Pulse 76 Temp 37.5 ?C (99.5 ?F) (Oral) Resp 18 Wt 83.5 kg (184 lb) SpO2 96% Well-appearing man in no distress No JVD at 45? Regular, no murmurs rubs or gallops Clear chest Warm legs without edema AAO ?3 Numerous tattoos ECG: Sinus rhythm at 61 bpm, T wave inversions in the inferior lateral leads Sodium 139 Potassium 3.7 Bicarbonate 25 BUN 21 Creatinine 1.18 Glucose 80 WBC 7.6 Hemoglobin 13.2 Platelets 168 Troponin T 0.139 NT Pro BNP 1345 Outside coronary angiogram (personally reviewed, images on Syngo) Left main 50% distal stenosis LAD focal 80% stenosis at the origin of S1 and D1 followed by a tubular 60?70%. Mid to distal vessel without significant disease. Circumflex 70% ostial stenosis, 70% stenosis of large OM. RCA is large and dominant with a focal 80% stenosis in the mid to distal vessel or to the bifurcation A/P 63-year-old man with a history of diabetes and psoriasis who was transferred from an outside hospital following an uncomplicated NSTEMI. Coronary angiography there demonstrated severe three-vessel coronary artery disease. Echocardiography demonstrates mild LV systolic dysfunction without significant valvular pathology. In light of his diabetes, multivessel disease, reduced LV systolic function and good surgical candidacy he would be expected to have a better outcome with surgical versus percutaneous revascularization. 1. Continue aspirin, metoprolol, atorvastatin at current doses. 2. Introduce low-dose captopril and titrate as tolerated 3. Insulin for glycemic control 4. CT surgery consultation regarding primary CABG. The patient has excellent targets for bypass and he appears to be a low risk surgical candidate. Michael Hsieh M.D., F.A.C.C. Staff Automatic [employer]e Laster, [facility] [place] Associate Layout Worker, Internal Medicine Residency [facility] Please page [phone] with questions or concerns. Chief Complaint NSTEMI, multivessel CAD - transfer for CABG eval History of Presenting Illness Manpreet Avelar is a 63 year old male with a history of - T2DM - Hyperlipidemia - Psoriasis on Humira He presents today as an OSH transfer from [facility] for consideration of CABG following recent NSTEMI. He initially presented to [facility] 02/01 after an episode of sharp substernal chest pain with accompanying dyspnea that morning. He said the chest pain came on all of a sudden while walking back from [place] and he had to stop several times due to breathlessness, the pain was substernal and radiated along his left lower rib border, he also had a cough and coughed up yellowish fitch sputum. The chest pain eased up slightly while he was waiting for his to go the ED. In the ED EKG noted inferolateral repolarization abnormalities and initial troponin was 0.65. He was given ASA 325mg and started on a heparin drip and sent to [facility]. Other labs at that time were notable for proBNP ~2800. At [facility], he was continued on aspirin and a heparin drip and was started on low dose metoprolol. His troponin uptrended to 0.77. He underwent a TTE noting decreased EF 40-45% and moderate inferior wall hypokinesis. On 02/02, troponin downtrended to 0.56. He underwent LHC noting triple vessel disease (80% LAD, 70% LCx, 90-95% RCA). After hearing this news, he and his requested transfer to [facility] for CABG evaluation. Upon arrival, he is feeling well. He denies recurrence of chest pain since the initial event. He denies any current complaints including chest pain, dyspnea, LE swelling. He reports for the past month he has had dyspnea and chest pain on exertion which resolve with rest. He has no personal history of cardiovascular disease including CAD, HTN, CHF, arrhythmias. Also denies orthopnea, LE swelling, palpitations. He has never had a prior stress test or catheterization. He was on rosuvastatin 5 at home for HLD and has had T2DM for ~20y, unsure of his A1c. He previously smoked 1ppd for ~10y but quit 40y ago. TTE 02/01/19 [facility]: mild-mod LVH, EF 40-45%, moderate inferior wall hypokinesis, mild MR AND TR, elevated eRVSP 54mmHg [facility] 02/02/19 @ [facility]: multiple lesions (30-50%) throughout left main trunk, 80% stenosis of LAD AND diag AND septal perf, Lcx 95% at ostium, 2nd lesion in prox circ 70%, mild disease in distal Lcx, dominant RCA w/ mild disease throughout AND 90-95% stnosis immediately prior to bifurcation, EF 40% Lipid panel @ [facility] 02/01: TC 140, LDL 77, HDL 48 Review of Systems PAIN ASSESSMENT: Negative for pain, history of chronic pain, or current treatment for a chronic pain condition. GENERAL: No weight loss, malaise or fevers HEENT: Negative for frequent or significant headaches, No changes in hearing or vision, no nose bleeds or other nasal problems RESPIRATORY: See HPI, No h/o lung disease, no dyspnea, some intermittent cough w/ yellow-fitch sputum ([place]), no fevers/chills/sick contacts, no worsening of cough CARDIOVASCULAR: See HPI GI: No nausea, vomiting, or diarrhea and reports solid dysphagia for past 1y : No history of dysuria, frequency or incontinence MUSCULOSKELETAL: Negative for joint pain or swelling, back pain or muscle pain SKIN: Negative for lesions, rash, and itching Family/Medical/Surgic al/Social Hx FAMILY HISTORY Problem Relation Age of Onset - Heart disease Mother - Heart disease Father - Heart Attack Maternal Grandfather PAST MEDICAL HISTORY Diagnosis Date - Hyperlipidemia - Nephrolithiasis - Pneumothorax due to rib fracture from tractor injury in teen years - Psoriasis - Type 2 diabetes mellitus (HCC) History reviewed. No pertinent surgical history. Social History Socioeconomic History Marital status: Spouse name: Not on file Number of children: Not on file Years of education: Not on file Highest education level: Not on file Occupational History Not on file Social Needs Financial resource strain: Not on file Food insecurity: Worry: Not on file Inability: Not on file Transportation needs: Medical: Not on file Non-medical: Not on file Tobacco Use Smoking status: Former Smoker Packs/day: 1.00 Years: 10.00 Pack years: 10 Types: Cigarettes Quit date: 04/12/1979 Years since quittin.8 Smokeless tobacco: Never Used Tobacco comment: rarely used chewing tobacco in past also Substance and Sexual Activity Alcohol use: Not on file Comment: rare, maybe once per month Drug use: Never Sexual activity: Not on file Lifestyle Physical activity: Days per week: Not on file Minutes per session: Not on file Stress: Not on file Relationships Social connections: Talks on phone: Not on file Gets together: Not on file Attends mosque service: Not on file Active member of club or organization: Not on file Attends meetings of clubs or organizations: Not on file Relationship status: Not on file Intimate partner violence: Fear of current or ex partner: Not on file Emotionally abused: Not on file Physically abused: Not on file Forced sexual activity: Not on file Other Topics Concerns: Not on file Social History Narrative Not on file Medications/Allergies rosuvastatin (CRESTOR) 5 mg tablet Take 5 mg by mouth once daily. gabapentin (NEURONTIN) 100 mg capsule Take 100 mg by mouth daily at bedtime. insulin aspart U-100 (NOVOLOG) 100 unit/mL (3 mL) inpn Inject 8 Units subcutaneously daily with lunch. insulin aspart U-100 (NOVOLOG) 100 unit/mL (3 mL) inpn Inject 11 Units subcutaneously daily with breakfast. insulin aspart U-100 (NOVOLOG) 100 unit/mL (3 mL) inpn Inject 11 Units subcutaneously daily with dinner. insulin degludec (TRESIBA) 100 unit/mL (3 mL) injection Inject 25 Units subcutaneously daily at bedtime. HUMIRA,CF, PEN 40 mg/0.4 mL pen kit Inject 40 mg subcutaneously every 2 weeks. Patient has no known allergies. Physical Exam BP 141/75 Pulse 60 Temp 37.3 ?C (99.1 ?F) (Oral) Resp 18 Wt 83.5 kg (184 lb) SpO2 94% General appearance: Well appearing, alert, in no acute distress, well-hydrated, well nourished. Skin: Skin color, texture, turgor normal, no suspicious rashes or lesions. Several tattoos. Head: Normocephalic, no masses, lesions, tenderness or abnormalities Eyes: Anicteric sclera. Pupils are equally round and reactive to light. Extraocular movements are intact. Neck: Supple, no adenopathy; thyroid symmetric, normal size, no bruits Heart: NRRR without murmur, gallop, or rubs Lungs: lungs clear to auscultation. No wheezing, rhonchi, rales Abdomen: Abdomen soft, non-tender. Extremities: Warm, well perfused, no edema Peripheral pulses: Pulses palpable Neuro: Distal UE AND LE strength grossly intact Data Most recent labs and imaging reviewed. Labs CBC: Recent Labs 02/04/19234 WBC 7.62 HB 13.2 HCT 39.1 PLT 168 MCV 90.1 RDWCV 12.5 NEUTP 53.3 ABSNEUT 4.06 LYMPHP 34.4 MONOP 9.8 EODINP 1.7 COAG: Recent Labs 02/04/19234 APTT 41.7* INR 1.1 BMP: Recent Labs 02/04/19234 GLUC 80 NA 139 K 3.7 CHLOR 103 CO2 25 ANION 11 BUN 21 CREAT 1.18 CHEM: Recent Labs 02/04/19234 ALB 3.3* TPROT 6.4 CA 8.6 MG 1.9 HEPATIC: Recent Labs 02/04/19234 ALKPHOS 77 ALT 32 AST 24 TBILI 0.3 CARDIAC: Recent Labs 02/04/19234 CKMBP CK MB % not reported with CK <100 U/L. TROPT 0.139* PBNP 1,345* Assessment and Plan Manpreet Avelar is a 63 year old male with a history of T2DM, Hyperlipidemia who presents as an OSH transfer from [facility] for consideration of CABG following recent NSTEMI. #Multivessel CAD #NSTEMI - Presented w/ chest pain, EKG changes, elevated troponins consistent with NSTEMI at OSH - Risk factors include T2DM, HLD, prior smoking - [facility] noting 3 vessel disease (80% LAD, 70% LCx, 90-95% RCA) - OSH TTE noting: EF 40-45%, moderate inferior wall hypokinesis - EBEN score 3 = 13% risk at 14 days of: all-cause mortality, new or recurrent MA, or severe recurrent ischemia requiring urgent revascularization Plan - ASA 81 - Heparin gtt - Atorvastatin 80 - Metoprolol tartrate 25 BID - Hold ticagrelor pending plan for CABG - Echo (OSH didn't send images) - CTS consult re. CABG #T2DM - for ~20y - need to assess control, pt unsure of A1c Plan - A1c - continue insulin aspart 02/17/11 - continue insulin degludec 25U qhs - SSI AC/HS #Solid dysphagia - difficulty swallowing solids arianna dry foods, worsening over 1y - GI consult for dysphagia at [facility] - considering EGD w/ dilation Plan - OP GI follow up or OP EGD after CABG #Psoriasis - well controlled on q2wk humira Plan - unable to give humira inpatient #HLD - previously on rosuvastatin 5 - Lipid panel @ [facility] 02/01: TC 140, LDL 77, HDL 48 Plan - atorvastatin 80mg # Diet - Heart Healthy # VTE PPx - AC w/ heparin # Dispo Planning - TBD # Code Status - Full code confirmed w/ patient SIGNATURE: Cheyanne Tran MD PGY-2 PATIENT NAME: Manpreet Avelar DATE: February 04, 2019 TIME: 1:14 AM PAGER: [phone] Note: These recommendations are not final until staffed by provider [facility] Hemoglobin A1con 02-04-2019 HbA1c (Bld) [Mass fraction] 160 mg/dL [facility] Comment on above: Result Comment: eAG: (Estimated average glucose) is a calculated value from HgbA1c and is front office representative of the average blood glucose level in the last 2-3 month period. Performed By: #### C BCDIF, PT, PTT, CMP, MG1, NTBNP #### [facility] [address] [place], [place] [address] HbA1c (Bld) [Mass fraction] 7.2 % High 4.3-5.6 [facility] Comment on above: Result Comment: [place] Diabetes Association guidelines indicate that patients with HgbA1c in the range 5.7-6.4% are at increased risk for development of diabetes, and intervention by lifestyle modification may be beneficial. HgbA1c greater or equal to 6.5% is considered diagnostic of diabetes. Performed By: #### C BCDIF, PT, PTT, CMP, MG1, NTBNP #### [facility] [address] [place], [place] [address] Magnesiumon 02-04-2019 Magnesium [Mass/Vol] 1.9 mg/dL Normal 1.7-2.3 [facility] Comment on above: Performed By: #### C BCDIF, PT, PTT, CMP, MG1, NTBNP #### [facility] [address] [place], [place] [address] NT Pro BNPon 02-04-2019 PRO B Natr Peptide 1345 pg/mL High <125 [facility] Comment on above: Performed By: #### C BCDIF, PT, PTT, CMP, MG1, NTBNP #### [facility] [address] [place], [place] [address] NURSING PROGon 02-04-2019 NURSING PROG HNO ID: [id number] Author: Benigno (Rn) ARLYN Roman Service: ? Author Type: Registered Nurse Type: Nursing Progress Note Filed: 02/04/2019 12:28 AM Note Text: Admission/Transfer Note PATIENT NAME: Manpreet Avelar Patient transferred from [facility] via stretcher in stable condition. Actions taken: Patient oriented to room, call light function and prescribed activities. Two RN Skin check completed with ARLYN Molina. No skin issues noted. This note was completed by: Benigno Roman RN [facility] PTT,Anticoag Therapyon 02-04 aPTT Coag (Bld) [Time] 44.6 s High 23.0-32.4 [facility] Comment on above: Result Comment: Unfr actionated Heparin Therapeutic Ranges: Standard Heparin Nomogram: 53 to 78 seconds (anti-Xa level of 0.3 to 0.7 U/ml) Low Dose/ACS Nomogram: 49 to 67 seconds (anti-Xa level of 0.2 to 0.5 U/ml) Stroke Treatment Nomogram: 49 to 67 seconds (anti-Xa level of 0.2 to 0.5 U/ml) Note: The APTT therapeutic range has been determined for the current lot of laboratory APTT reagent in use throughout the [facility]. Performed By: #### C BCDIF, PT, PTT, CMP, MG1, NTBNP #### [facility] [address], [place] [address] aPTT Coag (Bld) [Time] 73.0 s High 23.0-32.4 [facility] Comment on above: Result Comment: Unfr actionated Heparin Therapeutic Ranges: Standard Heparin Nomogram: 53 to 78 seconds (anti-Xa level of 0.3 to 0.7 U/ml) Low Dose/ACS Nomogram: 49 to 67 seconds (anti-Xa level of 0.2 to 0.5 U/ml) Stroke Treatment Nomogram: 49 to 67 seconds (anti-Xa level of 0.2 to 0.5 U/ml) Note: The APTT therapeutic range has been determined for the current lot of laboratory APTT reagent in use throughout the [facility]. Performed By: #### C BCDIF, PT, PTT, CMP, MG1, NTBNP #### [facility] [address], [place] [address] Protimeon 02-04-2019 PT Coag (PPP) [Time] 11.5 s Normal 9.7-13.0 [facility] Comment on above: Performed By: #### C BCDIF, PT, PTT, CMP, MG1, NTBNP #### [facility] [address], [place] [address] PT Coag (PPP) [Time] 1.1 s Normal 0.9-1.3 [facility] Comment on above: Result Comment: Rosalva min K Antagonist (VKA) Therapeutic Range: INR 2 to 3 (Target INR of 2.5) Note: For patients treated with VKA drugs, such as warfarin, the [place] [employer] 2012 Guideline recommends a therapeutic INR range of 2 to 3 (target INR of 2.5). This recommendation includes high-risk patients with antiphospholipid syndrome with previous arterial or venous thromboembolism, current-generation mechanical or bioprosthetic aortic heart valve replacement. Note: Patients with mechanical aortic valve replacement and additional risk factors for thromboembolic events (atrial fibrillation, previous thromboembolism, LV dysfunction, hypercoagulable conditions) or an older generation mechanical AVR (i.e., ball in-Cage) or any mechanical MVR should have a INR therapeutic range of 2.5 to 3.5 (target INR of 3). Guyatt GH, et al. Chest 2012, 141:7S-47S Walker RA, et al. [facility] 2017, 70: 252-289 Performed By: #### C BCDIF, PT, PTT, CMP, MG1, NTBNP #### [facility] [address], [place] [address] Troponin Ton 02-04-2019 Troponin T.cardiac [Mass/Vol] 0.139 ng/mL High 0.000-0.029 [facility] Comment on above: Result Comment: Call ed to and read back by: Abhijeet Roman Rn J53 02/04/19 04:20 Pedro Performed By: #### C KCKMB, SYLVIA #### [facility] [address], [place] [address] XR CHEST 1V FRONTAL PORTon 1 XR CHEST 1V FRONTAL PORT * * *Final Repo rt* * * DATE OF EXAM: Feb 04 2019 7:19AM JIX [id number] - XR CHEST 1V FRONTAL PORT / PROCEDURE REASON: Pleural effusion * * * * Physician Interpretation * * * * EXAMINATION: CHEST RADIOGRAPH (SINGLE VIEW AP OR PA) Clinical History: Pleural effusion M: [id number]_4 Comparison: None. RESULT: Lines, tubes, and devices: None. Lungs and pleura: There is blunting of the costophrenic sulci which may reflect small bilateral pleural effusions. There are bibasilar patchy opacities reflecting atelectasis versus pneumonia/aspiration. Cardiomediastinal silhouette: Normal cardiomediastinal silhouette. Other: There are degenerative changes of the thoracic spine. IMPRESSION: Please see body of the report Flag Football Coach: PSCB Transcribe Date/Time: Feb 04 2019 10:32A Dictated by : YANIQUE CONNOLLY MD This examination was interpreted and the report reviewed and electronically signed by: YANIQUE CONNOLLY MD on Feb 04 2019 10:34AM EST [id number] N Normal [facility] HOSPon 02-03-2019 HOSP Patient:Magui Avelar iah H MRN: Height:5' 10 (1.778 m) Weight:178 lb 3.2 oz (80.831 kg) Outpatient Medications as of 02/13/19: HUMIRA,CF, PEN 40 mg/0.4 mL pen kit rosuvastatin (CRESTOR) 5 mg tablet gabapentin (NEURONTIN) 100 mg capsule insulin aspart U-100 (NOVOLOG) 100 unit/mL (3 mL) inpn insulin aspart U-100 (NOVOLOG) 100 unit/mL (3 mL) inpn insulin aspart U-100 (NOVOLOG) 100 unit/mL (3 mL) inpn insulin degludec (TRESIBA) 100 unit/mL (3 mL) injection Admission/Clinic Administered Medications as of 02/13/19: insulin lispro 8 Units injection (rapid acting) (HumaLOG) insulin lispro 7 Units injection (rapid acting) (HumaLOG) insulin lispro 8 Units injection (rapid acting) (HumaLOG) insulin glargine 14 Units pen (long acting) (LANTUS SOLOSTAR, BASAGLAR KWIKPEN) acetaminophen 325-650 mg tab(s) (TYLENOL) polyethylene glycol 3350 17 g packet (MIRALAX, GLYCOLAX) melatonin 6 mg tab(s) gabapentin 100 mg cap(s) (NEURONTIN) atorvastatin 80 mg tab(s) (LIPITOR) dextrose 40 % 15 g glucagon 1 mg injection (GLUCAGEN) dextrose 50 % 12.5 g injection aspirin 81 mg chewable tab(s) heparin iv infusion (LOW DOSE ACS/NOMOGRAM) 25,000 units in NaCl 0.45% 250 mL PREMIX heparin RATE CHANGE bolus 1,000-4,000 Units for subtherapeutic aptt results insulin lispro injection (rapid acting) (HumaLOG) metoprolol tartrate (short acting) 25 mg tab(s) (LOPRESSOR) Problem List: CAD (coronary artery disease) [I25.10] Preop testing [Z01.818] Allergies: No Known Allergies Date Verified:02/13/19 Lab Values Lab Value Units Date High Low POTA* 4.2 mmol/L 02/12/2019 5.1 3.7 MIKEY* 41.6 % 02/12/2019 51.0 39.0 Progress Notes (): Benigno Roman, RN, RN 02/04/2019 12:28 AM Signed Admission/Transfer Note PATIENT NAME: Manpreet Avelar Patient transferred from OSH via stretcher in stable condition. Actions taken: Patient oriented to room, call light function and prescribed activities. Two RN Skin check completed with ARLYN Molina. No skin issues noted. This note was completed by: Benigno Roman, RN Michael Hsieh MD 02/04/2019 1:51 PM Addendum Cardiology History and Physical PATIENT NAME: Manpreet Avelar SERVICE DATE: 02/04/2019 SERVICE TIME: 1:14 AM CLINICAL CARDIOLOGY STAFF NOTE I have seen the patient and discussed the plan of care with the patient and the housestaff team. The plan of care for each active problem is addressed in detail in the problem list section of the housestaff note. Please refer to the housestaff note by Dr. Tran for additional details. Hospital Problem List 1. NSTEMI 02/01/19 - Awakened from sleep with chest pain and shortness of breath - Inferolateral T-wave inversion, troponin peak 0.77 - Uncomplicated by heart failure or arrhythmia 2. Coronary artery disease - [facility] 02/02/19: 80% LAD, 70% circumflex, 95% RCA - Appropriate secondary preventive medical therapy - CTS consultation for primary CABG 3. LV systolic dysfunction - LVEF 40?45% without significant valvular disease 4. Diabetes type 2 5. Psoriasis - Treated with Humira S/O No complaints this morning, currently chest pain-free. BP 127/70 Pulse 76 Temp 37.5 ?C (99.5 ?F) (Oral) Resp 18 Wt 83.5 kg (184 lb) SpO2 96% Well-appearing man in no distress No JVD at 45? Regular, no murmurs rubs or gallops Clear chest Warm legs without edema AAO ?3 Numerous tattoos ECG: Sinus rhythm at 61 bpm, T wave inversions in the inferior lateral leads Sodium 139 Potassium 3.7 Bicarbonate 25 BUN 21 Creatinine 1.18 Glucose 80 WBC 7.6 Hemoglobin 13.2 Platelets 168 Troponin T 0.139 NT Pro BNP 1345 Outside coronary angiogram (personally reviewed, images on Syngo) Left main 50% distal stenosis LAD focal 80% stenosis at the origin of S1 and D1 followed by a tubular 60?70%. Mid to distal vessel without significant disease. Circumflex 70% ostial stenosis, 70% stenosis of large OM. RCA is large and dominant with a focal 80% stenosis in the mid to distal vessel or to the bifurcation A/P 63-year-old man with a history of diabetes and psoriasis who was transferred from an outside hospital following an uncomplicated NSTEMI. Coronary angiography there demonstrated severe three-vessel coronary artery disease. Echocardiography demonstrates mild LV systolic dysfunction without significant valvular pathology. In light of his diabetes, multivessel disease, reduced LV systolic function and good surgical candidacy he would be expected to have a better outcome with surgical versus percutaneous revascularization. 1. Continue aspirin, metoprolol, atorvastatin at current doses. 2. Introduce low-dose captopril and titrate as tolerated 3. Insulin for glycemic control 4. CT surgery consultation regarding primary CABG. The patient has excellent targets for bypass and he appears to be a low risk surgical candidate. Michael Hsieh M.D., F.A.C.C. Staff Automatic Toe Laster, [facility] [place] Associate Layout Worker, Internal Medicine Residency [facility] Please page [phone] with questions or concerns. Chief Complaint NSTEMI, multivessel CAD - transfer for CABG eval History of Presenting Illness Manpreet Avelar is a 63 year old male with a history of - T2DM - Hyperlipidemia - Psoriasis on Humira He presents today as an OSH transfer from [facility] for consideration of CABG following recent NSTEMI. He initially presented to [facility] ED 02/01 after an episode of sharp substernal chest pain with accompanying dyspnea that morning. He said the chest pain came on all of a sudden while walking back from [place] and he had to stop several times due to breathlessness, the pain was substernal and radiated along his left lower rib border, he also had a cough and coughed up yellowish fitch sputum. The chest pain eased up slightly while he was waiting for his to go the ED. In the ED EKG noted inferolateral repolarization abnormalities and initial troponin was 0.65. He was given ASA 325mg and started on a heparin drip and sent to [facility]. Other labs at that time were notable for proBNP ~2800. At [facility], he was continued on aspirin and a heparin drip and was started on low dose metoprolol. His troponin uptrended to 0.77. He underwent a TTE noting decreased EF 40-45% and moderate inferior wall hypokinesis. On 02/02, troponin downtrended to 0.56. He underwent [facility] noting triple vessel disease (80% LAD, 70% LCx, 90-95% RCA). After hearing this news, he and his requested transfer to [facility] for CABG evaluation. Upon arrival, he is feeling well. He denies recurrence of chest pain since the initial event. He denies any current complaints including chest pain, dyspnea, LE swelling. He reports for the past month he has had dyspnea and chest pain on exertion which resolve with rest. He has no personal history of cardiovascular disease including CAD, HTN, CHF, arrhythmias. Also denies orthopnea, LE swelling, palpitations. He has never had a prior stress test or catheterization. He was on rosuvastatin 5 at home for HLD and has had T2DM for ~20y, unsure of his A1c. He previously smoked 1ppd for ~10y but quit 40y ago. TTE 02/01/19 [facility]: mild-mod LVH, EF 40-45%, moderate inferior wall hypokinesis, mild MR AND TR, elevated eRVSP 54mmHg [facility] 02/02/19 @ [facility]: multiple lesions (30-50%) throughout left main trunk, 80% stenosis of LAD AND diag AND septal perf, Lcx 95% at ostium, 2nd lesion in prox circ 70%, mild disease in distal Lcx, dominant RCA w/ mild disease throughout AND 90-95% stnosis immediately prior to bifurcation, EF 40% Lipid panel @ [facility] 02/01: TC 140, LDL 77, HDL 48 Review of Systems PAIN ASSESSMENT: Negative for pain, history of chronic pain, or current treatment for a chronic pain condition. GENERAL: No weight loss, malaise or fevers HEENT: Negative for frequent or significant headaches, No changes in hearing or vision, no nose bleeds or other nasal problems RESPIRATORY: See HPI, No h/o lung disease, no dyspnea, some intermittent cough w/ yellow-fitch sputum ([place]), no fevers/chills/sick contacts, no worsening of cough CARDIOVASCULAR: See HPI GI: No nausea, vomiting, or diarrhea and reports solid dysphagia for past 1y : No history of dysuria, frequency or incontinence MUSCULOSKELETAL: Negative for joint pain or swelling, back pain or muscle pain SKIN: Negative for lesions, rash, and itching Family/Medical/Surgic al/Social Hx FAMILY HISTORY Problem Relation Age of Onset - Heart disease Mother - Heart disease Father - Heart Attack Maternal Grandfather PAST MEDICAL HISTORY Diagnosis Date - Hyperlipidemia - Nephrolithiasis - Pneumothorax due to rib fracture from tractor injury in teen years - Psoriasis - Type 2 diabetes mellitus (HCC) History reviewed. No pertinent surgical history. Social History Socioeconomic History Marital status: Spouse name: Not on file Number of children: Not on file Years of education: Not on file Highest education level: Not on file Occupational History Not on file Social Needs Financial resource strain: Not on file Food insecurity: Worry: Not on file Inability: Not on file Transportation needs: Medical: Not on file Non-medical: Not on file Tobacco Use Smoking status: Former Smoker Packs/day: 1.00 Years: 10.00 Pack years: 10 Types: Cigarettes Quit date: 04/12/1979 Years since quittin.8 Smokeless tobacco: Never Used Tobacco comment: rarely used chewing tobacco in past also Substance and Sexual Activity Alcohol use: Not on file Comment: rare, maybe once per month Drug use: Never Sexual activity: Not on file Lifestyle Physical activity: Days per week: Not on file Minutes per session: Not on file Stress: Not on file Relationships Social connections: Talks on phone: Not on file Gets together: Not on file Attends mosque service: Not on file Active member of club or organization: Not on file Attends meetings of clubs or organizations: Not on file Relationship status: Not on file Intimate partner violence: Fear of current or ex partner: Not on file Emotionally abused: Not on file Physically abused: Not on file Forced sexual activity: Not on file Other Topics Concerns: Not on file Social History Narrative Not on file Medications/Allergies rosuvastatin (CRESTOR) 5 mg tablet Take 5 mg by mouth once daily. gabapentin (NEURONTIN) 100 mg capsule Take 100 mg by mouth daily at bedtime. insulin aspart U-100 (NOVOLOG) 100 unit/mL (3 mL) inpn Inject 8 Units subcutaneously daily with lunch. insulin aspart U-100 (NOVOLOG) 100 unit/mL (3 mL) inpn Inject 11 Units subcutaneously daily with breakfast. insulin aspart U-100 (NOVOLOG) 100 unit/mL (3 mL) inpn Inject 11 Units subcutaneously daily with dinner. insulin degludec (TRESIBA) 100 unit/mL (3 mL) injection Inject 25 Units subcutaneously daily at bedtime. HUMIRA,CF, PEN 40 mg/0.4 mL pen kit Inject 40 mg subcutaneously every 2 weeks. Patient has no known allergies. Physical Exam BP 141/75 Pulse 60 Temp 37.3 ?C (99.1 ?F) (Oral) Resp 18 Wt 83.5 kg (184 lb) SpO2 94% General appearance: Well appearing, alert, in no acute distress, well-hydrated, well nourished. Skin: Skin color, texture, turgor normal, no suspicious rashes or lesions. Several tattoos. Head: Normocephalic, no masses, lesions, tenderness or abnormalities Eyes: Anicteric sclera. Pupils are equally round and reactive to light. Extraocular movements are intact. Neck: Supple, no adenopathy; thyroid symmetric, normal size, no bruits Heart: NRRR without murmur, gallop, or rubs Lungs: lungs clear to auscultation. No wheezing, rhonchi, rales Abdomen: Abdomen soft, non-tender. Extremities: Warm, well perfused, no edema Peripheral pulses: Pulses palpable Neuro: Distal UE AND LE strength grossly intact Data Most recent labs and imaging reviewed. Labs CBC: Recent Labs 02/04/19234 WBC 7.62 HB 13.2 HCT 39.1 PLT 168 MCV 90.1 RDWCV 12.5 NEUTP 53.3 ABSNEUT 4.06 LYMPHP 34.4 MONOP 9.8 EODINP 1.7 COAG: Recent Labs 02/04/19234 APTT 41.7* INR 1.1 BMP: Recent Labs 02/04/19234 GLUC 80 NA 139 K 3.7 CHLOR 103 CO2 25 ANION 11 BUN 21 CREAT 1.18 CHEM: Recent Labs 02/04/19234 ALB 3.3* TPROT 6.4 CA 8.6 MG 1.9 HEPATIC: Recent Labs 02/04/19234 ALKPHOS 77 ALT 32 AST 24 TBILI 0.3 CARDIAC: Recent Labs 02/04/19234 CKMBP CK MB % not reported with CK <100 U/L. TROPT 0.139* PBNP 1,345* Assessment and Plan Manpreet Avelar is a 63 year old male with a history of T2DM, Hyperlipidemia who presents as an OSH transfer from [facility] for consideration of CABG following recent NSTEMI. #Multivessel CAD #NSTEMI - Presented w/ chest pain, EKG changes, elevated troponins consistent with NSTEMI at OSH - Risk factors include T2DM, HLD, prior smoking - [facility] noting 3 vessel disease (80% LAD, 70% LCx, 90-95% RCA) - OSH TTE noting: EF 40-45%, moderate inferior wall hypokinesis - EBEN score 3 = 13% risk at 14 days of: all-cause mortality, new or recurrent MA, or severe recurrent ischemia requiring urgent revascularization Plan - ASA 81 - Heparin gtt - Atorvastatin 80 - Metoprolol tartrate 25 BID - Hold ticagrelor pending plan for CABG - Echo (OSH didn't send images) - CTS consult re. CABG #T2DM - for ~20y - need to assess control, pt unsure of A1c Plan - A1c - continue insulin aspart 02/17/11 - continue insulin degludec 25U qhs - SSI AC/HS #Solid dysphagia - difficulty swallowing solids arianna dry foods, worsening over 1y - GI consult for dysphagia at [facility] - considering EGD w/ dilation Plan - OP GI follow up or OP EGD after CABG #Psoriasis - well controlled on q2wk humira Plan - unable to give humira inpatient #HLD - previously on rosuvastatin 5 - Lipid panel @ [facility] 02/01: TC 140, LDL 77, HDL 48 Plan - atorvastatin 80mg # Diet - Heart Healthy # VTE PPx - AC w/ heparin # Dispo Planning - TBD # Code Status - Full code confirmed w/ patient SIGNATURE: Cheyanne Tran MD PGY-2 PATIENT NAME: Manpreet Avelar DATE: February 04, 2019 TIME: 1:14 AM PAGER: [phone] Note: These recommendations are not final until staffed by provider Previous Version Michael Hsieh MD 02/05/2019 1:55 PM Signed [facility] Clinical Cardiology B PROGRESS NOTE NAME: Manpreet Avelar ADMIT DATE: 02/03/2019 11:57 PM TODAY'S DATE: 02/05/2019 PRIMARY SERVICE: Clinical cardiology B CLINICAL CARDIOLOGY STAFF NOTE I have seen the patient and discussed the plan of care with the patient and the housestaff team. The plan of care for each active problem is addressed in detail in the problem list section of the housestaff note. Please refer to the housestaff note by Dr. Arreguin for additional details. ? Hospital Problem List 1. NSTEMI 02/01/19 - Awakened from sleep with chest pain and shortness of breath - Inferolateral T-wave inversion, troponin peak 0.77 - Uncomplicated by heart failure or arrhythmia 2. Coronary artery disease - [facility] 02/02/19: 80% LAD, 70% circumflex, 95% RCA - Appropriate secondary preventive medical therapy - CTS consultation for primary CABG 3. LV systolic dysfunction - LVEF 40?45% without significant valvular disease 4. Diabetes type 2 5. Psoriasis - Treated with Humira ? S/O No complaints this morning, currently chest pain-free. BP 127/70 Pulse 76 Temp 37.5 ?C (99.5 ?F) (Oral) Resp 18 Wt 83.5 kg (184 lb) SpO2 96% Well-appearing man in no distress No JVD at 45? Regular, no murmurs rubs or gallops Clear chest Warm legs without edema AAO ?3 Numerous tattoos ? ECG: Sinus rhythm at 61 bpm, T wave inversions in the inferior lateral leads Sodium 141 Potassium 3.5 Bicarbonate 24 BUN 20 Creatinine 1.14 WBC 8 Hemoglobin 12.8 Platelets 177 Troponin T 0.139 NT Pro BNP 1345 ? Outside coronary angiogram (personally reviewed, images on Syngo) Left main 50% distal stenosis LAD focal 80% stenosis at the origin of S1 and D1 followed by a tubular 60?70%. Mid to distal vessel without significant disease. Circumflex 70% ostial stenosis, 70% stenosis of large OM. RCA is large and dominant with a focal 80% stenosis in the mid to distal vessel or to the bifurcation ? A/P 63-year-old man with a history of diabetes and psoriasis who was transferred from an outside hospital following an uncomplicated NSTEMI. Coronary angiography there demonstrated severe three-vessel coronary artery disease. Echocardiography demonstrates mild LV systolic dysfunction without significant valvular pathology. In light of his diabetes, multivessel disease, reduced LV systolic function and good surgical candidacy he would be expected to have a better outcome with surgical versus percutaneous revascularization. ? 1. Continue aspirin, metoprolol, atorvastatin at current doses. 2. Introduce low-dose captopril and titrate as tolerated 3. Insulin for glycemic control 4. Echocardiogram. 5. CT surgery consultation (Dr. Larsen) regarding primary CABG. Potentially have surgery as second round case on 02/07/19 if preoperative testing can be arranged prior to this. Dr. Melba Salomon to take over as attending physician beginning on 02/06/19. ? Michael Hsieh M.D., F.A.C.C. Staff Automatic Toe Laster, Heart [facility] Vascular [place] Associate Layout Worker, Internal Medicine Residency [facility] Plan for the Day: - F/U CTS recs (will need to reach out for eval today) - Continue ASA and Heparin gtt, Continue BBlocker - F/U Echo INTERVAL VSS, HDS, Afebrile, NAEO I/O: 695cc - 4x not recordedcc -?cc total yesterday NoBMs total yesterday Micro:None Yesterday: Admitted overnight for NSTEMi triple vessel dz Overnight NAEO Today: No complaints or concerns. No CP, Palp, SOB, Cough, Fever/Chills, Abd pain, N/V/C/D Labs: K 3.5, Hgb 12.8 stable slightly down OBJECTIVE Vitals: BP 136/68 Pulse 62 Temp (Src) 98.9 (Oral) Resp 20 Wt 182 lb 11.2 oz (82.9kg) SpO2 96% O2 Therapy: Room Air Intake/Output Summary (Last 24 hours) at 02/04/2019 1558 Last data filed at 02/04/2019 1300 Gross per 24 hour Intake 240 ml Output ? Net 240 ml Lines: Lines, Drains, and Airways Line Peripheral Admission to Hospital Left Forearm 20 Gauge -- days Exam: General Appearance: Well developed and Well nourished HEENT: PERRLA, EOM's intact and Fair dentition Lungs: Clear Heart: Regular rate AND rhythm and S1, S2 normal Abdomen: Soft, Firm, Non-tender and Bowel sounds present Skin: Warm, Dry and Moist Musculoskeletal: No deformities Neurologic/Psychiatri c: Oriented to time, place AND person , Alert and No gross focal neurologic deficits Labs: Recent Labs 02/04/19 1201 02/04/19 0837 PCGLUCOSE 156* 99 CBC: Recent Labs 02/04/19 0235 WBC 7.62 HB 13.2 HCT 39.1 PLT 168 MCV 90.1 RDWCV 12.5 NEUTP 53.3 ABSNEUT 4.06 LYMPHP 34.4 MONOP 9.8 EODINP 1.7 COAG: Recent Labs 02/04/19 0955 02/04/19234 APTT 73.0* 41.7* INR -- 1.1 BMP: Recent Labs 02/04/19234 GLUC 80 NA 139 K 3.7 CHLOR 103 CO2 25 ANION 11 BUN 21 CREAT 1.18 CHEM: Recent Labs 02/04/19234 ALB 3.3* TPROT 6.4 CA 8.6 MG 1.9 HEPATIC: Recent Labs 02/04/19234 ALKPHOS 77 ALT 32 AST 24 TBILI 0.3 CARDIAC: Recent Labs 02/04/19234 CKMBP CK MB % not reported with CK <100 U/L. TROPT 0.139* PBNP 1,345* Lipid panel: No results found for: CHOL, HDL, LDL, TG HbA1c: No results found for: HBA1C No results found for: T3 No results found for: T4 No results found for: W3VUPPOA No results found for: TSH URINALYSIS:No results for input(s): PH, SPGR, UGLUC, UBILI, UKET, UHB, UPROT, UROBIL, UWBC, SSA in the last 168 hours. Invalid input(s): NITR INPATIENT MEDICATIONS Current Facility-Administered Medications Medication Dose Route Frequency Provider Last Rate Last Dose - acetaminophen 325-650 mg tab(s) (TYLENOL) 325-650 mg ORAL q 4 H PRN Cheyanne (Res) Ancelmockenberger - polyethylene glycol 3350 17 g packet (MIRALAX, GLYCOLAX) 17 g ORAL DAILY PRN Cheyanne (Res) Chelsea - melatonin 6 mg tab(s) 6 mg ORAL DAILY (8 PM) Cheyanne (Res) Hackenberger 6 mg at 02/04/19 0154 - gabapentin 100 mg cap(s) (NEURONTIN) 100 mg ORAL AT BEDTIME Cheyanne (Res) Hackenberger - atorvastatin 80 mg tab(s) (LIPITOR) 80 mg ORAL AT BEDTIME Cheyanne (Res) Hackenberger - insulin lispro 8 Units injection (rapid acting) (HumaLOG) 8 Units SUBCUTANEOUS DAILY wLUNCH Cheyanne (Res) Hackenberger 6 Units at 02/04/19 1250 - insulin lispro 11 Units injection (rapid acting) (HumaLOG) 11 Units SUBCUTANEOUS DAILY WITH BREAKFAST Cheyanne (Res) Hackenberger - insulin lispro 11 Units injection (rapid acting) (HumaLOG) 11 Units SUBCUTANEOUS DAILY wDINNER [place] (Res) Hackenberger - insulin glargine 25 Units pen (long acting) (LANTUS SOLOSTAR, BASAGLAR KWIKPEN) 25 Units SUBCUTANEOUS AT BEDTIME [place] (Res) Hackenberger - dextrose 40 % 15 g 15 g ORAL PRN [place] (Res) Hackenberger Or - glucagon 1 mg injection (GLUCAGEN) 1 mg INTRAMUSCULAR PRN [place] (Res) Hackenberger Or - dextrose 50 % 12.5 g injection 12.5 g INTRAVENOUS PRN [place] (Res) Hackenberger - aspirin 81 mg chewable tab(s) 81 mg ORAL DAILY [place] (Res) Hackenberger 81 mg at 02/04/19 0833 - heparin iv infusion (LOW DOSE ACS/NOMOGRAM) 25,000 units in NaCl 0.45% 250 mL PREMIX 0-3,000 Units/hr INTRAVENOUS CONTINUOUS [place] (Res) Hackenberger 10 mL/hr at 02/04/19 1201 1,000 Units/hr at 02/04/19 1201 And - heparin RATE CHANGE bolus 1,000-4,000 Units for subtherapeutic aptt results 1,000-4,000 Units INTRAVENOUS PRN [place] (Res) Hackenberger 2,500 Units at 02/04/19 0402 - insulin lispro injection (rapid acting) (HumaLOG) SUBCUTANEOUS w MEALS AND HS [place] (Res) Hackenberger 2 Units at 02/04/19 1251 - metoprolol tartrate (short acting) 25 mg tab(s) (LOPRESSOR) 25 mg ORAL q 12 H [place] (Res) Hackenberger 25 mg at 02/04/19 0833 - perflutren lipid microspheres 1.1 mg/mL 1.3 mL injection (DEFINITY) 1.3 mL INTRAVENOUS DIRECTED PRN Nico (Res) Renny Gtt: heparin iv infusion (LOW DOSE ACS/NOMOGRAM) 25,000 units in NaCl 0.45% 250 mL PREMIX Last Rate: 1,000 Units/hr (02/04/19 1201) ASSESSMENT AND PLAN Manpreet Avelar is a 63 year old male with a history of T2DM, Hyperlipidemia who presents as an OSH transfer from [facility] for consideration of CABG following recent NSTEMI. ? #Multivessel CAD #NSTEMI - Presented w/ chest pain, EKG changes, elevated troponins consistent with NSTEMI at OSH - Risk factors include T2DM, HLD, prior smoking - C noting 3 vessel disease (80% LAD, 70% LCx, 90-95% RCA) - OSH TTE noting: EF 40-45%, moderate inferior wall hypokinesis - EBEN score 3 = 13% risk at 14 days of: all-cause mortality, new or recurrent MA, or severe recurrent ischemia requiring urgent revascularization - TTE: not done yet Plan - ASA 81 - Heparin gtt - Atorvastatin 80 - Metoprolol tartrate 25 BID - Hold ticagrelor pending plan for CABG - CTS consult re. CABG - F/U ECHO ? #T2DM - for ~20y - A1c:7.2 Plan - continue insulin aspart 02/17/11 - continue insulin degludec 25U qhs - SSI AC/HS ? #Solid dysphagia - difficulty swallowing solids arianna dry foods, worsening over 1y - GI consult for dysphagia at [facility] - considering EGD w/ dilation Plan - OP GI follow up or OP EGD after CABG ? #Psoriasis - well controlled on q2wk humira Plan - unable to give humira inpatient ? #HLD - previously on rosuvastatin 5 - Lipid panel @ [facility] 02/01: TC 140, LDL 77, HDL 48 Plan - atorvastatin 80mg ? # Diet - Heart Healthy # VTE PPx - AC w/ heparin # Dispo Planning - TBD # Code Status - Full code confirmed w/ patient Case to be discussed with staff (Dr. Hsieh). Josemanuel Arreguin MD PGY-2, Internal Medicine [phone] (please see below for after hours communication) 02/05/2019 Previous Version Annamaria Meier RN, RN 02/05/2019 11:24 AM Signed CARE MANAGEMENT: ASSESSMENT AND DISCHARGE PLAN SERVICE DATE: 02/05/2019 SERVICE TIME: 11:19 AM PRIMARY CARE PHYSICIAN: BRITTANY Post Phone: None ADMISSION STATUS: Inpatient Needs Prior to Discharge: To Be Determined;Discharge Prescriptions;Pharmac y Bedside Delivery MEDICAL: Patient/Representativ e Stated Goals: To return home to life as it was Health Insurance: BLUE CARD PPO Blue Card PPO Health Issues Impacting Discharge Plan: None Last Discharge Date: N/A Is this Within the Past 30 days? No Advance Directive: Current Advance Directive: None Personalized Living Manager Nurse Attempted to Assist with AD Completion: Yes Action: Patient Unwilling Health Literacy: 1. How often do you need to have someone help you when you read instructions, pamphlets, or other written material from your doctor or pharmacy? Never - 1 2. How confident are you filling out medical forms by yourself? Extremely - 1 If Patient scores > 3 on either question, the following interventions were put into place: Patient did not score > 3 FUNCTIONAL AND COGNITIVE/BEHAVIORAL PRIOR TO ADMISSION: Baseline Mental Status: Alert AND Oriented, Person, Place , Time and Situation Functional Status: Independent Does Patient Currently Receive Any Community Services or Home Care? None Equipment Prior to Admission: Glucometer Has the Patient Been in a Care Home Facility in the Past 30 days? No SOCIAL: Living Arrangement: Home Lives With: Spouse Financial Resources: Retired Primary Contact: Extended Emergency Contact Information Primary Emergency Contact: Sujatha Hi Leoma Relation: Spouse Supportive: Yes Other Important Patient Contacts: None Caregiver Assessment: Caregiver is ready, willing and able to meet the patient's needs as recommended by the inter-professional team? No Caregiver Needed Patient's transition needs and plan for meeting these needs: TBD Does the patient have an acute stroke diagnosis, or has the patient had a stroke during this admission? No Medication Adherence: I am convinced of the importance of my prescription medication: Agree completely - 0 I worry that my prescription medication will do more harm than good to me Disagree completely - 0 I feel financially burdened by my [id number] expenses for my prescription medication: Disagree completely - 0 Patient is categorized as low risk < 2 Are you interested in bedside delivery of your medications? Yes Food Concerns: In the Last Month, Have You had Trouble Getting Food? No trouble getting food During the Last Month, Have You Worried Whether Your Food Would Run Out Before You Had Enough Money to Buy More? No Is the Patient Psychosocially Complex? No ASSESSMENT AND PLAN: Medical Needs: Diabetes - Education Psychosocial Needs: None FREEDOM OF CHOICE EXPLAINED: N/A POTENTIAL TRANSITION PLANS Home To Be Determined 63 year old male from [place], [place] admitted with NSTEMI. Lives with spouse in ranch home. Independent with ADL/IADL care prior to admit. No home DME used. Casemanager role explained. Family will transport him home at discharge. Discharge needs to be determined. Weekend pager # [phone]. SIGNATURE: Annamaria Meier RN PATIENT NAME: Manpreet Avelar DATE: February 05, 2019 TIME: 11:19 AM PAGER/CONTACT #: [phone] Nohemy Olivarez DO, 02/06/2019 11:47 AM Attested Attestation signed by Melba Salomon at 02/06/2019 12:26 PM (Updated) [facility] STAFF PHYSICIAN NOTE OF PERSONAL INVOLVEMENT IN CARE I have reviewed the documentation obtained and documented by the resident Dr. Olivarez and have reviewed and updated the problem list as appropriate. I have personally performed a face to face assessment of the patient and have personally participated in the davies components. I have discussed the case and management of the patient's care. Impression: Mr. Avelar is a 63M with a medical history significant for T2 IDDM, psoriasis, presented to OSH with NSTEMI, subsequent LHC revealed 3-vessel CAD and thus transferred here for surgical evaluation. ECG on 02/04/19 with inferolateral TWI. Active issues are as follows: NSTEMI 3-vessel CAD (LM: 50% distal stenosis, LAD: focal 80% stenosis at 1st septal skip tracer and D1, followed by tubular 60-70% stenosis), LCx: 70% ostial stenosis, 70% stenosis of large OM, RCA large and dominant with focal 80% stenosis in mid-distal vessel) HFrEF due to ICM, LVEF 50% on 02/05/19 with resting WMA: inferior, posterior, basal anterolateral segments severely hypokinetic, apical inferior and apex mildly hypokinetic Type 2 insulin-dependent diabetes Psoriasis, on humira Plan: - Remains chest pain free, CTS consulted for CABG evaluation with Dr. Larsen, possibly as second round case on 02/07/19 if preop testing completed prior to then (per Dr. Hsieh's attestation from 02/05/19) - Continue optimizing medical therapy (on aspirin, heparin gtt, metoprolol 25mg bid, consider adding low-dose ACEI tomorrow) STAFF PHYSICIAN: Melba Salomon MD, [facility] DATE OF SERVICE: 02/06/2019 [facility]IOLOGY PROGRESS NOTE PRIMARY SERVICE: Clinical Cardiology Johanna Manpreet Bookerrony [phone] HOSPITAL DAY: # 2 PLAN FOR TODAY: - Continue ASA, metoprlol, atorvastatin - Introduce low dose captopril and titrate as tolerated - Pre-operative testing for CABG per CTS; speak to schedulers INTERVAL HISTORY - no acute events overnight, HDS - BP 110s-30s/60-70s; HR 50-70s - Denies chest pain, SOB, N/V/D PHYSICAL EXAM BP 133/75 Pulse 69 Temp 36.4 ?C (97.5 ?F) (Oral) Resp 18 Wt 82.3 kg (181 lb 8 oz) SpO2 97% Intake/Output Summary (Last 24 hours) at 02/06/2019 0647 Last data filed at 02/06/2019 0500 Gross per 24 hour Intake 916 ml Output ? Net 916 ml General appearance: Well appearing, no acute distress. Head: Normocephalic, atraumatic. Oropharynx: Oropharynx normal. Neck: No goiter, lymphadenopathy, or JVD. Lungs: Lungs clear to auscultation bilaterally. No wheezing, rhonchi, or rales. Heart: RRR without murmur, gallop, or rubs. Abdomen: Abdomen soft, non-tender, non-distended. BS present. Extremities: No edema. Peripheral pulses symmetric. Neuro: AANDOx3. No focal weakness or changes in sensation. MEDICATIONS Medications reviewed. DATA Labs reviewed. IMAGING ECHO (02/05/19) - Technically difficult exam due to body habitus and suboptimal positioning. - Exam indication: Evaluation of known heart failure to guide therapy - The left ventricle is normal in size. Left ventricular systolic function is mildly decreased. EF = 50 ? 5% (visual est.) Grade I left ventricular diastolic dysfunction. The mid inferolateral segment and basal inferior segment are severely ?hypokinetic. The anterolateral wall, basal inferolateral segment, and mid inferior segment are mildly hypokinetic. - The right ventricle is normal in size. Right ventricular systolic function is normal. - The left atrial cavity is mildly dilated. - Estimated right ventricular systolic pressure is 51 mmHg consistent with moderate pulmonary hypertension. Estimated right atrial pressure is 8 mmHg based on IVC assessment. - The patient has not had a prior CC echocardiographic exam for comparison. ASSESSMENT AND PLAN Manpreet Avelar is a 63 year old male with a history of T2DM, Hyperlipidemia who presents as an OSH transfer from [facility] for consideration of CABG following recent NSTEMI. ? #Multivessel CAD #NSTEMI - Presented w/ chest pain, EKG changes, elevated troponins consistent with NSTEMI at OSH - Risk factors include T2DM, HLD, prior smoking - [facility] noting 3 vessel disease (80% LAD, 70% LCx, 90-95% RCA) - OSH TTE noting: EF 40-45%, moderate inferior wall hypokinesis - EBEN score 3 = 13% risk at 14 days of: all-cause mortality, new or recurrent MA, or severe recurrent ischemia requiring urgent revascularization Plan - ASA 81 - Heparin gtt - Atorvastatin 80 - Metoprolol tartrate 25 BID - Hold ticagrelor pending plan for CABG - CTS consult re. CABG ? #T2DM - for ~20y - need to assess control, pt unsure of A1c Plan - A1c - continue insulin aspart 02/17/11 - continue insulin degludec 25U qhs - SSI AC/HS ? #Solid dysphagia - difficulty swallowing solids arianna dry foods, worsening over 1y - GI consult for dysphagia at [facility] - considering EGD w/ dilation Plan - OP GI follow up or OP EGD after CABG ? #Psoriasis - well controlled on q2wk humira Plan - unable to give humira inpatient ? #HLD - previously on rosuvastatin 5 - Lipid panel @ [facility] 02/01: TC 140, LDL 77, HDL 48 Plan - atorvastatin 80mg ? # Diet - Heart Healthy # VTE PPx - AC w/ heparin # Dispo Planning - TBD # Code Status - Full code confirmed w/ patient Case to be discussed with staff. Nohemy Olivarez, DO Internal Medicine PGY-1 02/06/2019 6:47 AM For communication after 5 pm on weekdays and after 12 pm on weekends, please page the following: - Clinical Cardiology patients on all floors: page [phone] - Other Cardiology patients on J5 and J6: page [phone] - Other Cardiology patients on J7 and J8: page [phone] Removed attestation signed by Melba Salomon at 02/06/2019 12:25 PM (removed by Melba Salomon at 02/06/2019 12:26 PM) [facility] STAFF PHYSICIAN NOTE OF PERSONAL INVOLVEMENT IN CARE I have reviewed the documentation obtained and documented by the resident Dr. Olivarez and have reviewed and updated the problem list as appropriate. I have personally performed a face to face assessment of the patient and have personally participated in the davies components. I have discussed the case and management of the patient's care. Impression: Mr. Avelar is a 63M with a medical history significant for T2 IDDM, psoriasis, presented to OSH with NSTEMI, subsequent LHC revealed 3-vessel CAD and thus transferred here for surgical evaluation. ECG on 02/04/19 with inferolateral TWI. Active issues are as follows: NSTEMI 3-vessel CAD (LM: 50% distal stenosis, LAD: focal 80% stenosis at 1st septal skip tracer and D1, followed by tubular 60-70% stenosis), LCx: 70% ostial stenosis, 70% stenosis of large OM, RCA large and dominant with focal 80% stenosis in mid-distal vessel) HFrEF due to ICM, LVEF 50% on 02/05/19 with resting WMA: inferior, posterior, basal anterolateral segments severely hypokinetic, apical inferior and apex mildly hypokinetic New-onset acute on chronic systolic and diastolic heart failure Type 2 insulin-dependent diabetes Psoriasis, on humira Plan: - Remains chest pain free, CTS consulted for CABG evaluation with Dr. Larsen, possibly as second round case on 02/07/19 if preop testing completed prior to then (per Dr. Hsieh's attestation from 02/05/19) - Continue optimizing medical therapy (on aspirin, heparin gtt, metoprolol 25mg bid, consider adding low-dose ACEI tomorrow) STAFF PHYSICIAN: Melba Salomon MD, [facility] DATE OF SERVICE: 02/06/2019 Yovana Staton APRN.FIRE RANGE TECHNICIAN 02/06/2019 12:34 PM Signed CONSULT HISTORY and PHYSICAL CARDIOTHORACIC SURGERY Consulting Service: Cardiothoracic Surgery Requesting Provider: [facility] [employer] Laster, Michael Hsieh M.D. on 02/04/19. Opinion/advice regarding: Pre-Op Open Heart Surgery Cardiothoracic Physician: Dr. Alisia Larsen NAME: Manpreet Avelar WEIGHT: 81.3 kg Intended Procedure: Isolated CABG REDO: No STS SCORE: Risk of Mortality: 0.884% Renal Failure: 1.116% Permanent Stroke: 0.961% Prolonged Ventilation: 3.555% DSW Infection: 0.249% Reoperation: 1.574% Morbidity or Mortality: 6.199% Short Length of Stay: 61.001% Long Length of Stay: 2.448% Has this patient been previously evaluated for Open Heart Surgery for this condition? Yes, but refered to [facility] for surgical managment HPI: This is a 63 year old man with a medical history of T2DM, and Psoriasis, who was duck hunting close to his home in [place] when he experienced sudden, sharp chest pain that radiated to his back. He waited a few minutes and walked to his truck where it happened again. He drove to his house and had his call for EMS. He was brought to a local hospital and then transferred to [facility] for further work-up. LHC showed severe three-vessel Coronary Artery Disease. Echo showed mild LV systolic dysfunction without valvular pathology. Patient was transferred here for further treatment. CTS has been consulted for consideration of CABG. Per Cardiology, the patient has excellent targets for Bypass. Active Hospital Problems Diagnosis - CAD (coronary artery disease) PAST MEDICAL HISTORY: PAST MEDICAL HISTORY Diagnosis Date - Hyperlipidemia - Nephrolithiasis - Pneumothorax due to rib fracture from tractor injury in teen years - Psoriasis - Type 2 diabetes mellitus (HCC) PAST SURGICAL HISTORY: History reviewed. No pertinent surgical history. FAMILY HISTORY: FAMILY HISTORY Problem Relation Age of Onset - Heart disease Mother - Heart disease Father - Heart Attack Maternal Grandfather FAMILY HISTORY OF CAD: Yes SOCIAL HISTORY: Social History Tobacco Use - Smoking status: Former Smoker Packs/day: 1.00 Years: 10.00 Pack years: 10.00 Types: Cigarettes Last attempt to quit: 04/12/1979 Years since quittin.8 - Smokeless tobacco: Never Used - Tobacco comment: rarely used chewing tobacco in past also Substance Use Topics - Alcohol use: Not on file Comment: rare, maybe once per month - Drug use: Never SOCIAL HISTORY OF IVDU: No SOCIAL HISTORY OF Smoking: No SOCIAL HISTORY OF Alcohol Dependency: No MEDICATIONS: Prior to Admission Medications: rosuvastatin (CRESTOR) 5 mg tablet Take 5 mg by mouth once daily. gabapentin (NEURONTIN) 100 mg capsule Take 100 mg by mouth daily at bedtime. insulin aspart U-100 (NOVOLOG) 100 unit/mL (3 mL) inpn Inject 8 Units subcutaneously daily with lunch. insulin aspart U-100 (NOVOLOG) 100 unit/mL (3 mL) inpn Inject 11 Units subcutaneously daily with breakfast. insulin aspart U-100 (NOVOLOG) 100 unit/mL (3 mL) inpn Inject 11 Units subcutaneously daily with dinner. insulin degludec (TRESIBA) 100 unit/mL (3 mL) injection Inject 25 Units subcutaneously daily at bedtime. HUMIRA,CF, PEN 40 mg/0.4 mL pen kit Inject 40 mg subcutaneously every 2 weeks. Current Facility-Administered Medications Medication Dose Route Frequency - acetaminophen 325-650 mg tab(s) (TYLENOL) 325-650 mg ORAL q 4 H PRN - polyethylene glycol 3350 17 g packet (MIRALAX, GLYCOLAX) 17 g ORAL DAILY PRN - melatonin 6 mg tab(s) 6 mg ORAL DAILY (8 PM) - gabapentin 100 mg cap(s) (NEURONTIN) 100 mg ORAL AT BEDTIME - atorvastatin 80 mg tab(s) (LIPITOR) 80 mg ORAL AT BEDTIME - dextrose 40 % 15 g 15 g ORAL PRN Or - glucagon 1 mg injection (GLUCAGEN) 1 mg INTRAMUSCULAR PRN Or - dextrose 50 % 12.5 g injection 12.5 g INTRAVENOUS PRN - aspirin 81 mg chewable tab(s) 81 mg ORAL DAILY - heparin iv infusion (LOW DOSE ACS/NOMOGRAM) 25,000 units in NaCl 0.45% 250 mL PREMIX 0-3,000 Units/hr INTRAVENOUS CONTINUOUS And - heparin RATE CHANGE bolus 1,000-4,000 Units for subtherapeutic aptt results 1,000-4,000 Units INTRAVENOUS PRN - insulin lispro injection (rapid acting) (HumaLOG) SUBCUTANEOUS w MEALS AND HS - metoprolol tartrate (short acting) 25 mg tab(s) (LOPRESSOR) 25 mg ORAL q 12 H - perflutren lipid microspheres 1.1 mg/mL 1.3 mL injection (DEFINITY) 1.3 mL INTRAVENOUS DIRECTED PRN - insulin glargine 20 Units pen (long acting) (LANTUS SOLOSTAR, BASAGLAR KWIKPEN) 20 Units SUBCUTANEOUS AT BEDTIME - insulin lispro 6 Units injection (rapid acting) (HumaLOG) 6 Units SUBCUTANEOUS w MEALS ALLERGIES: ALLERGIES No Known Allergies COMPLETE REVIEW OF SYSTEMS: (10) Constitutional: No weight loss, malaise or fevers. HEENT: Negative for frequent or significant headaches Resp: Negative for cough, wheezing, or shortness of breath Cardiovascular: Negative for chest pain, leg swelling or palpitations and as per HPI with one episode of chest pain that brought him to the hospital, denies any prior episodes GI: Negative for abdominal discomfort, blood in stools or black stools or change in bowel habits, appendectomy in past : No history of dysuria, frequency, or incontinence, history of kidney stones Endo: T2DM, takes insulin Heme/Lymph: Negative for prolonged bleeding, bruising easily or swollen nodes Neurologic: No history or headaches, syncope, paralysis, seizures or tremors Integumentary: psoriasis Additional systems reviewed: Pain: Negative for pain, history of chronic pain, or current treatment for a chronic pain condition, Musculoskeletal: Negative for joint pain or swelling, back pain or muscle pain and Psychiatric: Negative for sleep disturbance, mood disorder and recent psychosocial stressors PHYSICAL EXAM: (8) BP 137/69 Pulse 61 Temp 36.9 ?C (98.5 ?F) (Oral) Resp 18 Wt 81.3 kg (179 lb 3.2 oz) SpO2 95% Constitutional: No distress HEENT: PERRLA and EOM's intact Resp: Clear Cardiovascular: Regular rate AND rhythm GI: Soft, Non-tender and Bowel sounds present Integumentary: Warm, Dry and Tattoos Musculoskeletal: No deformities Neurological/Psychiat azra: Oriented to time, place AND person Labs: Recent Labs 02/04/19234 CK 50* MB 1.6 CKMBP CK MB % not reported with CK <100 U/L. TROPT 0.139* Recent Labs 02/06/191 02/05/190 02/04/19234 WBC 8.07 7.97 7.62 HB 14.5 12.8* 13.2 HCT 41.2 38.3* 39.1 PLT 177 177 168 Recent Labs 02/06/1943002/05/19 0908 02/05/190 02/04/19 0235 INR -- -- -- -- 1.1 APTT 69.5* 51.5* 50.8* < > 41.7* < > = values in this interval not displayed. Recent Labs 02/06/1943002/05/19 0908 02/05/190 02/04/19 0235 NA 142 -- 141 139 K 3.6* 4.1 3.5* 3.7 CHLOR 105 -- 103 103 CO2 24 -- 24 25 BUN 17 -- 20 21 CREAT 1.15 -- 1.14 1.18 GLUC 57* -- 49* 80 ALKPHOS -- -- -- 77 ALT -- -- -- 32 AST -- -- -- 24 ALB -- -- -- 3.3* No results found for this basename: chol,hdl,ldl DATA: I have personally reviewed the following data: Cardiac Catheterization: Outside coronary angiogram (personally reviewed, images on Syngo) Left main 50% distal stenosis LAD focal 80% stenosis at the origin of S1 and D1 followed by a tubular 60?70%. Mid to distal vessel without significant disease. Circumflex 70% ostial stenosis, 70% stenosis of large OM. RCA is large and dominant with a focal 80% stenosis in the mid to distal vessel or to the bifurcation MARISELA/TTE: The left ventricle is normal in size. Left ventricular systolic function is mildly decreased. EF = 50 ? 5% (visual est.) Grade I left ventricular diastolic dysfunction. The mid inferolateral segment and basal inferior segment are severely ?hypokinetic. The anterolateral wall, basal inferolateral segment, and mid inferior segment are mildly hypokinetic. - The right ventricle is normal in size. Right ventricular systolic function is normal. - The left atrial cavity is mildly dilated. - Estimated right ventricular systolic pressure is 51 mmHg consistent with moderate pulmonary hypertension. Estimated right atrial pressure is 8 mmHg based on IVC assessment. CXR: Lines, tubes, and devices: ?None. Lungs and pleura: ?There is blunting of the costophrenic sulci which may reflect small bilateral pleural effusions. ?There are bibasilar patchy opacities reflecting atelectasis versus pneumonia/aspiration. Cardiomediastinal silhouette: ?Normal cardiomediastinal silhouette. Other: ?There are degenerative changes of the thoracic spine. EKG: NORMAL SINUS RHYTHM POSSIBLE LEFT ATRIAL ENLARGEMENT INFERIOR MYOCARDIAL INFARCTION , AGE UNDETERMINED ST AND LATERAL T WAVE ABNORMALITY ABNORMAL ECG Impression: This is a 63 year old year-old male, who is being evaluated for surgical intervention of coronary artery disease. In consideration for surgery, the patient's acute and chronic medical issues have been evaluated as documented above and reviewed in the electronic medical record. Plan: Patient will be seen by the surgeon, Dr. Alisia Larsen. Before surgery the patient will need the following:Vein mapping, Nasal SA, Type and Screen, UA, Informed Consent. Anticipated Discharge Needs: PT/OT/RT evalulation for anticipated Home Care needs These findings will be communicated back to the requesting provider electronically. SIGNATURE:Yovana Staton APRN.[facility] PAGER:[phone] If no response to pager, please call [facility] [place] [phone]. Date of Service: 02/06/19 Time of Service: 12:33 PM Nohemy Olivarez DO, 02/07/2019 7:23 AM Attested Attestation signed by Melba Salomon at 02/07/2019 1:37 PM [facility] STAFF PHYSICIAN NOTE OF PERSONAL INVOLVEMENT IN CARE I have reviewed the documentation obtained and documented by the resident Dr. Olivarez and have reviewed and updated the problem list as appropriate. I have personally performed a face to face assessment of the patient and have personally participated in the davies components. I have discussed the case and management of the patient's care. Impression: Mr. Avelar is a 63M with a medical history significant for T2 IDDM, psoriasis, presented to OSH with NSTEMI, subsequent LHC revealed 3-vessel CAD and thus transferred here for surgical evaluation. ECG on 02/04/19 with inferolateral TWI. Active issues are as follows: NSTEMI 3-vessel CAD (LM: 50% distal stenosis, LAD: focal 80% stenosis at 1st septal skip tracer and D1, followed by tubular 60-70% stenosis), LCx: 70% ostial stenosis, 70% stenosis of large OM, RCA large and dominant with focal 80% stenosis in mid-distal vessel) HFrEF due to ICM, LVEF 50% on 02/05/19 with resting WMA: inferior, posterior, basal anterolateral segments severely hypokinetic, apical inferior and apex mildly hypokinetic Type 2 insulin-dependent diabetes Psoriasis, on humira Plan: - Remains chest pain free, awaiting CABG with Dr. Larsen - Continue optimizing medical therapy (on aspirin, heparin gtt, metoprolol 25mg bid) STAFF PHYSICIAN: Melba Salomon MD, [facility] DATE OF SERVICE: 02/07/2019 [facility]ARDIOLOGY PROGRESS NOTE PRIMARY SERVICE: Clinical Cardiology B Manpreet Avelar [id number] HOSPITAL DAY: # 3 PLAN FOR TODAY: - Continue ASA, metoprlol, atorvastatin - Introduce low dose captopril and titrate as tolerated - Pre-operative testing for CABG per CTS; PFTs today - plan for CABG Wed/Th INTERVAL HISTORY - no acute events overnight, HDS - BP 110s-30s/60-70s; HR 50-70s - Denies chest pain, SOB, N/V/D - Lispro and glargine decreased for low BGs PHYSICAL EXAM BP 120/64 Pulse (!) 53 Temp 36.9 ?C (98.5 ?F) (Oral) Resp 18 Wt 81.3 kg (179 lb 3.2 oz) SpO2 96% Intake/Output Summary (Last 24 hours) at 02/07/2019 0716 Last data filed at 02/06/2019 1900 Gross per 24 hour Intake 848 ml Output ? Net 848 ml General appearance: Well appearing, no acute distress. Head: Normocephalic, atraumatic. Oropharynx: Oropharynx normal. Neck: No goiter, lymphadenopathy, or JVD. Lungs: Lungs clear to auscultation bilaterally. No wheezing, rhonchi, or rales. Heart: RRR without murmur, gallop, or rubs. Abdomen: Abdomen soft, non-tender, non-distended. BS present. Extremities: No edema. Peripheral pulses symmetric. Neuro: AANDOx3. No focal weakness or changes in sensation. MEDICATIONS Medications reviewed. DATA Labs reviewed. IMAGING ECHO (02/05/19) - Technically difficult exam due to body habitus and suboptimal positioning. - Exam indication: Evaluation of known heart failure to guide therapy - The left ventricle is normal in size. Left ventricular systolic function is mildly decreased. EF = 50 ? 5% (visual est.) Grade I left ventricular diastolic dysfunction. The mid inferolateral segment and basal inferior segment are severely ?hypokinetic. The anterolateral wall, basal inferolateral segment, and mid inferior segment are mildly hypokinetic. - The right ventricle is normal in size. Right ventricular systolic function is normal. - The left atrial cavity is mildly dilated. - Estimated right ventricular systolic pressure is 51 mmHg consistent with moderate pulmonary hypertension. Estimated right atrial pressure is 8 mmHg based on IVC assessment. - The patient has not had a prior CC echocardiographic exam for comparison. ASSESSMENT AND PLAN Manpreet Avelar is a 63 year old male with a history of T2DM, Hyperlipidemia who presents as an OSH transfer from [facility] for consideration of CABG following recent NSTEMI. ? #Multivessel CAD #NSTEMI - Presented w/ chest pain, EKG changes, elevated troponins consistent with NSTEMI at OSH - Risk factors include T2DM, HLD, prior smoking - LHC noting 3 vessel disease (80% LAD, 70% LCx, 90-95% RCA) - OSH TTE noting: EF 40-45%, moderate inferior wall hypokinesis - EBEN score 3 = 13% risk at 14 days of: all-cause mortality, new or recurrent MA, or severe recurrent ischemia requiring urgent revascularization Plan - ASA 81 - Heparin gtt - Atorvastatin 80 - Metoprolol tartrate 25 BID - Hold ticagrelor pending plan for CABG - CABG planning per CTS: aiming for Wed/ ? #T2DM - for ~20y - need to assess control, A1c 7.2 Plan - decrease insulin aspart to 6units TID w meals - decrease insulin degludec to 20U qhs - SSI AC/HS ? #Solid dysphagia - difficulty swallowing solids arianna dry foods, worsening over 1y - GI consult for dysphagia at [facility] - considering EGD w/ dilation Plan - OP GI follow up or OP EGD after CABG ? #Psoriasis - well controlled on q2wk humira Plan - unable to give humira inpatient ? #HLD - previously on rosuvastatin 5 - Lipid panel @ [facility] 02/01: TC 140, LDL 77, HDL 48 Plan - atorvastatin 80mg ? # Diet - Heart Healthy # VTE PPx - AC w/ heparin # Dispo Planning - TBD # Code Status - Full code confirmed w/ patient Case to be discussed with staff. Nohemy Olivarez, DO Internal Medicine PGY-1 02/07/2019 6:47 AM For communication after 5 pm on weekdays and after 12 pm on weekends, please page the following: - Clinical Cardiology patients on all floors: page [phone] - Other Cardiology patients on J5 and J6: page [phone] - Other Cardiology patients on J7 and J8: page [phone] Ena Buitrago, PT 02/07/2019 8:13 AM Signed PHYSICAL THERAPY MISSED VISIT SERVICE DATE: 02/07/2019 SERVICE TIME: 0812 to 811 ROOM: [place] [address] Attempted Evaluation. Patient not seen due to No Skilled Needs. Per nursing functional mobility assessment pt independent all functional mobility (score 24). will d/c PT consult at this time per department policy. Please reconsult if change in functional status. SIGNATURE: Ena Buitrago PT PATIENT NAME: Manpreet Avelar DATE: February 07, 2019 TIME: 8:12 AM Ivis Ramirez APRN.FIRE RANGE TECHNICIAN 02/08/2019 2:53 PM Addendum [facility] CONSULT PROGRESS NOTE Manpreet Avelar [id number] CONSULTING SERVICE: Cardiothoracic Surgery:Dr. Larsen: CABG PRIMARY SERVICE: Cardiology: Clinical:Dr. Salomon ASSESSMENT / RECOMMENDATIONS / PLAN: 63 y/o male with PMHx of Hypertension, DMII Recently dx NSTEMI 02/01/19 [facility] recommended revealed severe CAD lesions--tx to [facility] further eval CTS consulted for CABG Brilinta LD--did not received any at [facility] per JUN---will check if he received at OSH Humira---LD 2 weeks ago-- Will ask if need to see Rheumatology/Derm re: dosing--psorasis Nasal swab 02/06/19--Negative UA 02/06/19-neg OUTSTANDING: Formal review of [facility] Vein/Mammary mapping/US Carotids (ordered 04/08/19) radial mapping ordered PFTs-- smoked ~ 2 years quit smoking over 40 years ago---- need PFT for baseline pulmonary status NC CT Chest (ordered) Check for Ca+ in the aorta; chest anatomy TSH panel NO CONFIRMED OR Date when I got report from CTS Project Archivist-today DMII---[id number]--4.2() BS on avg <160s; x3 over 150 x1 over 2 Hemoglobin A1C (%) Date Value 02/04/2019 7.2 ABO/RH(D) Date Value Ref Range Status 02/06/2019 A POSITIVE Final SUBJECTIVE: INTERVAL HISTORY: No acute events overnight PERTINENT REVIEW OF SYSTEMS: Reports noted chest discomfort pressure center of his chest/left side ribs--~ 1month ago; ~ 2weeks ago decrease physical Tolerance/SOB while duck hunting in [employer]-not able to walk as far as normal Chest discomfort on Wednesday Currently Denies any SOB,trouble breathing or hard to get a breath/Denies any increased effort to breath/take a breath Chest pain/pressure heaviness/tightness/n o jaw pain/or teeth pain/back pain/pressure or numbness; no scapula pain/ nausea; Denies any New Vision Changes, Nausea,Vomiting,Diarr hea, Last BM 2 days ago Denies any bleeding gums, Denies any blood in urine or stool Denies any Stroke, Mini Stroke, Seizures, Tremors or recent Neurological disorders/tremors Denies any radiation to chest; No hx of TB, no lung injury Denies any issues with Anesthesia--no malignant hyperthermia Denies any swallowing issues. Denies any esophageal dilation, no cirrhosis/hepatitis/e levated liver enzmyes No hx of MIs, rheumatic/scarlet fever; Denies any hx of carpal tunnel, gout, wrist surgery, Neuropathy in feet Denies any hx Raynauds syndrome Tolerating Diet (R)handed Last Dental > one year ago Surgeries Knee surgery x2; See HPI: Remaining ROS reviewed and negative OBJECTIVE: MEDICATIONS: Current Facility-Administered Medications Medication Dose Route Frequency - acetaminophen 325-650 mg tab(s) (TYLENOL) 325-650 mg ORAL q 4 H PRN - polyethylene glycol 3350 17 g packet (MIRALAX, GLYCOLAX) 17 g ORAL DAILY PRN - melatonin 6 mg tab(s) 6 mg ORAL DAILY (8 PM) - gabapentin 100 mg cap(s) (NEURONTIN) 100 mg ORAL AT BEDTIME - atorvastatin 80 mg tab(s) (LIPITOR) 80 mg ORAL AT BEDTIME - dextrose 40 % 15 g 15 g ORAL PRN Or - glucagon 1 mg injection (GLUCAGEN) 1 mg INTRAMUSCULAR PRN Or - dextrose 50 % 12.5 g injection 12.5 g INTRAVENOUS PRN - aspirin 81 mg chewable tab(s) 81 mg ORAL DAILY - heparin iv infusion (LOW DOSE ACS/NOMOGRAM) 25,000 units in NaCl 0.45% 250 mL PREMIX 0-3,000 Units/hr INTRAVENOUS CONTINUOUS And - heparin RATE CHANGE bolus 1,000-4,000 Units for subtherapeutic aptt results 1,000-4,000 Units INTRAVENOUS PRN - insulin lispro injection (rapid acting) (HumaLOG) SUBCUTANEOUS w MEALS AND HS - metoprolol tartrate (short acting) 25 mg tab(s) (LOPRESSOR) 25 mg ORAL q 12 H - perflutren lipid microspheres 1.1 mg/mL 1.3 mL injection (DEFINITY) 1.3 mL INTRAVENOUS DIRECTED PRN - insulin glargine 20 Units pen (long acting) (LANTUS SOLOSTAR, BASAGLAR KWIKPEN) 20 Units SUBCUTANEOUS AT BEDTIME - insulin lispro 6 Units injection (rapid acting) (HumaLOG) 6 Units SUBCUTANEOUS w MEALS PHYSICAL EXAM: 02/07/19 0836 02/07/19 1000 02/07/19 1437 02/07/19 1813 BP: 121/63 132/66 120/66 129/69 Pulse: 62 (!) 53 (!) 55 (!) 52 Resp: 18 18 18 Temp: 37.1 ?C (98.8 ?F) 37.1 ?C (98.8 ?F) 37.3 ?C (99.2 ?F) TempSrc: Oral Oral Oral SpO2: 96% 94% 96% Weight: General: Stable appearing male in NAD noted AAOX 3. Skin: skin intact; (R)groin [facility] site w/out incident-area soft- Head/Eyes: Sclera clear, intact conjunctiva. EOMI. Mouth/Pharynx: Teeth: Fair dentition. No lesions. Neck: No JVD. Supple. Lungs:BBS essentially diminished throughout Heart: S1, S2. Noted Peripheral Vascular/Arteries: Carotid pulse noted +2 bilat DP/Radial pulses +2 bilat Abdomen: Soft abdomen, nontender, nondistended without mass. + bowel sounds. Musculoskeletal: No kyphoscoliosis. No joint deformities. Extremities: No clubbing or cyanosis. No LE edema. Neurologic/Psychiatri c: Stable affect. No gross focal neurologic deficits. Intake/Output Summary (Last 24 hours) at 02/07/2019 1839 Last data filed at 02/07/2019 1800 Gross per 24 hour Intake 616 ml Output ? Net 616 ml TELEMETRY: sr DATA: Laboratory: Recent Labs 02/07/19 0354 02/06/19 0431 02/05/19 0908 02/05/19 0110 WBC 8.58 8.07 -- 7.97 HB 14.0 14.5 -- 12.8* HCT 41.0 41.2 -- 38.3* PLT 188 177 -- 177 NA 142 142 -- 141 K 3.9 3.6* 4.1 3.5* CHLOR 106* 105 -- 103 CO2 24 24 -- 24 BUN 18 17 -- 20 CREAT 1.18 1.15 -- 1.14 GLUC 62* 57* -- 49* ] ] Case discussed with CTS Project Archivist SIGNATURE: Ivis Ramirez APRN.CNP PHONE:[phone] DATE of SERVICE: 02/07/2019 TIME of SERVICE:1740 For further questions or If no answer to above pager after 5:30 pm, Please contact CTS office @ [phone] or pgr:[phone]; or CTS Fellow biofuels plant operations engineer @ pgr:[phone] for Emergency/Emergent changes in pt's status. THANK YOU Previous Version Nohemy Olivarez DO, 02/08/2019 6:59 AM Attested Attestation signed by Melba Salomon at 02/08/2019 11:16 AM [facility] STAFF PHYSICIAN NOTE OF PERSONAL INVOLVEMENT IN CARE I have reviewed the documentation obtained and documented by the resident Dr. Olivarez and have reviewed and updated the problem list as appropriate. I have personally performed a face to face assessment of the patient and have personally participated in the davies components. I have discussed the case and management of the patient's care. Impression: Mr. Avelar is a 63M with a medical history significant for T2 IDDM, psoriasis, presented to OSH with NSTEMI, subsequent LHC revealed 3-vessel CAD and thus transferred here for surgical evaluation. ECG on 02/04/19 with inferolateral TWI. Active issues are as follows: NSTEMI 3-vessel CAD (LM: 50% distal stenosis, LAD: focal 80% stenosis at 1st septal skip tracer and D1, followed by tubular 60-70% stenosis), LCx: 70% ostial stenosis, 70% stenosis of large OM, RCA large and dominant with focal 80% stenosis in mid-distal vessel) HFrEF due to ICM, LVEF 50% on 02/05/19 with resting WMA: inferior, posterior, basal anterolateral segments severely hypokinetic, apical inferior and apex mildly hypokinetic Type 2 insulin-dependent diabetes Psoriasis, on humira Plan: - Remains chest pain free, awaiting CABG with Dr. Larsen - Continue medical therapy (on aspirin, heparin gtt, metoprolol 25mg bid) STAFF PHYSICIAN: Melba Salomon MD, [facility] DATE OF SERVICE: 02/08/2019 [facility]ARDIOLOGY PROGRESS NOTE PRIMARY SERVICE: Clinical Cardiology Johanna Swartz Carlos Rosio [id number] HOSPITAL DAY: # 4 PLAN FOR TODAY: - Continue ASA, metoprolol, atorvastatin - Pre-operative testing for CABG per CTS; PFTs today - plan for CABG Thurs - CT chest pending INTERVAL HISTORY - no acute events overnight, HDS - BP 120s/60s; HR 50s - Denies chest pain, SOB, N/V/D PHYSICAL EXAM BP 126/70 Pulse (!) 54 Temp 36.6 ?C (97.8 ?F) (Oral) Resp 18 Wt 80.9 kg (178 lb 4.8 oz) SpO2 97% Intake/Output Summary (Last 24 hours) at 02/08/2019 0657 Last data filed at 02/08/2019 0600 Gross per 24 hour Intake 1002 ml Output ? Net 1002 ml General appearance: Well appearing, no acute distress. Head: Normocephalic, atraumatic. Oropharynx: Oropharynx normal. Neck: No goiter, lymphadenopathy, or JVD. Lungs: Lungs clear to auscultation bilaterally. No wheezing, rhonchi, or rales. Heart: RRR without murmur, gallop, or rubs. Abdomen: Abdomen soft, non-tender, non-distended. BS present. Extremities: No edema. Peripheral pulses symmetric. Neuro: AANDOx3. No focal weakness or changes in sensation. MEDICATIONS Medications reviewed. DATA Labs reviewed. IMAGING No imaging to review. ASSESSMENT AND PLAN Manpreet Avelar is a 63 year old male with a history of T2DM, Hyperlipidemia who presents as an OSH transfer from [facility] for consideration of CABG following recent NSTEMI. ? #Multivessel CAD #NSTEMI - Presented w/ chest pain, EKG changes, elevated troponins consistent with NSTEMI at OSH - Risk factors include T2DM, HLD, prior smoking - C noting 3 vessel disease (80% LAD, 70% LCx, 90-95% RCA) - OSH TTE noting: EF 40-45%, moderate inferior wall hypokinesis - EBEN score 3 = 13% risk at 14 days of: all-cause mortality, new or recurrent MA, or severe recurrent ischemia requiring urgent revascularization Plan - ASA 81 - Heparin gtt - Atorvastatin 80, Metoprolol tartrate 25 BID - Hold ticagrelor pending plan for CABG - CABG planning per CTS: aiming Thurs ? #T2DM - for ~20y - need to assess control, A1c 7.2 Plan - decrease insulin aspart to 6units TID w meals - decrease insulin degludec to 20U qhs - SSI AC/HS ? #Solid dysphagia - difficulty swallowing solids arianna dry foods, worsening over 1y - GI consult for dysphagia at [facility] - considering EGD w/ dilation Plan - OP GI follow up or OP EGD after CABG ? #Psoriasis - well controlled on q2wk humira Plan - unable to give humira inpatient ? #HLD - previously on rosuvastatin 5 - Lipid panel @ [facility] 02/01: TC 140, LDL 77, HDL 48 Plan - atorvastatin 80mg ? # Diet - Heart Healthy # VTE PPx - AC w/ heparin # Dispo Planning - TBD # Code Status - Full code confirmed w/ patient Case to be discussed with staff. Nohemy Olivarez, DO Internal Medicine PGY-1 02/08/2019 6:47 AM For communication after 5 pm on weekdays and after 12 pm on weekends, please page the following: - Clinical Cardiology patients on all floors: page [phone] - Other Cardiology patients on J5 and J6: page [phone] - Other Cardiology patients on J7 and J8: page [phone] KAISER Thapa, Tech 02/08/2019 9:18 AM Signed Radiology Service Progress Note PATIENT NAME: Manpreet Avelar DATE OF SERVICE: February 08, 2019 TIME: 9:18 AM PATIENT IDENTITY VERIFICATION COMPLETED USING TWO (2) METHODS: Name and Date of confirmed by patient verbally. PATIENT GENDER DATA: Male PATIENT RELEVANT IMPLANT DATA REVIEWED: Yes RADIOLOGY DEPARTMENT: CT; Exam(s) Completed: Cardiac PERIPHERAL IV DATA: Not applicable SIGNED BY: KAISER Thapa February 08, 2019 9:18 AM Ivis Ramirez APRN.FIRE RANGE TECHNICIAN 02/08/2019 8:36 PM Addendum [facility] CONSULT PROGRESS NOTE Manpreet Avelar [id number] ASSESSMENT / RECOMMENDATIONS / PLAN: 63 y/o male with PMHx of Hypertension, DMII Recently dx NSTEMI 02/01/19 [facility] recommended revealed severe CAD lesions--tx to [facility] further eval CTS consulted for CABG ? OUTSTANDING: Formal review of OSH C Updated ABO Discussed with Dr. 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 Humira---LD 2 weeks ago-- Will ask if need to see Rheumatology/Derm re: dosing--psorasis Nasal swab 02/06/19--Negative UA 02/06/19-neg ? Kelly: 4.08(92.4)//3.03(80.9 ) ratio:74(96.0) 02/08/19 Vein/Mammary mapping/US Carotids/radial mapping completed PFTs-- smoked ~ 2 years quit smoking over 40 years ago---- need PFT for baseline pulmonary status--completed [place] CT Chest (ordered) Check for Ca+ in the aorta; chest anatomy TSH panel completed NO CONFIRMED OR Date when I got report from CTS Project Archivist-today ? DMII---[id number]--1.2() BS on avg <160s; x3 over 150 x1 over 2 ? SUBJECTIVE: INTERVAL HISTORY: No acute events overnight ? PERTINENT REVIEW OF SYSTEMS: Reports noted chest discomfort pressure center of his chest/left side ribs--~ 1month ago; ~ 2weeks ago decrease physical Tolerance/SOB while duck hunting in [place]-not able to walk as far as normal Chest discomfort on Wednesday ? Currently Denies any SOB,trouble breathing or hard to get a breath/Denies any increased effort to breath/take a breath Chest pain/pressure heaviness/tightness/n o jaw pain/or teeth pain/back pain/pressure or numbness; no scapula pain/ nausea; Denies any New Vision Changes, Nausea,Vomiting,Diarr hea, Last BM 2 days ago Denies any bleeding gums, Denies any blood in urine or stool Denies any Stroke, Mini Stroke, Seizures, Tremors or recent Neurological disorders/tremors Denies any radiation to chest; No hx of TB, no lung injury Denies any issues with Anesthesia--no malignant hyperthermia Denies any swallowing issues. Denies any esophageal dilation, no cirrhosis/hepatitis/e levated liver enzmyes No hx of MIs, rheumatic/scarlet fever; Denies any hx of carpal tunnel, gout, wrist surgery, Neuropathy in feet Denies any hx Raynauds syndrome Tolerating Diet (R)handed Last Dental > one year ago Surgeries Knee surgery x2; ? US ICA February 08, 2019 40-59% bilat Radial Mapping--February 08, 2019 (R)dom-->Compression of the radial artery compromises flow to the digits (L)Compression of the radial artery does not compromise flow to the digits CT CHEST February 08, 2019 IMPRESSION: 1. 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 ?The remaining of the thoracic aorta is normal. ?Near circumferential calcifications of the aortic root is seen. There is no definite acute aortic pathology. 2. Diffuse severe coronary calcifications 3. Proximity of the cardiovascular structures to the sternum is detailed above. 4. Small bilateral pleural effusions with adjacent lower lobe atelectasis. Prior aspiration of contrast material is suspected as detailed in the body of the report. OBJECTIVE: MEDICATIONS: Current Facility-Administered Medications Medication Dose Route Frequency - acetaminophen 325-650 mg tab(s) (TYLENOL) 325-650 mg ORAL q 4 H PRN - polyethylene glycol 3350 17 g packet (MIRALAX, GLYCOLAX) 17 g ORAL DAILY PRN - melatonin 6 mg tab(s) 6 mg ORAL DAILY (8 PM) - gabapentin 100 mg cap(s) (NEURONTIN) 100 mg ORAL AT BEDTIME - atorvastatin 80 mg tab(s) (LIPITOR) 80 mg ORAL AT BEDTIME - dextrose 40 % 15 g 15 g ORAL PRN Or - glucagon 1 mg injection (GLUCAGEN) 1 mg INTRAMUSCULAR PRN Or - dextrose 50 % 12.5 g injection 12.5 g INTRAVENOUS PRN - aspirin 81 mg chewable tab(s) 81 mg ORAL DAILY - heparin iv infusion (LOW DOSE ACS/NOMOGRAM) 25,000 units in NaCl 0.45% 250 mL PREMIX 0-3,000 Units/hr INTRAVENOUS CONTINUOUS And - heparin RATE CHANGE bolus 1,000-4,000 Units for subtherapeutic aptt results 1,000-4,000 Units INTRAVENOUS PRN - insulin lispro injection (rapid acting) (HumaLOG) SUBCUTANEOUS w MEALS AND HS - metoprolol tartrate (short acting) 25 mg tab(s) (LOPRESSOR) 25 mg ORAL q 12 H - perflutren lipid microspheres 1.1 mg/mL 1.3 mL injection (DEFINITY) 1.3 mL INTRAVENOUS DIRECTED PRN - insulin glargine 20 Units pen (long acting) (LANTUS SOLOSTAR, BASAGLAR KWIKPEN) 20 Units SUBCUTANEOUS AT BEDTIME - insulin lispro 6 Units injection (rapid acting) (HumaLOG) 6 Units SUBCUTANEOUS w MEALS - pneumococcal vaccine 23 VALENT 0.5 mL injection (PNEUMOVAX) 0.5 mL INTRAMUSCULAR ONCE (IMMUNIZATION) PHYSICAL EXAM: 02/08/19 0556 02/08/19 0800 02/08/19 0942 02/08/19 1410 BP: 126/70 124/65 145/72 Pulse: (!) 54 (!) 59 (!) 59 Resp: 18 18 18 Temp: 36.6 ?C (97.8 ?F) 37.2 ?C (99 ?F) 37 ?C (98.6 ?F) TempSrc: Oral Oral Oral SpO2: 97% 96% 97% Weight: 80.3 kg (177 lb) General: Stable appearing male in NAD noted AAOX 3. Skin: skin intact; (R)groin [facility] site w/out incident-area soft- Head/Eyes: Sclera clear, intact conjunctiva. EOMI. Mouth/Pharynx: Teeth: Fair dentition. No lesions. Neck: No JVD. Supple. Lungs:BBS essentially diminished throughout Heart: S1, S2. Noted Peripheral Vascular/Arteries: Carotid pulse noted +2 bilat DP/Radial pulses +2 bilat Abdomen: Soft abdomen, nontender, nondistended without mass. + bowel sounds. Musculoskeletal: No kyphoscoliosis. No joint deformities. Extremities: No clubbing or cyanosis. No LE edema. Neurologic/Psychiatri c: Stable affect. No gross focal neurologic deficits. Intake/Output Summary (Last 24 hours) at 02/08/2019 1453 Last data filed at 02/08/2019 1300 Gross per 24 hour Intake 982 ml Output ? Net 982 ml DATA: Laboratory: Recent Labs 02/08/19 0827 02/07/19 0354 02/06/19 0431 WBC 8.12 8.58 8.07 HB 14.5 14.0 14.5 HCT 42.6 41.0 41.2 PLT 185 188 177 NA 137 142 142 K 5.1 3.9 3.6* CHLOR 101 106* 105 CO2 26 24 24 BUN 17 18 17 CREAT 1.21 1.18 1.15 GLUC 209* 62* 57* ] ] Case discussed with CTS Project Archivist SIGNATURE: Ivis Ramirez APRN.FIRE RANGE TECHNICIAN [facility] [phone] DATE of SERVICE: 02/08/2019 TIME of SERVICE: 1345 For further questions or If no answer to above pager after 5:30 pm, Please contact CTS office @ [phone] or pgr:[phone]; or CTS Fellow biofuels plant operations engineer @ pgr:[phone] for Emergency/Emergent changes in pt's status. THANK YOU Previous Version Nohemy Olivarez DO, DO 02/09/2019 6:51 AM Attested Attestation signed by Melba Salomon at 02/09/2019 11:39 AM [facility] STAFF PHYSICIAN NOTE OF PERSONAL INVOLVEMENT IN CARE I have reviewed the documentation obtained and documented by the resident Dr. Olivarez and have reviewed and updated the problem list as appropriate. I have personally performed a face to face assessment of the patient and have personally participated in the davies components. I have discussed the case and management of the patient's care. Impression: Mr. Avelar is a 63M with a medical history significant for T2 IDDM, psoriasis, presented to OS with NSTEMI, subsequent LHC revealed 3-vessel CAD and thus transferred here for surgical evaluation. ECG on 02/04/19 with inferolateral TWI. Active issues are as follows: NSTEMI 3-vessel CAD (LM: 50% distal stenosis, LAD: focal 80% stenosis at 1st septal skip tracer and D1, followed by tubular 60-70% stenosis), LCx: 70% ostial stenosis, 70% stenosis of large OM, RCA large and dominant with focal 80% stenosis in mid-distal vessel) HFrEF due to ICM, LVEF 50% on 02/05/19 with resting WMA: inferior, posterior, basal anterolateral segments severely hypokinetic, apical inferior and apex mildly hypokinetic Type 2 insulin-dependent diabetes Psoriasis, on humira Plan: - Awaiting CABG with Dr. Larsen, scheduled for Wednesday - Continue medical therapy (on aspirin, heparin gtt, metoprolol 25mg bid) STAFF PHYSICIAN: Melba Salomon MD, [facility] DATE OF SERVICE: 02/09/2019 [facility] CLINICAL CARDIOLOGY PROGRESS NOTE PRIMARY SERVICE: Clinical Cardiology Johanna Manpreet Avelar [id number] HOSPITAL DAY: # 5 PLAN FOR TODAY: - Continue ASA, metoprolol, atorvastatin - Plan for CABG Wednesday INTERVAL HISTORY - no acute events overnight, HDS - BP 100-110s/60s; HR 50s - Denies chest pain, SOB, N/V/D PHYSICAL EXAM BP 114/65 Pulse (!) 56 Temp 36.8 ?C (98.2 ?F) (Oral) Resp 18 Wt 80.3 kg (177 lb) SpO2 96% Intake/Output Summary (Last 24 hours) at 02/09/2019 0649 Last data filed at 02/09/2019 0600 Gross per 24 hour Intake 830 ml Output ? Net 830 ml General appearance: Well appearing, no acute distress. Head: Normocephalic, atraumatic. Oropharynx: Oropharynx normal. Neck: No goiter, lymphadenopathy, or JVD. Lungs: Lungs clear to auscultation bilaterally. No wheezing, rhonchi, or rales. Heart: RRR without murmur, gallop, or rubs. Abdomen: Abdomen soft, non-tender, non-distended. BS present. Extremities: No edema. Peripheral pulses symmetric. Neuro: AANDOx3. No focal weakness or changes in sensation. MEDICATIONS Medications reviewed. DATA Labs reviewed. IMAGING No imaging to review. ASSESSMENT AND PLAN Manpreet Avelar is a 63 year old male with a history of T2DM, Hyperlipidemia who presents as an OSH transfer from [facility] for consideration of CABG following recent NSTEMI. ? #Multivessel CAD #NSTEMI - Presented w/ chest pain, EKG changes, elevated troponins consistent with NSTEMI at OSH - Risk factors include T2DM, HLD, prior smoking - [facility] noting 3 vessel disease (80% LAD, 70% LCx, 90-95% RCA) - OSH TTE noting: EF 40-45%, moderate inferior wall hypokinesis - EBEN score 3 = 13% risk at 14 days of: all-cause mortality, new or recurrent MA, or severe recurrent ischemia requiring urgent revascularization Plan - ASA 81 - Heparin gtt - Atorvastatin 80, Metoprolol tartrate 25 BID - Hold ticagrelor pending plan for CABG - CABG planning per CTS: aiming Thurs ? #T2DM - for ~20y - need to assess control, A1c 7.2 Plan - continue insulin aspart to 6units TID w meals - continue insulin degludec to 20U qhs - SSI AC/HS ? #Solid dysphagia - difficulty swallowing solids arianna dry foods, worsening over 1y - GI consult for dysphagia at [facility] - considering EGD w/ dilation Plan - OP GI follow up or OP EGD after CABG ? #Psoriasis - well controlled on q2wk humira Plan - unable to give humira inpatient ? #HLD - previously on rosuvastatin 5 - Lipid panel @ [facility] 02/01: TC 140, LDL 77, HDL 48 Plan - atorvastatin 80mg ? # Diet - Heart Healthy # VTE PPx - AC w/ heparin # Dispo Planning - TBD # Code Status - Full code confirmed w/ patient Case to be discussed with staff. Nohemy Olivarez DO Internal Medicine PGY-1 02/09/2019 6:47 AM For communication after 5 pm on weekdays and after 12 pm on weekends, please page the following: - Clinical Cardiology patients on all floors: page [phone] - Other Cardiology patients on J5 and J6: page [phone] - Other Cardiology patients on J7 and J8: page [phone] Rosanna Navarro RN, RN 02/09/2019 12:17 PM Signed CARE MANAGEMENT PROGRESS NOTE SERVICE DATE: 02/09/2019 SERVICE TIME: 12:15 PM LOS: 5 days Needs Prior to Discharge: To Be Determined Pt awaiting CABG. Pt lives with spouse in one level living. 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 CM will re-assess for skilled needs post-operatively. SIGNATURE: Rosanna Navarro RN PATIENT NAME: Manpreet Avelar DATE: February 09, 2019 TIME: 12:16 PM PAGER/CONTACT #: [phone] Ivis Ramirez APRN.CAROLYN 02/09/2019 9:45 PM Addendum [facility] CONSULT PROGRESS NOTE Manpreet Avelar [id number] ASSESSMENT / RECOMMENDATIONS / PLAN:?63 y/o male with PMHx of Hypertension, DMII Recently dx NSTEMI 02/01/19 Reports noted chest discomfort pressure center of his chest/left side ribs--~ 1month ago; ?~ 2weeks ago decrease physical;?Tolerance/S OB while duck hunting in [employer]-not able to walk as far as normal;Chest discomfort on Wednesday prior to presenting to OSH [facility] recommended revealed severe CAD lesions--tx to [facility] further eval CTS consulted for CABG ? Per [facility] 02/02/19 significant for Outside coronary angiogram (personally reviewed, images on Syngo) Left main 50% distal stenosis LAD focal 80% stenosis at the origin of S1 and D1 followed by a tubular 60?70%. Mid to distal vessel without significant disease. Circumflex 70% ostial stenosis, 70% stenosis of large OM. RCA is large and dominant with a focal 80% stenosis in the mid to distal vessel or to the bifurcation OUTSTANDING: [facility] Updated [facility]BO (02/12/19) Discussed with Dr. Larsen 02/08/19--earliest OR date would be Wednesday02/13/2019--pending his review of pt's case ? PIs(R) Dom 79 (L)82 ? 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 ? Humira---LD 2 weeks ago-- Will ask if need to see Rheumatology/Derm re: dosing--psorasis----> >>>-discussed w/ Dr. Olivarez 02/09/19--- to consider Rheum consult Nasal swab 02/06/19--Negative UA 02/06/19-neg? ? PFTs: 02/08/19-->Kelly: 4.08(92.4)///3.03(80. 9) ratio:74(96.0) ? Vein/Mammary mapping/US Carotids/radial mapping completed 02/08/19 PFTs-- smoked ~ 2 years quit smoking over 40 years ago---- need PFT for baseline pulmonary status--completed 02/08/[address] Chest (ordered) ?Check for Ca+ in the aorta; chest anatomy-->completed-- almost Circumferenfial Ca+ of aortic root TSH TSH Date Value Ref Range Status 02/08/2019 5.010 (H) 0.270 - 4.200 uU/mL Final Free T3/Free T4--ordered ? DMII---AotC5j--8.2-- high 250s--low 65--following OHS--earliest date--02/13/2019 ? SUBJECTIVE: INTERVAL HISTORY:?No acute events overnight ? PERTINENT REVIEW OF SYSTEMS:??? Currently?Denies any SOB,trouble breathing or hard to get a breath/Denies any increased effort to breath/take a breath Chest pain/pressure heaviness/tightness/n o jaw pain/or teeth pain/back pain/pressure or numbness; no scapula pain/ nausea; Denies any ?New Vision Changes, Nausea,Vomiting,Diarr hea, Last BM?2 days ago Denies any bleeding gums, Denies any blood in urine or stool Denies any Stroke, Mini Stroke, Seizures, Tremors or recent Neurological disorders/tremors Denies any radiation to chest; No hx of TB, no lung injury Denies any issues with Anesthesia--no malignant hyperthermia Denies any swallowing issues. Denies any esophageal dilation, no cirrhosis/hepatitis/e levated liver enzmyes No hx of MIs, rheumatic/scarlet fever;? Denies any hx of carpal tunnel, gout, wrist surgery, +Neuropathy in?feet Denies any hx??Raynauds syndrome Tolerating Diet (R)handed Last Dental > one year ago Surgeries Knee surgery x2;vasectomy, ? US ICA February 08, 2019 40-59% bilat ? Radial Mapping--February 08, 2019 (R)dom-->Compression of the radial artery compromises flow to the digits ? (L)Compression of the radial artery does not compromise flow to the digits ? CT CHEST February 08, 2019 IMPRESSION: 1. 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 ?The remaining of the thoracic aorta is normal. ?Near circumferential calcifications of the aortic root is seen. There is no definite acute aortic pathology. 2. Diffuse severe coronary calcifications 3. Proximity of the cardiovascular structures to the sternum is detailed above. 4. Small bilateral pleural effusions with adjacent lower lobe atelectasis. Prior aspiration of contrast material is suspected as detailed in the body of the report. [facility] PRE-OP CHECKLIST Surgeon: Alisia Larsen M.D. Informed Consent Completed: No STS Score: Procedure: Isolated CAB CALCULATE Risk of Mortality: 0.827% Renal Failure: 1.081% Permanent Stroke: 1.167% Prolonged Ventilation: 3.493% DSW Infection: 0.152% Reoperation: 1.744% Morbidity or Mortality: 6.181% Short Length of Stay: 61.105% Long Length of Stay: 2.189% CAD: Yes - CAD on Problem List: Yes Is intended procedure a CABG: Yes - is a beta digna ordered? Yes H AND P completed: Yes PA/LAT: Completed CT: Chest Completed MRI: NA LE US: N/A Cath: Yes OSH - reviewed: No EKG: Completed Is patient on Amiodarone? No Echo:Completed EF %: PI's: PIs(R) Dom 79 (L)82 Carotid: Completed Mapping: Completed Dental: N/A PFT's: Completed Recent Labs 02/09/19 0517 WBC 7.89 HB 14.2 HCT 42.0 PLT 181 CREAT 1.31* UA: Abnormal/Neg HCG:N/A ABO/ABO Confirmed: Yes ABO/RH(D) Date Value Ref Range Status 02/06/2019 A POSITIVE Final Blood ordered: No Willing to accept blood: Yes SA Swab: Yes - results: Negative Last Dose of Anticoagulation: Heparin Op Note: N/A Pacemaker Check: N/A Implants: no Consults: Rheumatology DM: Yes . Hemoglobin A1C (%) Date Value 02/04/2019 7.2 Cardiac Surgical prep: Yes SIGNATURE: Ivis Ramirez APRN.CNP DATE of SERVICE: 02/09/2019 TIME of SERVICE: 1:57 PM CHECKED BY: LADI OBJECTIVE: MEDICATIONS: Current Facility-Administered Medications Medication Dose Route Frequency - acetaminophen 325-650 mg tab(s) (TYLENOL) 325-650 mg ORAL q 4 H PRN - polyethylene glycol 3350 17 g packet (MIRALAX, GLYCOLAX) 17 g ORAL DAILY PRN - melatonin 6 mg tab(s) 6 mg ORAL DAILY (8 PM) - gabapentin 100 mg cap(s) (NEURONTIN) 100 mg ORAL AT BEDTIME - atorvastatin 80 mg tab(s) (LIPITOR) 80 mg ORAL AT BEDTIME - dextrose 40 % 15 g 15 g ORAL PRN Or - glucagon 1 mg injection (GLUCAGEN) 1 mg INTRAMUSCULAR PRN Or - dextrose 50 % 12.5 g injection 12.5 g INTRAVENOUS PRN - aspirin 81 mg chewable tab(s) 81 mg ORAL DAILY - heparin iv infusion (LOW DOSE ACS/NOMOGRAM) 25,000 units in NaCl 0.45% 250 mL PREMIX 0-3,000 Units/hr INTRAVENOUS CONTINUOUS And - heparin RATE CHANGE bolus 1,000-4,000 Units for subtherapeutic aptt results 1,000-4,000 Units INTRAVENOUS PRN - insulin lispro injection (rapid acting) (HumaLOG) SUBCUTANEOUS w MEALS AND HS - metoprolol tartrate (short acting) 25 mg tab(s) (LOPRESSOR) 25 mg ORAL q 12 H - insulin glargine 20 Units pen (long acting) (LANTUS SOLOSTAR, BASAGLAR KWIKPEN) 20 Units SUBCUTANEOUS AT BEDTIME - insulin lispro 6 Units injection (rapid acting) (HumaLOG) 6 Units SUBCUTANEOUS w MEALS PHYSICAL EXAM: 02/09/19 0600 02/09/19 0800 02/09/19 1000 02/09/19 1055 BP: 114/65 101/54 101/54 Pulse: (!) 56 (!) 51 (!) 56 Resp: Temp: 36.8 ?C (98.2 ?F) 37.2 ?C (99 ?F) 36.7 ?C (98 ?F) TempSrc: Oral Oral Oral SpO2: 96% 97% 96% Weight: 79.9 kg (176 lb 1.6 oz) General:?Stable appearing male in NAD noted AAOX 3. Skin:?skin intact; ? Head/Eyes: Sclera clear,?intact?conjunc tiva. EOMI. Mouth/Pharynx: Teeth: Fair dentition. No lesions. Neck: No JVD. Supple. Lungs:BBS essentially diminished throughout Heart: S1, S2.?Noted? Peripheral Vascular/Arteries: Carotid pulse?noted +2 bilat?DP/Radial pulses +2 bilat Abdomen: Soft abdomen, nontender, nondistended without mass.?+?bowel sounds. Musculoskeletal: No kyphoscoliosis.+ joint deformities. Extremities: No clubbing or cyanosis. No?LE?edema. Neurologic/Psychiatri c:?Stable affect. No gross focal neurologic deficits. ? Intake/Output Summary (Last 24 hours) at 02/09/2019 1322 Last data filed at 02/09/2019 1000 Gross per 24 hour Intake 592 ml Output ? Net 592 ml DATA: Laboratory: Recent Labs 02/09/19 0517 02/08/19 0827 02/07/19 0354 WBC 7.89 8.12 8.58 HB 14.2 14.5 14.0 HCT 42.0 42.6 41.0 PLT 181 185 188 NA 141 137 142 K 4.7 5.1 3.9 CHLOR 102 101 106* CO2 26 26 24 BUN 22 17 18 CREAT 1.31* 1.21 1.18 GLUC 108* 209* 62* ] ] Case discussed with CTS Project Archivist; Dr. Nohemy Menezes SIGNATURE: Ivis Ramirez APRN.CNP PHONE: [phone] DATE of SERVICE: 02/09/2019 TIME of SERVICE: 1405 Informed patient what to expect pre/post operatively: Your surgery and recovery will take place in the [facility] ([facility]). Your Heart Surgery (Cardiac ORs) is on the 4th floor of the [facility], ICUs/ Postop floors are on 5 and 6th floors of the [facility] ([facility]). Although your surgery has been scheduled for tomorrow (or a specific date)-unfortunately there is always a chance that it may be cancel due to an emergency/emergent case in the OR--(for example a heart/lung transplant or an aortic dissection). If you have family that will be here with you on the day of your surgery, during your surgery, your family will wait in J1-2 -which is the Cardiac Surgery waiting area on the first floor of the [facility] ([facility]). One of your family members will need to sign in and get a pager so that your family member(s) can be notified when your surgery has started and when it is almost over. The surgical ICUs are on the 5th and 6 th floors of the [facility] ([facility])--it is open visitation---no set times to visit-however, your family member will need to call into the nurses station to make sure it is an appropriate time to visit. You will be NPO after 12 am [place] night prior to OHS You will need to take 2 showers night prior to your surgery and the 2 showers morning of your surgery--1st of the 2 showers-will be as if you are taking a shower at home--no ekg electrodes; shower-wash face to feet. Your second shower will be approximately just minutes after your first shower and you will use the antibacterial soap (or wipes if not possible for you to shower). You will wash from your neck to your feet--please wash both sides of your neck, your chest, both groins but not your private area, legs and feet. During your surgical prep after you have arrived in the surgical prep area on the 4th Floor of the [facility]; IV lines will be place in your arms, large bore (Internal jugular IV in your neck to give you IV fluids during your surgery; arterial line to monitor your blood pressure (may be placed in your radial area (wrist area), brachial (anticubical area) or groin area. If you are connected to the bypass machine during surgery, you may have an incision at your chest (below your clavicle) or groin to connect you to the bypass machine; you will have temporary pacer wires (if you do not have an ICD or permanent pacemaker) -to paced you out of an abnormal or fast heart rhythm if needed-wires will be cut or pulled depending on how they are placed during your surgery; you will have one or more chest tubes to be determine at the time of surgery--the amount of time the chest tubes will be in your chest will be determine by your drainage from your chest tube; you will have a barakat catheter placed in your place in your bladder--you can asked for the barakat catheter to be place after you are asleep. You will be given General Anesthesia (be put totally asleep) during your surgery and placee on a Ventilator (breathing machine ). Your stay in the ICU and on the postop floors will depend on how well your progress/recovery from surgery.is going. Stressed to patient the importance of pain control for successful recovery: Stressed the importance of Stool softners-good bowel regimen to prevent constipation after surgery. INFORMED OF IMPORTANCE OF GOOD PAIN [id number] k for pain medication early when pain level is 3/0-10Informed patient (and family) what to expect pre/post operatively IMPORTANCE OF PAIN [id number] k for pain medication early, take pain medication routinely to have adquate pain control to prevent postop complications ie Pneumonia, Deep Vein Thrombosis, Delayed Wound Healing, Longer Hospital Stay. Explained importance of Deep Breathing/Coughing before and after surgery pain scale, take pain medication routinely to have adquate pain control to prevent postop complications for example, Pneumonia, Deep Vein Thrombosis, Delayed Wound Healing, Longer Hospital Stay. Explained the importance of Bowel Maintenance-taking stool softners (or laxatives if indicated) to maintain regular bowel movements while on pain medication. Informed of benefits of adequate pain control- taking pain medication when pain level is -ask for pain medication; Inform pt may want to ask for pain medication around the clock/routinely on first postop Day on Regular Nursing Floor- thereby promoting recovery;-able to breathe deeply and adequately thus decrease Oxygen requirements of body, Able to walk, get out of bed- thereby decrease recovery time and decreased risk for infection. Discussed Chest Protection: NO HEAVY LIFTING nothing heaving than 5-10 pounds for 6 -8 weeks to ensure proper healing of sternum. Explained importance of Deep Breathing/Coughing before and after surgery Instructed in breathing exercises-deep breaths 10 times/hour while awake. Pt verbalized understanding and demostrated understanding via return demonstration. Discussed discharged plans-informed patient , a Cardiac Surgery Nurse Practitioner visit is recommended within 3-7 days after being discharged if lived in near [place], [place] area or within [address] [place], [place]. Discussed with Patient (Family) will need to see their PCP (within 1st week of discharge from [facility]) and Automatic Toe Laster (4-6 weeks after discharge from [facility]) following discharged- specific time frames for postop visits for Cardiac Surgery Nurse Practitioner, PCP and Automatic Toe Laster will be discussed at time of discharged. Patient (Family) Verbalized understanding. Previous Version Nohemy Olivarez DO, DO 02/10/2019 7:20 AM Attested Attestation signed by Melba Salomon at 02/10/2019 12:40 PM [facility] STAFF PHYSICIAN NOTE OF PERSONAL INVOLVEMENT IN CARE I have reviewed the documentation obtained and documented by the resident Dr. Olivarez and have reviewed and updated the problem list as appropriate. I have personally performed a face to face assessment of the patient and have personally participated in the davies components. I have discussed the case and management of the patient's care. Impression: Mr. Avelar is a 63M with a medical history significant for T2 IDDM, psoriasis, presented to OSH with NSTEMI, subsequent LHC revealed 3-vessel CAD and thus transferred here for surgical evaluation. ECG on 02/04/19 with inferolateral TWI. Active issues are as follows: NSTEMI 3-vessel CAD (LM: 50% distal stenosis, LAD: focal 80% stenosis at 1st septal skip tracer and D1, followed by tubular 60-70% stenosis), LCx: 70% ostial stenosis, 70% stenosis of large OM, RCA large and dominant with focal 80% stenosis in mid-distal vessel) HFrEF due to ICM, LVEF 50% on 02/05/19 with resting WMA: inferior, posterior, basal anterolateral segments severely hypokinetic, apical inferior and apex mildly hypokinetic Type 2 insulin-dependent diabetes Psoriasis, on humira Plan: - Remains pain free, ambulating - Awaiting CABG with Dr. Larsen, scheduled for Wednesday - Continue medical therapy (on aspirin, heparin gtt, metoprolol 25mg bid) STAFF PHYSICIAN: Melba Salomon MD, [facility] DATE OF SERVICE: 02/10/2019 [facility] CLINICAL CARDIOLOGY PROGRESS NOTE PRIMARY SERVICE: Clinical Cardiology Johanna Manpreetdean Avelar [id number] HOSPITAL DAY: # 6 PLAN FOR TODAY: - Continue ASA, metoprolol, atorvastatin - Plan for CABG Wednesday - Encourage PO intake INTERVAL HISTORY - no acute events overnight, HDS - BP 100-110s/60s; HR 50s - Denies chest pain, SOB, N/V/D PHYSICAL EXAM BP 133/72 Pulse (!) 53 Temp 36.9 ?C (98.5 ?F) (Oral) Resp 20 Wt 79.9 kg (176 lb 1.6 oz) SpO2 97% Intake/Output Summary (Last 24 hours) at 02/10/2019 0720 Last data filed at 02/09/2019 1800 Gross per 24 hour Intake 352 ml Output ? Net 352 ml General appearance: Well appearing, no acute distress. Head: Normocephalic, atraumatic. Oropharynx: Oropharynx normal. Neck: No goiter, lymphadenopathy, or JVD. Lungs: Lungs clear to auscultation bilaterally. No wheezing, rhonchi, or rales. Heart: RRR without murmur, gallop, or rubs. Abdomen: Abdomen soft, non-tender, non-distended. BS present. Extremities: No edema. Peripheral pulses symmetric. Neuro: AANDOx3. No focal weakness or changes in sensation. MEDICATIONS Medications reviewed. DATA Labs reviewed. IMAGING No imaging to review. ASSESSMENT AND PLAN Manpreet Avelar is a 63 year old male with a history of T2DM, Hyperlipidemia who presents as an OSH transfer from [facility] for consideration of CABG following recent NSTEMI. ? #Multivessel CAD #NSTEMI - Presented w/ chest pain, EKG changes, elevated troponins consistent with NSTEMI at OSH - Risk factors include T2DM, HLD, prior smoking - [facility] noting 3 vessel disease (80% LAD, 70% LCx, 90-95% RCA) - OSH TTE noting: EF 40-45%, moderate inferior wall hypokinesis - EBEN score 3 = 13% risk at 14 days of: all-cause mortality, new or recurrent MA, or severe recurrent ischemia requiring urgent revascularization Plan - ASA 81 - Heparin gtt - Atorvastatin 80, Metoprolol tartrate 25 BID - Hold ticagrelor pending plan for CABG - CABG planning per CTS: aiming Thurs ? #T2DM - for ~20y - need to assess control, A1c 7.2 Plan - continue insulin aspart to 6units TID w meals - continue insulin degludec to 20U qhs - SSI AC/HS ? #Solid dysphagia - difficulty swallowing solids arianna dry foods, worsening over 1y - GI consult for dysphagia at [facility] - considering EGD w/ dilation Plan - OP GI follow up or OP EGD after CABG ? #Psoriasis - well controlled on q2wk humira Plan - unable to give humira inpatient ? #HLD - previously on rosuvastatin 5 - Lipid panel @ [facility] 02/01: TC 140, LDL 77, HDL 48 Plan - atorvastatin 80mg ? # Diet - Heart Healthy # VTE PPx - AC w/ heparin # Dispo Planning - TBD # Code Status - Full code confirmed w/ patient Case to be discussed with staff. Nohemy Olivarez DO Internal Medicine PGY-1 02/10/2019 6:47 AM For communication after 5 pm on weekdays and after 12 pm on weekends, please page the following: - Clinical Cardiology patients on all floors: page [phone] - Other Cardiology patients on J5 and J6: page [phone] - Other Cardiology patients on J7 and J8: page [phone] MANISHA Pena/Brock 02/10/2019 7:24 AM Signed OCCUPATIONAL THERAPY MISSED VISIT SERVICE DATE: 02/10/2019 SERVICE TIME: 0723 to 0723 ROOM: [place] [address] Attempted Evaluation. Patient not seen due to Hold: Pre-operative Consult. SIGNATURE: MANISHA Pena/Brock PATIENT NAME: Manpreet Avelar DATE: February 10, 2019 TIME: 7:24 AM Laura Shrestha DTR 02/10/2019 9:02 AM Signed NUTRITION THERAPY FOLLOW-UP NOTE SERVICE DATE: 02/10/2019 SERVICE TIME: 810am Anthropometrics: Current Weight: Weight: 79.5 kg (175 lb 4.8 oz) There is no height or weight on file to calculate BMI. Loss of lean body mass/visual muscle wasting: no Admitting Diagnosis: CAD (coronary artery disease) [I25.10] Present Diet Order: Heart Healthy 4 gm Na Is the patient having any pain that is interfering with oral/enteral intake? No Allergies: ALLERGIES No Known Allergies Reason for Visit: Nutrition screen: LOS > 6 days Nutrient intake assessment: Current intake of meals: 75 - 100% Patient concerns/Issues: patient has a good intake and appetite. He reports eating all of his meals and averages 1697 kcal and 90 gm protein/day. Weight changes associated with fluid. Will continue to monitor intakes and nutritional needs. Nursing Admission Assessment Malnutrition Score Tool: 0 Plan of Care: Recommendation No problems noted at this time. Will screen again within 7 days Discharge Plan: home on heart healthy diet MNT Billing Type: Routine Care/15 min 1 unit SIGNATURE: Laura Shrestha DTR PATIENT NAME: Manpreet Avelar DATE: February 10, 2019 TIME: 9:00 AM PAGER: [id number] William Humphrey APRN.FIRE RANGE TECHNICIAN 02/10/2019 5:17 PM Addendum INITIAL CONSULT ENDOCRINOLOGY SERVICE DATE: 02/10/2019 SERVICE TIME: 9:19 AM Requesting Provider: Melba Salomon Opinion/Advice Regarding: Management of Diabetes Mellitus Type 2 hyperglycemia Service: DCT (Diabetes Care Team) Subjective HPI: Mr. Manpreet Avelar is a 63 year old male with a 20 year history of Diabetes Mellitus Type 2 hyperglycemia who was admitted on 02/03/2019 for CAD . Past medical history significant for CAD,HPL. Patient does exercise. Last HbA1c was 7.2 on 02/04/19 . He has a no known family history of diabetes. He is followed by PCP for his diabetes. DIABETIC COMPLICATIONS: Neuropathy: Polyneuropathy Pre-Admission DM Regimen: Preadmission oral agents: None Preadmission insulin regimen: Tresiba 25units Q HS Novolog 02/17/11 units Q AC pen Sliding scale:None Self Monitoring Blood Glucose: Type of Monitor: Does not know brand Frequency of Monitorin-2 times per week BG Values: 150 Hypoglycemia:Yes when over exerting at work PAST MEDICAL HISTORY Diagnosis Date - Hyperlipidemia - Nephrolithiasis - Pneumothorax due to rib fracture from tractor injury in teen years - Psoriasis - Type 2 diabetes mellitus (HCC) History reviewed. No pertinent surgical history. FAMILY HISTORY Problem Relation Age of Onset - Heart disease Mother - Heart disease Father - Heart Attack Maternal Grandfather Social History Tobacco Use - Smoking status: Former Smoker Packs/day: 1.00 Years: 10.00 Pack years: 10.00 Types: Cigarettes Last attempt to quit: 04/12/1979 Years since quittin.8 - Smokeless tobacco: Never Used - Tobacco comment: rarely used chewing tobacco in past also Substance Use Topics - Alcohol use: Not on file Comment: rare, maybe once per month - Drug use: Never MEDICATIONS: Medications Prior to Admission: HUMIRA,CF, PEN 40 mg/0.4 mL pen kit Inject 40 mg subcutaneously every 2 weeks. Disp: Rfl: Unknown at Unknown time rosuvastatin (CRESTOR) 5 mg tablet Take 5 mg by mouth once daily. Disp: Rfl: 1 Past Week at Unknown time gabapentin (NEURONTIN) 100 mg capsule Take 100 mg by mouth daily at bedtime. Disp: Rfl: Past Week at Unknown time insulin aspart U-100 (NOVOLOG) 100 unit/mL (3 mL) inpn Inject 8 Units subcutaneously daily with lunch. Disp: Rfl: Past Week at Unknown time insulin aspart U-100 (NOVOLOG) 100 unit/mL (3 mL) inpn Inject 11 Units subcutaneously daily with breakfast. Disp: Rfl: Past Week at Unknown time insulin aspart U-100 (NOVOLOG) 100 unit/mL (3 mL) inpn Inject 11 Units subcutaneously daily with dinner. Disp: Rfl: Past Week at Unknown time insulin degludec (TRESIBA) 100 unit/mL (3 mL) injection Inject 25 Units subcutaneously daily at bedtime. Disp: Rfl: Past Week at Unknown time Current Facility-Administered Medications Medication Dose Route Frequency - acetaminophen 325-650 mg tab(s) (TYLENOL) 325-650 mg ORAL q 4 H PRN - polyethylene glycol 3350 17 g packet (MIRALAX, GLYCOLAX) 17 g ORAL DAILY PRN - melatonin 6 mg tab(s) 6 mg ORAL DAILY (8 PM) - gabapentin 100 mg cap(s) (NEURONTIN) 100 mg ORAL AT BEDTIME - atorvastatin 80 mg tab(s) (LIPITOR) 80 mg ORAL AT BEDTIME - dextrose 40 % 15 g 15 g ORAL PRN Or - glucagon 1 mg injection (GLUCAGEN) 1 mg INTRAMUSCULAR PRN Or - dextrose 50 % 12.5 g injection 12.5 g INTRAVENOUS PRN - aspirin 81 mg chewable tab(s) 81 mg ORAL D (more content not included)... Normal [facility] Vital Signs Date Time Vital Sign Value Performing Clinician Facility 09-11-2024 10:03040 Body height 177.8 cm Jn Sanchez MD Work Phone: [facility] 09-11-2024 10:03-040 Body mass index (BMI) [Ratio] 28.84 kg/m2 Jn Sanchez MD Work Phone: [facility] 09-11-2024 10:03-040 Body weight 91.17 kg Jn [facility] 09-11-2024 10:03-040 Diastolic blood pressure 60 mm[Hg] [facility] 09-11-2024 10:03-0400 Heart rate 70 /min Jn Sanchez MD Work Phone: [facility] 09-11-2024 10:03-0400 SaO2% (BldA) [Mass fraction] 95 % Jn Sanchez MD Work Phone: [facility] 09-11-2024 10:03-0400 Systolic blood pressure 128 mm[Hg] Jn Sanchez MD Work Phone: [facility] 02-24-2024 10:57-0500 Body height 177.8 cm Nohemy Batres MD Work Phone: [facility] 02-24-2024 10:57-0500 Body mass index (BMI) [Ratio] 27.89 kg/m2 Nohemy Batres MD Work Phone: [facility] 02-24-2024 10:57-0500 Body weight 88.18 kg Nohemy Batres MD Work Phone: [facility] 02-24-2024 10:57-0500 Diastolic blood pressure 76 mm[Hg] Nohemy Batres MD Work Phone: [facility] 02-24-2024 10:57-0500 Heart rate 54 /min Nohemy Batres MD Work Phone: [facility] 02-24-2024 10:57-0500 SaO2% (BldA) [Mass fraction] 98 % Nohemy Batres MD Work Phone: [facility] 02-24-2024 10:57-0500 Systolic blood pressure 136 mm[Hg] Nohemy Batres MD Work Phone: [facility] 09-10-2023 11:09-0400 Body height 177.8 cm Michael Montero MD Work Phone: [facility] 09-10-2023 11:09-0400 Body mass index (BMI) [Ratio] 28.12 kg/m2 Michael Montero MD Work Phone: [facility] 09-10-2023 11:09-0400 Body weight 88.91 kg Michael Montero MD Work Phone: [facility] 09-10-2023 11:09-0400 Diastolic blood pressure 70 mm[Hg] Michael Montero MD Work Phone: [facility] 09-10-2023 11:09-0400 Heart rate 62 /min Michael Montero MD Work Phone: [facility] 09-10-2023 11:09-0400 SaO2% (BldA) [Mass fraction] 94 % Michael Montero MD Work Phone: [facility] 09-10-2023 11:09-0400 Systolic blood pressure 132 mm[Hg] Michael Montero MD Work Phone: [facility] 03-25-2023 12:30-0500 Body height 175.3 cm Tong Jose Angel Ont [facility] 03-25-2023 12:30-0500 Body mass index (BMI) [Ratio] 28.65 kg/m2 Tong Jose Angel [facility] 03-25-2023 12:30-0500 Body weight 88 kg Tong Jose Angel [facility] 03-25-2023 12:30-0500 Diastolic blood pressure 74 mm[Hg] Tong Jose Angel [facility] 03-25-2023 12:30-0500 Heart rate 50 /min Tong Jose Angel [facility] Comment on above: regular 03-25-2023 12:30-0500 Respiratory rate 20 /min Tong Jose Angel [facility] Comment on above: lungs cta 03-25-2023 12:30-0500 SaO2% (BldA) [Mass fraction] 100 % Tong Jose Angel [facility] 03-25-2023 12:30-0500 Systolic blood pressure 166 mm[Hg] Tong Jose Angel Ont [facility] 12-30-2022 15:22-0400 Body height 177.8 cm Papi Saba MD Work Phone: [facility] 12-30-2022 15:22-0400 Body mass index (BMI) [Ratio] 26.83 kg/m2 Papi Saba MD Work Phone: [facility] 12-30-2022 15:22-0400 Body weight 84.82 kg Papi Saba MD Work Phone: [facility] 11-05-2022 12:54-0400 Diastolic blood pressure 87 mm[Hg] MD Nohemy Batres Work Phone: [facility] 11-05-2022 12:54-0400 Heart rate 52 /min MD Nohemy Batres Work Phone: [facility] 11-05-2022 12:54-0400 Respiratory rate 16 /min MD Nohemy Batres Work Phone: [facility] 11-05-2022 12:54-0400 SaO2% (BldA) [Mass fraction] 99 % MD Nohemy Batres Work Phone: [facility] 11-05-2022 12:54-0400 Systolic blood pressure 164 mm[Hg] MD Nohemy Batres Work Phone: [facility] 11-05-2022 12:21-0400 Body height 175.26 cm MD Nohemy Batres Work Phone: [facility] 11-05-2022 12:21-0400 Body mass index (BMI) [Ratio] 27 kg/m2 MD Nohemy Batres Work Phone: [facility] 11-05-2022 12:21-0400 Body weight 83 kg MD Nohemy Batres Work Phone: [facility] 11-05-2022 11:37-0400 Body temperature 97.6 [degF] MD Nohemy Batres Work Phone: [facility] 11-05-2022 11:37-0400 Inhaled oxygen flow rate 6 L/min MD Nohemy Batres Work Phone: [facility] 05-05-2022 09:40-0500 Body height 175.26 cm Michael Tobar Other [employer] Other 05-05-2022 09:40-0500 Body mass index (BMI) [Ratio] 28.68 kg/m2 Michael Tobar Other [employer] Other 05-05-2022 09:40-0500 Body weight 88.09 kg Michael Tobar Other [employer] Other 02-14-2019 11:58-0500 Body temperature 98.6 [degF] [facility] Comment on above: Performed By: #### CBCDIF, PT, PTT, CMP, MG1, NTBNP #### [facility] [address] [place] [phone] 02-14-2019 01:47-0500 Body temperature 98.6 [degF] [facility] Comment on above: Performed By: #### CBCDIF, PT, PTT, CMP, MG1, NTBNP #### [facility] [address] [place] [phone] 02-14-2019 01:34-0500 Body temperature 98.6 [degF] [facility] Comment on above: Performed By: #### CBCDIF, PT, PTT, CMP, MG1, NTBNP #### [facility] [address] [place] [phone] 02-13-2019 23:42-0500 Body temperature 98.6 [degF] [facility] Comment on above: Performed By: #### CBCDIF, PT, PTT, CMP, MG1, NTBNP #### [facility] [address] [place] [phone] 02-13-2019 21:44-0500 Body temperature 98.6 [degF] [facility] Comment on above: Performed By: #### CBCDIF, PT, PTT, CMP, MG1, NTBNP #### [place] [phone] 02-13-2019 21:41-0500 Body temperature 98.6 [degF] [facility] Comment on above: Performed By: #### CBCDIF, PT, PTT, CMP, MG1, NTBNP #### [place] [phone] 02-13-2019 20:40-0500 Body temperature 98.6 [degF] [facility] Comment on above: Performed By: #### CBCDIF, PT, PTT, CMP, MG1, NTBNP #### [place] [phone] 02-13-2019 19:04-0500 Body temperature 98.6 [degF] [facility] Comment on above: Performed By: #### CBCDIF, PT, PTT, CMP, MG1, NTBNP #### [place] [phone] 02-13-2019 19:01-0500 Body temperature 98.6 [degF] [facility] Comment on above: Performed By: #### CBCDIF, PT, PTT, CMP, MG1, NTBNP #### [place] [phone] 02-13-2019 17:26-0500 Body temperature 98.6 [degF] [facility] Comment on above: Performed By: #### CBCDIF, PT, PTT, CMP, MG1, NTBNP #### [place] [phone] 02-13-2019 17:23-0500 Body temperature 98.6 [degF] [facility] Comment on above: Performed By: #### CBCDIF, PT, PTT, CMP, MG1, NTBNP #### [facility] [address] [place] [phone] 02-13-2019 16:21-0500 Body temperature 98.6 [degF] [facility] Comment on above: Performed By: #### CBCDIF, PT, PTT, CMP, MG1, NTBNP #### [facility] [address] [place] [phone] 02-13-2019 15:29-0500 Body temperature 98.6 [degF] [facility] Comment on above: Performed By: #### ALLBG ####[facility] [place] [phone] 02-13-2019 14:38-0500 Body temperature 98.6 [degF] [facility] Comment on above: Performed By: #### ALLBG ####[facility] [address] [place] [phone] 02-13-2019 13:32-0500 Body temperature 98.6 [degF] [facility] Comment on above: Performed By: #### ALLBG ####[facility] [address] [place] [phone] 02-13-2019 12:59-0500 Body temperature 98.6 [degF] [facility] Comment on above: Performed By: #### VALLBG ####[facility] [place] [phone] 02-13-2019 12:57-0500 Body temperature 98.6 [degF] [facility] Comment on above: Performed By: #### ALLBG ####[facility] [address] [place] [phone] 02-13-2019 12:21-0500 Body temperature 98.6 [degF] [facility] Comment on above: Performed By: #### ALLBG ####[facility] LorisYl[address], [place] [phone] 02-13-2019 09:17-0500 Body temperature 98.6 [degF] [facility] Comment on above: Performed By: #### ALLBG ####[facility] [address] [place], [place] [phone] Encounters Encounter Date Encounter Type Care Provider Facility Start: 01-16-2025 End: 01-16-2025 Refill Nohemy Batres MD Work Phone: [facility] Comment on above: 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 (HCC) Start: 10-15-2024 End: 10-15-2024 Refill Celena Triana NP Work Phone: [facility] Comment on above: 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 (HCC) Start: 10-10-2024 End: 10-10-2024 Bamboo miguel Howard MD Work Phone: [facility] Start: 10-10-2024 End: 10-10-2024 Bameduardoo miguel Howard MD Work Phone: [facility] Start: 10-10-2024 End: 10-10-2024 Postop follow up visit related to original px Evelin Howard MD Work Phone: [facility] Comment on above: Encounter for remova l of sutures (Primary Dx) Start: 10-10-2024 End: 10-10-2024 ambulatory EVELIN HOWARD Not Available Start: 09-27-2024 End: 09-27-2024 Bindu Howard MD Work Phone: [facility] Start: 09-27-2024 End: 09-27-2024 Bamboo miguel Howard MD Work Phone: [facility] Start: 09-27-2024 End: 09-27-2024 Patient encounter procedure Evelin Howard MD Work Phone: [facility] Comment on above: 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 (Primary Dx) Start: 09-27-2024 End: 09-27-2024 ambulatory EVELIN HOWARD Not Available Start: 09-11-2024 End: 09-11-2024 Telephone encounter Nohemy Batres MD Work Phone: [facility] Start: 09-11-2024 End: 09-11-2024 Office outpatient visit 25 minutes Jn aSnchez MD Work Phone: [facility] Comment on above: Coronary artery dise ase involving coronary bypass graft of [place] heart without angina pectoris (Primary Dx); Essential hypertension; Hypertension complicating diabetes ([facility]-HCC) Start: 09-11-2024 End: 09-11-2024 ambulatory [facility] Start: 09-08-2024 End: 09-08-2024 Telephone encounter Nohemy Weinberg [facility] Start: 09-04-2024 End: 09-05-2024 Refill Celena Triana NP Work Phone: [facility] Comment on above: Primary hypertension (CMS/HCC) Start: 08-31-2024 End: 08-31-2024 ambulatory NOHEMY BATRES Not Available Start: 08-03-2024 End: 08-03-2024 Bamboo flowsdejuan Howard MD Work Phone: [facility] Start: 08-03-2024 End: 08-03-2024 Bamboo flowsdejuan Howard MD Work Phone: [facility] Start: 08-03-2024 End: 08-03-2024 Office outpatient visit 15 minutes Evelin Howard MD Work Phone: [facility] Comment on above: Psoriasis vulgaris ( CMS/HCC) (Primary Dx); History of basal cell carcinoma; Actinic keratosis; Neoplasm of unspecified behavior of bone, soft tissue, and skin; Tick bite of left upper arm, initial encounter Start: 08-03-2024 End: 08-03-2024 ambulatory EVELIN HOWARD Not Available Start: 07-05-2024 End: 07-05-2024 Telephone encounter Nohemy Batres MD Work Phone: [facility] Start: 06-22-2024 End: 06-22-2024 Telephone encounter Nohemy Batres MD Work Phone: [facility] Start: 06-09-2024 End: 06-09-2024 Telephone encounter Nohemy Batres MD Work Phone: [facility] Start: 04-19-2024 End: 04-19-2024 Telephone encounter Nohemy Batres MD Work Phone: [facility] Start: 04-18-2024 End: 04-18-2024 Refill Nohemy Batres MD Work Phone: [facility] Comment on above: Type 2 diabetes luis itus without complication, without long- term current use of insulin (CMS/HCC) Start: 04-10-2024 End: 04-10-2024 Refill Celena Triana NP Work Phone: [facility] Comment on above: 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 (CMS/HCC) Start: 03-27-2024 End: 03-27-2024 Telephone encounter Nohemy Batres MD Work Phone: [facility] Start: 03-19-2024 End: 03-20-2024 Refill Nohemy Batres MD Work Phone: [facility] Comment on above: Primary hypertension (CMS/HCC) Start: 03-06-2024 End: 03-06-2024 ambulatory NOHEMY BATRES Not Available Start: 02-24-2024 End: 02-24-2024 Bamboo flowsheet Nohemy Batres MD Work Phone: [facility] Start: 02-24-2024 End: 02-24-2024 [employer] flowsheet Nohemy Batres MD Work Phone: [facility] Start: 02-24-2024 End: 02-24-2024 Office outpatient visit 15 minutes Nohemy Batres MD Work Phone: [facility] Comment on above: Wellness examination (Primary Dx); Prostate cancer screening; Diabetic polyneuropathy associated with type 2 diabetes mellitus (CMS/HCC); Coronary artery disease involving [place] coronary artery of [place] heart without angina pectoris (CMS/HCC); Essential hypertension (CMS/HCC); Primary hypertension (CMS/HCC); Mixed hyperlipidemia (CMS/HCC); Acute diverticulitis; Adrenal nodule (CMS/HCC); S/P CABG x 4 Start: 02-24-2024 End: 02-24-2024 Patient encounter status Nohemy Batres MD Work Phone: [facility] Start: 02-24-2024 End: 02-24-2024 ambulatory NOHEMY BATRES Not Available Start: 12-22-2023 End: 12-22-2023 Refill Nohemy Batres MD Work Phone: [facility] Comment on above: Primary hypertension (CMS/HCC) (Primary Dx) Start: 12-20-2023 End: 12-22-2023 Refill Aki GALEANA [facility] Comment on above: Med Refill Start: 12-18-2023 End: 12-19-2023 Refill Nickie Borden NP Work Phone: [facility] Comment on above: Controlled type 2 di abetes mellitus without complication, with long-term current use of insulin (CMS/HCC) Start: 11-29-2023 End: 12-01-2023 Refill Nhoemy Batres MD Work Phone: [facility] Comment on above: Type 2 diabetes luis itus with other circulatory complications ([facility]) Start: 09-10-2023 End: 09-10-2023 Office outpatient visit 15 minutes Michael Montero MD Work Phone: [facility] Comment on above: Coronary artery dise ase involving coronary bypass graft of [place] heart without angina pectoris (Primary Dx) Start: 07-24-2023 End: 07-27-2023 Refill Mandi Angela JAMESONN-FIRE RANGE TECHNICIAN Work Phone: [facility] Comment on above: Med Refill Start: 04-20-2023 Evaluation and manag ement of inpatient [facility] Start: 03-25-2023 ambulatory [facility] Start: 03-25-2023 Encounter for other preprocedural examination [facility] Start: 03-25-2023 End: 03-25-2023 Admission to establishment Papi Saba MD Work Phone: [facility] Pre Admission Comment on above: Pre-op testing (Prim farideh Dx); Abnormal finding of blood chemistry, unspecified; Abnormal coagulation profile Start: 03-25-2023 End: 03-25-2023 Patient encounter status Papi Saba MD Work Phone: [facility] Start: 03-22-2023 ambulatory NOHEMY BEACH [facility] Start: 12-30-2022 ambulatory [facility] Start: 12-30-2022 ambulatory [facility] Start: 12-30-2022 End: 12-30-2022 Office outpatient new 60 minutes Papi Saba MD Work Phone: [facility] Comment on above: Pain in prosthetic j oint, sequela (Primary Dx) Start: 12-30-2022 End: 12-30-2022 Subsequent hospital visit by physician Papi Saba MD Work Phone: [facility] Start: 11-05-2022 End: 11-05-2022 ambulatory Nohemy Batres Facility:[facility] Start: 11-05-2022 End: 07-27-2023 Admission to same day surgery center MD Nohemy Batres Work Phone: [facility] [place] Start: 11-05-2022 End: 11-05-2022 ambulatory MD Nohemy Batres Work Phone: [facility] Work Phone: Start: 11-02-2022 End: 11-02-2022 ambulatory Odette Alexis Facility:[facility] Start: 11-02-2022 End: 11-02-2022 Patient encounter procedure MD Nohemy Batres Work Phone: [facility] Work Phone: Start: 05-05-2022 End: 05-05-2022 ambulatory Michael Tobar Other [facility] Other Start: 05-05-2022 Office outpatient ne w 45 minutes Michael Tobar [facility] Start: 01-08-2021 End: 01-09-[address] NOHEMY BATRES Facility:[facility] Procedures Date Procedure Procedure Detail Performing Clinician Start: 09-27-2024 SKIN REPAIR Evelin edmond MD Work Phone: Start: 09-27-2024 SKIN EXCISION Evelin bowling MD Work Phone: Start: 09-11-2024 Ecg routine ecg w/le ast 12 lds w/i&r Jn Sanchez MD Work Phone: Start: 09-11-2024 Follow-up visit Follow-up JN HUNT Start: 08-03-2024 SKIN / NAIL BIOPSY Aryan Howard MD Work Phone: Start: 08-03-2024 CRYOTHERAPY SKIN LESION Evelin Howard MD Work Phone: Start: 02-24-2024 Urine albumin quantitative Nohemy Batres MD Work Phone: Start: 02-24-2024 End: 02-24-2024 Comprehensive metabolic panel Nohemy Batres MD Work Phone: Start: 02-24-2024 Lipid panel Nohemy spicer MD Work Phone: Start: 09-10-2023 Ecg routine ecg w/le ast 12 lds w/i&r Michael Montero MD Work Phone: Start: 03-25-2023 Blood typing serologic abo Papi Saba MD Work Phone: Start: 03-25-2023 Complete blood count with white cell differential, automated Papi Saba MD Work Phone: Start: 03-25-2023 Comprehensive metabo lic panel Papi Saba MD Work Phone: Start: 03-25-2023 Cul prsmptv pthgnc o rganism scrn w/colony estimj Papi Saba MD Work Phone: Start: 03-25-2023 Urinalysis, reagent strip without microscopy Papi Saba MD Work Phone: Start: 11-05-2022 Reduction procedure MD Nohemy Batres Work Phone: Start: 04-04-2022 History of coronary artery bypass grafting S/P CABG x 4 Mandi Miller PITCH GATHERER-FIRE RANGE TECHNICIAN Work Phone: Start: 02-12-2019 Antibody screen Comment on above: Performed By: #### C KCKMB, SYLVIA #### [facility] [address] [address] Start: 02-06-2019 Antibody screen Comment on above: Performed By: #### C BCDIF, PT, PTT, CMP, MG1, NTBNP #### [facility] [address] [place] [address] Start: 07-02-2016 Diabetic retinal eye exam Mandi Miller PITCH GATHERER-FIRE RANGE TECHNICIAN Work Phone: History of coronary artery bypass grafting S/P CABG x 4 Nohemy Batres MD Work Phone: Plan of Treatment Date Care Activity Detail Author Start: 07-04-2026 Screening for malignant neoplasm of colon [facility] Start: 04-11-2026 Glaucoma screening Diabetes: Retinopathy Screening [facility] Start: 08-02-2025 End: 08-02-2025 Patient encounter procedure [facility] Start: 03-29-2025 Glaucoma screening Diabetes: Retinopathy Screening [facility] Start: 02-27-2025 End: 02-27-2025 Patient encounter procedure 02/27/2025 10:00 AM EST Office Visit [facility] [address] [place] [address] Nohemy Batres MD [address], [place] [id number] [facility] Start: 02-23-2025 Medicare Annual Wellness (AWV) Medicare Annual Wellness (AWV) [facility] Start: 02-23-2025 Urine screening for protein Diabetes: Urine Protein Screening [facility] Start: 12-11-2024 Influenza vaccination [facility] Start: 12-01-2024 Hemoglobin A1c measurement Diabetes: Hemoglobin A1C [facility] Start: 10-10-2024 End: 10-10-2024 Patient encounter procedure [facility] Comment on above: Arrived Start: 09-27-2024 End: 09-27-2024 Patient encounter procedure [facility] Comment on above: 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 Start: 09-11-2024 End: 09-11-2024 Patient encounter procedure 09/11/2024 10:15 AM EDT Office Visit [facility] [address] [place] [address] [place] [phone] Jn Sanchez MD [address] [place] [address] [facility] Start: 09-09-2024 Adult BMI Screening Adult BMI Screening [facility] Start: 09-09-2024 Tobacco Screening Tobacco Screening [facility] Start: 08-31-2024 End: 08-31-2024 Patient encounter procedure 08/31/2024 9:00 AM EDT Office Visit [facility] [address] [place] [address] Nohemy Batres MD [address] [facility] [place] [address] [facility] Start: 08-03-2024 End: 08-03-2024 Patient encounter procedure [facility] Comment on above: Arrived Start: 05-26-2024 Hemoglobin A1c measurement Diabetes: Hemoglobin A1C [facility] Healthcare Start: 04-15-2024 Statin Use: Diabetic Statin Use: Diabetic [facility] Start: 03-06-2024 End: 03-06-2024 Professional / ancillary services management 03/06/2024 9:30 AM EST Ancillary Procedure [facility] [address] [place] [address] [place] [id number] [address] Start: 02-24-2024 End: 02-23-2025 CT Abdomen and Pelvis WO and W contrast IV CT abdomen pelvis w and wo IV contrast Imaging Routine Adrenal nodule (CMS/HCC) Expected: 02/24/2024, Expires: 02/23/2025 [facility] Healthcare Work Phone: Comment on above: Expected: 02/24/2024, Expires: Start: 02-12-2024 Medicare Annual Wellness (AWV) Medicare Annual Wellness (AWV) [facility] Start: 02-12-2024 Urine screening for protein Diabetes: Urine Protein Screening [facility] Start: 12-12-2023 COVID-19 Vaccine () COVID-19 Vaccine () [facility] Start: 12-12-2023 COVID-19 Vaccine () COVID-19 Vaccine () [facility] Start: 12-12-2023 Influenza vaccination [facility] Start: 08-06-2023 Adult BMI Screening Adult BMI Screening [facility] Start: 08-05-2023 Tobacco Screening Tobacco Screening [facility] Start: 06-24-2023 Hemoglobin A1c measurement Diabetes: Hemoglobin A1C [facility] Start: 04-20-2023 End: 04-20-2023 Evaluation and management of inpatient [facility] Periop Comment on above: 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, initial encounter REVISION ARTHROPLAST Y KNEE Start: 04-20-2023 End: 04-20-2023 Revj tot knee arthrp fem&entire tibial compone REVISION ARTHROPLASTY KNEE 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, initial encounter 04/20/2023 12:00 PM EST [facility] Start: 03-25-2023 End: 04-26-2023 PREPARE TO TRANSFUSE RED BLOOD CELLS PREPARE TO TRANSFUSE RED BLOOD CELLS Blood Bank Routine Pre-op testing Expected: 03/25/2023, Expires: 04/26/2023 [facility] Work Phone: Comment on above: Expected: 03/25/2023, Expires: Start: 12-11-2022 COVID-19 VACCINE () COVID-19 VACCINE () [facility] Start: 11-05-2022 End: 11-05-2022 [facility] Start: 04-12-2022 DTaP,Tdap and Td Vaccines (2 - Td or Tdap) DTaP,Tdap and Td Vaccines (2 - Td or Tdap) [facility] Start: 04-12-2022 Tetanus vaccination TETANUS [facility] Start: 2021 Abdominal aortic aneurysm screening [facility] Start: 2021 Fall Risk Screening Fall Risk Screening [facility] Start: 2021 Pneumococcal vaccination PNEUMOCOCCAL VACCINE SERIES (2 - PCV) [facility] Start: 07-02-2017 Glaucoma screening Diabetic Ophthalmology Exam [facility] Start: 2006 Prostate specific antigen measurement PROSTATE CANCER SCREENING DISCUSSION [facility] Start: 2001 Screening for malignant neoplasm of colon COLORECTAL CANCER SCREENING DISCUSSION [facility] Start: 1996 Lipid panel LIPID SCREENING [facility] Start: 1974 Adult BMI Follow Up Plan Adult BMI Follow Up Plan [facility] Start: 1974 Diabetic foot examination Diabetic Foot Exam [facility] Start: 1968 Depression Screening Depression Screening [facility] Start: 05-16-1957 COVID-19 VACCINE (#1) COVID-19 VACCINE (#1) [facility] Start: 1955 Hepatitis C screening HEPATITIS C VIRUS SCREENING [facility] Start: 1955 Medicare Annual Wellness Visit Medicare Annual Wellness Visit [facility] Start: 1955 Screening for malignant neoplasm of colon [facility] Dermatopathology exam Dermatopat hology exam Pathology and Cytology Timed Neoplasm of unspecified behavior of bone, soft tissue, and skin Release Upon Ordering for 1 Occurrences starting 08/03/2024 [facility] Work Phone: Comment on above: Release Upon Ordering for 1 Occurrences starting 08/03/2024 Dermatopathology exam Dermatopat hology exam Pathology and Cytology Timed 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 Release Upon Ordering for 1 Occurrences starting 09/27/2024 [facility] Work Phone: Comment on above: Release Upon Ordering for 1 Occurrences starting 09/27/2024 Radiography for bone length studies XR BONE LENGTH STUDY Imaging Routine Pain in prosthetic joint, sequela 12/30/2022 2:34 PM [facility] Work Phone: TYPE AND SCREEN - POSSIBLE TRANSFUSION TYPE AND SCREEN - POSSIBLE TRANSFUSION Blood Bank Today Pre-op testing 03/25/2023 12:23 PM [facility] XR Knee - right 3 Views XR KNEE RIGHT 3 VIEWS Imaging Routine Pain in prosthetic joint, sequela 12/30/2022 2:34 PM [facility] Immunizations Immunization Date Immunization Notes Care Provider [facility] 12-21-2023 influenza, high dose seasonal, preservative-free Nohemy Batres MD Work Phone: [facility] 12-21-2023 influenza virus vaccine, unspecified formulation Jn Sanchez MD Work Phone: [facility] 02-11-2023 Pneumococcal Conjuga te PCV 20 Nohemy Batres MD Work Phone: [facility] Work Phone: 12-22-2022 Influenza, Seasonal, Quadrivalent, Adjuvanted Nohemy Batres MD Work Phone: [facility] 12-22-2022 influenza virus vaccine, unspecified formulation Michael Montero MD Work Phone: [facility] 12-26-2021 Influenza, High-dose Seasonal, Quadrivalent, Preservative Free Nohemy Batres MD Work Phone: [facility] 12-26-2021 influenza virus vaccine, unspecified formulation Mandi Miller PITCH GATHERER-FIRE RANGE TECHNICIAN Work Phone: [facility] 03-19-2021 COVID-19 mRNA-1273 (Moderna) MD Nohemy Batres Work Phone: [facility] 02-21-2021 Influenza, injectabl e, Madin Willard Canine Kidney, preservative free, quadrivalent Nohemy Batres MD Work Phone: [facility] 07-20-2020 COVID-19 mRNA-1273 (Moderna) MD Nohemy Batres Work Phone: [facility] 07-19-2020 Moderna SARS-CoV-2 Vaccination Nohemy Batres MD Work Phone: [facility] 06-22-2020 COVID-19 mRNA-1273 (Moderna) MD Nohemy Batres Work Phone: [facility] 06-21-2020 Moderna SARS-CoV-2 Vaccination Nohemy Batres MD Work Phone: [facility] 03-04-2020 influenza, injectabl e, quadrivalent, preservative free Nohemy Batres MD Work Phone: [facility] 03-04-2020 zoster vaccine recombinant Nohemy Batres MD Work Phone: [facility] 12-29-2019 influenza, injectabl e, quadrivalent, preservative free Nohemy Batres MD Work Phone: [facility] 12-29-2019 zoster vaccine recombinant Nohemy Batres MD Work Phone: [facility] 02-08-2019 influenza, injectabl e, quadrivalent, preservative free Nohemy Batres MD Work Phone: [facility] 02-08-2019 pneumococcal polysaccharide vaccine, 23 valent Nohemy Batres MD Work Phone: [facility] 02-07-2019 influenza, high dose seasonal, preservative-free Nohemy Batres MD Work Phone: [facility] Work Phone: 01-24-2017 influenza, injectabl e, quadrivalent, preservative free Nohemy Batres MD Work Phone: [facility] 06-12-2013 pneumococcal polysaccharide vaccine, 23 valent Nohemy Batres MD Work Phone: [facility] 04-12-2012 tetanus toxoid, reduced diphtheria toxoid, and acellular pertussis vaccine, adsorbed Nohemy Batres MD Work Phone: [facility] NEGATED: Highlighted row has not occurred!02-02-2019 influenza, injectable, quadrivalent, preservative free MD Nohemy Batres Work Phone: [facility] Payers Date Payer Category Payer Self-pay [id number] 2022 Private Health Insurance [facility] [id number] 2022 Unknown [id number] 2021 Medicare [id number]. [id number] 2021 Medicare [id number] [id number] 2020 Unknown [id number]. [id number]. [id number] 2020 Unknown [id number] 1959 Unknown [id number] 1956 Unknown [id number] 2.16.840.1.577717.3.579. 2.593 1956 Unknown [id number] 2.16.840.1.641842.3.579. 2.983 1956 Unknown [id number] 2.16.840.1.082738.3.579. 2.983 1956 Unknown [id number] 2.16.840.1.828493.3.579. 2.983 1956 Unknown [id number] 2.16.840.1.305898.3.579. 2.983 1956 Unknown [id number] 2.16.840.1.190131.3.579. 2.983 1956 Unknown [id number] 2.16.840.1.386933.3.579. 2.983 1956 Unknown [id number] 2.16.840.1.602928.3.579. 2.1286 1956 Unknown [id number] 2.16.840.1.840431.3.579. 2.1259 1956 Unknown [id number] 2.16.840.1.203935.3.579. 2.1259 1956 Unknown [id number] 2.16.840.1.307683.3.579. 2.1259 1956 Unknown [id number] 2.16.840.1.577817.3.579. 2.1259 1956 Unknown [id number] 2.16.840.1.251160.3.579. 2.1259 1956 Unknown [id number] 2.16.840.1.792652.3.579. 2.1259 Managed Care Other (unspecified) [employer] [id number]. [id number] Unknown [id number] 2.16.840.1.826541.3.579. 2.531 Unknown [id number] 2.16.840.1.651203.3.579. 2.531 Social History Date Type Detail Facility Start: 12-30-2022 End: 02-24-2024 Sex Assigned At [facility] Other Start: 11-05-2022 Tobacco smoking status [facility] Never smoked tobacco (finding) [facility] Start: 1955 Sex Assigned At Male [facility] Start: 12-30-2022 End: 02-24-2024 Tobacco smoking status [facility] Ex-smoker [facility] End: 04-12-1982 History of tobacco use Current smoker [facility] End: 04-12-1982 History of tobacco use Cigarette Smoker [facility] Start: 12-30-2022 Tobacco use and exposure Former smokeless tobacco user [facility] Start: 12-30-2022 Alcohol intake Not Asked [facility] Start: 12-30-2022 End: 02-24-2024 History of Social function [facility] Start: 12-30-2022 Tobacco Comment Quit 40 years ago [facility] Start: 12-30-2022 Alcohol Comment occassional [facility] Start: 1955 Sex Assigned At Not on file [facility] Start: 03-22-2023 End: 09-11-2024 Alcohol intake Current drinker of alcohol (finding) [facility] Start: 09-10-2023 End: 02-24-2024 Tobacco use and exposure Smokeless tobacco non-user [facility] Start: 02-24-2024 End: 10-10-2024 Alcoholic beverage intake Ex-drinker (finding) [facility] Start: 11-24-2022 Tobacco Comment Former light smoker (1-9 cigs per day) [facility] Start: 11-24-2022 Alcohol Comment caffeine: 2-3cups per day; drinks alcohol monthly or less [facility] Frequency of Alcohol Consumption Monthly or less [facility] Start: 07-14-2022 Alcohol Comment rare [facility] Start: 11-15-2014 Sex Male (finding) [facility] Medical Equipment Procedure Code Equipment Code Equipment Origin al Text Equipment Identifier Dates [id number], [id number], [id number], [id number] Start: 12-03-2022 End: 04-18-2024 Cement Bn Bio 40 gm Rpl [id number] - [id number] - [id number], [id number] FDA Start: 08-04-2022 Insert Artc 7-10 E-F 10mm Kn Fx Brng Prlng Nxgn Lpsflx Strl Rpl [id number] - [id number] - [id number]/$ $[id number] [id number], [id number] FDA Start: 08-04-2022 Block Aug Nxgn 7 Hlf 5mm Kn Tib Prect Strl Rpl [id number] - [id number] - [id number]/$ $[id number] 3-1377-329-26, [id number] FDA Start: 08-04-2022 Stem Xtn 100mm 1 0mm Nxgn Str Kn Rot Hng 145mm Strl Rpl [id number] - [id number] - [id number]/$ $[id number] 4-9076-928-, [id number] FDA Start: 08-04-2022 Component Fem F Kn Rt Cmnt Nxgn Lpsflx Opt Zml Prlng Strl Rpl [id number] + [id number] - [id number] - [id number]/$ $[id number] 0-0249-940-52, [id number] FDA Start: 08-04-2022 Component Ptlr 3 5mm Persona Alply Kn Strl Lf - [id number] - [id number] Start: 08-04-2022 Comment on above: Description: Plate Tib 82x51m m Nxgn Kn Cmnt Mdlr Stm Prect 7 Tiv Pmma Rpl [id number] + [id number] - [id number] - [id number]/$ $[id number] 4-1516-125-01, [id number] FDA Start: 08-04-2022 Goals Date Patient Goal Desired Activity /State Personal health goal Comment on above: Formatting of this n ote might be different from the original. Evaluation of progress towards goal: Home with [facility]. Clinical Notes 05-05-2022 to 01-16-2025 Telephone Encounter - Nohemy Batres MD - 01/16/2025 11:34 AM EDTTelephone Encounter - Nohemy Batres MD - 01/16/2025 11:34 AM EDTTelephone Encounter - Nohemy Batres MD - 10/15/2024 9:25 PM EDT Note Date & Type Note Facility 01-16-2025 Telephone encounter Note Approving, but needs appt for additional refills. [facility] 01-16-2025 Miscellaneous Notes Approving, but needs appt for additional refills. documented in this encounter [facility] 10-15-2024 Telephone encounter Note Approving, but needs appt for additional refills. [facility] 10-15-2024 Miscellaneous Notes Approving, but needs appt for additional refills. documented in this encounter [facility] 10-10-2024 History of Present illness Narrative Suture Removal Patient here for suture removal: No complaints of redness, drainage or swelling at site, compliant with wound care. Location: Neck, posterior Procedure Performed: Excision Date of Procedure: 09/27/2024 Medications: none All pertinent medical history, medications, and allergies were reviewed. General Exam: alert, oriented to person, place, and time, normal affect, well appearing Unaccompanied A focused exam completed based on patient reported problems, see below: Skin Exam 1. ENCOUNTER FOR REMOVAL OF SUTURES Neck - Posterior Sutures are intact, Skin edges are well-approximated, Mild erythema along incision line, No drainage or edema noted Suture Removal: Procedure: Sutures were removed without difficulty. Tincture of Benzoin was applied around site in preparation of steri-strips. Steri-strips were applied Post-Procedure instructions: Instructed to discontinue wound care., Instructed to keep steri strips on for at least 5-7 days., Pathology results discussed. Next Visit: as scheduled documented in this encounter [facility] 09-27-2024 History of Present illness Narrative Images from the original note were not included. Subjective Calixto Avelar is a 68 y.o. male who presents for the following: Excision Location: Neck, posterior Date of biopsy: 08/03/2024 Diagnosis: Squamous cell carcinoma in situ Pre-Op Checklist: History of pacemaker/defibrillator: No History of joint replacement in the past 2 years: No History of HIV/Hepatitis B/Hepatitis C: No Latex allergy: No Is the patient currently on a blood thinner? Yes. Aspirin. The patient was recommended to continue taking their blood thinner as usual before, during, and after the procedure. All pertinent medical history, medications, and allergies were reviewed. Surgical assistants: Gulshan Caceres CMA and Elaine Louis LPN Objective Well appearing patient in no apparent distress; mood and affect are within normal limits. Skin Exam 1. SQUAMOUS CELL CARCINOMA IN SITU (SCCIS) OF SKIN OF NECK Neck - Posterior Erythematous macule at the biopsy site Skin excision Lesion length (cm): 0.8 Lesion width (cm): 0.5 Margin per side (cm): 0.4 Total excision diameter (cm): 1.6 Informed consent: discussed and consent obtained Informed consent comment: Risks and possible complications were discussed as noted on the consent form. The consent form was signed prior to the procedure. Timeout: patient name, date of , surgical site, and procedure verified Timeout comment: Patient and provider identified site. Site was marked and excision was drawn out. Photo was taken and shown to patient, patient verified this is the correct site. Procedure prep: Patient was prepped and draped in usual sterile fashion (The planned incision lines were drawn along relaxed skin tension lines, if possible, to minimize scarring and deformity of surrounding structures.) Prep type: Chlorhexidine Anesthesia: the lesion was anesthetized in a standard fashion Anesthesia comment: The local anesthetic was injected to create a field block at the site of the procedure. Anesthetic: 1% lidocaine w/ epinephrine 1-100,000 buffered w/ 8.4% NaHCO3 Instrument used: #15 blade Instrument used comment: Incisions were made as drawn, and the surrounding tissue was undermined until the skin edges could be approximated without undue tension. Any tissue redundancies were removed. Hemostasis achieved with: suture and electrodesiccation Additional details: Amount of lidocaine used: 8.0 ml Estimated blood loss: 1.0 ml Skin repair Complexity: Intermediate Final length (cm): 4 Reason for type of repair: allow closure of the large defect Undermining: edges undermined Undermining comment: The surrounding tissue was undermined until the skin edges could be approximated without undue tension. Any tissue redundancies were removed. Subcutaneous layers (deep stitches): Suture size: 3-0 Suture type comment: Biosyn Stitches: Buried horizontal mattress (Closure was performed in a layered fashion with subcutaneous tissue closed first using tension-bearing absorbable sutures to the level of the superficial fascia.) Fine/surface layer approximation (top stitches): Suture size: 4-0 Suture type: Prolene (polypropylene) Stitches: simple running Stitches comment: Epicuticular skin sutures were then placed with minimal tension. Suture removal (days): 14 Hemostasis achieved with: suture and electrodesiccation Outcome: patient tolerated procedure well with no complications Post-procedure details: sterile dressing applied and wound care instructions given Post-procedure details comment: It was emphasized to the patient to contact the office for any signs of infection, uncontrollable bleeding, or complications. Dressing type: bandage Specimen A - Dermatopathology exam Differential Diagnosis: SCC in situ Check Margins: Yes Previous accession number: [id number] Follow up: 14 days for s/r documented in this encounter [facility] 09-11-2024 Telephone encounter Note Pt saw [facility] today. They looked at newest medication list. And Added Zetia without checking his labs. Is this ok? Cardiology said his cholesterol is currently high. He is using his meter, his avg is 138 last 7 days [facility] 09-11-2024 Miscellaneous Notes Pt saw [facility] today. They looked at newest medication list. And Added Zetia without checking his labs. Is this ok? Cardiology said his cholesterol is currently high. He is using his meter, his avg is 138 last 7 days documented in this encounter [facility] 09-11-2024 History of Present illness Narrative Manpreet Avelar Date of visit: 09/11/2024 Date of : 1955 Age: 68 y.o. Patient Active Problem List Diagnosis ED (erectile dysfunction) Myocardial infarction ([facility]) Neuropathy CAD (coronary artery disease) Hyperlipidemia Dysphagia Psoriasis Diabetes mellitus ([facility]) Hypertension Hx of myocardial infarction S/P CABG x 4 Primary hypertension Dyslipidemia S/P TKR (total knee replacement), right No Known Allergies Current Outpatient Medications Medication Sig Dispense Refill azelastine (ASTELIN) 137 mcg (0.1 %) nasal spray Administer 1 spray into each nostril in the morning and 1 spray before bedtime. ADMINISTER 1 SPRAY INTO EACH NOSTRIL IN THE MORNING AND 1 SPRAY BEFORE BEDTIME USE IN EACH NOSTRIL DIRECTED. COQ10, UBIQUINOL, ORAL Take 100 mg by mouth in the morning. gabapentin (NEURONTIN) 300 mg capsule Take 1 capsule (300 mg total) by mouth in the morning. mecgpznh-fvkr-SB-calcium &mins (THERAGRAN-M) 9 mg iron-400 mcg tablet Take 1 tablet by mouth in the morning. nitroglycerin (NITROSTAT) 0.[address] 1 tablet (0.4 mg total) under the tongue every 5 (five) minutes as needed for chest pain. NOVOLOG FLEXPEN U-100 INSULIN 100 unit/mL (3 mL) insulin pen 11 Units in the morning and 11 Units at noon and 11 Units in the evening. Take with meals. 11 units in the AM 8 UNITS AT LUNCH AND 11 UNITS AT DINNER. OTEZLA 30 mg tablet Take 1 tablet (30 mg total) by mouth in the morning and 1 tablet (30 mg total) before bedtime. TRESIBA FLEXTOUCH U-100 100 unit/mL (3 mL) insulin pen Inject 29 Units under the skin nightly. 0 aspirin (ECOTRIN LOW STRENGTH) 81 mg Take 1 tablet (81 mg total) by mouth in the morning and 1 tablet (81 mg total) before bedtime. atorvastatin (LIPITOR) 80 mg tablet Take 1 tablet (80 mg total) by mouth in the morning. 90 tablet 0 ezetimibe (ZETIA) 10 mg tablet Take 1 tablet (10 mg total) by mouth in the morning. 90 tablet 3 lisinopriL (PRINIVIL,ZESTRIL) 2.5 mg tablet Take 1 tablet (2.5 mg total) by mouth every morning. 90 tablet 1 metoprolol succinate XL (TOPROL XL) 50 mg 24 hr tablet Take 1 tablet (50 mg total) by mouth in the morning and 1 tablet (50 mg total) before bedtime. 180 tablet 3 No current facility-administered medications for this visit. Chief Complaint Patient presents with Follow-up EST PT F/U 1 YR L/S TMP History of Present Illness Very pleasant 68-year-old male here in follow-up. This is the 1st time I meet him. He is very active he does [place] walks 4-5 miles a day and was I able to climb a 700 [place] mountain. He has no complaints whatsoever he told me that he did have short of breath on the top of the mountain and he was told it is normal due to altitude and I did agree with him Past Medical History: Diagnosis Date Arthritis CAD (coronary artery disease) CHF (congestive heart failure) [place] Diabetes mellitus ([facility]) Diabetes mellitus type 2, controlled ([facility]) Dysphagia ED (erectile dysfunction) Hyperlipidemia Hypertension Kidney stones Myocardial infarction ([facility]) Neuropathy Psoriasis Visual impairment No data recorded No data recorded No data recorded Past Surgical History: Procedure Laterality Date CARDIAC CATHETERIZATION CORONARY ARTERY BYPASS GRAFT 02/2019 x4 REPLACEMENT TOTAL JOINT KNEE possible stems & augments Right 08/04/2022 Performed by Odette Alexis Jr., DO at [facility] TOOTH EXTRACTION VASECTOMY Family History Problem Relation Age of Onset Diabetes Mother Heart disease Mother Heart disease Father Heart attack Maternal Grandfather Social History Socioeconomic History Marital status: Spouse name: Not on file Number of children: Not on file Years of education: Not on file Highest education level: Not on file Occupational History Not on file Tobacco Use Smoking status: Former Current packs/day: 0.00 Types: Cigarettes Quit date: 1982 Years since quittin.4 Smokeless tobacco: Never Vaping Use Vaping status: Never Used Substance and Sexual Activity Alcohol use: Yes Comment: rare Drug use: Never Sexual activity: Yes Partners: Female Other Topics Concern Caffeine Use Yes Social History Narrative Not on file Social Drivers of Health Financial Resource Strain: Not on file Food Insecurity: No Food Insecurity (09/11/2024) Hunger Screening Food Insecurity - Worry: Never True Food Insecurity - Inability: Never True Transportation Needs: Not on file Physical Activity: Not on file Stress: Not on file Social Connections: Not on file Interpersonal Safety: Not on file Housing Instability: Not on file Review of Systems Review of Systems Constitutional: Negative. HENT: Negative. Eyes: Negative. Cardiovascular: Negative. Respiratory: Positive for shortness of breath. Endocrine: Negative. Hematologic/Lymphatic: Bruises/bleeds easily. Skin: Negative. Musculoskeletal: Negative. Gastrointestinal: Negative. Genitourinary: Negative. Neurological: Negative. Psychiatric/Behavioral: Negative. Allergic/Immunologic: Negative. Vascular: Negative. CARDIOVASCULAR: Please review HPI. Physical Examination General appearance: Alert, oriented and cooperative. In no acute distress. Skin: Warm and dry to touch. Head: Normocephalic, without obvious abnormality, atraumatic. Ears, Nose, Mouth, Throat: Throat clear without erythema or exudate. Dentition intact. Eyes: Conjunctivae unremarkable, EOM intact. Neck: No JVD, No carotid bruit. Neck supple, trachea midline. Respiratory: Clear to auscultation bilaterally, no use of accessory muscles. Cardiovascular: RRR with normal S1 and S2 with no murmurs. Gastrointestinal: Soft, non-tender. Bowel sounds normal. Musculoskeletal: No peripheral edema. Neurologic: Oriented to time, person and place, affect appropriate. No focal/major motor defects noted. Psychiatric: Appropriate mood, memory and judgement. VITAL SIGNS: BP 128/60 Pulse 70 Ht 177.8 cm (5' 10 ) Wt 91.2 kg (201 lb) SpO2 95% BMI 28.84 kg/m Orders Placed or Reconciled This Encounter Medications gabapentin (NEURONTIN) 300 mg capsule Sig: Take 1 capsule (300 mg total) by mouth in the morning. OTEZLA 30 mg tablet Sig: Take 1 tablet (30 mg total) by mouth in the morning and 1 tablet (30 mg total) before bedtime. azelastine (ASTELIN) 137 mcg (0.1 %) nasal spray Sig: Administer 1 spray into each nostril in the morning and 1 spray before bedtime. ADMINISTER 1 SPRAY INTO EACH NOSTRIL IN THE MORNING AND 1 SPRAY BEFORE BEDTIME USE IN EACH NOSTRIL DIRECTED. lisinopriL (PRINIVIL,ZESTRIL) 2.5 mg tablet Sig: Take 1 tablet (2.5 mg total) by mouth every morning. Dispense: 90 tablet Refill: 1 atorvastatin (LIPITOR) 80 mg tablet Sig: Take 1 tablet (80 mg total) by mouth in the morning. Dispense: 90 tablet Refill: 0 For further refills, patient needs to complete labs as ordered. aspirin (ECOTRIN LOW STRENGTH) 81 mg Sig: Take 1 tablet (81 mg total) by mouth in the morning and 1 tablet (81 mg total) before bedtime. metoprolol succinate XL (TOPROL XL) 50 mg 24 hr tablet Sig: Take 1 tablet (50 mg total) by mouth in the morning and 1 tablet (50 mg total) before bedtime. Dispense: 180 tablet Refill: 3 ezetimibe (ZETIA) 10 mg tablet Sig: Take 1 tablet (10 mg total) by mouth in the morning. Dispense: 90 tablet Refill: 3 Medications Discontinued During This Encounter Medication Reason metoprolol succinate XL (TOPROL XL) 50 mg 24 hr tablet Reorder aspirin (ECOTRIN LOW STRENGTH) 81 mg Reorder atorvastatin (LIPITOR) 80 mg tablet Reorder lisinopriL (PRINIVIL,ZESTRIL) 2.5 mg tablet Reorder IMPRESSIONS/PLAN 1. Coronary artery disease involving coronary bypass graft of [place] heart without angina pectoris - POCT EKG - lisinopriL (PRINIVIL,ZESTRIL) 2.5 mg tablet; Take 1 tablet (2.5 mg total) by mouth every morning. Dispense: 90 tablet; Refill: 1 - atorvastatin (LIPITOR) 80 mg tablet; Take 1 tablet (80 mg total) by mouth in the morning. Dispense: 90 tablet; Refill: 0 - aspirin (ECOTRIN LOW STRENGTH) 81 mg; Take 1 tablet (81 mg total) by mouth in the morning and 1 tablet (81 mg total) before bedtime. - metoprolol succinate XL (TOPROL XL) 50 mg 24 hr tablet; Take 1 tablet (50 mg total) by mouth in the morning and 1 tablet (50 mg total) before bedtime. Dispense: 180 tablet; Refill: 3 - ezetimibe (ZETIA) 10 mg tablet; Take 1 tablet (10 mg total) by mouth in the morning. Dispense: 90 tablet; Refill: 3 2. Essential hypertension - atorvastatin (LIPITOR) 80 mg tablet; Take 1 tablet (80 mg total) by mouth in the morning. Dispense: 90 tablet; Refill: 0 3. Hypertension complicating diabetes ([facility]) - atorvastatin (LIPITOR) 80 mg tablet; Take 1 tablet (80 mg total) by mouth in the morning. Dispense: 90 tablet; Refill: 0 Multivessel Coronary artery disease s/p CABG x4 (WATTS-LAD, JOSTIN-OM, SVG-rPDA/PBL) 02/2019 in setting of severe dyspnea on exertion as anginal equivalent, no angina Essential Hypertension Preserved LV ejection fraction TTE 2018 Hyperlipidemia, most recent LDL 89 mg/dL Diabetes mellitus type 2 on insulin Psoriasis -- he has external functional capacity more than 10 METS. Inquired about stress testing advise by his primary care physician. I do not think it is necessary at this point but I did instruct him to let us know if he feels any new symptoms: decreased functional capacity or any kind of shortness of breath His blood pressure is at goal, his LDL is above goal we will add Zetia 10 mg daily to his regiment - JN SANCHEZ MD 09/11/24 10:26 AM TODAYS ORDERS Orders Placed This Encounter Procedures POCT EKG FOLLOW UP No follow-ups on file. PCP: Nohemy Batres MD Referring Physician: Nohemy Batres MD [address] [place] [address] documented in this encounter [facility] 09-08-2024 Miscellaneous Notes Called patient to remind them to bring their most current copy of their medication list with them to their appt. Patient verbalizes understanding. documented in this encounter [facility] 09-08-2024 Telephone encounter Note Called patient to remind them to bring their most current copy of their medication list with them to their appt. Patient verbalizes understanding. [facility] 09-05-2024 Telephone encounter Note Refills sent. [facility] 09-05-2024 Miscellaneous Notes Refills sent. documented in this encounter [facility] 08-03-2024 History of Present illness Narrative Images from the original note were not included. Skin Check Location: Patient requests a full body skin examination Dermatologic history: history of Actinic Keratosis, history of Basal Cell Carcinoma Last visit: 1 year ago Established patient Follow up Diagnosis: Psoriasis Location: face, scalp Last visit: 1 year ago Symptoms: scaly, itchy, associated joint pain that was well controlled when he was on biologic therapy in the past but is currently flaring Status: not much change Treatments tried and failed: Remicade, Enbrel (had adverse reaction - numerous boils, had to stop medication), Humira stopped Jan 2022- Humira was helping but had to stop as insurance changed and cost was too high. Current treatment: Clobetasol (Clobex) 0.05% shampoo, Hydrocortisone 2.5 % cream. All pertinent medical history, medications, and allergies were reviewed. General Exam: alert, oriented to person, place, and time, normal affect, well appearing Accompanied by spouse Scalp, Examined , exam limited by hair Right leg Examined Head, Face Examined , Exam limited by mustache Left leg Examined Neck Examined Right foot Examined Chest Examined Left foot Examined Back Examined Buttocks Examined Abdomen Examined Digits,nails: Examined Right arm Examined Left arm Examined Lymphatics: Not examined Hands Examined Skin Exam 1. PSORIASIS VULGARIS (CMS/HCC) Scalp Well-marginated erythematous papules/plaques with silvery scale. Flaring today BSA 3%. Nail involvement of all 10 fingernails and joint involvement The patient was informed that psoriasis is a chronic condition that can be controlled but not cured. Continue Clobetasol shampoo and HC 2.5% cream bid prn, hold when clear. Instructed to contact office if psoriasis worsens or fails to improve despite treatment. Patient previously used Humira from 2013 to 2018, and then again from 2019 to 2021. While it was beneficial for the patient, it's not recommended with the patient's history of heart failure - TNF alpha inhibitors contraindicated. Recommend trial of otezla as topical therapies alone would not address patient's uncontrolled psoriatic arthritis. Discussed risks of depression and gastrointestinal side effects while taking Otezla. Patient denies history of severe depression. Patient was instructed to discontinue immediately and contact office if depression or intolerable GI side effects occur. Starter pack given today. Patient to start 30 mg po bid once starter pack is complete. Related Medications hydrocortisone 2.5 % cream Apply thin layer to face and behind ears affected areas bid prn for flares Clobetasol Propionate 0.05 % shampoo Apply to scalp, leave on 5 min, rinse. 2-3 x week, 30 day supply 2. HISTORY OF BASAL CELL CARCINOMA Right Ear No evidence of recurrence at BCC scar. The patient was counseled that scars from excisional sites of nonmelanoma skin cancers should be monitored closely for recurrence. The patient was instructed to contact the office for any new, changing, or symptomatic moles. The patient was also instructed to contact the office for any new lesions that develop within or around the previous surgery scar. 3. ACTINIC KERATOSIS (13) Left Parotid Area, Left Zygomatic Area, Mid Parietal Scalp (2), Right Buccal Cheek, Right Forehead, Right Mid [place], Right Nasal Sidewall, Right Parotid Area, Right Baptism, Right Temporal Scalp, Right Zygomatic Area (2) Erythematous scaly papules Patient was counseled regarding these sun-induced growths that can develop into squamous cell carcinoma if left untreated. Discussed treatment with cryotherapy. It was emphasized that any treated lesions that fail to resolve should be re-evaluated. Cryotherapy performed today; see procedure note Diagnosis: Actinic keratosis Indication: Precancerous Location: see skin exam Consent: Verbal consent was obtained and risks were discussed, including, but not limited to risks of scarring, darker or caustic mixer pigmentary changes, recurrence, incomplete removal and infection. Method: Liquid nitrogen was used to treat the lesion(s) with two 5-10 second freeze-thaw cycles. Eyes were shielded using cotton pad during procedure Number of lesions treated: 13 Post-procedure instructions: Instructions were given orally and in writing. The office will be contacted if the lesion fails to resolve despite treatment, or if a side effect develops such as abnormal crusting, scabbing, redness or tenderness Cryotherapy, skin lesion - Left Parotid Area, Left Zygomatic Area, Mid Parietal Scalp (2), Right Buccal Cheek, Right Forehead, Right Mid [place], Right Nasal Sidewall, Right Parotid Area, Right Baptism, Right Temporal Scalp, Right Zygomatic Area (2) 4. NEOPLASM OF UNSPECIFIED BEHAVIOR OF BONE, SOFT TISSUE, AND SKIN Neck - Posterior [place] papule Lesion biopsy Type of biopsy: tangential Informed consent: discussed and consent obtained Informed consent comment: The risks and benefits of the biopsy were discussed. Risks include but are not limited to bleeding, infection, scarring, pain, and nerve damage. An opportunity to ask questions prior to the procedure was permitted and all questions were answered. Patient was prepped and draped in usual sterile fashion: area cleansed with alcohol. Anesthesia: the lesion was anesthetized in a standard fashion Anesthetic: 1% lidocaine w/ epinephrine 1-100,000 buffered w/ 8.4% NaHCO3 Instrument used: DermaBlade Hemostasis achieved with: electrodesiccation Outcome: patient tolerated procedure well Outcome comment: The specimen was placed in a prelabeled formalin container to be sent for pathology Post-procedure details: sterile dressing applied and wound care instructions given Post-procedure details comment: Emphasized need to contact clinic for any signs of infection, uncontrollable bleeding, or complications. Dressing type: bandage Additional details: Photo taken Amount of lidocaine used: 1cc Specimen A - Dermatopathology exam Differential Diagnosis: SCC vs prurigo Check Margins: No Size of lesion: 0.8 x 0.5 cm 5. TICK BITE OF LEFT UPPER ARM, INITIAL ENCOUNTER Left Upper Arm - Anterior Tick embedded in left upper arm Removed today using cryotherapy and forceps. Patient reports he does not think it has been present for longer than 24 hours. Offered tick prophylaxis, patient declined. Next Visit: 1 year documented in this encounter [facility] 07-05-2024 Telephone encounter Note Yeimy from [facility] called has questions about a fax they received from us, she states it did not get filled out, a med list was also faxed to them and she has questions about the azithromycin. I will reprint the fax and put it in the mailbox to be filled out. [phone] [facility] 07-05-2024 Miscellaneous Notes Yeimy from [facility] called has questions about a fax they received from us, she states it did not get filled out, a med list was also faxed to them and she has questions about the azithromycin. I will reprint the fax and put it in the mailbox to be filled out. [phone] documented in this encounter [facility] 06-22-2024 Telephone encounter Note Patient is requesting novalog 27 units per day 8 at breakfast 8 at lunch and 11 at dinner Insurance wants pt to try Aspart instead of novalog. [facility]. Insurance also wants to substitute Degludec for the tresiba- he doesn't need a refill on this right now. She just wants you to be aware of this. Is he due for A1C? When do you want to see him? Please advise Chata Thank you. [facility] 06-22-2024 Miscellaneous Notes Patient is requesting novalog 27 units per day 8 at breakfast 8 at lunch and 11 at dinner Insurance wants pt to try Aspart instead of novalog. [facility]. Insurance also wants to substitute Degludec for the tresiba- he doesn't need a refill on this right now. She just wants you to be aware of this. Is he due for A1C? When do you want to see him? Please advise Chata Thank you. documented in this encounter [facility] 06-09-2024 Telephone encounter Note Pt had to find a new rx plan and now needs the generics of tresiba and novolog just in case. The generics that are needed are Aspart for Novologand Degludec for the tresiba. Pt is currently taking Novolog at 8units at bkfst 8units at lunch and 11 at dinner Not taking norco Not taking zofran Taking co-q 10 Tresiba is being taken as 32 units [facility] 06-09-2024 Miscellaneous Notes Pt had to find a new rx plan and now needs the generics of tresiba and novolog just in case. The generics that are needed are Aspart for Novologand Degludec for the tresiba. Pt is currently taking Novolog at 8units at bkfst 8units at lunch and 11 at dinner Not taking norco Not taking zofran Taking co-q 10 Tresiba is being taken as 32 units documented in this encounter [facility] 04-19-2024 Telephone encounter Note The pharmacy said that the pen needles Rx that was sent yesterday.. pts insurance requires a 90 days supply. With a qty of 90 and sig saying 4 times daily, it is only a 22.5 day supply :) [facility] 04-19-2024 Miscellaneous Notes The pharmacy said that the pen needles Rx that was sent yesterday.. pts insurance requires a 90 days supply. With a qty of 90 and sig saying 4 times daily, it is only a 22.5 day supply :) documented in this encounter [facility] 03-27-2024 Telephone encounter Note Patient's called and is requesting the antibiotic that Dr. Batres gave him before his dentist appt the last time. He has an upcoming dentist appt. She does not know the name of it. Ty [facility] 03-27-2024 Miscellaneous Notes Patient's called and is requesting the antibiotic that Dr. Batres gave him before his dentist appt the last time. He has an upcoming dentist appt. She does not know the name of it. Ty documented in this encounter [facility] 02-24-2024 History of Present illness Narrative Associated Problem(s): Hyperlipidemia (CMS/HCC) Lipids today 03/05. Associated Problem(s): Essential hypertension (CMS/HCC) Well controlled. Associated Problem(s): CAD (coronary artery disease) (CMS/HCC) Stable CAD with no angina. 02/13/2019: CABGx 4 (WATTS-LAD, JOSTIN-OM1, SVG-PDA, SVG- PLB) Associated Problem(s): Diabetic polyneuropathy associated with type 2 diabetes mellitus (CMS/HCC) Continue medications. Images from the original note were not included. Manpreet Avelar is a 68 y.o. male presents with chief complaint of No chief complaint on file. HPI: Flowsheet Row Office Visit from 02/24/2024 in [facility] with Nohemy Batres MD Hospital Information ED, Hospital or Care Home Facility Discharge? ED Patient has been contacted within 1 week of being seen in the ED Yes Diagnosis diverticulitis Discharge Date 02/19/24 Discharged To: Home Setting Discharge Hospital [facility] Engagement Medications Discharge medications reviewed and reconciled from hospital? Yes Is the patient having any side effects they believe may be caused by any medication additions or changes? No Does the patient have all medications ordered at discharge? Yes Is the patient taking all medications as directed (includes completed medication regime)? Yes Appointments Does the patient have a primary care provider? Yes Has the patient kept scheduled appointments due by today? Yes Self Management Patient Teaching Does the patient have access to their discharge instructions? Yes What is the patient's perception of their health status since discharge? Improving Wrap Up Over the past 2 weeks, how often have you been bothered by any of the following problems? Little interest or pleasure in doing things: Not at all Feeling down, depressed, or hopeless: Not at all Patient Health Questionnaire-2 Score: 0 Over the past 2 weeks, how often have you been bothered by any of the following problems? Trouble falling or staying asleep, or sleeping too much: Not at all Feeling tired or having little energy: Several days Poor appetite or overeating: Not at all Feeling bad about yourself - or that you are a failure or have let yourself or your family down: Not at all Trouble concentrating on things, such as reading the newspaper or watching television: Not at all Moving or speaking so slowly that other people could have noticed? Or the opposite - being so fidgety or restless that you have been moving around a lot more than usual.: Not at all Thoughts that you would be better off or hurting yourself in some way: Not at all Patient Health Questionnaire-9 Score: 1 Andrew Fall Risk History of Falling, Immediate or Within 3 Months: No Secondary Diagnosis: No Ambulatory Aid: Walks without aid/bedrest/nurse assist Intravenous Therapy/Heparin Lock: No Gait/Transferring: Normal/bedrest/immobile Mental Status: Oriented to own ability Andrew Fall Risk Score: 0 Health Risk Assessment Form Do you need help eating, bathing, using the toilet, dressing, or getting around your home?: No Can you prepare your own meals?: Yes Can you do your own housework without help?: Yes Can you shop for groceries or clothes without help?: Yes Do you exercise for about 20 minutes 3 or more days a week?: Yes How confident are you that you can control and manage most of your health problems?: Very confident Can you mange your money, credit cards and accounts, pay bills and taxes?: Yes Vision Screening: Yes, patient sees regular mold bunch trimmer/underlay stitcher Hearing Screening: Has some hearing loss Cognitive Screening Self Assessment: No overt cognitive deficiency is apparent by direct observation Three Word Registration: Captain, Garden, Picture Clock Drawing: Normal Clock - 2 Three Word Recall: 2/3 words correct - 2 Total Score (0-5 Points): 4 Pain Assessment Pain Score: 1 Also seeing the dentist on 03/30/24 for a cleaning and [facility] History of Present Illness The patient presents for a Medicare wellness visit. He is accompanied by an adult female. He recently visited the ER due to abdominal pain, which he initially attributed to a pulled muscle from lawn mowing. However, the pain persisted, leading to a CT scan with contrast. He was treated with antibiotics and discharged. He has a history of kidney stones from 2009, but the current pain does not resemble that. He experienced a sharp pain in his penis while watching TV, which he thought might be a passing stone, but nothing was visible in his urine. His urine has been slightly abnormal, possibly due to the antibiotics. He has arthritis and has been on numerous antibiotics over the past 1.5 years. He occasionally experiences heartburn, about once a week, which he manages with [id number] Tums. He drinks coffee in the morning and consumes alcohol sparingly. He has been on a liquid diet and soft foods, including yogurt for breakfast. He has not yet reintroduced whole grains into his diet. He is scheduled for his eye exam next month. SOCIAL HISTORY He quit smoking since he was 22. FAMILY HISTORY His mother had cancer and his father had skin cancer. His mother had diverticulosis. IMMUNIZATIONS He had his COVID-19 vaccine at the end of 12/2023 or 01/2024. He had his influenza vaccine. SUBJECTIVE: MEDICATIONS: Current Outpatient Medications Medication Instructions acetaminophen (TYLENOL) 500 mg, Every 6 hours PRN aspirin 81 mg, Daily atorvastatin (LIPITOR) 80 mg, Oral, Every 24 hours ciprofloxacin (CIPRO) 500 mg, Every 12 hours Clobetasol Propionate 0.05 % shampoo Apply to scalp, leave on 5 min, rinse. 2-3 x week, 30 day supply coenzyme Q-10 200 mg gabapentin (Neurontin) 300 MG capsule TAKE 1 CAPSULE BY MOUTH EVERY DAY glucose blood (Accu-Chek Guide) test strip Every 12 hours HYDROcodone-acetaminophen ([place]) 5-325 MG tablet TAKE 1 TABLET BY MOUTH EVERY 6 HOURS NEEDED FOR PAIN FOR 5 DAYS hydrocortisone 2.5 % cream Apply thin layer to face and behind ears affected areas bid prn for flares insulin aspart (NovoLOG FLEXPEN) 100 UNIT/ML pen INJECT 11 UNITS AT BREAKFAST, 8 UNITS AT LUNCH, 11 UNITS WITH DINNER AND 2-3 UNITS WITH SNACKS insulin pen needle (BD Pen Needle Jamee 2nd Gen) 32G x 4 mm misc USE TO INJECT 4 TIMES DAILY lisinopril 2.5 mg, Oral, Daily metoprolol succinate XL (Toprol-XL) 50 MG 24 hr tablet TAKE 1 TABLET (50 MG) BY MOUTH IN THE MORNING AND BEFORE BEDTIME metroNIDAZOLE (FLAGYL) 500 mg, 3 times daily Multiple Vitamin (THERAPEUTIC MULTIVITAMIN PO) Every 24 hours ondansetron ODT (Zofran-ODT) 4 MG disintegrating tablet TAKE 1 TABLET BY MOUTH EVERY 6 HOURS NEEDED FOR NAUSEA AND VOMITING Tresiba FlexTouch 34 Units, Subcutaneous, Daily I have reviewed and reconciled the history and medication list with the patient today. REVIEW OF SYMPTOMS: Review of Systems OBJECTIVE: Visit Vitals BP 136/76 Pulse 54 Ht 5' 10 Wt 194 lb 6.4 oz SpO2 98% BMI 27.89 kg/m Smoking Status Former BSA 2.09 m Physical Exam Vitals and nursing note reviewed. Constitutional: Appearance: Normal appearance. HENT: Head: Normocephalic and atraumatic. Right Ear: Tympanic membrane normal. Left Ear: Tympanic membrane normal. Nose: Nose normal. Mouth/Throat: Mouth: Mucous membranes are dry. Cardiovascular: Rate and Rhythm: Normal rate and regular rhythm. Pulses: Normal pulses. Heart sounds: Normal heart sounds. Pulmonary: Effort: Pulmonary effort is normal. Breath sounds: Normal breath sounds. Abdominal: General: Abdomen is flat. Bowel sounds are normal. Palpations: Abdomen is soft. Tenderness: There is abdominal tenderness. Comments: Tenderness in the LLQ, but mild Musculoskeletal: Cervical back: Normal range of motion and neck supple. Neurological: Mental Status: He is alert. ASSESSMENT AND PLAN: Assessment & Plan 1. Medicare wellness visit. A Cologuard test was conducted in 2023, yielding negative results. A comprehensive lab workup, including cholesterol, metabolic panel, and PSA level, will be conducted today. Blood and urine tests will be performed today. He is scheduled for an eye exam in March 2024. 2. Elevated white blood cell count. A slight elevation in white blood cell count was noted. The white blood cell count will be repeated today to ensure it is returning to normal. 3. Diverticulitis. He was treated in the ER with Cipro and Flagyl. He reports no current pain but experiences occasional twinges. He was advised to avoid whole grains and continue with a soft diet. A colonoscopy was suggested but declined. He was advised to monitor his symptoms and report any significant changes. 4. Adrenal nodule. A CT scan revealed an adrenal nodule that may represent an adenoma. An order for a scan to evaluate the adrenal nodule will be placed, and he will be contacted to schedule it. 5. Kidney cyst and stones. A CT scan revealed a cyst in the kidney and tiny kidney stones. He was advised to monitor for any symptoms of kidney stones and report any significant changes. 6. Heartburn. He experiences heartburn once a week, typically managed with qrgv-gcc-ibljxct Tums. He was advised to monitor his caffeine intake and consider lifestyle modifications. If symptoms persist or worsen, further evaluation, including a possible scope, may be considered. 7. Medication Management. He was advised to resume his statin and CoQ10 after completing the antibiotics. Assessment/Plan Problem List Items Addressed This Visit CAD (coronary artery disease) (CMS/HCC) Stable CAD with no angina. 02/13/2019: CABGx 4 (WATTS-LAD, JOSTIN-OM1, SVG-PDA, SVG- PLB) Diabetic polyneuropathy associated with type 2 diabetes mellitus (CMS/HCC) Continue medications. Relevant Orders POCT Glycated hemoglobin, total (Completed) Microalbumin / creatinine, urine ratio Hyperlipidemia (CMS/HCC) Lipids today 03/05. Relevant Orders Lipid panel Comprehensive metabolic panel Essential hypertension (CMS/HCC) Well controlled. Primary hypertension (CMS/HCC) S/P CABG x 4 Other Visit Diagnoses Wellness examination - Primary Discussed height, weight and BMI. Encouraged healthy diet and regular exercise. Discussed vaccines and encouraged yearly flu shot. Annual eye and dental exam. Vaccines and cancer screens reviewed for completeness. Screen labs as needed. Assessed needs for tools in the home for independence. Living will and durable power of shipping and receiving specialist reviewed. Updated patient problem list and reviewed all current medications with patient. Given time to ask questions. Prostate cancer screening Relevant Orders PSA Acute diverticulitis Relevant Orders CBC Adrenal nodule (CMS/HCC) Relevant Orders CT abdomen pelvis w and wo IV contrast documented in this encounter [facility] 12-22-2023 Telephone encounter Note He will call back when he gets back from [place] to make an appt . [facility] 12-22-2023 Miscellaneous Notes He will call back when he gets back from [place] to make an appt . Due for DM and HTN appointment, please schedule appointment documented in this encounter [facility] 12-22-2023 Telephone encounter Note Due for DM and HTN appointment, please schedule appointment [facility] 12-20-2023 Miscellaneous Notes Harvey 09/10/23 Cmp 03/25/23 documented in this encounter [facility] 12-20-2023 Telephone encounter Note Harvey 09/10/23 Cmp 03/25/23 [facility] 12-19-2023 Telephone encounter Note Refills sent. [facility] 12-19-2023 Miscellaneous Notes Refills sent. documented in this encounter [facility] 09-10-2023 History of Present illness Narrative Manpreet Uriah Avelar Date of visit: 09/10/2023 Date of : 1955 Age: 67 y.o. Patient Active Problem List Diagnosis ED (erectile dysfunction) Myocardial infarction ([facility]) Neuropathy CAD (coronary artery disease) Hyperlipidemia Dysphagia Psoriasis Diabetes mellitus ([facility]) Hypertension Hx of myocardial infarction S/P CABG x 4 Primary hypertension Dyslipidemia S/P TKR (total knee replacement), right No Known Allergies Current Outpatient Medications Medication Sig Dispense Refill aspirin (ECOTRIN LOW STRENGTH) 81 mg Take 1 tablet (81 mg total) by mouth in the morning and 1 tablet (81 mg total) before bedtime. 60 tablet 0 atorvastatin (LIPITOR) 80 mg tablet TAKE 1 TABLET (80 MG TOTAL) BY MOUTH IN THE MORNING 90 tablet 0 COQ10, UBIQUINOL, ORAL Take 100 mg by mouth in the morning. lisinopriL (PRINIVIL,ZESTRIL) 2.5 mg tablet take 1 tablet by mouth every day 90 tablet 0 metoprolol succinate XL (TOPROL XL) 50 mg 24 hr tablet Take 1 tablet (50 mg total) by mouth in the morning and 1 tablet (50 mg total) before bedtime. 180 tablet 3 yneetpox-qcqz-DN-calcium &mins (THERAGRAN-M) 9 mg iron-400 mcg tablet Take 1 tablet by mouth in the morning. nitroglycerin (NITROSTAT) 0.[address] 1 tablet (0.4 mg total) under the tongue every 5 (five) minutes as needed for chest pain. NOVOLOG FLEXPEN U-100 INSULIN 100 unit/mL (3 mL) insulin pen 11 Units in the morning and 11 Units at noon and 11 Units in the evening. Take with meals. 11 units in the AM 8 UNITS AT LUNCH AND 11 UNITS AT DINNER. TRESIBA FLEXTOUCH U-100 100 unit/mL (3 mL) insulin pen Inject 29 Units under the skin nightly. 0 ferrous sulfate 325 (65 FE) mg tablet Take 1 tablet (325 mg total) by mouth in the morning and 1 tablet (325 mg total) in the evening. Take with meals. 60 tablet 0 gabapentin (NEURONTIN) 300 mg capsule Take 1 capsule (300 mg total) by mouth respiratory nightly. No current facility-administered medications for this visit. Chief Complaint Patient presents with Follow-up 1 YEAR Coronary Artery Disease History of Present Illness Patient doing well with no major issues. No major physical decline. Tolerating the medicines without any particular issue. No chest pain no shortness breath no lightheadedness syncope near syncope. No palpitations orthopnea PND. When the patient does do activity there is no limitation. He hunted all winter with no issues. That is where he had issues before when he had the bypass he was getting pretty short of breath. He says he feels great and has no issues whatsoever Past Medical History: Diagnosis Date Arthritis CAD (coronary artery disease) CHF (congestive heart failure) ([facility] Diabetes mellitus ([facility]) Diabetes mellitus type 2, controlled ([facility]) Dysphagia ED (erectile dysfunction) Hyperlipidemia Hypertension Kidney stones Myocardial infarction ([facility]) Neuropathy Psoriasis Visual impairment No data recorded No data recorded No data recorded Past Surgical History: Procedure Laterality Date CARDIAC CATHETERIZATION CORONARY ARTERY BYPASS GRAFT 02/2019 x4 REPLACEMENT TOTAL JOINT KNEE possible stems & augments Right 08/04/2022 Performed by Odette Alexis Jr., DO at [facility] TOOTH EXTRACTION VASECTOMY Family History Problem Relation Age of Onset Diabetes Mother Heart disease Mother Heart disease Father Heart attack Maternal Grandfather Social History Socioeconomic History Marital status: Spouse name: Not on file Number of children: Not on file Years of education: Not on file Highest education level: Not on file Occupational History Not on file Tobacco Use Smoking status: Former Current packs/day: 0.00 Types: Cigarettes Quit date: 1982 Years since quittin.4 Smokeless tobacco: Never Vaping Use Vaping status: Never Used Substance and Sexual Activity Alcohol use: Yes Comment: rare Drug use: Never Sexual activity: Yes Partners: Female Other Topics Concern Caffeine Use Yes Social History Narrative Not on file Social Determinants of Health Financial Resource Strain: Not on file Food Insecurity: No Food Insecurity (09/10/2023) Hunger Screening Food Insecurity - Worry: Never True Food Insecurity - Inability: Never True Transportation Needs: Not on file Physical Activity: Not on file Stress: Not on file Social Connections: Not on file Interpersonal Safety: Not on file Housing Instability: Not on file Review of Systems Review of Systems Constitutional: Negative. HENT: Positive for hearing loss. Eyes: Negative. Respiratory: Positive for cough. Hematologic/Lymphatic: Bruises/bleeds easily. Skin: Negative. Musculoskeletal: Negative. Gastrointestinal: Negative. Neurological: Negative. Psychiatric/Behavioral: Negative. Allergic/Immunologic: Negative. CARDIOVASCULAR: Please review HPI. Physical Examination General appearance: Alert, oriented and cooperative. In no acute distress. Skin: Warm and dry to touch. Head: Normocephalic, without obvious abnormality, atraumatic. Ears, Nose, Mouth, Throat: Throat clear without erythema or exudate. Dentition intact. Eyes: Conjunctivae unremarkable, EOM intact. Neck: No JVD, No carotid bruit. Neck supple, trachea midline. Respiratory: Clear to auscultation bilaterally, no use of accessory muscles. Cardiovascular: RRR with normal S1 and S2 with no murmurs. Gastrointestinal: Soft, non-tender. Bowel sounds normal. Musculoskeletal: No peripheral edema. Neurologic: Oriented to time, person and place, affect appropriate. No focal/major motor defects noted. Psychiatric: Appropriate mood, memory and judgement. VITAL SIGNS: BP 132/70 (BP Site: Left Arm, BP Postition: Sitting) Pulse 62 Ht 177.8 cm (5' 10 ) Wt 88.9 kg (196 lb) SpO2 94% BMI 28.12 kg/m Orders Placed or Reconciled This Encounter Medications anumatha-ftei-OZ-calcium &mins (THERAGRAN-M) 9 mg iron-400 mcg tablet Sig: Take 1 tablet by mouth in the morning. There are no discontinued medications. IMPRESSIONS/PLAN 1. Coronary artery disease involving coronary bypass graft of [place] heart without angina pectoris - POCT EKG Coronary artery disease s/p CABG x4 (WATTS-LAD, JOSTIN-OM, SVG-rPDA/PBL) 02/2019 in setting of severe dyspnea on exertion as anginal equivalent Hypertension Hyperlipidemia, most recent LDL 60 mg/dL 02/2022 Diabetes mellitus type 2 Psoriasis Patient doing extremely well excellent exercise tolerance no interference symptoms no chest pain no shortness breath no lightheadedness. No anginal equivalent. TODAYS ORDERS Orders Placed This Encounter Procedures POCT EKG FOLLOW UP No follow-ups on file. PCP: Nohemy Batres MD Referring Physician: Nohemy Batres MD [address] [place] [address] documented [facility] Miscellaneous Notes Please sign and route if you agree. Thank you HARVEY 06/19/22 BMP 11/02/22 Pt needs annual appt scheduled please; letter mailed. LMOM for the patient to call and schedule their next appointment with [facility]. [facility]23 Telephone encounter Note Please sign and route if you agree. Thank you HARVEY 06/19/22 BMP 11/02/22 Pt needs annual appt scheduled please; [facility]-24-2023 Telephone encounter Note LMOM for the patient to call and schedule their next appointment with PPC. [facility] 03-25-2023 History of Present illness Narrative PAT- ADDITIONAL QUESTIONS 03/16/2023 1140 Phone pat completed with Calixto and Sujatha, spouse, prior to joint camp appointment on 03/25/2023. Reviewed medication list with patient, asked and added any additional medicines, vitamins, supplements and diet pills or appetite suppressants to the patient Med Review. Also Reconciled Medications from outside sources to Med Review. Patient verified Med Review is accurate. yes HISTORY OF ANGIOEDEMA IF YES, TRIGGERS? C1-esterase inhibitor (C1-INH) gene? no PATIENT HISTORY OF BLOOD CLOTS no FAMILY HISTORY OF BLOOD CLOTS OR BLOOD DISORDER no ACTIVITY TOLERANCE (MET LEVEL) >4mets-some limitations/difficulty with stairs d/t knee CHEST PAIN (SEE ADDITIONAL CHEST PAIN QUESTIONNAIRE IF APPLICABLE) no HISTORY OF HEART CATH/STENT PLACEMENT Heart cath prior to CABG-no stents PATIENT HISTORY OF ANESTHESIA COMPLICATION (PONV, PROLONGED SEDATION, MALIGNANT HYPERTHERMIA, etc. ) no FAMILY HISTORY OF ANESTHESIA COMPLICATION (PONV, PROLONGED SEDATION, MALIGNANT HYPERTHERMIA, etc. ) no MEDICAL CLEARANCE, CARDIOLOGY CLEARANCE Geronimo 03/22 DIFFICULT IV PLACEMENT no LIMB RESTRICTIONS no MEDICAL IMPLANTS (DIABETIC, NERVE STIMULATORS, POWER PORTS, LOOP RECORDER, ETC) Right knee prosthesis HISTORY OF ANTIBIOTIC RESISTANT BACTERIAL INFECTION (MRSA, C-DIFF) no VISION (glasses, contacts, or other impairments) glasses HEARING AIDS OR ANY TROUBLE HEARING Slight [place]K, no hearing aids DIFFICULTY SWALLOWING no DENTAL APPLIANCES OR PROBLEMS (dentures, partials, loose teeth, missing teeth, broken teeth, caps or crowns) Permanent crown placed last week; took amoxicillin prior to appt; no issues noted at that time BETA DIGNA USE yes STEROIDS IN THE PAST YEAR Prednisone for a couple days 09/2022 HISTORY OF BLOOD TRANSFUSION/REACTION no CULTURAL OR YAZIDISM BELIEFS THAT WILL AFFECT CARE no DIETARY RESTRICTIONS diabetic CONCERNS FOR PERSONAL SAFETY no Have you been diagnosed with a concussion in the past 6 months? no Have you tested positive for COVID 19? Do you have any residual or chcf affects from COVID 19? Yes-2020-no breathing issues since ADVANCE DIRECTIVES Yes, not on record IF PATIENT HAS NOT BEEN DIAGNOSED WITH SLEEP APNEA PLEASE COMPLETE STOP-BANG STOP Do you SNORE loudly (louder than talking or loud enough to be heard through closed doors)? no Has anyone OBSERVED you stop breathing during your sleep? no Do you often feel TIRED, fatigued, or sleepy during daytime? no Do you have or are you being treated for high blood PRESSURE? yes BMI more than 35kg/m2? no AGE over 50 years old? yes NECK circumference > 16 inches (40 cm)? GENDER: Male? yes TOTAL SCORE 3 PT ACCEPTED REFERRAL Pt is at risk for Sleep Apnea and declined a pulmonary consult referral at this PAT appointment. High risk of COREY: Yes 5-8 Intermediate risk of COREY: Yes 3-4 Low risk of COREY: Yes 0-2 * See DEPARTMENT OF SURGERY AND ANESTHESIA REFERRAL FOR SLEEP STUDY AND/OR PULMONARY CONSULT paper form signed by patient in chart. Verified procedure and surgery date with patient. Reviewed pt history and medications with patient. Pt was given instructions for upcoming surgery and given opportunity to ask questions. Pt verbalized understanding of instructions. documented in this encounter [facility] 03-25-2023 Instructions Patricia Mejia RN - 03/25/2023 10:00 AM EST Images from the original note were not included. Dr Saba's office will call you for your arrival time, 1-2 business days before your scheduled surgery. Please review your surgery checklist and bring your guide or booklet the day of surgery. Pre-Admission Testing Dept. [phone] Call if you have any changes in your medications, questions about your medication instructions or have additional health information you want added to your chart. Refer to the Pre-Op Bathing Instructions and use the wipes the night before surgery on pages 21-22. Please refer to pages 10-11 for additional medicines and supplements to avoid prior to surgery. STOP any NSAIDS (Ibuprofen, Motrin, Aleve, Advil, etc.), fish oil, other supplements, energy drinks and essential oils 7 days before your surgery or as instructed by your physician. STOP diet pills and appetite suppressants 14 days before surgery or as instructed by your physician. *If you are prescribed any new medicines between your PAT appointment and your surgery date, please call the PAT office for specific instructions regarding you new medicines.* No alcohol during the 48-hours prior to your surgery. No illicit drugs during the 5 days prior to your surgery. Nothing by mouth after midnight except for water and Gatorade/powerade which can be consumed up until you leave for the hospital. DIRECTIONS: Park in the front main lot facing [address]. Enter through the front entrance and sign in at [facility] Thank you for allowing us the privilege to care for you! *If you are prescribed any new medicines between your PAT appointment and your surgery date, please call the PAT office for specific instructions regarding you new medicines.* Please record date and time of your medications on this sheet and bring this with you on the day of surgery. Yellow - take the day of surgery [place] - hold according to the doctor's instructions or pre-admission testing instructions Current Outpatient Medications Medication Instructions acetaminophen 500 MG tablet Take 1 tablet by mouth every 6 hours as needed for Mild Pain. CONTINUE but DO NOT take the morning of surgery LAST DOSE: DATE TIME ___ Aspirin [address] tablet Take 1 tablet by mouth daily. ASK YOUR SURGEON, PRIMARY CARE DOCTOR OR LINUX SUPPORT ENGINEER (IF YOU SEE ONE), IF YOU SHOULD HOLD THIS MEDICATION PRIOR TO SURGERY LAST DOSE: DATE TIME ___ atorvastatin 80 MG tablet Take 1 tablet by mouth daily. Pm CONTINUE SCHEDULED LAST DOSE: DATE TIME ___ Coenzyme Q10 (Co Q-10) 200 MG capsule Take by mouth daily. STOP 7 DAYS BEFORE YOUR SURGERY LAST DOSE: DATE TIME ___ Gabapentin 300 MG capsule Take 1 capsule by mouth daily. Pm CONTINUE LAST DOSE: DATE TIME ___ Insulin Degludec (Tresiba FlexTouch) 100 UNIT/ML Solution Pen-injector injection Inject 34 Units under the skin at bedtime. CONTINUE BUT TAKE ONLY HALF OF YOUR SCHEDULED DOSE THE NIGHT BEFORE SURGERY LAST DOSE: DATE TIME ___ Lisinopril 2.5 MG tablet Take 1 tablet by mouth daily. CONTINUE but DO NOT take the morning of surgery LAST DOSE: DATE TIME ___ Metoprolol succinate 50 MG tablet XL Take 1 tablet by mouth Twice daily. CONTINUE AND TAKE THE MORNING OF SURGERY WITH SIP OF WATER LAST DOSE: DATE TIME ___ Multiple Vitamin (multivitamin) tablet Take 1 tablet by mouth daily. STOP 7 DAYS BEFORE YOUR SURGERY LAST DOSE: DATE TIME ___ NovoLOG FlexPen 100 UNIT/ML Solution Pen-injector injection INJECT 11 UNITS AT BREAKFAST, 8 UNITS AT LUNCH, 11 UNITS WITH DINNER AND 2-3 UNITS WITH SNACKS CONTINUE but DO NOT take the morning of surgery LAST DOSE: DATE TIME ___ oxyCODONE-acetaminophen 5-325 MG per tablet as needed. CONTINUE but DO NOT take the morning of surgery LAST DOSE: DATE TIME ___ documented in this [facility] 03-25-2023 Miscellaneous Notes Addended by: PATRICIA MEJIA on: 03/16/2023 02:21 PM Modules accepted: Orders Addended by: PAM RAJPUT on: 03/25/2023 12:45 PM Modules accepted: Orders documented in this encounter [facility] 03-25-2023 Note Addended by: PATRICIA STEVENS on: 03/16/2023 02:21 PM Modules accepted: Orders [facility] 03-25-2023 Note Addended by: PAM RAJPUT on: 03/25/2023 12:45 PM Modules accepted: Orders [facility] 12-30-2022 History of Present illness Narrative Ortho Nurse - Patient Intake Room#: 3 Right knee pain of 4-5, TKA Dr Alexis 08-04-22, manipulation Dr Alexis 11-05-22, has had Medrol Dose Pac which shot his Diabetes up Date: 12/30/2022 3:30 PM Patient: Manpreet Avelar MR#: [id number] : 1955 Age: 67 y.o. Referring Physician: Odette Alexis Jr., DO Insurance: Payor: MEDICARE / Plan: MEDICARE A AND B / Product Type: *No Product type* / Chief Complaint Patient presents with Right Knee - Pain Visit Vitals Ht 1.778 m (5' 10 ) Wt 84.8 kg (187 lb) BMI 26.83 kg/m Pain Presence of Pain: complains of pain/discomfort Pain Location: knee, right Select Pain Scale: DVPRS (Defense and Veterans Pain Rating Scale) (Adult-Cognitively Intact) Pain Location: knee, right Select Pain Scale: DVPRS (Defense and Veterans Pain Rating Scale) (Adult-Cognitively Intact) Recent Labs No results found for: CRP No results found for: SEDRATE No results found for: WBC , WBCCOUNT , WBCFETAL , HGB , HCT , PLATELET , MCV History Past Medical History: Diagnosis Date Diabetes mellitus Essential hypertension, benign Hyperlipidemia Past Surgical History: Procedure Laterality Date ARTHROPLASTY KNEE TOTAL Right 08/04/2022 HEART SURGERY 2019 quadruple APPENDECTOMY VASECTOMY Family History: His family history is not on file. Social History: His reports that he has quit smoking. His smoking use included cigarettes. He has quit using smokeless tobacco. He reports that he does not use drugs. No history on file for alcohol use. Additional Social History Y N Notes Do you live alone? [] [x] Who lives with you: Do you have children? [] [] How many: Do you currently work? [] [x] What type of work do you do: Do you have stairs in the home? [] [x] How many do you have to climb to enter your home: What services do you currently receive at home? [] [] Name: Do you have transportation to go to outpatient therapy if needed? [x] [] What Equipment do you have at home? [x] [] [x]Walker, []Crutches, []Commode Chair, []Shower []Chair, [x]cane, []bracing Are you followed by a protein purification scientist? [x] [] Name: [facility] Are you followed by pain management? [] [x] Name: Are you followed by any other specialists? [] [x] Name: Outpatient Medications Prior to Visit Medication Sig Dispense Refill Aspirin [address] tablet Take 1 tablet by mouth daily. atorvastatin 80 MG tablet TAKE 1 TABLET (80 MG TOTAL) BY MOUTH IN THE MORNING Coenzyme Q10 (Co Q-10) 200 MG capsule Take by mouth. Gabapentin 300 MG capsule Take 1 capsule by mouth daily. Insulin Degludec (Tresiba FlexTouch) 100 UNIT/ML Solution Pen-injector injection INJECT 29 UNITS DAILY SUBCUTANEOUSLY 90 for 90 days Lisinopril 2.5 MG tablet Take 1 tablet by mouth daily. Metoprolol succinate 50 MG tablet XL Take 1 tablet by mouth Twice daily. Multiple Vitamin (multivitamin) tablet Take 1 tablet by mouth daily. NovoLOG FlexPen 100 UNIT/ML Solution Pen-injector injection INJECT 11 UNITS AT BREAKFAST, 8 UNITS AT LUNCH, 11 UNITS WITH DINNER AND 2-3 UNITS WITH SNACKS No facility-administered medications prior to visit. Current Outpatient Medications: Aspirin [address] tablet, Take 1 tablet by mouth daily., Disp: , Rfl: atorvastatin 80 MG tablet, TAKE 1 TABLET (80 MG TOTAL) BY MOUTH IN THE MORNING, Disp: , Rfl: Coenzyme Q10 (Co Q-10) 200 MG capsule, Take by mouth., Disp: , Rfl: Gabapentin 300 MG capsule, Take 1 capsule by mouth daily., Disp: , Rfl: Insulin Degludec (Tresiba FlexTouch) 100 UNIT/ML Solution Pen-injector injection, INJECT 29 UNITS DAILY SUBCUTANEOUSLY 90 for 90 days, Disp: , Rfl: Lisinopril 2.5 MG tablet, Take 1 tablet by mouth daily., Disp: , Rfl: Metoprolol succinate 50 MG tablet XL, Take 1 tablet by mouth Twice daily., Disp: , Rfl: Multiple Vitamin (multivitamin) tablet, Take 1 tablet by mouth daily., Disp: , Rfl: NovoLOG FlexPen 100 UNIT/ML Solution Pen-injector injection, INJECT 11 UNITS AT BREAKFAST, 8 UNITS AT LUNCH, 11 UNITS WITH DINNER AND 2-3 UNITS WITH SNACKS, Disp: , Rfl: Allergies: He has No Known Allergies. Y N Are you allergic to any metals? [] [x] If yes, what metals: Review of Systems System Y N Symptoms Constitutional [] [x] Weight Loss [] [x] Weight Gain [] [x] Chronic Fever [x] [] Insomnia Eyes [] [x] Resent Vision Change [] [x] Cataracts [] [x] Glaucoma [] [x] Any Hx of Metal Fragments in the Eye ENT [] [x] Loss of hearing [] [x] Hearing Aids [] [x] Seasonal Allergies [] [x] Dental Issues Cardiovascular [] [x] Chest Pain [] [x] Angina [] [x] Stent [x] [] Hypertension [] [x] Heart Murmur [] [x] Irregular Pulse [] [x] Pacemaker [] [x] Palpitations [x] [] High cholesterol Respiratory [] [x] Wheezing [] [x] Shortness of Breath [] [x] Pneumonia [] [x] Bronchitis [] [x] Sleep Apnea [] [x] COPD [] [x] Date/ LOC of last CXR: Gastrointestinal [] [x] Heartburn [] [x] Indigestion [] [x] Constipation [] [x] Ulcer [] [x] GI Stomach Bleed [] [x] Diarrhea [] [x] Colon Cancer [] [x] Acid Reflux [] [x] Blood in Stools Musculoskeletal [x] [] Arthritis [] [x] Muscle Weakness [x] [] Joint Pain [x] [] Back Pain [] [x] Fibromyalgia [] [x] Bone Infection [] [x] Swelling - Multiple Joints [] [x] Reflex Sympathetic Dystrophy Skin [] [x] Chronic Rash [] [x] Ulcers [] [x] Eczema [x] [] Psoriasis [] [x] Skin Cancer [] [x] Melanoma Neurologic [] [x] Numbness [] [x] Weakness or loss of sensation in arms or legs [x] [] Leg Pain / Sciatica [] [x] Headaches [] [x] Loss of bowel or bladder control Psychiatric [] [x] Anxiety [x] [] Claustrophobia [] [x] Other Psychiatric Problems Hematologic [x] [] Easy Bruising [] [x] Easy Bleeding [] [x] Blood Transfusion Date: Endocrine [] [x] Hypothyroid [] [x] Hyperthyroid [] [x] Hot Flashes [] [x] Hormone Replacement [x] [] Prednisone Use Does pt have dentures? no HPI: Patient is here today to be evaluated for right knee pain. He is a pleasant 67 y.o. male. Primary complaint is pain and discomfort. He has experienced a progressive decline in physical function and quality of life secondary to the discomfort in the right knee. He presents with a highly complex array of symptoms upon exam today. History of right TKA by Dr. Alexsi on 11/05/22 with subsequent manipulation on 11/01/22. He reports complex history of the right knee. Two arthroscopies in 1987 and 1988, reports previous chain accident as well as vein harvest in 2019 secondary to quadruple bypass heart operation. Patient states Dr. Alexis reported complications with initial TKA stated there was an abundance of scar tissue present secondary to past trauma of the knee . He denies fevers or chills. His pain is a 4/10. 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 PHYSICAL EXAM: This is an alert, oriented, and age-appropriate male. He is in no distress. Pleasant and cooperative. EXTREMITIES: The upper extremities have no gross deformities. Normal stability. Skin Intact. 5/5 motor. Intact sensation. Normal neurovascular status. Normal coordination. The lower extremities have no gross deformities. Normal stability. Skin Intact. 5/5 motor. Intact sensation. Normal neurovascular status. Normal coordination. Range of motion upon exam today is 20-40. Painful range of motion. Full motion of hip. No pain. No impingement. No instability. Contralateral leg has normal alignment. Full motion. No pain. No impingement. No instability. IMAGING: Plain film radiographs were reviewed. He has a right total knee arthroplasty in place with long stemmed revision tibial component with a medial augment, calcifications in the popliteal artery - will refer to Dr. Melton for further evaluation. IMPRESSION: 1.) Arthrofibrosis, right TKA. 2.) History of right TKA by Dr. Alexis on 11/05/22 with subsequent manipulation on 11/01/22. 3.) Diabetes. PLAN: I reviewed my findings with [employer]. We discussed the diagnosis, radiographs, physical exam findings and treatment options. We discussed the various reasons for prosthetic pain including prosthetic loosening vrs prosthetic cement debonding vrs prosthetic instability vrs prosthetic infection. We then discussed his complex history, reasonable expectations of performance and ROM following revision and treatment options. At this time, he is weary of his symptoms and desires to start the scheduling process for a right total revision arthroplasty. We have discussed in great detail the nature of the diagnosis, the natural history and expected progression which is likely worsening pain, worsening instability with risks of falls, and potentially additional joint and or bone wear. We have discussed the options for treatment including both conservative and operative treatments. We have discussed the risks, benefits, and alternatives to each treatment. Manpreet understands that the potential benefits are reduced pain, improved stability and improved function. Manpreet understands the complex nature of revision surgery and that the elevated major life or limb threatening risks that include, but are not limited to: bleeding, infection, neurovascular injury including foot drop or paralysis, dislocation, component failure, implant loosening, ligament or tendon disruption, fracture, stiffness, chronic pain, chronic disability, need for further surgery, blood clots in the extremities or lungs, stroke, heart attack, loss of limb, and ultimately loss of life. In particular the patient understands the increased and major risks of revision surgery such as rafat-prosthetic fracture, infection, component failure or loosening, nerve injury, blood vessel injury, loss of leg or life. He understands revision surgery may take longer and may require more extensive exposure and potentially osteotomies and that this may lead to additional morbidity or mortality. Despite these risks, the patient would like to proceed with surgical planning for revision right total knee replacement. Today, we will initiate the pre-surgical process including nasal MRSA screening, scheduling an appointment for [facility] and the potential surgical date, and reviewing and signing the consent forms. ESR/CRP labs were also ordered today - pending results, may consider aspiration. Referral to Dr. Melton was also made for a presurgical vascular workup, popliteal calcifications as noted on radiographs. I have reviewed the findings of my clinical staff below and agree with their assessment. Vitals: 12/30/22 1522 Weight: 84.8 kg (187 lb) Height: 1.778 m (5' 10 ) Pain Presence of Pain: complains of pain/discomfort Pain Location: knee, right Select Pain Scale: DVPRS (Defense and Veterans Pain Rating Scale) (Adult-Cognitively Intact) Pain Location: knee, right Select Pain Scale: DVPRS (Defense and Veterans Pain Rating Scale) (Adult-Cognitively Intact) Recent Labs No results found for: CRP No results found for: SEDRATE No results found for: WBC , WBCCOUNT , WBCFETAL , HGB , HCT , PLATELET , MCV Past Medical History: Diagnosis Date Diabetes mellitus Essential hypertension, benign Hyperlipidemia Past Surgical History: Procedure Laterality Date ARTHROPLASTY KNEE TOTAL Right 08/04/2022 HEART SURGERY 2019 quadruple APPENDECTOMY VASECTOMY History reviewed. No pertinent family history. Social History Socioeconomic History Marital status: Tobacco Use Smoking status: Former Types: Cigarettes Smokeless tobacco: Former Tobacco comments: Quit 40 years ago Substance and Sexual Activity Drug use: Never Current Outpatient Medications: Aspirin [address] tablet, Take 1 tablet by mouth daily., Disp: , Rfl: atorvastatin 80 MG tablet, TAKE 1 TABLET (80 MG TOTAL) BY MOUTH IN THE MORNING, Disp: , Rfl: Coenzyme Q10 (Co Q-10) 200 MG capsule, Take by mouth., Disp: , Rfl: Gabapentin 300 MG capsule, Take 1 capsule by mouth daily., Disp: , Rfl: Insulin Degludec (Tresiba FlexTouch) 100 UNIT/ML Solution Pen-injector injection, INJECT 29 UNITS DAILY SUBCUTANEOUSLY 90 for 90 days, Disp: , Rfl: Lisinopril 2.5 MG tablet, Take 1 tablet by mouth daily., Disp: , Rfl: Metoprolol succinate 50 MG tablet XL, Take 1 tablet by mouth Twice daily., Disp: , Rfl: Multiple Vitamin (multivitamin) tablet, Take 1 tablet by mouth daily., Disp: , Rfl: NovoLOG FlexPen 100 UNIT/ML Solution Pen-injector injection, INJECT 11 UNITS AT BREAKFAST, 8 UNITS AT LUNCH, 11 UNITS WITH DINNER AND 2-3 UNITS WITH SNACKS, Disp: , Rfl: No Known Allergies documented in this encounter [facility] 05-05-2022 Evaluation note Encounter Date Diagnosis Assessment Notes Apr, Spondylosis of lumbar region without myelopathy or radiculopathy (ICD-10 - M47.816) I independently reviewed the MRI of the lumbar spine and the report. This gentleman has degenerative disc disease at L4-5 and L5-S1, he has a narrow foramen on the right at L4-5. This would cause specifically an L4 radiculopathy which he is not complaining about. He has no evidence of compression of the S1 nerve roots which he is complaining about with difficulty with the back of his leg. This is not a radiculopathy it is not coming from his back. Surgery is not recommended nor do I recommend pain management. After meals he has very little back difficulty, in general it is really more his feet. I think the Gabapentin represents his best option. I advised the patient I will give him one prescription only, but any refills after this will have to be handled by his Primary care physician. The patient and his voiced understanding of this. 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 It gets very bad at night, he does not get a complete night sleep. This mostly represents diabetic neuropathy. He only takes 100 mg of Gabapentin at bedtime. I would recommend he increase that dose to either 300 mg p.o. at at bedtime or even 600mg if needed at bedtime. If those doses work I would recommend his family doctor continue with the follow-up and refill. He does not have Radiculopathy. Apr, Coronary artery disease involving [place] heart without angina pectoris, unspecified vessel or lesion type (ICD-10 - I25.10) This patient has had a coronary artery bypass; at this point he is asymptomatic with regard to angina or other vascular issue such as Vascular claudication in the legs [employer] Other evaluation noteNo assessment information available [facility] Work Phone: Evaluation note* Diagnosis Pain in prosthetic joint, sequela- Primary [facility] Diagnosis Pre-op testing- Primary Preoperative examination, unspecified Abnormal finding of blood chemistry, unspecified Abnormal coagulation profile 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, initial encounter [facility]* Diagnosis Wellness examination- Primary Diabetic polyneuropathy associated with type 2 diabetes mellitus (CMS/HCC) Neurologic disorder associated with diabetes mellitus (CMS/HCC) Coronary artery disease involving [place] coronary artery of [place] heart without angina pectoris (CMS/HCC) Essential hypertension (CMS/HCC) Unspecified essential hypertension S/P CABG x 4 Postsurgical aortocoronary bypass status Pure hypercholesterolemia (CMS/HCC) Pure hypercholesterolemia Prostate cancer screening Special screening for malignant neoplasm of prostate Encounter for immunization Arthritis of right knee Psoriasis (CMS/HCC) Other psoriasis Hx of myocardial infarction (CMS/HCC) Type 2 diabetes mellitus with other circulatory complications (CMS/HCC) Controlled type 2 diabetes mellitus without complication, with long-term current use of insulin (CMS/HCC) Failure of total knee replacement, sequela Wellness examination- Primary Prostate cancer screening Special screening for malignant neoplasm of prostate Diabetic polyneuropathy associated with type 2 diabetes mellitus (CMS/HCC) Coronary artery disease involving [place] coronary artery of [place] heart without angina pectoris (CMS/HCC) Essential hypertension (CMS/HCC) Unspecified essential hypertension Primary hypertension (CMS/HCC) Unspecified essential hypertension Mixed hyperlipidemia (CMS/HCC) Mixed hyperlipidemia Acute diverticulitis Adrenal nodule (CMS/HCC) 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 [facility] Diagnosis Wellness examination- Primary Diabetic polyneuropathy associated with type 2 diabetes mellitus (CMS/HCC) Neurologic disorder associated with diabetes mellitus (CMS/HCC) Coronary artery disease involving [place] coronary artery of [place] heart without angina pectoris (CMS/HCC) Essential hypertension (CMS/HCC) Unspecified essential hypertension S/P CABG x 4 Postsurgical aortocoronary bypass status Pure hypercholesterolemia (CMS/HCC) Pure hypercholesterolemia Prostate cancer screening Special screening for malignant neoplasm of prostate Encounter for immunization Arthritis of right knee Psoriasis (CMS/HCC) Other psoriasis Hx of myocardial infarction (CMS/HCC) Type 2 diabetes mellitus with other circulatory complications (CMS/HCC) Controlled type 2 diabetes mellitus without complication, with long-term current use of insulin (CMS/HCC) Failure of total knee replacement, sequela Wellness examination- Primary Prostate cancer screening Special screening for malignant neoplasm of prostate Diabetic polyneuropathy associated with type 2 diabetes mellitus (CMS/HCC) Coronary artery disease involving [place] coronary artery of [place] heart without angina pectoris (CMS/HCC) Essential hypertension (CMS/HCC) Unspecified essential hypertension Primary hypertension (CMS/HCC) Unspecified essential hypertension Mixed hyperlipidemia (CMS/HCC) Mixed hyperlipidemia Acute diverticulitis Adrenal nodule (CMS/HCC) 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 Primary hypertension (CMS/HCC) Unspecified essential hypertension [facility] Diagnosis Type 2 diabetes mellitus with other circulatory complications (CMS/HCC) [facility] Diagnosis Controlled type 2 diabetes mellitus without complication, with long-term current use of insulin (CMS/HCC) [facility]* Diagnosis Primary hypertension (CMS/HCC)- Primary Unspecified essential hypertension [facility] Diagnosis Wellness examination- Primary Diabetic polyneuropathy associated with type 2 diabetes mellitus (CMS/HCC) Neurologic disorder associated with diabetes mellitus (CMS/HCC) Coronary artery disease involving [place] coronary artery of [place] heart without angina pectoris (CMS/HCC) Essential hypertension (CMS/HCC) Unspecified essential hypertension S/P CABG x 4 Postsurgical aortocoronary bypass status Pure hypercholesterolemia (CMS/HCC) Pure hypercholesterolemia Prostate cancer screening Special screening for malignant neoplasm of prostate Encounter for immunization Arthritis of right knee Psoriasis (CMS/HCC) Other psoriasis Hx of myocardial infarction (CMS/HCC) Type 2 diabetes mellitus with other circulatory complications (CMS/HCC) Controlled type 2 diabetes mellitus without complication, with long-term current use of insulin (CMS/HCC) Failure of total knee replacement, sequela Wellness examination- Primary Prostate cancer screening Special screening for malignant neoplasm of prostate Diabetic polyneuropathy associated with type 2 diabetes mellitus (CMS/HCC) Coronary artery disease involving [place] coronary artery of [place] heart without angina pectoris (CMS/HCC) Essential hypertension (CMS/HCC) Unspecified essential hypertension Primary hypertension (CMS/HCC) Unspecified essential hypertension Mixed hyperlipidemia (CMS/HCC) Mixed hyperlipidemia Acute diverticulitis Adrenal nodule (CMS/HCC) 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 Type 2 diabetes mellitus with diabetic polyneuropathy (CMS/HCC) documented in this encounter [facility]* Diagnosis Wellness examination- Primary Diabetic polyneuropathy associated with type 2 diabetes mellitus (CMS/HCC) Neurologic disorder associated with diabetes mellitus (CMS/HCC) Coronary artery disease involving [place] coronary artery of [place] heart without angina pectoris (CMS/HCC) Essential hypertension (CMS/HCC) Unspecified essential hypertension S/P CABG x 4 Postsurgical aortocoronary bypass status Pure hypercholesterolemia (CMS/HCC) Pure hypercholesterolemia Prostate cancer screening Special screening for malignant neoplasm of prostate Encounter for immunization Arthritis of right knee Psoriasis (CMS/HCC) Other psoriasis Hx of myocardial infarction (CMS/HCC) Type 2 diabetes mellitus with other circulatory complications (CMS/HCC) Controlled type 2 diabetes mellitus without complication, with long-term current use of insulin (CMS/HCC) Failure of total knee replacement, sequela Wellness examination- Primary Prostate cancer screening Special screening for malignant neoplasm of prostate Diabetic polyneuropathy associated with type 2 diabetes mellitus (CMS/HCC) Coronary artery disease involving [place] coronary artery of [place] heart without angina pectoris (CMS/HCC) Essential hypertension (CMS/HCC) Unspecified essential hypertension Primary hypertension (CMS/HCC) Unspecified essential hypertension Mixed hyperlipidemia (CMS/HCC) Mixed hyperlipidemia Acute diverticulitis Adrenal nodule (CMS/HCC) 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 Type 2 diabetes mellitus without complication, without long-term current use of insulin (CMS/HCC) documented in this encounter [facility]* Diagnosis Coronary artery disease involving coronary bypass graft of [place] heart without angina pectoris- Primary documented in this encounter [facility]* Diagnosis Wellness examination- Primary Diabetic polyneuropathy associated with type 2 diabetes mellitus (CMS/HCC) Neurologic disorder associated with diabetes mellitus (CMS/HCC) Coronary artery disease involving [place] coronary artery of [place] heart without angina pectoris (CMS/HCC) Essential hypertension (CMS/HCC) Unspecified essential hypertension S/P CABG x 4 Postsurgical aortocoronary bypass status Pure hypercholesterolemia (CMS/HCC) Pure hypercholesterolemia Prostate cancer screening Special screening for malignant neoplasm of prostate Encounter for immunization Arthritis of right knee Psoriasis (CMS/HCC) Other psoriasis Hx of myocardial infarction (CMS/HCC) Type 2 diabetes mellitus with other circulatory complications (CMS/HCC) Controlled type 2 diabetes mellitus without complication, with long-term current use of insulin (CMS/HCC) Failure of total knee replacement, sequela Wellness examination- Primary Prostate cancer screening Special screening for malignant neoplasm of prostate Diabetic polyneuropathy associated with type 2 diabetes mellitus (CMS/HCC) Coronary artery disease involving [place] coronary artery of [place] heart without angina pectoris (CMS/HCC) Essential hypertension (CMS/HCC) Unspecified essential hypertension Primary hypertension (CMS/HCC) Unspecified essential hypertension Mixed hyperlipidemia (CMS/HCC) Mixed hyperlipidemia Acute diverticulitis Adrenal nodule (CMS/HCC) 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 (CMS/HCC) Controlled type 2 diabetes mellitus without complication, with long-term current use of insulin (CMS/HCC) documented in this encounter [facility]* Diagnosis Wellness examination- Primary Diabetic polyneuropathy associated with type 2 diabetes mellitus (CMS/HCC) Neurologic disorder associated with diabetes mellitus (CMS/HCC) Coronary artery disease involving [place] coronary artery of [place] heart without angina pectoris (CMS/HCC) Essential hypertension (CMS/HCC) Unspecified essential hypertension S/P CABG x 4 Postsurgical aortocoronary bypass status Pure hypercholesterolemia (CMS/HCC) Pure hypercholesterolemia Prostate cancer screening Special screening for malignant neoplasm of prostate Encounter for immunization Arthritis of right knee Psoriasis Other psoriasis Hx of myocardial infarction (CMS/HCC) Type 2 diabetes mellitus with other circulatory complications Controlled type 2 diabetes mellitus without complication, with long-term current use of insulin Failure of total knee replacement, sequela Wellness examination- Primary Prostate cancer screening Special screening for malignant neoplasm of prostate Diabetic polyneuropathy associated with type 2 diabetes mellitus (CMS/HCC) Coronary artery disease involving [place] coronary artery of [place] heart without angina pectoris (CMS/HCC) Essential hypertension (CMS/HCC) Unspecified essential hypertension Primary hypertension (CMS/HCC) Unspecified essential hypertension Mixed hyperlipidemia (CMS/HCC) Mixed hyperlipidemia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
[2025-01-19 13:55] VITALS: BP 124/60; PULSE 62; TEMP 36.6; O2SAT 96; BMI 61.9
--- NOTE | 2025-01-19 14:20 | XR_ITS ---
The [address] [address] Patient Name: MANPREET RAMOS MRN: [id number] date: 1955 Sex: M Assigned Patient Location: ER Current Patient Location: ER Accession/Order Number: [id number] Exam Date: 01/19/2025 14:42 Report Date: 01/19/2025 15:00 At the request of: BETY VINCENT Procedure: XR hand LT min 3V LEFT HAND - 3 views REASON FOR EXAM: Laceration second digit. COMPARISON: None FINDINGS: No radiopaque foreign body. No acute bony process. Mild scattered degenerative changes most prominent involving the IP joints. No bony erosions. XR/XR hand LT min 3V IMPRESSION: DEGENERATIVE CHANGES INVOLVING THE LEFT HAND WITHOUT ACUTE BONY PROCESS OR RADIOPAQUE FOREIGN BODY. Impression dictated by: Alfred Cervantes Jr., D.O. 01/19/2025 3:00 PM Dictation Location: [place] [address] Electronically authenticated by: [id number] Date: 01/19/2025 15:00
--- NOTE | 2025-01-19 14:25 | ED_ITS ---
HPI HPI - General Adult General Chief complaint: Skin/Abscess/Foreign Body Stated complaint: LACERATION L HAND Time Seen by Provider: 01/19/25 14:12 Source: patient Mode of arrival: walk-in History of Present Illness HPI narrative: Patient is a 69-year-old male with a PMH of insulin-dependent diabetic and HTN that presents with complaints of laceration to his left hand. He states this morning he was skinning a deer and the knife ended up slipping and cutting the dorsum of his left hand around the second MCP joint. He ended up taking care of the deer and then presented to urgent care who apparently was concerned at the appearance of the knuckle. 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 He is able to actively extend the second digit at the MCP, PIP, and DIP joints. He is unsure if he is up-to-date on his tetanus immunization. He is right-handed. Related Data Home Medications ?Medication ?Instructions ?Recorded ?Confirmed apremilast 30 mg tablet (Otezla) 30 mg PO BID 01/19/25 01/19/25 atorvastatin 80 mg tablet mg 01/19/25 ezetimibe 10 mg tablet mg 01/19/25 gabapentin 300 mg capsule mg 01/19/25 insulin aspart U-100 100 unit/mL 27 unit subcut TID 01/19/25 (3 mL) subcutaneous pen (Novolog FlexPen U-100 Insulin aspart) insulin degludec 100 unit/mL (3 32 unit subcut DAILY 1 01/19/25 mL) subcutaneous pen (Tresiba FlexTouch U-100 insulin) lisinopril 2.5 mg tablet mg 01/19/25 metoprolol succinate 50 mg mg PO 01/19/25 tablet,extended release 24 hr Previous Rx's ?Medication ?Instructions ?Recorded cephalexin 500 mg capsule 500 mg PO TID 7 days #21 cap s 01/19/25 Allergies Allergy/AdvReac Type Severity Reaction Status Date / Time No Known Drug Allergies Allergy Verified 01/19/25 14:00 Opioid HPI Opioid Management Most Recent Opioid Data: Last Pain Scale 2 Today, 14:01 Last ED Pain Assessment Today, 14:01 Review of Systems ROS Status of ROS 10 or more systems reviewed and unremark able except as noted in history and below PFSH PFSH Social History Little interest or pleasure in doing things: not at all Feeling down, depressed, or hopeless: not at all Exam Narrative Exam Narrative: General: No distress, age-appropriate Skin: Warm, dry, no pallor. No rash. 1 cm laceration to the left hand, dorsal aspect just proximal to the MCP joint. Head: Normocephalic, atraumatic. Neck: Supple, non-tender. Eye: Pupils are equal, round and EOMI. No scleral icterus. Ears, Nose, Mouth, and Throat: No nasal mucosal hypertrophy. Oral mucosa is moist, no posterior oropharynx erythema, uvula is mid-line Cardiovascular: Regular Rate and Rhythm without murmur, gallop or rub. Respiratory: No accessory muscle use or respiratory distress. Lungs are clear to auscultation, no wheezing, rales or rhonchi Chest Wall: no tenderness Back: No midline thoracic or lumbar vertebral tenderness. Musculoskeletal: Full ROM of all extremities, no calf or popliteal tenderness. Full extension of all fingers of the left hand, more specifically the left second digit has full extension at the MCP, PIP, and DIP joints. GI: Abdomen is soft, non-distended, non tender to palpation. No masses appreciated. No rebound, guarding, or rigidity noted. Neurological: A&O x4. No cranial nerve dysfunction observed. No truncal ataxia. Moves all extremities. Sensation intact. Psychiatric: Cooperative and interactive. Normal mood and affect. Constitutional Vital Signs, click to edit/add: Last Vital Signs Temp 97.9 F 01/19/25 13:55 Pulse 62 01/19/25 13:55 Resp 16 01/19/25 13:55 BP 124/60 01/19/25 13:55 Pulse Ox 96 01/19/25 13:55 O2 Del Method Room Air 01/19/25 13:55 Documenting provider has reviewed patient's vital signs: yes Course Vital Signs Vital signs: Vital Signs Temperature 97.9 F 01/19/25 13:55 Pulse Rate 62 01/19/25 13:55 Respiratory Rate 16 01/19/25 13:55 Blood Pressure 124/60 01/19/25 13:55 Pulse Oximetry 96 01/19/25 13:55 Oxygen Delivery Method Room Air 01/19/25 13:55 Temperature 97.9 F 10/10/25 13:55 Pulse Rate 62 01/19/25 13:55 Respiratory Rate 16 01/19/25 13:55 Blood Pressure 124/60 01/19/25 13:55 Pulse Oximetry 96 01/19/25 13:55 Oxygen Delivery Method Room Air 01/19/25 13:55 Medical Decision Making MDM Narrative Medical decision making narrative: This is a 69-year-old male that presented to the emergency department with complaints of laceration to the left hand after his knife slipped while he was trying to skin a deer earlier this morning. He had presented to urgent care first, they referred him here. His tetanus status is unknown. On arrival patient is in no distress, vitals are stable. Patient is afebrile temperature is 97.9. The wound is on the dorsum of his hand just proximal to the MCP joint of the second digit. The wound is hemostatic. I am unable to visualize any tendon involvement. He does have full extension of this finger at the MCP, PIP, and DIP joints. X-ray left hand ordered to rule out fracture or foreign bodies. Tetanus will be updated and was ordered. X-ray left hand negative for fracture. There appears to be a radiopaque linear object just distal to the MCP joint on my review. X-ray was originally read by radiologist as negative for radiopaque object. We did discuss this with him and addendum was placed stating there is a linear radiopaque density projecting over the base of the proximal phalanx of the second digit measuring 3.5 mm in greatest dimension. It is difficult to say with certainty whether this is within the soft tissues or bone. A small radiopaque foreign body cannot BE excluded. Wound was able to be fully visualized and this linear object is not visualized. 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 Wound was irrigated and closed with 4 Prolene 4-[address] patient on Keflex 500 mg 3 times daily x 7 days. I also placed him in a finger splint and slight MCP flexion to promote healing under tension and discourage dehiscence. I discussed wound care with patient and his as well as return precautions to include fever, night sweats, chills, purulent drainage, uncontrolled pain, etc. Patient was discharged and plan is to follow-up with orthopedics Wednesday or Wednesday for wound recheck. They will need to call for appointment first thing Jamal morning. He is established with Dr. Alexis and we will call him first, I did give him Dr. Callahan's with [facility] orthopedics number if needed. Sutures will be removed in 10 to 14 days. Differential Diagnosis Differential Diagnosis: Tendon laceration, joint infection, metacarpal fracture Imaging Data X-ray left hand: Attestation: I have reviewed the pertinent imaging results. Radiologist's impression: ITS Impressions Hand X-Ray 01/19/25 14:20 IMPRESSION: DEGENERATIVE CHANGES INVOLVING THE LEFT HAND WITHOUT ACUTE BONY PROCESS OR RADIOPAQUE FOREIGN BODY. Impression dictated by: Alfred Cervantes Jr., D.O. 01/19/2025 3:00 PM Dictation Location: [facility] Electronically authenticated by: [id number] Y Date: 01/19/2025 15:00 ADDENDUM: 01/19/25 1522 IMPRESSION: DEGENERATIVE CHANGES INVOLVING THE LEFT HAND WITHOUT ACUTE BONY PROCESS OR RADIOPAQUE FOREIGN BODY. Impression dictated by: Alfred Cervantes Jr., D.O. 01/19/2025 3:00 PM Dictation Location: [facility] Electronically authenticated by: [id number] Y Date: 01/19/2025 15:00 Discharge Plan Discharge Chief Complaint: Skin/Abscess/Foreign Body Clinical Impression: Hand laceration Qualifiers: Encounter type: initial encounter Foreign body presence: without foreign body Laterality: left Qualified Code(s): S61.412A - Laceration without foreign body of left hand, initial encounter Patient Disposition: Home, Self-Care Time of Disposition Decision: 16:14 Condition: Good Mode of Transportation: Private Vehicle Prescriptions / Home Meds: New cephalexin 500 mg capsule 500 mg PO TID 7 Days Qty: 21 0RF No Action insulin aspart U-100 [Novolog FlexPen U-100 Insulin] 100 unit/mL (3 mL) insulin pen 27 unit subcut TID atorvastatin 80 mg tablet metoprolol succinate 50 mg tablet extended release 24 hr PO gabapentin 300 mg capsule lisinopril 2.5 mg tablet ezetimibe 10 mg tablet insulin degludec [Tresiba FlexTouch U-100] 100 unit/mL (3 mL) insulin pen 32 unit subcut DAILY Otezla 30 mg tablet 30 mg PO BID Print Language: Italian Instructions: Laceration (ED) Additional Instructions: Wear finger splint and avoid bending your finger as much as possible to reduce chance that wound will reopen. Do this until follow-up with orthopedics and you are told otherwise. Do not submerge your wound in water. You may wash it gently with regular soap and water daily. Change dressing daily or as needed, monitor for signs and symptoms of infection. Return to the ER or call the orthopedic surgeon if you experience any signs/symptoms of infection at the wound or fever, night sweats, or chills. Take all your antibiotics to completion as directed. Sutures will need removed in 10-14 days, or as directed by the orthopedic surgeon. Referrals: Abel Alexis DO [Physician] - As soon as possible Referral Note: call for appointment for Wed or . JUAN CARLOS BATRES [Primary Care Provider, Family Practice] - 1 week Nic Callahan DO [Physician, Orthopedics] - As soon as possible Discharge Date/Time: 01/19/25 16:50 Procedures Laceration Laceration Laceration 1: Site: hand Side (if applicable): left Size (cm): 1 Description: linear Depth: simple, single layer Anesthetic used: lidocaine 1% Anesthesia technique: local infiltration Amount (ml): 2 Pre-repair: wound explored and irrigated extensively Skin layer closed with: other (Prolene) Size (cm): 4-0 Number of sutures: 4 Technique: simple, interrupted
[2025-01-19] MEDS: LIDOCAINE HCL 1% 100 MG/10 ML MDV INJ (14:37)
[2025-01-19] MEDS: DIPHTH,PERTUSS(ACELL),TET VAC 0.5 ML SYRINGE IM (16:42)
[2025-01-19 16:47] VITALS: BP 137/71; PULSE 67; O2SAT 98
== END 2025-01-19 16:50 | disposition home or self-care (01) ==
PROVIDERS: Emergency Provider Emergency Medicine; PCP Family Medicine
DX: S61.412A Laceration without foreign body of left hand, initial encounter (principal); W26.0XXA Contact with knife, initial encounter; Z23 Encounter for immunization; E11.9 Type 2 diabetes mellitus without complications; Z79.4 Long term (current) use of insulin; I10 Essential (primary) hypertension
CPT/HCPCS: 12001; 73130; 90471; 90715; 99284